=== PATIENT | female | born 1955 | race Caucasian/White ===

== ENCOUNTER 2018-02-11 13:31 | Emergency (ER) | END 2018-02-11 21:37 | disposition home or self-care (01) ==

== ENCOUNTER 2018-02-17 10:33 | Inpatient (IN) | payer OTHER ==
[2018-02-17] VITALS (41 sets, daily range): BP systolic 77–122; BP diastolic 46–84; PULSE 72–93; RESP 19–39; Ht 160 cm; Wt 81.0 kg
[~2018-02-17] VITALS: Ht 160 cm; Wt 81.0 kg
[~2018-02-17 10:33] MED LIST: ACET-141 PO; CEPH-443 PO; ETOMIDATE 20 MG INJ ONE; HYDR5TAB PO; NAPR-985 PO; SUCCINYLCHOLINE CHLORIDE 100 MG/5 ML SYG IV ONE; [UNRECOGNIZED DRUG - OTHER] PO
[2018-02-17] MEDS ORDERED: AZTREONAM 1 GM/NS (PMX) 50 ML IVPB STA (10:48)
[2018-02-17] MEDS ORDERED: SODIUM CHLORIDE 0.9% 1L BAG IV* STA (10:48)
[2018-02-17] MEDS ORDERED: VANCOMYCIN 1 GM (PMX) 250 ML IVPB ONE (11:00)
[2018-02-17] MEDS ORDERED: LEVALBUTEROL (NEB) 1.25 MG/0.5 ML AMP INH STA (11:22)
[2018-02-17] MEDS ORDERED: IPRATROPIUM (NEB) 0.5 MG/2.5 ML AMP INH STA (11:22)
[2018-02-17] MEDS ORDERED: LORAZEPAM 2 MG INJ IV ONE (12:30)
[2018-02-17] MEDS ORDERED: NORepinephrine 8MG/250 ML (PMX 250 ML IV STA (12:48)
[2018-02-17] MEDS ORDERED: MIDAZOLAM (DRIP) 50 mg/50 mL 50 ML IV STA (12:48)
[2018-02-17] MEDS ORDERED: SUCCINYLCHOLINE CHLORIDE 100 MG/5 ML SYG IV STA (12:48)
[2018-02-17] MEDS ORDERED: HYDROmorphONE 1 MG/ML SYG IV STA (12:48)
[2018-02-17] MEDS ORDERED: ETOMIDATE 20 MG INJ IV STA (12:48)
[2018-02-17] MEDS ORDERED: MIDAZOLAM 5 MG/ML 1 ML ONE (13:02)
--- NOTE | 2018-02-17 13:10 | HP ---
Date/Time of Note Date/Time of Note DATE: 02/17/18 TIME: 13:01 Assessment/Plan VTE Prophylaxis SCD applied (from Ns): Yes Pharmacological prophylaxis: NA/contraindicated Pharm contraindication: renal impairment Lines/Catheters IV [facility]from [facility] Saline Lock Assessment/Plan Hospital Course 1. Acute hypoxemic respiratory failure secondary to likely ARDS Etiology of ARDS may be secondary to underlying melanoma and/or immune modulating therapy and/or underlying infection Pulmonology consultation for vent management Broad-spectrum antibiotics Admit to ICU 2. Acute kidney injury secondary to sepsis and/or dehydration IV fluids 3. Normocytic anemia likely secondary to chronic disease from underlying malignancy Monitor 4. Stage IV melanoma Patient is on immune modulating therapy in [place] where she is from Prophylaxis: SCDs Result Diagram: 02/17/18 1108 02/17/18 1108 Results 24hrs Laboratory Tests Test 02/17/18 11:08 02/17/18 11:15 White Blood Count 8.6 # Red Blood Count 2.80 L Hemoglobin 9.0 L Hematocrit 27.8 L Mean Corpuscular Volume 99.3 Mean Corpuscular Hemoglobin 32.1 Mean Corpuscular Hemoglobin Concent 32.4 Red Cell Distribution Width 14.1 Platelet Count 125 #L Mean Platelet Volume 10.9 H Immature Granulocytes % 0.500 H Neutrophils % 60.7 Lymphocytes % 24.6 Monocytes % 11.8 H Eosinophils % 2.2 Basophils % 0.2 Nucleated Red Blood Cells % 0.2 H Immature Granulocytes # 0.040 H Neutrophils # 5.2 Lymphocytes # 2.1 Monocytes # 1.0 H Eosinophils # 0.2 Basophils # 0.0 Nucleated Red Blood Cells # 0.0 Prothrombin Time 14.0 Prothrombin Time Ratio 1.1 INR International Normalized Ratio 1.07 Activated Partial Thromboplast Time 37.4 H Sodium Level 137 Potassium Level 3.6 Chloride Level 101 Carbon Dioxide Level 24 Anion Gap 12 Blood Urea Nitrogen 20 Creatinine 1.02 H Est Glomerular Filtrat Rate mL/min 55 L Glucose Level 112 Calcium Level 7.7 L Total Bilirubin 0.2 Direct Bilirubin 0.00 Indirect Bilirubin 0.2 Aspartate Amino Transf (AST/SGOT) 33 Alanine Aminotransferase (ALT/SGPT) 19 Alkaline Phosphatase 209 H Troponin I < 0.012 Total Protein 5.7 L Albumin 3.0 L Globulin 2.70 Albumin/Globulin Ratio 1.11 POC Venous Lactate 4.1 *H HPI/ROS Admit Date/Time Admit Date/Time February 17, 2018 Hx of Present Illness Patient is a 62-year-old female with a history of stage IV melanoma currently on an experimental immune modulating chemotherapy. Patient lives in [place] and is visiting family. Patient was in the ER several days ago with fevers and low back pain and was diagnosed with a UTI and discharged with Keflex. Patient presents today with shortness of breath, chest x-ray showed bilateral opacities and patient was found to be hypoxic and tachypneic and was ultimately intubated in the ER. Patient is unable to provide any history at this time and history is obtained from prior documentation. ROS Subjective hx not possible: pt non-verbal PMH/Family/Social Past Medical History Stage IV melanoma currently on immune modulating therapy Medications Current Medications Midazolam HCl 50 ml @ 3 mls/hr ONCE STAT IV ; Start 02/17/18 at 12:48; Stop 02/18/18 at 05:27 Norepinephrine 250 ml @ 7.5 mls/hr ONCE STAT IV ; Start 02/17/18 at 12:48; Stop 02/18/18 at 22:07 Coded Allergies: Penicillins (Verified Allergy, Unknown, 02/17/18) Family History Significant Family History: no pertinent family hx Social History Smoking Status: Unknown if ever smoked Exam/Review of Systems Vital Signs Vitals Vital Signs Date Temp Pulse Resp B/P (MAP) Pulse Ox O2 O2 Flow FiO2 Time Delivery Rate 02/17/18 95 42 Simple 6.0 12:23 Mask 02/17/18 98 10:57 02/17/18 100 10:45 02/17/18 97.8 90/56 (67) 10:42 Exam Constitutional: non-verbal ENMT: intubated Respiratory: clear to auscultation Cardiovascular: regular rate and rhythm Gastrointestinal: soft; No distended Musculoskeletal: nl extremities to inspection JULY TRAMMELL Feb 17, 2018 13:10
[2018-02-17] MEDS ORDERED: ONDANSETRON 4 MG INJ IV PRN (13:30)
[2018-02-17] MEDS ORDERED: NACL 0.9% 3 ML SYG IV SCH (13:30)
[2018-02-17] MEDS ORDERED: MIDAZOLAM 1 MG/ML 5 ML INJ IV ONE (13:30)
[2018-02-17] MEDS ORDERED: METHYLPREDNISOLONE 125 MG INJ IV SCH (13:30)
[2018-02-17] MEDS ORDERED: VANCOMYCIN IV PER PHARMACY XX SCH (13:30)
--- NOTE | 2018-02-17 14:08 | ERD ---
ER Documentation Chief Complaint Chief Complaint sob staring today but has been flu like symptoms x 1 week HPI She is a 62-year-old female with melanoma who presents with shortness of breath. Please note the history and physical exam is limited secondary to the patient's mental status. The patient was brought in by ambulance. The patient had sudden onset of shortness of breath 3 days ago which has gotten worse. She had low bl ood pressure. She was given albuterol by paramedics. She was recently seen a few days ago and has been treated for UTI. She is currently on Keflex. She has fevers. She gets immunotherapy for her melanoma. Upon review of old medical records the patient had a previous visit on February 11. Her primary doctor is in [place] and she is visiting. ROS All systems reviewed and are negative except as per history of present illness. Medications Home Meds Active Scripts Cephalexin* (Keflex*) 500 Mg Capsule, 500 MG PO QID for 5 Days, CAP Prov:LUCIEN HORNER MD 02/11/18 Naproxen* (Naprosyn*) 500 Mg Tablet, 500 MG PO BID PRN for PAIN AND/OR INFLAMMATION, #30 TAB Prov:LUCIEN HORNER MD 02/11/18 Reported Medications [Cancer Meds] No Conflict Check, PO DAILY PATIENT TAKE MEDICATIONS FOR CANCER,BUT DON'T KNOW THE NAME AND DOSE. 02/11/18 Acetaminophen* (Acetaminophen*) 500 MG Extra Strength Tablet, 1000 MG PO NEEDED PRN for PAIN AND OR ELEVATED TEMP, TAB 02/11/18 Hydrocortisone* (Cortef*) 5 Mg Tab, 10 MG PO BID, #120 TAB 02/11/18 Allergies Allergies: Coded Allergies: Penicillins (Verified Allergy, Unknown, 02/17/18) PMhx/Soc History of Surgery: Yes (RT ARM SKINCANCER SX; RT AXILLARY LYMPH NODE REMOVAL, GALL BLADDER, THYROID) Anesthesia Reaction: No Hx Neurological Disorder: No Hx Respiratory Disorders: No Hx Cardiac Disorders: No Hx Psychiatric Problems: No Hx Miscellaneous Medical Probl: Yes (THYROID, SKIN CANCER) Hx Alcohol Use: No Hx Substance Use: No Hx Tobacco Use: No Smoking Status: Unknown if ever smoked FmHx Family History: No diabetes Physical Exam Vitals Vital Signs Date Temp Pulse Resp B/P (MAP) Pulse Ox O2 O2 Flow FiO2 Time Delivery Rate 02/17/18 97 35 87/53 (64) 95 Mask 6.0 12:30 02/17/18 95 42 Simple 6.0 12:23 Mask 02/17/18 91 29 91/72 (78) 90 Mask 8.0 12:00 02/17/18 108 41 97/81 (86) 80 Room Air 8.0 11:00 02/17/18 98 8.0 10:57 02/17/18 Nasal 2 10:54 Cannula 02/17/18 100 10:45 02/17/18 111 40 Simple 6.0 10:45 Mask 02/17/18 97.8 115 30 90/56 (67) 10:42 Physical Exam Const: Moderate distress Head: Atraumatic Eyes: Normal Conjunctiva ENT: Normal External Ears, Nose and Mouth. Neck: Full range of motion. No meningismus. Resp: Tachypnea and retractions with rhonchorous breath sounds Cardio: Tachycardic rate Abd: Soft, non tender, non distended. Normal bowel sounds Skin: No petechiae or rashes Back: No midline or flank tenderness Ext: No cyanosis, or edema Neur: Awake confused Result Diagram: 02/17/18 1108 02/17/18 1108 Results 24 hrs Laboratory Tests Test 02/17/18 11:05 02/17/18 11:08 02/17/18 11:15 02/17/18 13:24 Urine Color YELLOW Urine Clarity SLIGHTLY CLOUDY Urine pH 5.0 Urine Specific 1.027 [place] Urine Ketones NEGATIVE mg/dL Urine Nitrite NEGATIVE mg/dL Urine Bilirubin NEGATIVE mg/dL Urine Urobilinogen NEGATIVE mg/dL Urine Leukocyte NEGATIVE Jake/ul Esterase Urine Microscopic 5 /HPF RBC Urine Microscopic 1 /HPF WBC Urine Mucus FEW /HPF Urine Hemoglobin NEGATIVE mg/dL Urine Glucose NEGATIVE mg/dL Urine Total Protein 1+ mg/dl White Blood Count 8.6 10^3/ul Red Blood Count 2.80 10^6/ul Hemoglobin 9.0 g/dl Hematocrit 27.8 % Mean Corpuscular 99.3 fl Volume Mean Corpuscular 32.1 pg Hemoglobin Mean Corpuscular 32.4 g/dl Hemoglobin Concent Red Cell 14.1 % Distribution Width Platelet Count 125 10^3/UL Mean Platelet 10.9 fl Volume Immature 0.500 % Granulocytes % Neutrophils % 60.7 % Lymphocytes % 24.6 % Monocytes % 11.8 % Eosinophils % 2.2 % Basophils % 0.2 % Nucleated Red Blood 0.2 /100WBC Cells % Immature 0.040 10^3/ul Granulocytes # Neutrophils # 5.2 10^3/ul Lymphocytes # 2.1 10^3/ul Monocytes # 1.0 10^3/ul Eosinophils # 0.2 10^3/ul Basophils # 0.0 10^3/ul Nucleated Red Blood 0.0 10^3/ul Cells # Prothrombin Time 14.0 Sec Prothrombin Time 1.1 Ratio INR International 1.07 Normalized Ratio Activated 37.4 Sec Partial Thromboplas t Time Sodium Level 137 mmol/L Potassium Level 3.6 mmol/L Chloride Level 101 mmol/L Carbon Dioxide 24 mmol/L Level Anion Gap 12 Blood Urea Nitrogen 20 mg/dl Creatinine 1.02 mg/dl Est Glomerular 55 mL/min Filtrat Rate mL/min Glucose Level 112 mg/dl Calcium Level 7.7 mg/dl Total Bilirubin 0.2 mg/dl Direct Bilirubin 0.00 mg/dl Indirect Bilirubin 0.2 mg/dl Aspartate Amino 33 IU/L Transf (AST/SGOT) Alanine 19 IU/L Aminotransferase (A LT/SGPT) Alkaline 209 IU/L Phosphatase Troponin I < 0.012 ng/ml Total Protein 5.7 g/dl Albumin 3.0 g/dl Globulin 2.70 g/dl Albumin/Globulin 1.11 Ratio POC Venous Lactate 4.1 mmol/L Lactic Acid Level 4.2 mmol/L Test 02/17/18 13:27 POC Venous Lactate 3.5 mmol/L Current Medications Medications Dose Sig/Nayan Start Time Status Last (Trade) Ordered Route PRN Stop Time Admin Dose Reason Admin Sodium 2,180 ml BOLUS OVER 2 02/17/18 DC 02/17/18 Chloride HOURS STAT 10:48 02/17/18 11:21 (NS) IV* 10:50 Vancomycin 250 ml @ ONCE ONCE 02/17/18 DC 02/17/18 HCl 125 mls/hr IVPB 11:00 02/17/18 12:16 12:59 Aztreonam 50 ml @ ONCE STAT 02/17/18 DC 02/17/18 100 mls/hr IVPB 10:48 02/17/18 11:25 11:17 5 mg ONCE STAT 02/17/18 DC 02/17/18 Levalbuterol INH 11:22 02/17/18 12:16 (Xopenex 11:23 Neb) Ipratropium 1 mg ONCE STAT 02/17/18 DC 02/17/18 [place]ion INH 11:22 02/17/18 12:17 (Atrovent 11:23 0.02% (Neb)) Lorazepam 1 mg ONCE ONCE 02/17/18 DC 02/17/18 (Ativan) IV 12:30 02/17/18 12:15 12:31 150 mg ONCE STAT 02/17/18 DC 02/17/18 Succinylcholi IV 12:48 02/17/18 12:51 ne Chloride 12:49 (Anectine Syringe) Etomidate 20 mg ONCE STAT 02/17/18 DC 02/17/18 (Amidate) IV 12:48 02/17/18 12:51 12:49 1 mg ONCE STAT 02/17/18 DC 02/17/18 Hydromorphone IV 12:48 02/17/18 13:37 HCl 12:49 (Dilaudid) Midazolam 50 ml @ 3 ONCE STAT 02/17/18 02/17/18 HCl mls/hr IV 12:48 02/18/18 13:08 05:27 250 ml @ ONCE STAT 02/17/18 02/17/18 Norepinephrin 7.5 mls/hr IV 12:48 02/18/18 13:38 e 22:07 Midazolam 5 mg ONCE ONCE 02/17/18 DC 02/17/18 HCl IV 13:30 02/17/18 13:38 (Versed) 13:31 Midazolam 1 ml @ ud STK-MED 02/17/18 DC HCl ONCE .ROUTE 13:02 02/17/18 13:03 Sodium 1,000 ml @ Q20H IV 02/17/18 UNV Chloride 50 mls/hr 13:11 IV Flush 3 ml PER 02/17/18 UNV (NS 3 ml) PROTOCOL IV 13:30 Ondansetron 4 mg Q6H PRN 02/17/18 UNV HCl (Zofran IV NAUSEA 13:30 Inj) AND/OR VOMITING 650 mg Q6H PRN 02/17/18 UNV Acetaminophen PO PAIN 13:30 (Tylenol LEVEL 1-3 OR Tab) FEVER 1 tab Q6H PRN 02/17/18 UNV Acetaminophen PO MODERATE 13:30 / PAIN LEVEL Hydrocodone 4-6 Bitart ([place] (5/325)) Morphine 2 mg Q4H PRN 02/17/18 UNV Sulfate IV SEVERE 13:30 (morphine) PAIN LEVEL 7-10 Docusate 100 mg Q12H PRN 02/17/18 UNV Sodium PO 13:30 (Colace) CONSTIPATION 40 mg DAILY@06 02/18/18 UNV Pantoprazole IV 06:00 (Protonix Iv) Vancomycin VANCOMYCIN PER 02/17/18 UNV HCl (Vanco PER PHARMACY PROTOCOL XX 13:30 Iv Per Pharmacy) Aztreonam 50 ml @ Q12 IVPB 02/17/18 UNV 100 mls/hr 21:00 80 mg Q6 IV 02/17/18 UNV Methylprednis 13:30 olone Sodium Succinate (Solu-Medrol) Procedures/MDM EKG read by me: Rate/Rhythm: Sinus tachycardia Intervals: Normal Impression: Tachycardia without ischemia Chest x-ray shows bilateral infiltrates per radiology. Endotracheal Intubation by me: Pre assessment performed. Pre-oxygenation performed with 100% oxygen RSI: Performed w/o complication or hypoxic events. Medications as ordered. Blade: MAC 4 video laryngoscope ET Tube: 7.5 cm Depth: 23 cm at the lip Intubation confirmed by colorimetric CO2, equal breath sounds, quiet over the stomach. Chest X-ray 1V Interpreted by me: 1 cm above the esther ET tube. Normal soft tissue, No pneumothorax. Sepsis Documentation: Patient's infectious symptoms have not stabilized and the patient is at risk of rapid decompensation. The patient will be admitted for careful hydration, antibiotic therapy, and infectious source control. SEVERE SEPSIS CRITERIA: Infectious source: Pneumonia End organ damage indicated by: Lactate greater than 2 SEPSIS MANAGEMENT Time of recognition of sepsis: 11:15 AM. Time of recognition of severe sepsis: 11:15 AM. Time of recognition of septic shock: 11:15 AM. 3 HOUR BUNDLE Blood cultures x 2 before broad-spectrum antibiotics: Yes 30 ml/kg NS bolus completed Initial lactate 4.1 Repeat lactate 3.5 SEPTIC SHOCK ASSESSMENT: yes lactic acid > 4.0 Yes persistent hypotension (SBP < 90 or 40 mmHg drop, MAP < 65) despite 30 mL/kg IV fluid bolus VOLUME REASSESSMENT FOR SEPTIC SHOCK: Reevaluation Time: 1330 Temp 97.8, BP 96/58, HR 88, RR 24, Pox 81% Heart regular rate & rhythm Lungs no crackles Skin pale Cap Refill less than 2 seconds Peripheral pulses radially present PERSISTENT HYPOTENSION TREATMENT: Comfort care no Central line right femoral central line Vasopressor started norepinephrine I considered further perfusion assessment with CVP measurement, SCVO2, bedside ultrasound volume assessment, passive leg raise, trial of further fluid bolus. And proceeded with 30 ml/kg fluid bolus of NSS, broad spectrum antibiotics, and admission. The patient will be admitted to the intensive care unit under the care of Dr. Concepcion. Vecuronium was ordered for paralysis as the patient was fighting an oxygenation was difficult. CRITICAL CARE Critical care time 35 minutes Emergent fluid management while maintaining close respiratory support. Provision of immediate and broad-spectrum antibiotic therapy. Simultaneous assessment for possible sources in order to direct targeted therapy. Consideration for invasive and chemical support to prevent cardiopulmonary c ollapse. Critical care time is independent of procedures performed. Departure Diagnosis: Primary Impression: Septic shock Additional Impressions: Pneumonia Pneumonia type: due to unspecified organism Laterality: bilateral Lung location: unspecified part of lung Qualified Codes: J18.9 - Pneumonia, unspecified organism Acute respiratory distress syndrome Respiratory failure Chronicity: acute Respiratory failure complication: hypoxia Qualified Codes: J96.01 - Acute respiratory failure with hypoxia Condition: Critical MCKAY MICHEL MD Feb 17, 2018 14:08
[2018-02-17] MEDS ORDERED: AZTREONAM 1 GM/NS (PMX) 50 ML IVPB SCH (15:00)
[2018-02-17] MEDS: SOD CHLORIDE 0.9% 1,000 ML IV SCH (15:33)
--- NOTE | 2018-02-17 15:53 | RADRPT ---
Echocardiogram Report Patient Name: BRENNA MEMBRENO Gender: Female Date: 1955 Study Date: 17-Feb-2018 Flexographic Press Set Up Operator: Gaston Oneal RCDS Location: [address] [place] [address] Ref. Physician: JULY TRAMMELL Quality: Technically Difficult Study Procedures: Transthoracic echocardiogram with complete 2D, M-Mode, and doppler examination. Indications: Congestive Heart Failure. 2D/M Mode Doppler Measurement Value Normal Ranges Measurement Value Normal Ranges LVIDd 2D 3.7 3.5 - 5.6 cm AV Peak Kaleb 1.1 m/sec LVIDs 2D 2.5 2.1 - 4.1 cm AV Peak PG 5.0 mmHg FS 2D 33.7 % LVOT Peak Kaleb 0.6 m/sec LVPWd 2D 1.0 0.6 - 1.1 cm LVOT Peak PG 2.0 mmHg IVSd 2D 1.0 0.6 - 1.1 cm MV E Peak Kaleb 0.7 m/sec IVS/LVPW 2D 1.0 MV A Peak Kaleb 0.4 m/sec AoR Diam 2D 2.6 2.0 - 3.7 cm MV E/A 1.5 LA/Ao 2D 1 0 - 1 MV Decel Time 127 msec EDV 2D 51.1 cm3 MV E/A 1.5 ESV 2D 14.9 cm3 TR Peak Kaleb 2.6 m/sec LA Dimen 2D 3.1 2.3 - 4.0 cm TR Peak PG 27.0 mmHg Findings Left Ventricle: Normal left ventricular systolic function. Normal left ventricular cavity size. Normal left ventricular wall thickness. Ejection fraction is visually estimated at 65 %. Right Ventricle: Normal right ventricular size. Normal right ventricular systolic function. Left Atrium: The left atrium is normal in size. Right Atrium: The right atrium is normal in size. Mitral Valve: Normal appearance of the mitral valve. Trace mitral regurgitation. Aortic Valve: Normal trileaflet aortic valve structure. No aortic regurgitation. Tricuspid Valve: Normal appearance of the tricuspid valve. There is trace tricuspid regurgitation. Pericardium: Not well visualized. Aorta: Normal aortic root. IVC: The IVC is not well visualized. Conclusions Technically difficult study. Normal left ventricular systolic function. Trace mitral and tricuspid regurgitation. Electronically Signed By: Opal Julian 17-Feb-2018 15:52:53 -0800 Patient Name: BRENNA MEMBRENO Study Date: 17-Feb-[id number]
[2018-02-17] MEDS: MIDAZOLAM (DRIP) 50 mg/50 mL 50 ML IV SCH ×2 (18:45→23:57)
[2018-02-17] MEDS: VANCOMYCIN 750 MG (PMX) 250 ML IVPB SCH (19:56)
[2018-02-17] MEDS: METHYLPREDNISOLONE 125 MG INJ IV SCH (21:47)
[2018-02-17] MEDS: AZTREONAM 1 GM/NS (PMX) 50 ML IVPB SCH (21:47)
[2018-02-17] MEDS: morphine SULFATE/PF (2 MG/2 ML) SYG IV PRN (23:43)
[2018-02-18] VITALS (100 sets, daily range): BP systolic 62–170; BP diastolic 41–101; PULSE 64–78; RESP 20–49
[2018-02-18] MEDS: METHYLPREDNISOLONE 125 MG INJ IV SCH ×4 (04:33→22:03)
[2018-02-18] MEDS: morphine SULFATE/PF (2 MG/2 ML) SYG IV PRN (05:18)
[2018-02-18] MEDS: AZTREONAM 1 GM/NS (PMX) 50 ML IVPB SCH ×3 (05:23→22:03)
[2018-02-18] MEDS: PANTOPRAZOLE 40 MG INJ IV SCH (05:26)
[2018-02-18] MEDS: MIDAZOLAM (DRIP) 50 mg/50 mL 50 ML IV SCH (06:49)
[2018-02-18] MEDS: VANCOMYCIN 750 MG (PMX) 250 ML IVPB SCH (07:59)
[2018-02-18] MEDS: SOD CHLORIDE 0.9% 1,000 ML IV SCH (07:59)
[2018-02-18] MEDS ORDERED: LIDOCAINE 1% (MPF) 5 ML VIAL SC ONE (09:30)
[2018-02-18] MEDS: PROPOFOL 100 ML IV SCH ×2 (09:42→18:00)
[2018-02-18] MEDS ORDERED: DEXTROSE 50% 50 ML SYRINGE IV PRN ×2 (10:30)
[2018-02-18] MEDS: INSULIN HUMAN REGULAR 100 UNIT in SOD CHLORIDE 0.9% 99 ML IV SCH ×3 (11:00→12:03)
[2018-02-18] MEDS: ACCU-CHEK XX SCH ×13 (11:00→22:43)
[2018-02-18] MEDS: FENTAnyl (DRIP) 1000 mcg/100mL 100 ML IV SCH (11:58)
--- NOTE | 2018-02-18 12:35 | CONS ---
DATE OF ADMISSION: 02/17/2018 DATE OF CONSULTATION: TYPE OF CONSULTATION: Pulmonary. REASON FOR CONSULTATION: Respiratory failure. Thank you, Dr. Concepcion, for this consultation. HISTORY OF PRESENT ILLNESS: This is a 62-year-old lady with a history of metastatic melanoma, nancy burr receiving immunotherapy, visiting from [place], recent presentation to the emergency room several days ago for abdominal discomfort, found to have UTI, treated with Keflex. Yesterday, she represent ed with increasing shortness of breath, orthopnea, PND and was found to have extensive bilateral infi ltrates consistent with ARDS. She was emergently intubated, central line in place, transferred to in tensive care unit, where she continues vasopressor support, mechanical ventilation with 100% FiO2 and PEEP of 10. PAST MEDICAL HISTORY: Metastatic melanoma with multiple surgeries including lymph node removal in th e right lung, history of asthma. MEDICATIONS: Per chart. ALLERGIES: PENICILLIN. SOCIAL HISTORY: Nonsmoker, no alcohol, no history of drug use. FAMILY HISTORY: Noncontributory. REVIEW OF SYSTEMS: A 12-point review of systems was negative other than that mentioned above. PHYSICAL EXAMINATION: GENERAL: Well-nourished, well-developed lady with some spontaneous movement on low dose sedation. VITAL SIGNS: Currently afebrile, pulse is 70, blood pressure 111/60, O2 saturation 96%, FiO2 of 100% , PEEP of 10. NECK: Supple. No JVD or lymphadenopathy. CARDIAC: S1, S2. No added sounds or murmurs. CHEST: Diminished air entry bilaterally with rales. ABDOMEN: Soft, nontender. No guarding or rebound. EXTREMITIES: No cyanosis, clubbing or edema. NEUROLOGIC: Grossly intact. No focal deficits. DIAGNOSTIC STUDIES: Echocardiogram shows preserved ejection fraction, trace tricuspid regurgitation. LABORATORY DATA: White count 12.9, hemoglobin 8.9, platelets of 126. BUN 16, creatinine 0.76. Init ial lactic acid was 3.5, now 1.9. IMPRESSION AND PLAN: 1. Acute hypoxemic respiratory failure consistent with acute respiratory distress syndrome, unclear whether this is secondary to community-acquired infection versus underlying immunotherapy versus unde rlying malignant process. 2. History of metastatic melanoma. 3. Recent urinary tract infection per chart. PLAN: 1. Continue mechanical ventilation. She will require low tidal volume, high PEEP strategy if tolera belia. 2. Continue antibiotics with steroids. 3. IV insulin for progressive hyperglycemia. 4. Left upper extremity PICC line placement. Dictated By: ABBIE ARAUZ MD SV/GENOVEVA Conf#: [id number] DID#: [id number] CC: JULY CONCEPCION MD;*EndCC*
--- NOTE | 2018-02-18 13:44 | PN ---
Date/Time of Note Date/Time of Note DATE: 02/18/18 TIME: 13:38 Assessment/Plan VTE Prophylaxis Risk score (from [facility])>0 risk: 10 SCD applied (from [facility]): Yes Pharmacological prophylaxis: NA/contraindicated Pharm contraindication: renal impairment Assessment/Plan Hospital Course 1. Acute hypoxemic respiratory failure secondary to ARDS Etiology of ARDS may be secondary to underlying melanoma and/or immune modulating therapy and/or underlying infection Pulmonology consultation for vent management Continue IV steroids Broad-spectrum antibiotics 2. Acute kidney injury secondary to sepsis and/or dehydration-resolved IV fluids 3. Normocytic anemia likely secondary to chronic disease from underlying malignancy Monitor 4. Stage IV melanoma Patient is on immune modulating therapy in [place] where she is from Oncology consultation with obtained Prophylaxis: SCDs Result Diagram: 02/18/18 0425 02/18/18 0425 Results 24hrs Laboratory Tests Test 02/18/18 04:25 02/18/18 07:00 02/18/18 09:45 02/18/18 09:55 White Blood Count 12.9 #H Red Blood Count 2.78 L Hemoglobin 8.9 L Hematocrit 27.6 L Mean Corpuscular 99.3 Volume Mean Corpuscular 32.0 Hemoglobin Mean Corpuscular 32.2 Hemoglobin Concent Red Cell 14.2 Distribution Width Platelet Count 126 L Mean Platelet 10.1 Volume Immature 0.700 H Granulocytes % Neutrophils % 88.1 H Lymphocytes % 7.9 L Monocytes % 3.2 Eosinophils % 0.0 Basophils % 0.1 Nucleated Red 0.2 H Blood Cells % Immature 0.090 H Granulocytes # Neutrophils # 11.4 H Lymphocytes # 1.0 Monocytes # 0.4 Eosinophils # 0.0 Basophils # 0.0 Nucleated Red 0.0 Blood Cells # Sodium Level 143 Potassium Level 4.9 Chloride Level 110 Carbon Dioxide 21 Level Anion Gap 12 Blood Urea 16 Nitrogen Creatinine 0.76 Est Glomerular > 60 Filtrat Rate mL/min Glucose Level 234 #H Hemoglobin A1c 5.3 Calcium Level 7.4 L Phosphorus Level 2.9 Magnesium Level 2.8 H Blood Gas Specimen Blood arterial Source Arterial Blood 02/18/2018 7:19:40 Date Drawn AM Arterial Blood pH 7.363 (Temp corrected) Arterial Blood 36.2 pCO2 (Temp correct) Arterial Blood pO2 82.2 (Temp corrected) Arterial Blood 20.1 L HCO3 Arterial Blood -4.7 L Base Excess Arterial Blood 95.7 Oxygen Saturation Ruperto Test ACCEPTAB Arterial Blood Gas Left Radial Puncture Site Arterial 0.3 Blood Carboxyhemog lobin Arterial Blood 0.1 Methemoglobin Blood Gas A-a O2 594.6 H Differential Oxyhemoglobin 95.3 Percent Blood Gas 37.0 Temperature Blood Gas 24.0 Respiration Rate Blood Gas Actual 33 Respiration Rate Blood Gas Modality VENT - AC FiO2 100.0 Blood Gas Tidal 500.0 Volume Blood Gas Low PEEP 5.0 Setting Blood Gas Notified TM Whom Blood Gas Notified 02/18/2018 7:37:59 Time AM Bedside Glucose 186 Lactic Acid Level 1.9 Test 02/18/18 12:00 02/18/18 12:46 Bedside Glucose 166 190 Subjective 24 Hr Interval Summary Subjective hx not possible: pt non-verbal Exam/Review of Systems Vital Signs Vitals Vital Signs Date Temp Pulse Resp B/P (MAP) Pulse Ox O2 O2 Flow FiO2 Time Delivery Rate 02/18/18 70 12:00 02/18/18 100 12:00 02/18/18 26 116/71 96 Mechanical 11:00 (86) Ventilator 02/18/18 98.7 08:00 02/17/18 15.0 14:00 Intake and Output 02/17/18 02/17/18 02/18/18 1515:00 23:00 07:00 IntakeIntake Total 2560.5 ml 914.75 ml 720.78 ml OutputOutput Total 85 ml 860 ml 725 ml BalanceBalance 2475.5 ml 54.75 ml -4.22 ml Exam Constitutional: non-verbal ENMT: intubated Respiratory: clear to auscultation Cardiovascular: regular rate and rhythm Gastrointestinal: soft; No distended Musculoskeletal: nl extremities to inspection Medications Medications Current Medications IV Flush (NS 3 ml) 3 ml PER PROTOCOL IV ; Start 02/17/18 at 13:30 Ondansetron HCl (Zofran Inj) 4 mg Q6H PRN IV NAUSEA AND/OR VOMITING; Start 02/17/18 at 13:30 Acetaminophen (Tylenol Tab) 650 mg Q6H PRN PO PAIN LEVEL 1-3 OR FEVER; Start 02/17/18 at 13:30 Acetaminophen/ Hydrocodone Bitart ([place] (5/325)) 1 tab Q6H PRN PO MODERATE PAIN LEVEL 4-6; Start 02/17/18 at 13:30 Morphine Sulfate (morphine SULFATE (PF)) 2 mg Q4H PRN IV SEVERE PAIN LEVEL 7-10 Last administered on 02/18/18 05:18; Admin Dose 2 MG; Start 02/17/18 at 13:30 Docusate Sodium (Colace) 100 mg Q12H PRN PO CONSTIPATION; Start 02/17/18 at 13:30 Pantoprazole (Protonix Iv) 40 mg DAILY@06 IV Last administered on 02/18/18 05:26; Admin Dose 40 MG; Start 02/18/18 at 06:00 Vancomycin HCl (Vanco Iv Per Pharmacy) VANCOMYCIN PER PHARMACY PER PROTOCOL XX ; Start 02/17/18 at 13:30 Vancomycin/Sodium Chloride 250 ml @ 125 mls/hr Q12H IVPB Last administered on 02/18/18 07:59; Admin Dose 125 MLS/HR; Start 02/17/18 at 20:00 Aztreonam 50 ml @ 100 mls/hr Q8 IVPB Last administered on 02/18/18 05:23; Admin Dose 100 MLS/HR; Start 02/17/18 at 22:00 Methylprednisolone Sodium Succinate (Solu-Medrol) 80 mg Q6H IV Last administered on 02/18/18 09:42; Admin Dose 80 MG; Start 02/17/18 at 21:30 Norepinephrine 16 mg/Dextrose 500 ml @ 1.88 mls/hr TITRATE IV Last administered on 02/17/18 20:34; Admin Dose 26.25 MLS/HR; Start 02/17/18 at 18:30 Midazolam HCl 50 ml @ 1 mls/hr TITRATE IV Last administered on 02/18/18 06:49; Admin Dose 8 MLS/HR; Start 02/17/18 at 18:30 Propofol 100 ml @ 2.43 mls/hr Q12H IV Last administered on 02/18/18 09:42; Admin Dose 4.86 MLS/HR; Start 02/18/18 at 09:30 Fentanyl 100 ml @ 2.5 mls/hr TITRATE IV Last administered on 02/18/18 11:58; Admin Dose 2.5 MLS/HR; Start 02/18/18 at 09:30 Diagnostic Test (Pha) (Accu-Chek) 1 ea Q1H XX Last administered on 02/18/18at 13:15; Admin Dose 1 EA; Start 02/18/18 at 11:00 Insulin Human Regular 100 unit/ Sodium Chloride 100 ml @ 0 mls/hr PER PROTOCOL IV Last administered on 02/18/18at 12:00; Admin Dose 1.5 MLS/HR; Start 02/18/18 at 11:00 Miscellaneous Information (* Miscellaneous Pharmacy Order) Treatment of Hypoglycemia: 1.BG 51... Per protocol XX ; Start 02/18/18 at 10:30 Dextrose (D50w Syringe) 25 ml Q15M PRN IV DECREASED GLUCOSE; Start 02/18/18 at 10:30 Dextrose (D50w Syringe) 50 ml Q15M PRN IV DECREASED GLUCOSE; Start 02/18/18 at 10:30 Miscellaneous Information (*Rx Drug Level Order Reminder*) VANCOMYCIN TROUGH LEVEL ... ONCE ONCE XX ; Start 02/18/18 at 19:00; Stop 02/18/18 at 19:01 IV Flush (NS 10 ml) 10 ml PRN PRN IV IV PROTOCOL; Start 02/18/18 at 13:30 JULY TRAMMELL Feb 18, 2018 13:44
--- NOTE | 2018-02-18 14:45 | CONS ---
Date/Time of Note Date/Time of Note DATE: 02/18/18 TIME: 14:29 Assessment/Plan Assessment/Plan Hospital Course 62 yo female with #Metastatic Melanoma - last Nivolumab was 2 weeks ago #ARDS - likely 2/2 Nivolumab and questionable underlying pneumonia -agree with high dose steroids the patient is currently getting - solumedrol 80mg q 6 hours -continue IV antibiotics in case of any underlying infection contributing to ARDS -If patient is able to recover I would not recommend for her to continue Nivolumab given this grade 4 toxicity -continue critical care measure with vasopressor support and mechanical ventilation Approximately 50 min was spend in face to face time with patent's son at the bed side, and in coordination of her care. Result Diagram: 02/18/18 0425 02/18/18 0425 Results 24hrs Laboratory Tests Test 02/18/18 04:25 02/18/18 07:00 02/18/18 09:45 02/18/18 09:55 White Blood Count 12.9 #H Red Blood Count 2.78 L Hemoglobin 8.9 L Hematocrit 27.6 L Mean Corpuscular 99.3 Volume Mean Corpuscular 32.0 Hemoglobin Mean Corpuscular 32.2 Hemoglobin Concent Red Cell 14.2 Distribution Width Platelet Count 126 L Mean Platelet 10.1 Volume Immature 0.700 H Granulocytes % Neutrophils % 88.1 H Lymphocytes % 7.9 L Monocytes % 3.2 Eosinophils % 0.0 Basophils % 0.1 Nucleated Red 0.2 H Blood Cells % Immature 0.090 H Granulocytes # Neutrophils # 11.4 H Lymphocytes # 1.0 Monocytes # 0.4 Eosinophils # 0.0 Basophils # 0.0 Nucleated Red 0.0 Blood Cells # Sodium Level 143 Potassium Level 4.9 Chloride Level 110 Carbon Dioxide 21 Level Anion Gap 12 Blood Urea 16 Nitrogen Creatinine 0.76 Est Glomerular > 60 Filtrat Rate mL/min Glucose Level 234 #H Hemoglobin A1c 5.3 Calcium Level 7.4 L Phosphorus Level 2.9 Magnesium Level 2.8 H Blood Gas Specimen Blood arterial Source Arterial Blood 02/18/2018 7:19:40 Date Drawn AM Arterial Blood pH 7.363 (Temp corrected) Arterial Blood 36.2 pCO2 (Temp correct) Arterial Blood pO2 82.2 (Temp corrected) Arterial Blood 20.1 L HCO3 Arterial Blood -4.7 L Base Excess Arterial Blood 95.7 Oxygen Saturation Ruperto Test ACCEPTAB Arterial Blood Gas Left Radial Puncture Site Arterial 0.3 Blood Carboxyhemog lobin Arterial Blood 0.1 Methemoglobin Blood Gas A-a O2 594.6 H Differential Oxyhemoglobin 95.3 Percent Blood Gas 37.0 Temperature Blood Gas 24.0 Respiration Rate Blood Gas Actual 33 Respiration Rate Blood Gas Modality VENT - AC FiO2 100.0 Blood Gas Tidal 500.0 Volume Blood Gas Low PEEP 5.0 Setting Blood Gas Notified TM Whom Blood Gas Notified 02/18/2018 7:37:59 Time AM Bedside Glucose 186 Lactic Acid Level 1.9 Test 02/18/18 12:00 02/18/18 12:46 02/18/18 13:59 Bedside Glucose 166 190 163 Consultation Date/Type/Reason Admit Date/Time February 17, 2018 Date of Consultation: Feb 18, 2018 Type of Consult oncology Reason for Consultation metastatic melanoma Requesting Provider: JULY TRAMMELL Hx of Present Illness Ms Stanley is a pleasant 62 yo female who was initially diagnosed with metastatic melanoma 5 years ago. Pt was started on Nivolumab a couple of years ago but developed severe colitis. It was then discontinued. Then 2 months ago, the nivolumab q month was restarted. Pt came to visit son on 02/09/18 at which time she ad developed a mild cough and fevers. Pt was seen at an ER and was given keflex for a UTI. Unfortunately the cough became worse which led to patient's admission on an . A CXR was performed which revealed extensive bibasilar infiltrates. Pt was emergently intubated, and is in the ICU on vasopressor support and mechanical ventilation. She is currently on FiO2 of 90% and remains on antibiotics. Subjective hx not possible: pt non-verbal, pt critical status Past Medical History stage IV melanoma h/o colitis 2/2 nivolumab Medications Current Medications IV Flush (NS 3 ml) 3 ml PER PROTOCOL IV ; Start 02/17/18 at 13:30 Ondansetron HCl (Zofran Inj) 4 mg Q6H PRN IV NAUSEA AND/OR VOMITING; Start 02/17/18 at 13:30 Acetaminophen (Tylenol Tab) 650 mg Q6H PRN PO PAIN LEVEL 1-3 OR FEVER; Start 02/17/18 at 13:30 Acetaminophen/ Hydrocodone Bitart ([place] (5/325)) 1 tab Q6H PRN PO MODERATE PAIN LEVEL 4-6; Start 02/17/18 at 13:30 Morphine Sulfate (morphine SULFATE (PF)) 2 mg Q4H PRN IV SEVERE PAIN LEVEL 7-10 Last administered on 02/18/18 05:18; Admin Dose 2 MG; Start 02/17/18 at 13:30 Docusate Sodium (Colace) 100 mg Q12H PRN PO CONSTIPATION; Start 02/17/18 at 13:30 Pantoprazole (Protonix Iv) 40 mg DAILY@06 IV Last administered on 02/18/18 05:26; Admin Dose 40 MG; Start 02/18/18 at 06:00 Vancomycin HCl (Vanco Iv Per Pharmacy) VANCOMYCIN PER PHARMACY PER PROTOCOL XX ; Start 02/17/18 at 13:30 Vancomycin/Sodium Chloride 250 ml @ 125 mls/hr Q12H IVPB Last administered on 02/18/18 07:59; Admin Dose 125 MLS/HR; Start 02/17/18 at 20:00 Aztreonam 50 ml @ 100 mls/hr Q8 IVPB Last administered on 02/18/18 13:56; A dmin Dose 100 MLS/HR; Start 02/17/18 at 22:00 Methylprednisolone Sodium Succinate (Solu-Medrol) 80 mg Q6H IV Last administered on 02/18/18 09:42; Admin Dose 80 MG; Start 02/17/18 at 21:30 Norepinephrine 16 mg/Dextrose 500 ml @ 1.88 mls/hr TITRATE IV Last administered on 02/17/18 20:34; Admin Dose 26.25 MLS/HR; Start 02/17/18 at 18:30 Midazolam HCl 50 ml @ 1 mls/hr TITRATE IV Last administered on 02/18/18 06:49; Admin Dose 8 MLS/HR; Start 02/17/18 at 18:30 Propofol 100 ml @ 2.43 mls/hr Q12H IV Last administered on 02/18/18 09:42; Admin Dose 4.86 MLS/HR; Start 02/18/18 at 09:30 Fentanyl 100 ml @ 2.5 mls/hr TITRATE IV Last administered on 02/18/18 11:58; Admin Dose 2.5 MLS/HR; Start 02/18/18 at 09:30 Diagnostic Test (Pha) (Accu-Chek) 1 ea Q1H XX Last administered on 02/18/18at 13:56; Admin Dose 1 EA; Start 02/18/18 at 11:00 Insulin Human Regular 100 unit/ Sodium Chloride 100 ml @ 0 mls/hr PER PROTOCOL IV Last administered on 02/18/18at 12:00; Admin Dose 1.5 MLS/HR; Start 02/18/18 at 11:00 Miscellaneous Information (* Miscellaneous Pharmacy Order) Treatment of Hypoglycemia: 1.BG 51... Per protocol XX ; Start 02/18/18 at 10:30 Dextrose (D50w Syringe) 25 ml Q15M PRN IV DECREASED GLUCOSE; Start 02/18/18 at 10:30 Dextrose (D50w Syringe) 50 ml Q15M PRN IV DECREASED GLUCOSE; Start 02/18/18 at 10:30 Miscellaneous Information (*Rx Drug Level Order Reminder*) VANCOMYCIN TROUGH LEVEL ... ONCE ONCE XX ; Start 02/18/18 at 19:00; Stop 02/18/18 at 19:01 IV Flush (NS 10 ml) 10 ml PRN PRN IV IV PROTOCOL; Start 02/18/18 at 13:30 Allergies: Coded Allergies: Penicillins (Verified Allergy, Unknown, 02/17/18) Family History Significant Family History: no pertinent family hx Social History Alcohol Use: none Smoking Status: Former smoker Drug Use: none Exam/Review of Systems Vital Signs Vitals Vital Signs Date Temp Pulse Resp B/P (MAP) Pulse Ox O2 O2 Flow FiO2 Time Delivery Rate 02/18/18 70 12:00 02/18/18 100 12:00 02/18/18 26 116/71 96 Mechanical 11:00 (86) Ventilator 02/18/18 98.7 08:00 02/17/18 15.0 14:00 Intake and Output 02/17/18 02/17/18 02/18/18 1515:00 23:00 07:00 IntakeIntake Total 2560.5 ml 914.75 ml 720.78 ml OutputOutput Total 85 ml 860 ml 725 ml BalanceBalance 2475.5 ml 54.75 ml -4.22 ml Exam Head: normocephalic Eyes: nl conjunctiva ENMT: intubated Neck: supple, non-tender Respiratory: crackles/rales, diminished breath sounds, intercostal retraction, labored breathing Cardiovascular: regular rate and rhythm Gastrointestinal: soft Musculoskeletal: nl extremities to inspection Extremities: normal pulses Skin: nl turgor Medications Medications Current Medications IV Flush (NS 3 ml) 3 ml PER PROTOCOL IV ; Start 02/17/18 at 13:30 Ondansetron HCl (Zofran Inj) 4 mg Q6H PRN IV NAUSEA AND/OR VOMITING; Start 02/17/18 at 13:30 Acetaminophen (Tylenol Tab) 650 mg Q6H PRN PO PAIN LEVEL 1-3 OR FEVER; Start 02/17/18 at 13:30 Acetaminophen/ Hydrocodone Bitart ([place] (5/325)) 1 tab Q6H PRN PO MODERATE PAIN LEVEL 4-6; Start 02/17/18 at 13:30 Morphine Sulfate (morphine SULFATE (PF)) 2 mg Q4H PRN IV SEVERE PAIN LEVEL 7-10 Last administered on 02/18/18at 05:18; Admin Dose 2 MG; Start 02/17/18 at 13:30 Docusate Sodium (Colace) 100 mg Q12H PRN PO CONSTIPATION; Start 02/17/18 at 13:30 Pantoprazole (Protonix Iv) 40 mg DAILY@06 IV Last administered on 02/18/18at 05:26; Admin Dose 40 MG; Start 02/18/18 at 06:00 Vancomycin HCl (Vanco Iv Per Pharmacy) VANCOMYCIN PER PHARMACY PER PROTOCOL XX ; Start 02/17/18 at 13:30 Vancomycin/Sodium Chloride 250 ml @ 125 mls/hr Q12H IVPB Last administered on 02/18/18at 07:59; Admin Dose 125 MLS/HR; Start 02/17/18 at 20:00 Aztreonam 50 ml @ 100 mls/hr Q8 IVPB Last administered on 02/18/18at 13:56; Ad min Dose 100 MLS/HR; Start 02/17/18 at 22:00 Methylprednisolone Sodium Succinate (Solu-Medrol) 80 mg Q6H IV Last administered on 02/18/18at 09:42; Admin Dose 80 MG; Start 02/17/18 at 21:30 Norepinephrine 16 mg/Dextrose 500 ml @ 1.88 mls/hr TITRATE IV Last administered on 02/17/18at 20:34; Admin Dose 26.25 MLS/HR; Start 02/17/18 at 18:30 Midazolam HCl 50 ml @ 1 mls/hr TITRATE IV Last administered on 02/18/18 06:49; Admin Dose 8 MLS/HR; Start 02/17/18 at 18:30 Propofol 100 ml @ 2.43 mls/hr Q12H IV Last administered on 02/18/18 09:42; Admin Dose 4.86 MLS/HR; Start 02/18/18 at 09:30 Fentanyl 100 ml @ 2.5 mls/hr TITRATE IV Last administered on 02/18/18at 11:58; Admin Dose 2.5 MLS/HR; Start 02/18/18 at 09:30 Diagnostic Test (Pha) (Accu-Chek) 1 ea Q1H XX Last administered on 02/18/18at 13:56; Admin Dose 1 EA; Start 02/18/18 at 11:00 Insulin Human Regular 100 unit/ Sodium Chloride 100 ml @ 0 mls/hr PER PROTOCOL IV Last administered on 02/18/18 12:00; Admin Dose 1.5 MLS/HR; Start 02/18/18 at 11:00 Miscellaneous Information (* Miscellaneous Pharmacy Order) Treatment of Hypoglycemia: 1.BG 51... Per protocol XX ; Start 02/18/18 at 10:30 Dextrose (D50w Syringe) 25 ml Q15M PRN IV DECREASED GLUCOSE; Start 02/18/18 at 10:30 Dextrose (D50w Syringe) 50 ml Q15M PRN IV DECREASED GLUCOSE; Start 02/18/18 at 10:30 Miscellaneous Information (*Rx Drug Level Order Reminder*) VANCOMYCIN TROUGH LEVEL ... ONCE ONCE XX ; Start 02/18/18 at 19:00; Stop 02/18/18 at 19:01 IV Flush (NS 10 ml) 10 ml PRN PRN IV IV PROTOCOL; Start 02/18/18 at 13:30 LIA CASAREZ M.D. Feb 18, 2018 14:39
[2018-02-18] MEDS: VANCOMYCIN 1.25 GM in SOD CHLORIDE 0.9% 250 ML IVPB SCH (20:59)
[2018-02-19] VITALS (99 sets, daily range): BP systolic 61–130; BP diastolic 37–79; PULSE 56–89; RESP 21–31
[2018-02-19] MEDS: ACCU-CHEK XX SCH ×26 (00:25→23:20)
[2018-02-19] MEDS: PROPOFOL 100 ML IV SCH ×3 (02:19→21:49)
[2018-02-19] MEDS: METHYLPREDNISOLONE 125 MG INJ IV SCH ×4 (03:31→20:59)
[2018-02-19] MEDS: PANTOPRAZOLE 40 MG INJ IV SCH (05:46)
[2018-02-19] MEDS: AZTREONAM 1 GM/NS (PMX) 50 ML IVPB SCH ×3 (06:12→21:49)
--- NOTE | 2018-02-19 08:45 | CONS ---
Date/Time of Note Date/Time of Note DATE: 02/19/18 TIME: 08:42 Assessment/Plan Assessment/Plan Assessment/Plan Chest x-ray showing bilateral pneumonia much more pronounced in the right side. Patient is currently on propofol at 20 mics per kilogram per minute, Levophed 2 mics per minute, fentanyl 25 mics per hour. Assessment recommendations; 1. Patient admitted with severe hypoxemic respiratory failure due to possib ility of bilateral pneumonia versus immune reaction from immunotherapy patient with history of metastatic melanoma. 2. Anemia and severe thrombocytopenia. 3. Mild hypotension. Add Levaquin 750 mg IV daily. Wean off Levophed as tolerated. Obtain follow-up chest x-ray 24 hours. Continue current Solu-Medrol dosing. Prognosis guarded. 35 minutes of critical care time was spent evaluating the patient. Result Diagram: 02/19/18 0430 02/19/18 0430 Results 24hrs Laboratory Tests Test 02/18/18 09:45 02/18/18 09:55 02/18/18 12:00 02/18/18 12:46 Bedside Glucose 186 166 190 Lactic Acid Level 1.9 Test 02/18/18 13:59 02/18/18 15:04 02/18/18 15:59 02/18/18 17:53 Bedside Glucose 163 171 168 161 Test 02/18/18 19:15 02/18/18 20:14 02/18/18 21:03 02/18/18 22:35 Vancomycin Level 8.2 L Trough Bedside Glucose 154 141 149 Test 02/18/18 23:59 02/19/18 01:10 02/19/18 03:22 02/19/18 04:30 Bedside Glucose 144 152 138 White Blood Count 13.4 H Red Blood Count 2.53 L Hemoglobin 8.2 L Hematocrit 24.9 L Mean Corpuscular 98.4 Volume Mean Corpuscular 32.4 Hemoglobin Mean Corpuscular 32.9 Hemoglobin Concent Red Cell 14.6 H Distribution Width Platelet Count 98 #L Mean Platelet 10.5 H Volume Immature 1.000 H Granulocytes % Neutrophils % 88.8 H Lymphocytes % 6.7 L Monocytes % 3.4 Eosinophils % 0.0 Basophils % 0.1 Nucleated Red 0.6 H Blood Cells % Immature 0.140 H Granulocytes # Neutrophils # 11.9 H Lymphocytes # 0.9 Monocytes # 0.5 Eosinophils # 0.0 Basophils # 0.0 Nucleated Red 0.1 H Blood Cells # Sodium Level 141 Potassium Level 4.6 Chloride Level 113 H Carbon Dioxide 23 Level Anion Gap 5 Blood Urea 19 Nitrogen Creatinine 0.79 Est Glomerular > 60 Filtrat Rate mL/min Glucose Level 154 Calcium Level 7.8 L Test 02/19/18 04:58 02/19/18 07:00 02/19/18 07:05 Bedside Glucose 161 136 Blood Gas Specimen Blood arterial Source Arterial Blood 02/19/2018 7:05:32 Date Drawn AM Arterial Blood pH 7.399 (Temp corrected) Arterial Blood 37.3 pCO2 (Temp correct) Arterial Blood pO2 84.9 (Temp corrected) Arterial Blood 22.5 HCO3 Arterial Blood -2.0 Base Excess Arterial Blood 96.2 Oxygen Saturation Ruperto Test ACCEPTAB Arterial Blood Gas Left Radial Puncture Site Arterial 0.3 Blood Carboxyhemog lobin Arterial Blood 0.2 Methemoglobin Blood Gas A-a O2 446.3 H Differential Oxyhemoglobin 95.7 Percent Blood Gas 37.0 Temperature Blood Gas 24.0 Respiration Rate Blood Gas Actual 24 Respiration Rate Blood Gas Modality VENT - AC FiO2 80.0 Blood Gas Tidal 500.0 Volume Blood Gas Low PEEP 10.0 Setting Blood Gas Notified TM Whom Blood Gas Notified 02/19/2018 7:41:14 Time AM Consultation Date/Type/Reason Admit Date/Time Feb 17, 2018 at 12:57 Initial Consult Date 02/18/18 Type of Consult Pulmonary/critical care Reason for Consultation Patient's condition remains critical. Still requiring fairly high FiO2. Patient however has remained hemodynamically stable. General exam; elderly woman, orally intubated, sedated, currently in no distress. H EENT exam; supple neck, no JVD. No lymphadenopathy. Midline trachea. No thyromegaly. Orally intubated. Patient has fair dentition. Orogastric tube in place. No neck masses. Chest exam; diminished breath sounds bilaterally with scattered crackles. S1-S2 audible, no murmurs. Regular rhythm. Abdomen exam; soft, no organomegaly. Bowel sounds audible. Extremity exam; no edema. [employer] exam; patient is sedated. Requesting Provider: JULY TRAMMELL Exam/Review of Systems Vital Signs Vitals Vital Signs Date Temp Pulse Resp B/P (MAP) Pulse Ox O2 O2 Flow FiO2 Time Delivery Rate 02/19/18 97.5 56 29 101/60 95 Mechanical 08:00 (74) Ventilator 02/19/18 80 05:05 02/17/18 15.0 14:00 Intake and Output 02/18/18 02/18/18 02/19/18 1515:00 23:00 07:00 IntakeIntake Total 826.25 ml 693.796 ml 685.934 ml OutputOutput Total 460 ml 440 ml 235 ml BalanceBalance 366.25 ml 253.796 ml 450.934 ml Medications Medications Current Medications IV Flush (NS 3 ml) 3 ml PER PROTOCOL IV ; Start 02/17/18 at 13:30 Ondansetron HCl (Zofran Inj) 4 mg Q6H PRN IV NAUSEA AND/OR VOMITING; Start 02/17/18 at 13:30 Acetaminophen (Tylenol Tab) 650 mg Q6H PRN PO PAIN LEVEL 1-3 OR FEVER; Start 02/17/18 at 13:30 Acetaminophen/ Hydrocodone Bitart ([place] (5/325)) 1 tab Q6H PRN PO MODERATE PAIN LEVEL 4-6; Start 02/17/18 at 13:30 Morphine Sulfate (morphine SULFATE (PF)) 2 mg Q4H PRN IV SEVERE PAIN LEVEL 7-10 Last administered on 02/18/18at 05:18; Admin Dose 2 MG; Start 02/17/18 at 13:30 Docusate Sodium (Colace) 100 mg Q12H PRN PO CONSTIPATION; Start 02/17/18 at 13:30 Pantoprazole (Protonix Iv) 40 mg DAILY@06 IV Last administered on 02/19/18at 05:46; Admin Dose 40 MG; Start 02/18/18 at 06:00 Vancomycin HCl (Vanco Iv Per Pharmacy) VANCOMYCIN PER PHARMACY PER PROTOCOL XX ; Start 02/17/18 at 13:30 Aztreonam 50 ml @ 100 mls/hr Q8 IVPB Last administered on 02/19/18at 06:12; Admin Dose 100 MLS/HR; Start 02/17/18 at 22:00 Methylprednisolone Sodium Succinate (Solu-Medrol) 80 mg Q6H IV Last administered on 02/19/18at 03:31; Admin Dose 80 MG; Start 02/17/18 at 21:30 Norepinephrine 16 mg/Dextrose 500 ml @ 1.88 mls/hr TITRATE IV Last administered on 02/19/18at 01:13; Admin Dose 7.5 MLS/HR; Start 02/17/18 at 18:30 Midazolam HCl 50 ml @ 1 mls/hr TITRATE IV Last administered on 02/18/18at 06:49; Admin Dose 8 MLS/HR; Start 02/17/18 at 18:30 Propofol 100 ml @ 2.43 mls/hr Q12H IV Last administered on 02/19/18at 02:19; Admin Dose 9.72 MLS/HR; Start 02/18/18 at 09:30 Fentanyl 100 ml @ 2.5 mls/hr TITRATE IV Last administered on 02/18/18 11:58; Admin Dose 2.5 MLS/HR; Start 02/18/18 at 09:30 Diagnostic Test (Pha) (Accu-Chek) 1 ea Q1H XX Last administered on 02/19/18at 07:05; Admin Dose 1 EA; Start 02/18/18 at 11:00 Insulin Human Regular 100 unit/ Sodium Chloride 100 ml @ 0 mls/hr PER PROTOCOL IV Last administered on 02/18/18at 12:00; Admin Dose 1.5 MLS/HR; Start 02/18/18 at 11:00 Miscellaneous Information (* Miscellaneous Pharmacy Order) Treatment of Hypoglycemia: 1.BG 51... Per protocol XX ; Start 02/18/18 at 10:30 Dextrose (D50w Syringe) 25 ml Q15M PRN IV DECREASED GLUCOSE; Start 02/18/18 at 10:30 Dextrose (D50w Syringe) 50 ml Q15M PRN IV DECREASED GLUCOSE; Start 02/18/18 at 10:30 IV Flush (NS 10 ml) 10 ml PRN PRN IV IV PROTOCOL; Start 02/18/18 at 13:30 Vancomycin HCl 1.25 gm/Sodium Chloride 250 ml @ 83.333 mls/ hr Q12H IVPB Last administered on 02/18/18at 20:59; Admin Dose 83.333 MLS/HR; Start 02/18/18 at 21:00 JUDY LYON Feb 19, 2018 08:45
[2018-02-19] MEDS: VANCOMYCIN 1.25 GM in SOD CHLORIDE 0.9% 250 ML IVPB SCH ×2 (10:33→20:59)
--- NOTE | 2018-02-19 10:36 | CONS ---
Date/Time of Note Date/Time of Note DATE: 02/19/18 TIME: 10:29 Assessment/Plan Assessment/Plan Assessment/Plan 62 yo female with #Metastatic Melanoma - last Nivolumab was 2 weeks ago #ARDS - likely 2/2 Nivolumab and questionable underlying pneumonia -cont high dose steroids the patient is currently getting - solumedrol 80mg q 6 hours -continue low dose Levophed -continue IV antibiotics in case of any underlying infection contributing to ARDS -If patient is able to recover, oncology would not recommend for her to continue Nivolumab given this grade 4 toxicity -continue critical care measure with vasopressor support and mechanical ventilation Approximately 35 min critical care time spent in dw staff about plan of her care. Plan of care dw Dr Streeter Result Diagram: 02/19/18 0430 02/19/18 0430 Results 24hrs Laboratory Tests Test 02/18/18 12:00 02/18/18 12:46 02/18/18 13:59 02/18/18 15:04 Bedside Glucose 166 190 163 171 Test 02/18/18 15:59 02/18/18 17:53 02/18/18 19:15 02/18/18 20:14 Bedside Glucose 168 161 154 Vancomycin Level 8.2 L Trough Test 02/18/18 21:03 02/18/18 22:35 02/18/18 23:59 02/19/18 01:10 Bedside Glucose 141 149 144 152 Test 02/19/18 03:22 02/19/18 04:30 02/19/18 04:58 02/19/18 07:00 Bedside Glucose 138 161 White Blood Count 13.4 H Red Blood Count 2.53 L Hemoglobin 8.2 L Hematocrit 24.9 L Mean Corpuscular 98.4 Volume Mean Corpuscular 32.4 Hemoglobin Mean Corpuscular 32.9 Hemoglobin Concent Red Cell 14.6 H Distribution Width Platelet Count 98 #L Mean Platelet 10.5 H Volume Immature 1.000 H Granulocytes % Neutrophils % 88.8 H Lymphocytes % 6.7 L Monocytes % 3.4 Eosinophils % 0.0 Basophils % 0.1 Nucleated Red 0.6 H Blood Cells % Immature 0.140 H Granulocytes # Neutrophils # 11.9 H Lymphocytes # 0.9 Monocytes # 0.5 Eosinophils # 0.0 Basophils # 0.0 Nucleated Red 0.1 H Blood Cells # Sodium Level 141 Potassium Level 4.6 Chloride Level 113 H Carbon Dioxide 23 Level Anion Gap 5 Blood Urea 19 Nitrogen Creatinine 0.79 Est Glomerular > 60 Filtrat Rate mL/min Glucose Level 154 Calcium Level 7.8 L Blood Gas Specimen Blood arterial Source Arterial Blood 02/19/2018 7:05:32 Date Drawn AM Arterial Blood pH 7.399 (Temp corrected) Arterial Blood 37.3 pCO2 (Temp correct) Arterial Blood pO2 84.9 (Temp corrected) Arterial Blood 22.5 HCO3 Arterial Blood -2.0 Base Excess Arterial Blood 96.2 Oxygen Saturation Ruperto Test ACCEPTAB Arterial Blood Gas Left Radial Puncture Site Arterial 0.3 Blood Carboxyhemog lobin Arterial Blood 0.2 Methemoglobin Blood Gas A-a O2 446.3 H Differential Oxyhemoglobin 95.7 Percent Blood Gas 37.0 Temperature Blood Gas 24.0 Respiration Rate Blood Gas Actual 24 Respiration Rate Blood Gas Modality VENT - AC FiO2 80.0 Blood Gas Tidal 500.0 Volume Blood Gas Low PEEP 10.0 Setting Blood Gas Notified TM Whom Blood Gas Notified 02/19/2018 7:41:14 Time AM Test 02/19/18 07:05 02/19/18 09:09 Bedside Glucose 136 149 Consultation Date/Type/Reason Admit Date/Time Feb 17, 2018 at 12:57 Initial Consult Date 02/18/18 Type of Consult ONCOLOGY Reason for Consultation METASTATIC MELANOMA Requesting Provider: JULY TRAMMELL 24 HR Interval Summary Free Text/Dictation seems comfortable - on pressors - dw staff Subjective hx not possible: pt non-verbal, pt critical status Constitutional: requiring IVF, requiring O2 Exam/Review of Systems Vital Signs Vitals Vital Signs Date Temp Pulse Resp B/P (MAP) Pulse Ox O2 O2 Flow FiO2 Time Delivery Rate 02/19/18 97.5 56 29 101/60 95 Mechanical 08:00 (74) Ventilator 02/19/18 80 05:05 02/17/18 15.0 14:00 Intake and Output 02/18/18 02/18/18 02/19/18 1515:00 23:00 07:00 IntakeIntake Total 826.25 ml 693.796 ml 685.934 ml OutputOutput Total 460 ml 440 ml 235 ml BalanceBalance 366.25 ml 253.796 ml 450.934 ml Exam Constitutional: non-verbal Psych: nl mood/affect Eyes: nl lids ENMT: nl external ears & nose Neck: other (ET tube intact) Respiratory: diminished breath sounds Cardiovascular: nl pulses, other (s1s2) Gastrointestinal: soft Musculoskeletal: nl extremities to inspection Extremities: normal pulses Neurological: unresponsive Skin: nl turgor Medications Medications Current Medications IV Flush (NS 3 ml) 3 ml PER PROTOCOL IV ; Start 02/17/18 at 13:30 Ondansetron HCl (Zofran Inj) 4 mg Q6H PRN IV NAUSEA AND/OR VOMITING; Start 02/17/18 at 13:30 Acetaminophen (Tylenol Tab) 650 mg Q6H PRN PO PAIN LEVEL 1-3 OR FEVER; Start 02/17/18 at 13:30 Acetaminophen/ Hydrocodone Bitart ([place] (5/325)) 1 tab Q6H PRN PO MODERATE PAIN LEVEL 4-6; Start 02/17/18 at 13:30 Morphine Sulfate (morphine SULFATE (PF)) 2 mg Q4H PRN IV SEVERE PAIN LEVEL 7-10 Last administered on 02/18/18at 05:18; Admin Dose 2 MG; Start 02/17/18 at 13:30 Docusate Sodium (Colace) 100 mg Q12H PRN PO CONSTIPATION; Start 02/17/18 at 13:30 Pantoprazole (Protonix Iv) 40 mg DAILY@06 IV Last administered on 02/19/18at 05:46; Admin Dose 40 MG; Start 02/18/18 at 06:00 Vancomycin HCl (Vanco Iv Per Pharmacy) VANCOMYCIN PER PHARMACY PER PROTOCOL XX ; Start 02/17/18 at 13:30 Aztreonam 50 ml @ 100 mls/hr Q8 IVPB Last administered on 02/19/18at 06:12; Admin Dose 100 MLS/HR; Start 02/17/18 at 22:00 Methylprednisolone Sodium Succinate (Solu-Medrol) 80 mg Q6H IV Last administered on 02/19/18at 09:16; Admin Dose 80 MG; Start 02/17/18 at 21:30 Norepinephrine 16 mg/Dextrose 500 ml @ 1.88 mls/hr TITRATE IV Last administered on 02/19/18at 01:13; Admin Dose 7.5 MLS/HR; Start 02/17/18 at 18:30 Midazolam HCl 50 ml @ 1 mls/hr TITRATE IV Last administered on 02/18/18at 06:49; Admin Dose 8 MLS/HR; Start 02/17/18 at 18:30 Propofol 100 ml @ 2.43 mls/hr Q12H IV Last administered on 02/19/18at 02:19; Admin Dose 9.72 MLS/HR; Start 02/18/18 at 09:30 Fentanyl 100 ml @ 2.5 mls/hr TITRATE IV Last administered on 02/18/18at 11:58; Admin Dose 2.5 MLS/HR; Start 02/18/18 at 09:30 Diagnostic Test (Pha) (Accu-Chek) 1 ea Q1H XX Last administered on 02/19/18at 09:16; Admin Dose 1 EA; Start 02/18/18 at 11:00 Insulin Human Regular 100 unit/ Sodium Chloride 100 ml @ 0 mls/hr PER PROTOCOL IV Last administered on 02/18/18at 12:00; Admin Dose 1.5 MLS/HR; Start 02/18/18 at 11:00 Miscellaneous Information (* Miscellaneous Pharmacy Order) Treatment of Hypoglycemia: 1.BG 51... Per protocol XX ; Start 02/18/18 at 10:30 Dextrose (D50w Syringe) 25 ml Q15M PRN IV DECREASED GLUCOSE; Start 02/18/18 at 10:30 Dextrose (D50w Syringe) 50 ml Q15M PRN IV DECREASED GLUCOSE; Start 02/18/18 at 10:30 IV Flush (NS 10 ml) 10 ml PRN PRN IV IV PROTOCOL; Start 02/18/18 at 13:30 Vancomycin HCl 1.25 gm/Sodium Chloride 250 ml @ 83.333 mls/ hr Q12H IVPB Last administered on 02/18/18at 20:59; Admin Dose 83.333 MLS/HR; Start 02/18/18 at 21:00 Levofloxacin/ Dextrose 150 ml @ 100 mls/hr Q24H IVPB ; Start 02/19/18 at 10:30 Miscellaneous Information (*Rx Drug Level Order Reminder*) 1 ONCE ONCE XX ; Start 02/20/18 at 08:00; Stop 02/20/18 at 08:01 GEMA HEREDIA Feb 19, 2018 10:36 am
[2018-02-19] MEDS: LEVOFLOXACIN 750MG/D5W (PMX) 150 ML IVPB SCH (11:49)
[2018-02-19] MEDS: SOD CHLORIDE 0.9% 1,000 ML IV SCH (15:11)
[2018-02-19] MEDS: INSULIN HUMAN REGULAR 100 UNIT in SOD CHLORIDE 0.9% 99 ML IV SCH (17:05)
--- NOTE | 2018-02-19 17:12 | PN ---
Date/Time of Note Date/Time of Note DATE: 02/19/18 TIME: 17:02 Assessment/Plan VTE Prophylaxis Risk score (from [facility] [place]0 risk: 14 SCD applied (from [facility] [place]): Yes Pharmacological prophylaxis: NA/contraindicated Pharm contraindication: other Assessment/Plan Hospital Course 1. Acute hypoxemic respiratory failure secondary to ARDS Etiology of ARDS may be secondary to underlying melanoma and/or immune modulating therapy and/or underlying infection Pulmonology consultation for vent management Continue IV steroids Broad-spectrum antibiotics Cultures are currently negative 2. Acute kidney injury secondary to sepsis and/or dehydration-resolved IV fluids 3. Normocytic anemia likely secondary to chronic disease from underlying malignancy Monitor 4. Stage IV melanoma Patient is on immune modulating therapy in [place] where she is from Oncology consultation with appreciated Prophylaxis: SCDs Result Diagram: 02/19/18 0430 02/19/18 0430 Results 24hrs Laboratory Tests Test 02/18/18 17:53 02/18/18 19:15 02/18/18 20:14 02/18/18 21:03 Bedside Glucose 161 154 141 Vancomycin Level 8.2 L Trough Test 02/18/18 22:35 02/18/18 23:59 02/19/18 01:10 02/19/18 03:22 Bedside Glucose 149 144 152 138 Test 02/19/18 04:30 02/19/18 04:58 02/19/18 07:00 02/19/18 07:05 White Blood Count 13.4 H Red Blood Count 2.53 L Hemoglobin 8.2 L Hematocrit 24.9 L Mean Corpuscular 98.4 Volume Mean Corpuscular 32.4 Hemoglobin Mean Corpuscular 32.9 Hemoglobin Concent Red Cell 14.6 H Distribution Width Platelet Count 98 #L Mean Platelet 10.5 H Volume Immature 1.000 H Granulocytes % Neutrophils % 88.8 H Lymphocytes % 6.7 L Monocytes % 3.4 Eosinophils % 0.0 Basophils % 0.1 Nucleated Red 0.6 H Blood Cells % Immature 0.140 H Granulocytes # Neutrophils # 11.9 H Lymphocytes # 0.9 Monocytes # 0.5 Eosinophils # 0.0 Basophils # 0.0 Nucleated Red 0.1 H Blood Cells # Sodium Level 141 Potassium Level 4.6 Chloride Level 113 H Carbon Dioxide 23 Level Anion Gap 5 Blood Urea 19 Nitrogen Creatinine 0.79 Est Glomerular > 60 Filtrat Rate mL/min Glucose Level 154 Calcium Level 7.8 L Bedside Glucose 161 136 Blood Gas Specimen Blood arterial Source Arterial Blood 02/19/2018 7:05:32 Date Drawn AM Arterial Blood pH 7.399 (Temp corrected) Arterial Blood 37.3 pCO2 (Temp correct) Arterial Blood pO2 84.9 (Temp corrected) Arterial Blood 22.5 HCO3 Arterial Blood -2.0 Base Excess Arterial Blood 96.2 Oxygen Saturation Ruperto Test ACCEPTAB Arterial Blood Gas Left Radial Puncture Site Arterial 0.3 Blood Carboxyhemog lobin Arterial Blood 0.2 Methemoglobin Blood Gas A-a O2 446.3 H Differential Oxyhemoglobin 95.7 Percent Blood Gas 37.0 Temperature Blood Gas 24.0 Respiration Rate Blood Gas Actual 24 Respiration Rate Blood Gas Modality VENT - AC FiO2 80.0 Blood Gas Tidal 500.0 Volume Blood Gas Low PEEP 10.0 Setting Blood Gas Notified TM Whom Blood Gas Notified 02/19/2018 7:41:14 Time AM Test 02/19/18 09:09 02/19/18 11:04 02/19/18 13:05 02/19/18 15:09 Bedside Glucose 149 156 176 160 Subjective 24 Hr Interval Summary Subjective hx not possible: pt non-verbal Exam/Review of Systems Vital Signs Vitals Vital Signs Date Temp Pulse Resp B/P (MAP) Pulse Ox O2 O2 Flow FiO2 Time Delivery Rate 02/19/18 74 29 121/75 94 16:15 (90) 02/19/18 98.1 Mechanical 16:00 Ventilator 02/19/18 80 11:00 02/17/18 15.0 14:00 Intake and Output 02/18/18 02/18/18 02/19/18 1515:00 23:00 07:00 IntakeIntake Total 826.25 ml 693.796 ml 685.934 ml OutputOutput Total 460 ml 440 ml 235 ml BalanceBalance 366.25 ml 253.796 ml 450.934 ml Exam Constitutional: non-verbal Respiratory: clear to auscultation Cardiovascular: regular rate and rhythm Gastrointestinal: soft; No distended Musculoskeletal: nl extremities to inspection Medications Medications Current Medications IV Flush (NS 3 ml) 3 ml PER PROTOCOL IV ; Start 02/17/18 at 13:30 Ondansetron HCl (Zofran Inj) 4 mg Q6H PRN IV NAUSEA AND/OR VOMITING; Start 02/17/18 at 13:30 Acetaminophen (Tylenol Tab) 650 mg Q6H PRN PO PAIN LEVEL 1-3 OR FEVER; Start 02/17/18 at 13:30 Acetaminophen/ Hydrocodone Bitart ([place] (5/325)) 1 tab Q6H PRN PO MODERATE PAIN LEVEL 4-6; Start 02/17/18 at 13:30 Morphine Sulfate (morphine SULFATE (PF)) 2 mg Q4H PRN IV SEVERE PAIN LEVEL 7-10 Last administered on 02/18/18 05:18; Admin Dose 2 MG; Start 02/17/18 at 13:30 Docusate Sodium (Colace) 100 mg Q12H PRN PO CONSTIPATION; Start 02/17/18 at 13:30 Pantoprazole (Protonix Iv) 40 mg DAILY@06 IV Last administered on 02/19/18 05:46; Admin Dose 40 MG; Start 02/18/18 at 06:00 Vancomycin HCl (Vanco Iv Per Pharmacy) VANCOMYCIN PER PHARMACY PER PROTOCOL XX ; Start 02/17/18 at 13:30 Aztreonam 50 ml @ 100 mls/hr Q8 IVPB Last administered on 02/19/18 15:11; Admin Dose 100 MLS/HR; Start 02/17/18 at 22:00 Methylprednisolone Sodium Succinate (Solu-Medrol) 80 mg Q6H IV Last administered on 02/19/18 15:11; Admin Dose 80 MG; Start 02/17/18 at 21:30 Norepinephrine 16 mg/Dextrose 500 ml @ 1.88 mls/hr TITRATE IV Last administer ed on 02/19/18 01:13; Admin Dose 7.5 MLS/HR; Start 02/17/18 at 18:30 Midazolam HCl 50 ml @ 1 mls/hr TITRATE IV Last administered on 02/18/18 06:49; Admin Dose 8 MLS/HR; Start 02/17/18 at 18:30 Propofol 100 ml @ 2.43 mls/hr Q12H IV Last administered on 02/19/18 13:04; Admin Dose 9.72 MLS/HR; Start 02/18/18 at 09:30 Fentanyl 100 ml @ 2.5 mls/hr TITRATE IV Last administered on 02/18/18 11:58; Admin Dose 2.5 MLS/HR; Start 02/18/18 at 09:30 Diagnostic Test (Pha) (Accu-Chek) 1 ea Q1H XX Last administered on 02/19/18at 15:12; Admin Dose 1 EA; Start 02/18/18 at 11:00 Insulin Human Regular 100 unit/ Sodium Chloride 100 ml @ 0 mls/hr PER PROTOCOL IV Last administered on 02/18/18at 12:00; Admin Dose 1.5 MLS/HR; Start 02/18/18 at 11:00 Miscellaneous Information (* Miscellaneous Pharmacy Order) Treatment of Hypoglycemia: 1.BG 51... Per protocol XX ; Start 02/18/18 at 10:30 Dextrose (D50w Syringe) 25 ml Q15M PRN IV DECREASED GLUCOSE; Start 02/18/18 at 10:30 Dextrose (D50w Syringe) 50 ml Q15M PRN IV DECREASED GLUCOSE; Start 02/18/18 at 10:30 IV Flush (NS 10 ml) 10 ml PRN PRN IV IV PROTOCOL; Start 02/18/18 at 13:30 Vancomycin HCl 1.25 gm/Sodium Chloride 250 ml @ 83.333 mls/ hr Q12H IVPB Last administered on 02/19/18at 10:33; Admin Dose 83.333 MLS/HR; Start 02/18/18 at 21:00 Levofloxacin/ Dextrose 150 ml @ 100 mls/hr Q24H IVPB Last administered on 02/19/18at 11:49; Admin Dose 100 MLS/HR; Start 02/19/18 at 10:30 Miscellaneous Information (*Rx Drug Level Order Reminder*) 1 ONCE ONCE XX ; Start 02/20/18 at 08:00; Stop 02/20/18 at 08:01 Sodium Chloride 1,000 ml @ 40 mls/hr Q24H IV Last administered on 02/19/18at 15:11; Admin Dose 40 MLS/HR; Start 02/19/18 at 13:30; Stop 02/21/18 at 15:29 JULY TRAMMELL Feb 19, 2018 17:12
[2018-02-19] MEDS: FENTAnyl (DRIP) 1000 mcg/100mL 100 ML IV SCH (19:18)
--- NOTE | 2018-02-19 19:38 | RADRPT ---
Vent Rate: 76 bpm RR Interval: 0 msec ME Interval: 138 msec QRS Duration: 78 msec QT Interval: 456 msec QTC Interval: 513 msec P-R-T [place]: 69 - 32 - -4 degrees Undetermined rhythm Low voltage QRS T wave abnormality, consider anterior ischemia Prolonged QT Abnormal ECG Electronically Signed By: Saurabh Denney [id number]
[2018-02-20] VITALS (62 sets, daily range): BP systolic 88–121; BP diastolic 57–77; PULSE 53–91; RESP 17–31
[2018-02-20] MEDS: ACCU-CHEK XX SCH ×23 (01:05→23:42)
[2018-02-20] MEDS: METHYLPREDNISOLONE 125 MG INJ IV SCH ×4 (03:47→21:03)
[2018-02-20] MEDS: PROPOFOL 100 ML IV SCH ×4 (03:59→23:31)
[2018-02-20] MEDS: PANTOPRAZOLE 40 MG INJ IV SCH (05:43)
[2018-02-20] MEDS: AZTREONAM 1 GM/NS (PMX) 50 ML IVPB SCH ×3 (06:18→21:03)
--- NOTE | 2018-02-20 08:29 | CONS ---
Date/Time of Note Date/Time of Note DATE: 02/20/18 TIME: 08:27 Assessment/Plan Assessment/Plan Assessment/Plan Chest x-ray was reviewed from today which is showing improving bilateral pneumonia. Ventilator setting; AC of 24, tidal volume 500, PEEP of 10, 90% FiO2. Patient is currently on propofol 40 mics per kilogram per minute, fentanyl 50 mics per hour, insulin drip 1.5 units/h. Assessment and recommendations; 1. Patient with history of metastatic melanoma admitted with respiratory failure due to bilateral pneumonia versus immune reaction from immunotherapy. Radiologically improving although still requiring fairly high FiO2. 2. Anemia and severe thrombocytopenia. However no overt bleeding noted. 3. Improving shock. Patient off pressor support. 4. Patient currently unable to handle sedation vacation due to agitation. Continue current supportive care. Obtain follow-up chest x-ray 24 hours. 35 minutes of critical care time was spent evaluating the patient. Result Diagram: 02/20/18 0427 02/20/18 0427 Results 24hrs Laboratory Tests Test 02/19/18 09:09 02/19/18 11:04 02/19/18 13:05 02/19/18 15:09 Bedside Glucose 149 156 176 160 Test 02/19/18 17:01 02/19/18 19:03 02/19/18 20:57 02/19/18 23:17 Bedside Glucose 127 148 129 144 Test 02/20/18 01:03 02/20/18 03:09 02/20/18 04:27 02/20/18 05:42 Bedside Glucose 148 176 140 White Blood Count 10.4 # Red Blood Count 2.54 L Hemoglobin 8.1 L Hematocrit 26.1 L Mean Corpuscular Volume 102.8 H Mean Corpuscular 31.9 Hemoglobin Mean Corpuscular 31.0 L Hemoglobin Concent Red Cell Distribution 14.9 H Width Platelet Count 77 #L Mean Platelet Volume 10.5 H Immature Granulocytes % 1.500 H Neutrophils % 86.0 H Lymphocytes % 8.4 L Monocytes % 3.9 Eosinophils % 0.0 Basophils % 0.2 Nucleated Red Blood 1.4 H Cells % Immature Granulocytes # 0.160 H Neutrophils # 8.9 H Lymphocytes # 0.9 Monocytes # 0.4 Eosinophils # 0.0 Basophils # 0.0 Nucleated Red Blood 0.2 H Cells # Sodium Level 142 Potassium Level 5.1 Chloride Level 113 H Carbon Dioxide Level 24 Anion Gap 5 Blood Urea Nitrogen 32 #H Creatinine 0.87 Est Glomerular Filtrat > 60 Rate mL/min Glucose Level 165 Calcium Level 7.7 L Test 02/20/18 06:41 Bedside Glucose 139 Consultation Date/Type/Reason Admit Date/Time Feb 17, 2018 at 12:57 Initial Consult Date 02/18/18 Type of Consult Pulmonary/critical care Requesting Provider: JULY TRAMMELL 24 HR Interval Summary Free Text/Dictation Patient's condition is critical but stable. Patient has improved hemodynamically and is off Levophed. General exam; elderly female, orally intubated, sedated, currently in no distress. Exam/Review of Systems Vital Signs Vitals Vital Signs Date Temp Pulse Resp B/P (MAP) Pulse Ox O2 O2 Flow FiO2 Time Delivery Rate 02/20/18 56 25 95/63 (74) 92 Mechanical 07:00 Ventilator 02/20/18 90 04:45 02/20/18 98.5 04:00 02/17/18 15.0 14:00 Intake and Output 02/19/18 02/19/18 02/20/18 1515:00 23:00 07:00 IntakeIntake Total 984.469 ml 1178.245 ml 949.45 ml OutputOutput Total 200 ml 251 ml 330 ml BalanceBalance 784.469 ml 927.245 ml 619.45 ml Exam HEENT exam; supple neck, no JVD. No lymphadenopathy. Midline trachea. No thyromegaly. Orally intubated. No neck masses. Patient has fair dentition. Pupils are small bilaterally. Chest exam; diminished breath sounds bilateral. No added sounds. S1-S2 audible, no murmurs. Regular rhythm. Abdomen exam; soft, protuberant. No organomegaly. Bowel sounds audible. Extremity exam; no edema. Pulses 1+. [place] exam; patient is sedated. Medications Medications Current Medications IV Flush (NS 3 ml) 3 ml PER PROTOCOL IV ; Start 02/17/18 at 13:30 Ondansetron HCl (Zofran Inj) 4 mg Q6H PRN IV NAUSEA AND/OR VOMITING; Start 02/17/18 at 13:30 Acetaminophen (Tylenol Tab) 650 mg Q6H PRN PO PAIN LEVEL 1-3 OR FEVER; Start 02/17/18 at 13:30 Acetaminophen/ Hydrocodone Bitart ([place] (5/325)) 1 tab Q6H PRN PO MODERATE PAIN LEVEL 4-6; Start 02/17/18 at 13:30 Morphine Sulfate (morphine SULFATE (PF)) 2 mg Q4H PRN IV SEVERE PAIN LEVEL 7-10 Last administered on 02/18/18 05:18; Admin Dose 2 MG; Start 02/17/18 at 13:30 Docusate Sodium (Colace) 100 mg Q12H PRN PO CONSTIPATION; Start 02/17/18 at 13:30 Pantoprazole (Protonix Iv) 40 mg DAILY@06 IV Last administered on 02/20/18 05:43; Admin Dose 40 MG; Start 02/18/18 at 06:00 Vancomycin HCl (Vanco Iv Per Pharmacy) VANCOMYCIN PER PHARMACY PER PROTOCOL XX ; Start 02/17/18 at 13:30 Aztreonam 50 ml @ 100 mls/hr Q8 IVPB Last administered on 02/20/18 06:18; Admin Dose 100 MLS/HR; Start 02/17/18 at 22:00 Methylprednisolone Sodium Succinate (Solu-Medrol) 80 mg Q6H IV Last administered on 02/20/18 03:47; Admin Dose 80 MG; Start 02/17/18 at 21:30 Norepinephrine 16 mg/Dextrose 500 ml @ 1.88 mls/hr TITRATE IV Last administer ed on 02/19/18 01:13; Admin Dose 7.5 MLS/HR; Start 02/17/18 at 18:30 Midazolam HCl 50 ml @ 1 mls/hr TITRATE IV Last administered on 02/18/18 06:49; Admin Dose 8 MLS/HR; Start 02/17/18 at 18:30 Propofol 100 ml @ 2.43 mls/hr Q12H IV Last administered on 02/20/18 03:59; Admin Dose 14.58 MLS/HR; Start 02/18/18 at 09:30 Fentanyl 100 ml @ 2.5 mls/hr TITRATE IV Last administered on 02/19/18 19:18; Admin Dose 5 MLS/HR; Start 02/18/18 at 09:30 Diagnostic Test (Pha) (Accu-Chek) 1 ea Q1H XX Last administered on 02/20/18 07:01; Admin Dose 1 EA; Start 02/18/18 at 11:00 Insulin Human Regular 100 unit/ Sodium Chloride 100 ml @ 0 mls/hr PER PROTOCOL IV Last administered on 02/19/18at 17:05; Admin Dose 1.5 MLS/HR; Start 02/18/18 at 11:00 Miscellaneous Information (* Miscellaneous Pharmacy Order) Treatment of Hypoglycemia: 1.BG 51... Per protocol XX ; Start 02/18/18 at 10:30 Dextrose (D50w Syringe) 25 ml Q15M PRN IV DECREASED GLUCOSE; Start 02/18/18 at 10:30 Dextrose (D50w Syringe) 50 ml Q15M PRN IV DECREASED GLUCOSE; Start 02/18/18 at 10:30 IV Flush (NS 10 ml) 10 ml PRN PRN IV IV PROTOCOL; Start 02/18/18 at 13:30 Vancomycin HCl 1.25 gm/Sodium Chloride 250 ml @ 83.333 mls/ hr Q12H IVPB Last administered on 02/19/18at 20:59; Admin Dose 83.333 MLS/HR; Start 02/18/18 at 21:00 Levofloxacin/ Dextrose 150 ml @ 100 mls/hr Q24H IVPB Last administered on 02/19/18at 11:49; Admin Dose 100 MLS/HR; Start 02/19/18 at 10:30 Sodium Chloride 1,000 ml @ 40 mls/hr Q24H IV Last administered on 02/19/18at 15:11; Admin Dose 40 MLS/HR; Start 02/19/18 at 13:30; Stop 02/21/18 at 15:29 JUDY LYON Feb 20, 2018 08:29
--- NOTE | 2018-02-20 08:39 | CONS ---
Date/Time of Note Date/Time of Note DATE: 02/20/18 TIME: 08:37 Assessment/Plan Assessment/Plan Hospital Course 62 yo female with #Metastatic Melanoma - last Nivolumab was 2 weeks ago #ARDS - likely 2/2 Nivolumab and questionable underlying pneumonia -cont high dose steroids the patient is currently getting - solumedrol 80mg q 6 hours -continue low dose Levophed -continue IV antibiotics in case of any underlying infection contributing to ARDS -If patient is able to recover, oncology would not recommend for her to continue Nivolumab given this grade 4 toxicity -continue critical care measure with vasopressor support and mechanical ventilation Approximately 50 min was spend in face to face time with patent's son at the bed side, and in coordination of her care. Result Diagram: 02/20/18 0427 02/20/18 0427 Results 24hrs Laboratory Tests Test 02/19/18 09:09 02/19/18 11:04 02/19/18 13:05 02/19/18 15:09 Bedside Glucose 149 156 176 160 Test 02/19/18 17:01 02/19/18 19:03 02/19/18 20:57 02/19/18 23:17 Bedside Glucose 127 148 129 144 Test 02/20/18 01:03 02/20/18 03:09 02/20/18 04:27 02/20/18 05:42 Bedside Glucose 148 176 140 White Blood Count 10.4 # Red Blood Count 2.54 L Hemoglobin 8.1 L Hematocrit 26.1 L Mean Corpuscular Volume 102.8 H Mean Corpuscular 31.9 Hemoglobin Mean Corpuscular 31.0 L Hemoglobin Concent Red Cell Distribution 14.9 H Width Platelet Count 77 #L Mean Platelet Volume 10.5 H Immature Granulocytes % 1.500 H Neutrophils % 86.0 H Lymphocytes % 8.4 L Monocytes % 3.9 Eosinophils % 0.0 Basophils % 0.2 Nucleated Red Blood 1.4 H Cells % Immature Granulocytes # 0.160 H Neutrophils # 8.9 H Lymphocytes # 0.9 Monocytes # 0.4 Eosinophils # 0.0 Basophils # 0.0 Nucleated Red Blood 0.2 H Cells # Sodium Level 142 Potassium Level 5.1 Chloride Level 113 H Carbon Dioxide Level 24 Anion Gap 5 Blood Urea Nitrogen 32 #H Creatinine 0.87 Est Glomerular Filtrat > 60 Rate mL/min Glucose Level 165 Calcium Level 7.7 L Test 02/20/18 06:41 Bedside Glucose 139 Consultation Date/Type/Reason Admit Date/Time Feb 17, 2018 at 12:57 Initial Consult Date 02/18/18 Type of Consult oncology Reason for Consultation metastatic melanoma Requesting Provider: JULY TRAMMELL 24 HR Interval Summary Free Text/Dictation pt remains on high dose Fi02, 90% Exam/Review of Systems Vital Signs Vitals Vital Signs Date Temp Pulse Resp B/P (MAP) Pulse Ox O2 O2 Flow FiO2 Time Delivery Rate 02/20/18 56 25 95/63 (74) 92 Mechanical 07:00 Ventilator 02/20/18 90 04:45 02/20/18 98.5 04:00 02/17/18 15.0 14:00 Intake and Output 02/19/18 02/19/18 02/20/18 1515:00 23:00 07:00 IntakeIntake Total 984.469 ml 1178.245 ml 949.45 ml OutputOutput Total 200 ml 251 ml 330 ml BalanceBalance 784.469 ml 927.245 ml 619.45 ml Exam Constitutional: non-verbal, other (sedated) Head: normocephalic Eyes: nl conjunctiva ENMT: nl external ears & nose, intubated Respiratory: crackles/rales, diminished breath sounds, intercostal retraction Cardiovascular: regular rate and rhythm Gastrointestinal: soft Musculoskeletal: nl extremities to inspection Medications Medications Current Medications IV Flush (NS 3 ml) 3 ml PER PROTOCOL IV ; Start 02/17/18 at 13:30 Ondansetron HCl (Zofran Inj) 4 mg Q6H PRN IV NAUSEA AND/OR VOMITING; Start at 13:30 Acetaminophen (Tylenol Tab) 650 mg Q6H PRN PO PAIN LEVEL 1-3 OR FEVER; Start 02/17/18 at 13:30 Acetaminophen/ Hydrocodone Bitart ([place] (5/325)) 1 tab Q6H PRN PO MODERATE PAIN LEVEL 4-6; Start 02/17/18 at 13:30 Morphine Sulfate (morphine SULFATE (PF)) 2 mg Q4H PRN IV SEVERE PAIN LEVEL 7-10 Last administered on 02/18/18at 05:18; Admin Dose 2 MG; Start 02/17/18 at 13:30 Docusate Sodium (Colace) 100 mg Q12H PRN PO CONSTIPATION; Start 02/17/18 at 13:30 Pantoprazole (Protonix Iv) 40 mg DAILY@06 IV Last administered on 02/20/18 05:43; Admin Dose 40 MG; Start 02/18/18 at 06:00 Vancomycin HCl (Vanco Iv Per Pharmacy) VANCOMYCIN PER PHARMACY PER PROTOCOL XX ; Start 02/17/18 at 13:30 Aztreonam 50 ml @ 100 mls/hr Q8 IVPB Last administered on 02/20/18 06:18; Admin Dose 100 MLS/HR; Start 02/17/18 at 22:00 Methylprednisolone Sodium Succinate (Solu-Medrol) 80 mg Q6H IV Last administered on 02/20/18 03:47; Admin Dose 80 MG; Start 02/17/18 at 21:30 Norepinephrine 16 mg/Dextrose 500 ml @ 1.88 mls/hr TITRATE IV Last administered on 02/19/18 01:13; Admin Dose 7.5 MLS/HR; Start 02/17/18 at 18:30 Midazolam HCl 50 ml @ 1 mls/hr TITRATE IV Last administered on 02/18/18 06:49; Admin Dose 8 MLS/HR; Start 02/17/18 at 18:30 Propofol 100 ml @ 2.43 mls/hr Q12H IV Last administered on 02/20/18 03:59; Admin Dose 14.58 MLS/HR; Start 02/18/18 at 09:30 Fentanyl 100 ml @ 2.5 mls/hr TITRATE IV Last administered on 02/19/18 19:18; Admin Dose 5 MLS/HR; Start 02/18/18 at 09:30 Diagnostic Test (Pha) (Accu-Chek) 1 ea Q1H XX Last administered on 02/20/18 07:01; Admin Dose 1 EA; Start 02/18/18 at 11:00 Insulin Human Regular 100 unit/ Sodium Chloride 100 ml @ 0 mls/hr PER PROTOCOL IV Last administered on 02/19/18 17:05; Admin Dose 1.5 MLS/HR; Start 02/18/18 at 11:00 Miscellaneous Information (* Miscellaneous Pharmacy Order) Treatment of Hypoglycemia: 1.BG 51... Per protocol XX ; Start 02/18/18 at 10:30 Dextrose (D50w Syringe) 25 ml Q15M PRN IV DECREASED GLUCOSE; Start 02/18/18 at 10:30 Dextrose (D50w Syringe) 50 ml Q15M PRN IV DECREASED GLUCOSE; Start 02/18/18 at 10:30 IV Flush (NS 10 ml) 10 ml PRN PRN IV IV PROTOCOL; Start 02/18/18 at 13:30 Vancomycin HCl 1.25 gm/Sodium Chloride 250 ml @ 83.333 mls/ hr Q12H IVPB Last administered on 02/19/18at 20:59; Admin Dose 83.333 MLS/HR; Start 02/18/18 at 21:00 Levofloxacin/ Dextrose 150 ml @ 100 mls/hr Q24H IVPB Last administered on 02/19/18at 11:49; Admin Dose 100 MLS/HR; Start 02/19/18 at 10:30 Sodium Chloride 1,000 ml @ 40 mls/hr Q24H IV Last administered on 02/19/18at 15:11; Admin Dose 40 MLS/HR; Start 02/19/18 at 13:30; Stop 02/21/18 at 15:29 LIA CASAREZ M.D. Feb 20, 2018 08:39
[2018-02-20] MEDS: VANCOMYCIN 1.25 GM in SOD CHLORIDE 0.9% 250 ML IVPB SCH (10:57)
[2018-02-20] MEDS: LEVOFLOXACIN 750MG/D5W (PMX) 150 ML IVPB SCH (12:02)
[2018-02-20] MEDS: OCULAR LUBRICANT 3.5 GM OPH OINT BOTH EYES SCH ×2 (13:07→21:03)
[2018-02-20] MEDS: ARTIFICIAL TEARS 15 ML OPH BOTH EYES SCH ×3 (13:07→21:04)
[2018-02-20] MEDS: SOD CHLORIDE 0.9% 1,000 ML IV SCH (13:07)
--- NOTE | 2018-02-20 15:08 | PN ---
Date/Time of Note Date/Time of Note DATE: 02/20/18 TIME: 14:48 Assessment/Plan VTE Prophylaxis Risk score (from [facility] [place])>0 risk: 9 SCD applied (from [facility] [place]): Yes Pharmacological prophylaxis: NA/contraindicated Pharm contraindication: other Assessment/Plan Hospital Course 1. Acute hypoxemic respiratory failure secondary to ARDS Etiology of ARDS may be secondary to underlying melanoma and/or immune modulating therapy and/or underlying infection Pulmonology consultation for vent management Continue IV steroids Patient has been started on Remicade 5mg/kg by oncology, Dr. Streeter has spoken to patient's primary oncologist in [place] Broad-spectrum antibiotics Cultures are currently negative 2. Acute kidney injury secondary to sepsis and/or dehydration-resolved IV fluids 3. Normocytic anemia likely secondary to chronic disease from underlying malignancy Monitor 4. Stage IV melanoma Patient is on immune modulating therapy in [place] where she is from Oncology consultation with appreciated Prophylaxis: SCDs Result Diagram: 02/20/18 0427 02/20/18 0427 Results 24hrs Laboratory Tests Test 02/19/18 15:09 02/19/18 17:01 02/19/18 19:03 02/19/18 20:57 Bedside Glucose 160 127 148 129 Test 02/19/18 23:17 02/20/18 01:03 02/20/18 03:09 02/20/18 04:27 Bedside Glucose 144 148 176 White Blood Count 10.4 # Red Blood Count 2.54 L Hemoglobin 8.1 L Hematocrit 26.1 L Mean Corpuscular Volume 102.8 H Mean Corpuscular 31.9 Hemoglobin Mean Corpuscular 31.0 L Hemoglobin Concent Red Cell Distribution 14.9 H Width Platelet Count 77 #L Mean Platelet Volume 10.5 H Immature Granulocytes % 1.500 H Neutrophils % 86.0 H Lymphocytes % 8.4 L Monocytes % 3.9 Eosinophils % 0.0 Basophils % 0.2 Nucleated Red Blood 1.4 H Cells % Immature Granulocytes # 0.160 H Neutrophils # 8.9 H Lymphocytes # 0.9 Monocytes # 0.4 Eosinophils # 0.0 Basophils # 0.0 Nucleated Red Blood 0.2 H Cells # Sodium Level 142 Potassium Level 5.1 Chloride Level 113 H Carbon Dioxide Level 24 Anion Gap 5 Blood Urea Nitrogen 32 #H Creatinine 0.87 Est Glomerular Filtrat > 60 Rate mL/min Glucose Level 165 Calcium Level 7.7 L Test 02/20/18 05:42 02/20/18 06:41 02/20/18 08:24 02/20/18 09:14 Bedside Glucose 140 139 130 Vancomycin Level Trough 17.1 Test 02/20/18 11:01 02/20/18 13:12 Bedside Glucose 149 185 Subjective 24 Hr Interval Summary Subjective hx not possible: pt non-verbal Exam/Review of Systems Vital Signs Vitals Vital Signs Date Temp Pulse Resp B/P (MAP) Pulse Ox O2 O2 Flow FiO2 Time Delivery Rate 02/20/18 60 28 92/60 (71) 93 Mechanical 12:30 Ventilator 02/20/18 97.4 12:00 02/20/18 90 11:00 02/17/18 15.0 14:00 Intake and Output 02/19/18 02/19/18 02/20/18 1515:00 23:00 07:00 IntakeIntake Total 984.469 ml 1178.245 ml 989.45 ml OutputOutput Total 200 ml 251 ml 360 ml BalanceBalance 784.469 ml 927.245 ml 629.45 ml Exam Constitutional: non-verbal Respiratory: clear to auscultation Cardiovascular: regular rate and rhythm Gastrointestinal: soft; No distended Musculoskeletal: nl extremities to inspection Medications Medications Current Medications IV Flush (NS 3 ml) 3 ml PER PROTOCOL IV ; Start 02/17/18 at 13:30 Ondansetron HCl (Zofran Inj) 4 mg Q6H PRN IV NAUSEA AND/OR VOMITING; Start 02/17/18 at 13:30 Acetaminophen (Tylenol Tab) 650 mg Q6H PRN PO PAIN LEVEL 1-3 OR FEVER; Start 02/17/18 at 13:30 Acetaminophen/ Hydrocodone Bitart ([place] (5/325)) 1 tab Q6H PRN PO MODERATE PAIN LEVEL 4-6; Start 02/17/18 at 13:30 Morphine Sulfate (morphine SULFATE (PF)) 2 mg Q4H PRN IV SEVERE PAIN LEVEL 7-10 Last administered on 02/18/18at 05:18; Admin Dose 2 MG; Start 02/17/18 at 13:30 Docusate Sodium (Colace) 100 mg Q12H PRN PO CONSTIPATION; Start 02/17/18 at 13:30 Pantoprazole (Protonix Iv) 40 mg DAILY@06 IV Last administered on 02/20/18 05:43; Admin Dose 40 MG; Start 02/18/18 at 06:00 Vancomycin HCl (Vanco Iv Per Pharmacy) VANCOMYCIN PER PHARMACY PER PROTOCOL XX ; Start 02/17/18 at 13:30 Aztreonam 50 ml @ 100 mls/hr Q8 IVPB Last administered on 02/20/18 13:07; Admin Dose 100 MLS/HR; Start 02/17/18 at 22:00 Methylprednisolone Sodium Succinate (Solu-Medrol) 80 mg Q6H IV Last administered on 02/20/18 10:28; Admin Dose 80 MG; Start 02/17/18 at 21:30 Norepinephrine 16 mg/Dextrose 500 ml @ 1.88 mls/hr TITRATE IV Last administered on 02/19/18 01:13; Admin Dose 7.5 MLS/HR; Start 02/17/18 at 18:30 Midazolam HCl 50 ml @ 1 mls/hr TITRATE IV Last administered on 02/18/18 06:49; Admin Dose 8 MLS/HR; Start 02/17/18 at 18:30 Propofol 100 ml @ 2.43 mls/hr Q12H IV Last administered on 02/20/18 10:28; Admin Dose 14.58 MLS/HR; Start 02/18/18 at 09:30 Fentanyl 100 ml @ 2.5 mls/hr TITRATE IV Last administered on 02/19/18 19:18; Admin Dose 5 MLS/HR; Start 02/18/18 at 09:30 Diagnostic Test (Pha) (Accu-Chek) 1 ea Q1H XX Last administered on 02/20/18 13:12; Admin Dose 1 EA; Start 02/18/18 at 11:00 Insulin Human Regular 100 unit/ Sodium Chloride 100 ml @ 0 mls/hr PER PROTOCOL IV Last administered on 02/19/18 17:05; Admin Dose 1.5 MLS/HR; Start 02/18/18 at 11:00 Miscellaneous Information (* Miscellaneous Pharmacy Order) Treatment of Hypoglycemia: 1.BG 51... Per protocol XX ; Start 02/18/18 at 10:30 Dextrose (D50w Syringe) 25 ml Q15M PRN IV DECREASED GLUCOSE; Start 02/18/18 at 10:30 Dextrose (D50w Syringe) 50 ml Q15M PRN IV DECREASED GLUCOSE; Start 02/18/18 at 10:30 IV Flush (NS 10 ml) 10 ml PRN PRN IV IV PROTOCOL; Start 02/18/18 at 13:30 Levofloxacin/ Dextrose 150 ml @ 100 mls/hr Q24H IVPB Last administered on 02/20/18at 12:02; Admin Dose 100 MLS/HR; Start 02/19/18 at 10:30 Sodium Chloride 1,000 ml @ 40 mls/hr Q24H IV Last administered on 02/20/18at 13:07; Admin Dose 40 MLS/HR; Start 02/19/18 at 13:30; Stop 02/21/18 at 15:29 Eye Lubricant (Artificial Tears Oph) 2 drop QID BOTH EYES Last administered on 02/20/18at 13:07; Admin Dose 2 DROP; Start 02/20/18 at 13:00 Eye Lubricant ([place] Oint) 1 applic TID BOTH EYES Last administered on 02/20/18at 13:07; Admin Dose 1 APPLIC; Start 02/20/18 at 13:00 Vancomycin HCl 250 ml @ 125 mls/hr Q12H IVPB ; Start 02/21/18 at 00:00 JULY TRAMMELL Feb 20, 2018 15:08
[2018-02-20] MEDS: FENTAnyl (DRIP) 1000 mcg/100mL 100 ML IV SCH (15:10)
[2018-02-20] MEDS: VANCOMYCIN 1 GM 250 ML IVPB SCH (23:33)
[2018-02-20] MEDS ORDERED: NORepinephrine 8MG/250 ML (PMX 250 ML IV SCH (23:45)
[2018-02-21] VITALS (63 sets, daily range): BP systolic 86–148; BP diastolic 61–100; PULSE 46–114; RESP 15–33
[2018-02-21] MEDS: ACCU-CHEK XX SCH ×24 (01:06→23:57)
[2018-02-21] MEDS: FENTAnyl (DRIP) 1000 mcg/100mL 100 ML IV SCH ×3 (01:11→20:15)
[2018-02-21] MEDS: PROPOFOL 100 ML IV SCH ×5 (02:58→21:49)
[2018-02-21] MEDS: METHYLPREDNISOLONE 125 MG INJ IV SCH ×4 (02:58→21:28)
[2018-02-21] MEDS: PANTOPRAZOLE 40 MG INJ IV SCH (05:54)
[2018-02-21] MEDS: AZTREONAM 1 GM/NS (PMX) 50 ML IVPB SCH ×3 (05:54→22:22)
[2018-02-21] MEDS: OCULAR LUBRICANT 3.5 GM OPH OINT BOTH EYES SCH ×4 (09:00→21:29)
[2018-02-21] MEDS: ARTIFICIAL TEARS 15 ML OPH BOTH EYES SCH ×4 (09:14→21:28)
[2018-02-21] MEDS: LEVOFLOXACIN 750MG/D5W (PMX) 150 ML IVPB SCH (10:20)
--- NOTE | 2018-02-21 11:15 | PN ---
Date/Time of Note Date/Time of Note DATE: 02/21/18 TIME: 11:13 Assessment/Plan VTE Prophylaxis Risk score (from [facility] [place])>0 risk: 12 SCD applied (from [facility] [place]): Yes Pharmacological prophylaxis: NA/contraindicated Pharm contraindication: other Assessment/Plan Hospital Course 1. Acute hypoxemic respiratory failure secondary to ARDS Etiology of ARDS likely secondary to underlying melanoma and/or immune modulating therapy Pulmonology consultation for vent management Continue IV steroids Patient has been started on Remicade 5mg/kg by oncology, Dr. Streeter has spoken to patient's primary oncologist in [place] Continue broad-spectrum antibiotics but consider de-escalation in the coming days as cultures are negative 2. Acute kidney injury secondary to sepsis and/or dehydration-resolved IV fluids 3. Normocytic anemia likely secondary to chronic disease from underlying malignancy Monitor 4. Stage IV melanoma Patient is on immune modulating therapy in [place] where she is from Oncology consultation with appreciated Prophylaxis: SCDs Result Diagram: 02/21/18 0449 02/21/18 0448 Results 24hrs Laboratory Tests Test 02/20/18 13:12 02/20/18 15:02 02/20/18 16:09 02/20/18 17:56 Bedside Glucose 185 130 120 117 Test 02/20/18 19:01 02/20/18 21:02 02/20/18 22:58 02/21/18 01:05 Bedside Glucose 120 136 158 158 Test 02/21/18 02:57 02/21/18 04:48 02/21/18 04:49 02/21/18 04:54 Bedside Glucose 161 143 Sodium Level 143 Potassium Level 4.7 Chloride Level 111 H Carbon Dioxide Level 25 Anion Gap 7 Blood Urea Nitrogen 34 H Creatinine 0.79 Est Glomerular Filtrat > 60 Rate mL/min Glucose Level 144 Calcium Level 7.9 L White Blood Count 6.1 # Red Blood Count 2.50 L Hemoglobin 8.1 L Hematocrit 25.3 L Mean Corpuscular Volume 101.2 H Mean Corpuscular 32.4 Hemoglobin Mean Corpuscular 32.0 Hemoglobin Concent Red Cell Distribution 14.6 H Width Platelet Count 62 L Mean Platelet Volume 11.7 H Immature Granulocytes % 3.300 H Neutrophils % 79.1 H Lymphocytes % 12.5 L Monocytes % 4.9 Eosinophils % 0.0 Basophils % 0.2 Nucleated Red Blood 3.6 H Cells % Immature Granulocytes # 0.200 H Neutrophils # 4.8 Lymphocytes # 0.8 Monocytes # 0.3 Eosinophils # 0.0 Basophils # 0.0 Nucleated Red Blood 0.2 H Cells # Test 02/21/18 07:15 02/21/18 08:13 02/21/18 09:06 02/21/18 10:18 Bedside Glucose 142 144 148 142 Test 02/21/18 10:48 Bedside Glucose 133 Subjective 24 Hr Interval Summary Subjective hx not possible: pt non-verbal Exam/Review of Systems Vital Signs Vitals Vital Signs Date Temp Pulse Resp B/P (MAP) Pulse Ox O2 O2 Flow FiO2 Time Delivery Rate 02/21/18 60 08:00 02/21/18 80 08:00 02/21/18 24 100/63 99 Mechanical 06:00 (75) Ventilator 02/21/18 98.0 04:00 02/17/18 15.0 14:00 Intake and Output 02/20/18 02/20/18 02/21/18 1515:00 23:00 07:00 IntakeIntake Total 955.56 ml 1037.07 ml 1478.53 ml OutputOutput Total 255 ml 420 ml 350 ml BalanceBalance 700.56 ml 617.07 ml 1128.53 ml Exam Constitutional: non-verbal ENMT: intubated Respiratory: clear to auscultation Cardiovascular: regular rate and rhythm Gastrointestinal: soft; No distended Musculoskeletal: nl extremities to inspection Medications Medications Current Medications IV Flush (NS 3 ml) 3 ml PER PROTOCOL IV ; Start 02/17/18 at 13:30 Ondansetron HCl (Zofran Inj) 4 mg Q6H PRN IV NAUSEA AND/OR VOMITING; Start 02/17/18 at 13:30 Acetaminophen (Tylenol Tab) 650 mg Q6H PRN PO PAIN LEVEL 1-3 OR FEVER; Start 02/17/18 at 13:30 Acetaminophen/ Hydrocodone Bitart ([place] (5/325)) 1 tab Q6H PRN PO MODERATE PAIN LEVEL 4-6; Start 02/17/18 at 13:30 Morphine Sulfate (morphine SULFATE (PF)) 2 mg Q4H PRN IV SEVERE PAIN LEVEL 7-10 Last administered on 02/18/18at 05:18; Admin Dose 2 MG; Start 02/17/18 at 13:30 Docusate Sodium (Colace) 100 mg Q12H PRN PO CONSTIPATION; Start 02/17/18 at 13:30 Pantoprazole (Protonix Iv) 40 mg DAILY@06 IV Last administered on 02/21/18 05:54; Admin Dose 40 MG; Start 02/18/18 at 06:00 Vancomycin HCl (Vanco Iv Per Pharmacy) VANCOMYCIN PER PHARMACY PER PROTOCOL XX ; Start 02/17/18 at 13:30 Aztreonam 50 ml @ 100 mls/hr Q8 IVPB Last administered on 02/21/18 05:54; Admin Dose 100 MLS/HR; Start 02/17/18 at 22:00 Methylprednisolone Sodium Succinate (Solu-Medrol) 80 mg Q6H IV Last administered on 02/21/18 09:16; Admin Dose 80 MG; Start 02/17/18 at 21:30 Midazolam HCl 50 ml @ 1 mls/hr TITRATE IV Last administered on 02/18/18 06:49; Admin Dose 8 MLS/HR; Start 02/17/18 at 18:30 Propofol 100 ml @ 2.43 mls/hr Q12H IV Last administered on 02/21/18 08:22; Admin Dose 24.3 MLS/HR; Start 02/18/18 at 09:30 Fentanyl 100 ml @ 2.5 mls/hr TITRATE IV Last administered on 02/21/18 01:11; Admin Dose 10 MLS/HR; Start 02/18/18 at 09:30 Diagnostic Test (Pha) (Accu-Chek) 1 ea Q1H XX Last administered on 02/21/18 07:15; Admin Dose 1 EA; Start 02/18/18 at 11:00 Insulin Human Regular 100 unit/ Sodium Chloride 100 ml @ 0 mls/hr PER PROTOCOL IV Last administered on 02/19/18 17:05; Admin Dose 1.5 MLS/HR; Start 02/18/18 at 11:00 Miscellaneous Information (* Miscellaneous Pharmacy Order) Treatment of Hypoglycemia: 1.BG 51... Per protocol XX ; Start 02/18/18 at 10:30 Dextrose (D50w Syringe) 25 ml Q15M PRN IV DECREASED GLUCOSE; Start 02/18/18 at 10:30 Dextrose (D50w Syringe) 50 ml Q15M PRN IV DECREASED GLUCOSE; Start 02/18/18 at 10:30 IV Flush (NS 10 ml) 10 ml PRN PRN IV IV PROTOCOL; Start 02/18/18 at 13:30 Levofloxacin/ Dextrose 150 ml @ 100 mls/hr Q24H IVPB Last administered on at 10:20; Admin Dose 100 MLS/HR; Start 02/19/18 at 10:30 Sodium Chloride 1,000 ml @ 40 mls/hr Q24H IV Last administered on 02/20/18at 13:07; Admin Dose 40 MLS/HR; Start 02/19/18 at 13:30; Stop 02/21/18 at 15:29 Eye Lubricant (Artificial Tears Oph) 2 drop QID BOTH EYES Last administered on 02/21/18at 09:14; Admin Dose 2 DROP; Start 02/20/18 at 13:00 Eye Lubricant ([place] Oint) 1 applic TID BOTH EYES Last administered on 02/21/18at 09:15; Admin Dose 1 APPLIC; Start 02/20/18 at 13:00 Vancomycin HCl 250 ml @ 125 mls/hr Q12H IVPB Last administered on 02/20/18at 23:33; Admin Dose 125 MLS/HR; Start 02/21/18 at 00:00 Norepinephrine 250 ml @ 1.875 mls/ hr TITRATE IV ; Start 02/20/18 at 23:45 Infliximab 300 mg/ Sodium Chloride 300 ml @ 125 mls/hr ONCE IV ; Start 02/21/18 at 12:00; Stop 02/21/18 at 14:23 JULY TRAMMELL Feb 21, 2018 11:15
--- NOTE | 2018-02-21 11:44 | CONS ---
Date/Time of Note Date/Time of Note DATE: 02/21/18 TIME: 11:38 Consult Date/Type/Reason Admit Date/Time Feb 17, 2018 at 12:57 Initial Consult Date 02/18/18 Requesting Provider: JULY TRAMMELL Subjective Sedated on the vent. Objective Vital Signs Date Temp Pulse Resp B/P (MAP) Pulse Ox O2 O2 Flow FiO2 Time Delivery Rate 02/21/18 52 24 109/76 96 Mechanical 11:15 (87) Ventilator 02/21/18 97.4 08:00 02/21/18 80 08:00 02/17/18 15.0 14:00 Intake and Output 02/20/18 02/20/18 02/21/18 1515:00 23:00 07:00 IntakeIntake Total 955.56 ml 1037.07 ml 1478.53 ml OutputOutput Total 255 ml 420 ml 350 ml BalanceBalance 700.56 ml 617.07 ml 1128.53 ml Exam HEENT: Neck supple; no JVD; no LAD: + ET tube CVS: RRR, S1 and S2 CHEST: Subtle basilar rales ABD: Soft, NT, + BS EXT: No c/c; + edema NEURO: Sedated on the vent; moves all 4 ext Results/Medications Result Diagram: 02/21/18 0449 02/21/188 Results 24 hrs Laboratory Tests Test 02/20/18 13:12 02/20/18 15:02 02/20/18 16:09 02/20/18 17:56 Bedside Glucose 185 130 120 117 Test 02/20/18 19:01 02/20/18 21:02 02/20/18 22:58 02/21/18 01:05 Bedside Glucose 120 136 158 158 Test 02/21/18 02:57 02/21/18 04:48 02/21/18 04:49 02/21/18 04:54 Bedside Glucose 161 143 Sodium Level 143 Potassium Level 4.7 Chloride Level 111 H Carbon Dioxide Level 25 Anion Gap 7 Blood Urea Nitrogen 34 H Creatinine 0.79 Est Glomerular Filtrat > 60 Rate mL/min Glucose Level 144 Calcium Level 7.9 L White Blood Count 6.1 # Red Blood Count 2.50 L Hemoglobin 8.1 L Hematocrit 25.3 L Mean Corpuscular Volume 101.2 H Mean Corpuscular 32.4 Hemoglobin Mean Corpuscular 32.0 Hemoglobin Concent Red Cell Distribution 14.6 H Width Platelet Count 62 L Mean Platelet Volume 11.7 H Immature Granulocytes % 3.300 H Neutrophils % 79.1 H Lymphocytes % 12.5 L Monocytes % 4.9 Eosinophils % 0.0 Basophils % 0.2 Nucleated Red Blood 3.6 H Cells % Immature Granulocytes # 0.200 H Neutrophils # 4.8 Lymphocytes # 0.8 Monocytes # 0.3 Eosinophils # 0.0 Basophils # 0.0 Nucleated Red Blood 0.2 H Cells # Test 02/21/18 07:15 02/21/18 08:13 02/21/18 09:06 02/21/18 10:18 Bedside Glucose 142 144 148 142 Test 02/21/18 10:48 Bedside Glucose 133 Medications Current Medications IV Flush (NS 3 ml) 3 ml PER PROTOCOL IV ; Start 02/17/18 at 13:30 Ondansetron HCl (Zofran Inj) 4 mg Q6H PRN IV NAUSEA AND/OR VOMITING; Start 02/17/18 at 13:30 Acetaminophen (Tylenol Tab) 650 mg Q6H PRN PO PAIN LEVEL 1-3 OR FEVER; Start 02/17/18 at 13:30 Acetaminophen/ Hydrocodone Bitart ([place] (5/325)) 1 tab Q6H PRN PO MODERATE PAIN LEVEL 4-6; Start 02/17/18 at 13:30 Morphine Sulfate (morphine SULFATE (PF)) 2 mg Q4H PRN IV SEVERE PAIN LEVEL 7-10 Last administered on 02/18/18at 05:18; Admin Dose 2 MG; Start 02/17/18 at 13:30 Docusate Sodium (Colace) 100 mg Q12H PRN PO CONSTIPATION; Start 02/17/18 at 13:30 Pantoprazole (Protonix Iv) 40 mg DAILY@06 IV Last administered on 02/21/18at 05:54; Admin Dose 40 MG; Start 02/18/18 at 06:00 Vancomycin HCl (Vanco Iv Per Pharmacy) VANCOMYCIN PER PHARMACY PER PROTOCOL XX ; Start 02/17/18 at 13:30 Aztreonam 50 ml @ 100 mls/hr Q8 IVPB Last administered on 02/21/18at 05:54; Admin Dose 100 MLS/HR; Start 02/17/18 at 22:00 Methylprednisolone Sodium Succinate (Solu-Medrol) 80 mg Q6H IV Last ad ministered on 02/21/18 09:16; Admin Dose 80 MG; Start 02/17/18 at 21:30 Midazolam HCl 50 ml @ 1 mls/hr TITRATE IV Last administered on 02/18/18at 06:49; Admin Dose 8 MLS/HR; Start 02/17/18 at 18:30 Propofol 100 ml @ 2.43 mls/hr Q12H IV Last administered on 02/21/18 08:22; Admin Dose 24.3 MLS/HR; Start 02/18/18 at 09:30 Fentanyl 100 ml @ 2.5 mls/hr TITRATE IV Last administered on 02/21/18 01:11; Admin Dose 10 MLS/HR; Start 02/18/18 at 09:30 Diagnostic Test (Pha) (Accu-Chek) 1 ea Q1H XX Last administered on 02/21/18 07:15; Admin Dose 1 EA; Start 02/18/18 at 11:00 Insulin Human Regular 100 unit/ Sodium Chloride 100 ml @ 0 mls/hr PER PROTOCOL IV Last administered on 02/19/18 17:05; Admin Dose 1.5 MLS/HR; Start 02/18/18 at 11:00 Miscellaneous Information (* Miscellaneous Pharmacy Order) Treatment of Hypoglycemia: 1.BG 51... Per protocol XX ; Start 02/18/18 at 10:30 Dextrose (D50w Syringe) 25 ml Q15M PRN IV DECREASED GLUCOSE; Start 02/18/18 at 10:30 Dextrose (D50w Syringe) 50 ml Q15M PRN IV DECREASED GLUCOSE; Start 02/18/18 at 10:30 IV Flush (NS 10 ml) 10 ml PRN PRN IV IV PROTOCOL; Start 02/18/18 at 13:30 Levofloxacin/ Dextrose 150 ml @ 100 mls/hr Q24H IVPB Last administered on 02/21/18at 10:20; Admin Dose 100 MLS/HR; Start 02/19/18 at 10:30 Sodium Chloride 1,000 ml @ 40 mls/hr Q24H IV Last administered on 02/20/18 13:07; Admin Dose 40 MLS/HR; Start 02/19/18 at 13:30; Stop 02/21/18 at 15:29 Eye Lubricant (Artificial Tears Oph) 2 drop QID BOTH EYES Last administered on 02/21/18at 09:14; Admin Dose 2 DROP; Start 02/20/18 at 13:00 Eye Lubricant (Akwa Oint) 1 applic TID BOTH EYES Last administered on 02/21/18at 09:15; Admin Dose 1 APPLIC; Start 02/20/18 at 13:00 Vancomycin HCl 250 ml @ 125 mls/hr Q12H IVPB Last administered on 02/20/18at 23:33; Admin Dose 125 MLS/HR; Start 02/21/18 at 00:00 Norepinephrine 250 ml @ 1.875 mls/ hr TITRATE IV ; Start 02/20/18 at 23:45 Infliximab 300 mg/ Sodium Chloride 300 ml @ 125 mls/hr ONCE IV ; Start 02/21/18 at 12:00; Stop 02/21/18 at 14:23 Assessment/Plan Additional Assessment/Plan IMP: 1. Severe Hypoxemic Hypoxemic Resp Failure/ARDS--2/2 to PDL-1 (nivolumab) induced pneumonitis. 2. Acute kidney injury--resolved 3. Normocytic anemia 4. Stage IV melanoma RECS: 1. Vent change based on ARDS-NET guidelines--> lower Vt 450; increase PEEP 12; decrease FiO2 70% 2. Continue solumedrol 80 mg IV Q 6 3. D/C IVF's 4. Would keep I<O's 5. Increase fentanyl and reduce propofol gtt case d/w with son at length case d/w RN 40 min cc time JEFF ORTIZ MD Feb 21, 2018 11:44
[2018-02-21] MEDS ORDERED: INFLIXIMAB 300 MG in SOD CHLORIDE 0.9% 300 ML IV SCH (12:00)
[2018-02-21] MEDS: ACETAMINOPHEN 325 MG TAB PO PRN ×2 (12:50→14:42)
[2018-02-21] MEDS: VANCOMYCIN 1 GM 250 ML IVPB SCH (13:01)
[2018-02-21] MEDS: SOD CHLORIDE 0.9% 1,000 ML IV SCH (13:19)
--- NOTE | 2018-02-21 13:24 | CONS ---
Date/Time of Note Date/Time of Note DATE: 02/21/18 TIME: 13:14 Assessment/Plan Assessment/Plan Assessment/Plan #Metastatic Melanoma - last Nivolumab was 2 weeks ago - started on Remicade 300 mg now; on FIO2 70%; cont to monitor in ICU #ARDS - likely 2/2 Nivolumab and questionable underlying pneumonia -cont high dose steroids the patient is currently getting - solumedrol 80mg q 6 hours - Levophed never started on her -continue IV antibiotics in case of any underlying infection contributing to ARDS -If patient is able to recover, oncology would not recommend for her to continue Nivolumab given this grade 4 toxicity -continue critical care measure with vasopressor support and mechanical ventilation Approximately 50 min was spend in face to face time with patent's son at the bed side, and in coordination of her care. Patient seen in collaboration with Dr Streeter Result Diagram: 02/21/18 0449 02/21/18 0448 Results 24hrs Laboratory Tests Test 02/20/18 15:02 02/20/18 16:09 02/20/18 17:56 02/20/18 19:01 Bedside Glucose 130 120 117 120 Test 02/20/18 21:02 02/20/18 22:58 02/21/18 01:05 02/21/18 02:57 Bedside Glucose 136 158 158 161 Test 02/21/18 04:48 02/21/18 04:49 02/21/18 04:54 02/21/18 07:15 Sodium Level 143 Potassium Level 4.7 Chloride Level 111 H Carbon Dioxide Level 25 Anion Gap 7 Blood Urea Nitrogen 34 H Creatinine 0.79 Est Glomerular Filtrat > 60 Rate mL/min Glucose Level 144 Calcium Level 7.9 L White Blood Count 6.1 # Red Blood Count 2.50 L Hemoglobin 8.1 L Hematocrit 25.3 L Mean Corpuscular Volume 101.2 H Mean Corpuscular 32.4 Hemoglobin Mean Corpuscular 32.0 Hemoglobin Concent Red Cell Distribution 14.6 H Width Platelet Count 62 L Mean Platelet Volume 11.7 H Immature Granulocytes % 3.300 H Neutrophils % 79.1 H Lymphocytes % 12.5 L Monocytes % 4.9 Eosinophils % 0.0 Basophils % 0.2 Nucleated Red Blood 3.6 H Cells % Immature Granulocytes # 0.200 H Neutrophils # 4.8 Lymphocytes # 0.8 Monocytes # 0.3 Eosinophils # 0.0 Basophils # 0.0 Nucleated Red Blood 0.2 H Cells # Bedside Glucose 143 142 Test 02/21/18 08:13 02/21/18 09:06 02/21/18 10:18 02/21/18 10:48 Bedside Glucose 144 148 142 133 Test 02/21/18 12:01 Bedside Glucose 150 Consultation Date/Type/Reason Admit Date/Time Feb 17, 2018 at 12:57 Initial Consult Date 02/18/18 Type of Consult ONCOLOGY Reason for Consultation Metastatic Melanoma Requesting Provider: JULY TRAMMELL 24 HR Interval Summary Free Text/Dictation - Started on Remicade today; Fio2 70%; cont to monitor in ICU - seems comfortable while intubate - on Fentanyl; Propofol - was agitated- calm now Subjective hx not possible: pt non-verbal, pt critical status Constitutional: requiring IVF, requiring O2 Exam/Review of Systems Vital Signs Vitals Vital Signs Date Temp Pulse Resp B/P (MAP) Pulse Ox O2 O2 Flow FiO2 Time Delivery Rate 02/21/18 50 24 98 70 11:25 02/21/18 109/76 Mechanical 11:15 (87) Ventilator 02/21/18 97.4 08:00 02/17/18 15.0 14:00 Intake and Output 02/20/18 02/20/18 02/21/18 1515:00 23:00 07:00 IntakeIntake Total 955.56 ml 1037.07 ml 1478.53 ml OutputOutput Total 255 ml 420 ml 350 ml BalanceBalance 700.56 ml 617.07 ml 1128.53 ml Exam Constitutional: well developed, non-verbal, obese Psych: nl mood/affect Eyes: nl lids, nl sclera ENMT: nl external ears & nose Neck: other (ET tub eintact) Respiratory: diminished breath sounds (bilaterally) Cardiovascular: nl pulses, other (s1s2) Gastrointestinal: soft Musculoskeletal: nl extremities to inspection Extremities: normal pulses Neurological: unresponsive Skin: nl turgor Medications Medications Current Medications IV Flush (NS 3 ml) 3 ml PER PROTOCOL IV ; Start 02/17/18 at 13:30 Ondansetron HCl (Zofran Inj) 4 mg Q6H PRN IV NAUSEA AND/OR VOMITING; Start 02/17/18 at 13:30 Acetaminophen (Tylenol Tab) 650 mg Q6H PRN PO PAIN LEVEL 1-3 OR FEVER Last administered on 02/21/18 12:50; Admin Dose 650 MG; Start 02/17/18 at 13:30 Acetaminophen/ Hydrocodone Bitart ([place] (5/325)) 1 tab Q6H PRN PO MODERATE PAIN LEVEL 4-6; Start 02/17/18 at 13:30 Morphine Sulfate (morphine SULFATE (PF)) 2 mg Q4H PRN IV SEVERE PAIN LEVEL 7-10 Last administered on 02/18/18 05:18; Admin Dose 2 MG; Start 02/17/18 at 13:30 Docusate Sodium (Colace) 100 mg Q12H PRN PO CONSTIPATION; Start 02/17/18 at 13:30 Pantoprazole (Protonix Iv) 40 mg DAILY@06 IV Last administered on 02/21/18 05:54; Admin Dose 40 MG; Start 02/18/18 at 06:00 Vancomycin HCl (Vanco Iv Per Pharmacy) VANCOMYCIN PER PHARMACY PER PROTOCOL XX ; Start 02/17/18 at 13:30 Aztreonam 50 ml @ 100 mls/hr Q8 IVPB Last administered on 02/21/18 05:54; Admin Dose 100 MLS/HR; Start 02/17/18 at 22:00 Methylprednisolone Sodium Succinate (Solu-Medrol) 80 mg Q6H IV Last administered on 02/21/18 09:16; Admin Dose 80 MG; Start 02/17/18 at 21:30 Midazolam HCl 50 ml @ 1 mls/hr TITRATE IV Last administered on 02/18/18 06:49; Admin Dose 8 MLS/HR; Start 02/17/18 at 18:30 Propofol 100 ml @ 2.43 mls/hr Q12H IV Last administered on 02/21/18 08:22; Admin Dose 24.3 MLS/HR; Start 02/18/18 at 09:30 Fentanyl 100 ml @ 2.5 mls/hr TITRATE IV Last administered on 02/21/18 12:06; Admin Dose 15 MLS/HR; Start 02/18/18 at 09:30 Diagnostic Test (Pha) (Accu-Chek) 1 ea Q1H XX Last administered on 02/21/18 07:15; Admin Dose 1 EA; Start 02/18/18 at 11:00 Insulin Human Regular 100 unit/ Sodium Chloride 100 ml @ 0 mls/hr PER PROTOCOL IV Last administered on 02/19/18at 17:05; Admin Dose 1.5 MLS/HR; Start 02/18/18 at 11:00 Miscellaneous Information (* Miscellaneous Pharmacy Order) Treatment of Hypoglycemia: 1.BG 51... Per protocol XX ; Start 02/18/18 at 10:30 Dextrose (D50w Syringe) 25 ml Q15M PRN IV DECREASED GLUCOSE; Start 02/18/18 at 10:30 Dextrose (D50w Syringe) 50 ml Q15M PRN IV DECREASED GLUCOSE; Start 02/18/18 at 10:30 IV Flush (NS 10 ml) 10 ml PRN PRN IV IV PROTOCOL; Start 02/18/18 at 13:30 Levofloxacin/ Dextrose 150 ml @ 100 mls/hr Q24H IVPB Last administered on 02/21/18at 10:20; Admin Dose 100 MLS/HR; Start 02/19/18 at 10:30 Sodium Chloride 1,000 ml @ 40 mls/hr Q24H IV Last administered on 02/20/18at 13:07; Admin Dose 40 MLS/HR; Start 02/19/18 at 13:30; Stop 02/21/18 at 15:29 Eye Lubricant (Artificial Tears Oph) 2 drop QID BOTH EYES Last administered on 02/21/18at 13:04; Admin Dose 2 DROP; Start 02/20/18 at 13:00 Eye Lubricant (Akwa Oint) 1 applic TID BOTH EYES Last administered on 02/21/18 13:04; Admin Dose 1 APPLIC; Start 02/20/18 at 13:00 Vancomycin HCl 250 ml @ 125 mls/hr Q12H IVPB Last administered on 02/21/18 13:01; Admin Dose 125 MLS/HR; Start 02/21/18 at 00:00 Norepinephrine 250 ml @ 1.875 mls/ hr TITRATE IV ; Start 02/20/18 at 23:45 Infliximab 300 mg/ Sodium Chloride 300 ml @ 125 mls/hr ONCE IV Last administered on 02/21/18at 12:40; Admin Dose 125 MLS/HR; Start 02/21/18 at 12:00; Stop 02/21/18 at 14:23 GEMA HEREDIA Feb 21, 2018 1:24 pm
[2018-02-22] VITALS (42 sets, daily range): BP systolic 81–136; BP diastolic 50–93; PULSE 52–108; RESP 14–33
[2018-02-22] MEDS: ACCU-CHEK XX SCH ×23 (01:00→23:30)
[2018-02-22] MEDS: VANCOMYCIN 1 GM 250 ML IVPB SCH (01:18)
[2018-02-22] MEDS: PROPOFOL 100 ML IV SCH ×4 (02:50→20:15)
[2018-02-22] MEDS: METHYLPREDNISOLONE 125 MG INJ IV SCH ×3 (03:33→20:16)
[2018-02-22] MEDS: FENTAnyl (DRIP) 1000 mcg/100mL 100 ML IV SCH ×3 (04:08→20:54)
[2018-02-22] MEDS: PANTOPRAZOLE 40 MG INJ IV SCH (05:30)
[2018-02-22] MEDS: AZTREONAM 1 GM/NS (PMX) 50 ML IVPB SCH ×3 (05:30→21:57)
[2018-02-22] MEDS: ARTIFICIAL TEARS 15 ML OPH BOTH EYES SCH ×4 (08:09→20:50)
[2018-02-22] MEDS: OCULAR LUBRICANT 3.5 GM OPH OINT BOTH EYES SCH ×3 (08:09→20:51)
--- NOTE | 2018-02-22 10:34 | CONS ---
Date/Time of Note Date/Time of Note DATE: 02/22/18 TIME: 10:31 Consult Date/Type/Reason Admit Date/Time Feb 17, 2018 at 12:57 Initial Consult Date 02/18/18 Type of Consultation: Pulm/CCM Requesting Provider: JULY TRAMMELL Subjective Sedated on mechanical ventilation. Objective Vital Signs Date Temp Pulse Resp B/P (MAP) Pulse Ox O2 O2 Flow FiO2 Time Delivery Rate 02/22/18 73 14 131/80 94 Mechanical 09:00 (97) Ventilator 02/22/18 99.2 08:00 02/22/18 80 05:18 Intake and Output 02/21/18 02/21/18 02/22/18 1414:59 22:59 06:59 IntakeIntake Total 1306.22 ml 1270.64 ml 1032.16 ml OutputOutput Total 385 ml 385 ml 403 ml BalanceBalance 921.22 ml 885.64 ml 629.16 ml Exam HEENT: Neck supple; no JVD; no LAD: + ET tube CVS: RRR, S1 and S2 CHEST: Subtle basilar rales ABD: Soft, NT, + BS EXT: No c/c; + edema NEURO: Sedated on the vent; moves all 4 ext Results/Medications Result Diagram: 02/22/18 0430 02/22/18 0430 Results 24 hrs Laboratory Tests Test 02/21/18 10:48 02/21/18 12:01 02/21/18 12:54 02/21/18 14:10 Bedside Glucose 133 150 122 141 Test 02/21/18 15:16 02/21/18 15:52 02/21/18 17:18 02/21/18 18:07 Bedside Glucose 122 132 110 138 Test 02/21/18 19:03 02/21/18 20:02 02/21/18 22:06 02/21/18 23:56 Bedside Glucose 133 126 127 117 Test 02/22/18 02:21 02/22/18 04:03 02/22/18 04:30 02/22/18 05:00 Bedside Glucose 156 157 White Blood Count 9.8 # Red Blood Count 2.82 L Hemoglobin 9.1 L Hematocrit 28.0 L Mean Corpuscular 99.3 Volume Mean Corpuscular 32.3 Hemoglobin Mean Corpuscular 32.5 Hemoglobin Concent Red Cell 14.6 H Distribution Width Platelet Count 76 #L Mean Platelet 11.5 H Volume Immature 5.600 H Granulocytes % Neutrophils % 77.5 H Lymphocytes % 12.0 L Monocytes % 4.8 Eosinophils % 0.0 Basophils % 0.1 Nucleated Red 2.9 H Blood Cells % Immature 0.550 H Granulocytes # Neutrophils # 7.6 H Lymphocytes # 1.2 Monocytes # 0.5 Eosinophils # 0.0 Basophils # 0.0 Nucleated Red 0.3 H Blood Cells # Sodium Level 143 Potassium Level 4.6 Chloride Level 110 Carbon Dioxide 25 Level Anion Gap 8 Blood Urea 34 H Nitrogen Creatinine 0.78 Est Glomerular > 60 Filtrat Rate mL/min Glucose Level 147 Lactic Acid Level 2.6 *H Calcium Level 8.1 L Blood Gas Specimen Blood arterial Source Arterial Blood 02/22/2018 4:25:14 Date Drawn AM Arterial Blood pH 7.409 (Temp corrected) Arterial Blood 37.6 pCO2 (Temp correct) Arterial Blood pO2 83.1 (Temp corrected) Arterial Blood 23.2 HCO3 Arterial Blood -1.1 Base Excess Arterial Blood 95.7 Oxygen Saturation Ruperto Test ACCEPTAB Arterial Blood Gas Right Radial Puncture Site Arterial 0 Blood Carboxyhemog lobin Arterial Blood 0.3 Methemoglobin Blood Gas A-a O2 447.8 H Differential Oxyhemoglobin 95.4 Percent Blood Gas 37.0 Temperature Blood Gas 24.0 Respiration Rate Blood Gas Actual 28 Respiration Rate Blood Gas Modality VENT - AC FiO2 80.0 Blood Gas Tidal 450.0 Volume Blood Gas Low PEEP 14.0 Setting Blood Gas 22.0 Inspiratory Pressure Blood Gas Notified KM Whom Blood Gas Notified 02/22/2018 4:43:33 Time AM Test 02/22/18 05:58 02/22/18 08:17 02/22/18 10:19 Bedside Glucose 151 138 129 Medications Current Medications IV Flush (NS 3 ml) 3 ml PER PROTOCOL IV ; Start 02/17/18 at 13:30 Ondansetron HCl (Zofran Inj) 4 mg Q6H PRN IV NAUSEA AND/OR VOMITING; Start 02/17/18 at 13:30 Acetaminophen (Tylenol Tab) 650 mg Q6H PRN PO PAIN LEVEL 1-3 OR FEVER Last administered on 02/21/18at 12:50; Admin Dose 650 MG; Start 02/17/18 at 13:30 Acetaminophen/ Hydrocodone Bitart ([place] (5/325)) 1 tab Q6H PRN PO MODERATE PAIN LEVEL 4-6; Start 02/17/18 at 13:30 Morphine Sulfate (morphine SULFATE (PF)) 2 mg Q4H PRN IV SEVERE PAIN LEVEL 7-10 Last administered on 02/18/18 05:18; Admin Dose 2 MG; Start 02/17/18 at 13:30 Docusate Sodium (Colace) 100 mg Q12H PRN PO CONSTIPATION; Start 02/17/18 at 13:30 Pantoprazole (Protonix Iv) 40 mg DAILY@06 IV Last administered on 02/22/18 05:30; Admin Dose 40 MG; Start 02/18/18 at 06:00 Vancomycin HCl (Vanco Iv Per Pharmacy) VANCOMYCIN PER PHARMACY PER PROTOCOL XX ; Start 02/17/18 at 13:30 Aztreonam 50 ml @ 100 mls/hr Q8 IVPB Last administered on 02/22/18 05:30; Admin Dose 100 MLS/HR; Start 02/17/18 at 22:00 Methylprednisolone Sodium Succinate (Solu-Medrol) 80 mg Q6H IV Last administered on 02/22/18 03:33; Admin Dose 80 MG; Start 02/17/18 at 21:30 Midazolam HCl 50 ml @ 1 mls/hr TITRATE IV Last administered on 02/18/18 06:49; Admin Dose 8 MLS/HR; Start 02/17/18 at 18:30 Propofol 100 ml @ 2.43 mls/hr Q12H IV Last administered on 02/22/18 06:38; Admin Dose 19.44 MLS/HR; Start 02/18/18 at 09:30 Fentanyl 100 ml @ 2.5 mls/hr TITRATE IV Last administered on 02/22/18 04:08; Admin Dose 11 MLS/HR; Start 02/18/18 at 09:30 Diagnostic Test (Pha) (Accu-Chek) 1 ea Q1H XX Last administered on 02/22/18 08:17; Admin Dose 1 EA; Start 02/18/18 at 11:00 Insulin Human Regular 100 unit/ Sodium Chloride 100 ml @ 0 mls/hr PER PROTOCOL IV Last administered on 02/19/18 17:05; Admin Dose 1.5 MLS/HR; Start 02/18/18 at 11:00 Miscellaneous Information (* Miscellaneous Pharmacy Order) Treatment of Hypoglycemia: 1.BG 51... Per protocol XX ; Start 02/18/18 at 10:30 Dextrose (D50w Syringe) 25 ml Q15M PRN IV DECREASED GLUCOSE; Start 02/18/18 at 10:30 Dextrose (D50w Syringe) 50 ml Q15M PRN IV DECREASED GLUCOSE; Start 02/18/18 at 10:30 IV Flush (NS 10 ml) 10 ml PRN PRN IV IV PROTOCOL; Start 02/18/18 at 13:30 Levofloxacin/ Dextrose 150 ml @ 100 mls/hr Q24H IVPB Last administered on 02/21/18at 10:20; Admin Dose 100 MLS/HR; Start 02/19/18 at 10:30 Eye Lubricant (Artificial Tears Oph) 2 drop QID BOTH EYES Last administered on 02/22/18at 08:09; Admin Dose 2 DROP; Start 02/20/18 at 13:00 Eye Lubricant (Akwa Oint) 1 applic TID BOTH EYES Last administered on 02/22/18at 08:09; Admin Dose 1 APPLIC; Start 02/20/18 at 13:00 Vancomycin HCl 250 ml @ 125 mls/hr Q12H IVPB Last administered on 02/22/18at 01:18; Admin Dose 125 MLS/HR; Start 02/21/18 at 00:00 Norepinephrine 250 ml @ 1.875 mls/ hr TITRATE IV ; Start 02/20/18 at 23:45 Miscellaneous Information (*Rx Drug Level Order Reminder*) VANCO TR LEVEL PRIOR... ONCE ONCE XX ; Start 02/22/18 at 11:00; Stop 02/22/18 at 11:01 Assessment/Plan Additional Assessment/Plan IMP: 1. Severe Hypoxemic Hypoxemic Resp Failure/ARDS--2/2 to PDL-1 (nivolumab) induced pneumonitis. 2. Acute kidney injury--resolved 3. Normocytic anemia 4. Stage IV melanoma 5. Thrombocytopenia RECS: 1. Vent change based on ARDS-NET guidelines--> PEEP 14; decrease FiO2 60%. Next will lower PEEP to 12 cm H20 2. Reduce solumedrol 60 mg IV Q 6 3. Lasix 20 mg IV daily 4. Would keep I<O's 5. Continue fentanyl and reduce propofol gtt; daily sedation vacation 6. D/C vancomycin case d/w with son at length case d/w RN 40 min cc time JEFF ORTIZ MD Feb 22, 2018 10:34
[2018-02-22] MEDS: FUROSEMIDE 20 MG INJ IV SCH (11:08)
[2018-02-22] MEDS: LEVOFLOXACIN 750MG/D5W (PMX) 150 ML IVPB SCH (11:08)
--- NOTE | 2018-02-22 14:18 | CONS ---
Date/Time of Note Date/Time of Note DATE: 02/22/18 TIME: 14:12 Assessment/Plan Assessment/Plan Assessment/Plan #Metastatic Melanoma - last Nivolumab was 2 weeks ago - 02/21/2018-sp Remicade 300 mg -on FIO2 70 %, PEEP 14 ; plan to adjust PEEP to 12 if patient tolerates; cont to monitor in ICU #ARDS - likely 2/2 Nivolumab and questionable underlying pneumonia -cont high dose steroids the patient is currently getting - solumedrol 80mg q 6 hours - Levophed never started on her -continue IV antibiotics in case of any underlying infection contributing to ARDS -If patient is able to recover, oncology would not recommend for her to continue Nivolumab given this grade 4 toxicity -continue critical care measure with vasopressor support and mechanical ventilation Approximately 35 min was spend in coordination of her care; staff. Patient seen in collaboration with Dr Streeter Result Diagram: 02/22/18 0430 02/22/18 0430 Results 24hrs Laboratory Tests Test 02/21/18 15:16 02/21/18 15:52 02/21/18 17:18 02/21/18 18:07 Bedside Glucose 122 132 110 138 Test 02/21/18 19:03 02/21/18 20:02 02/21/18 22:06 02/21/18 23:56 Bedside Glucose 133 126 127 117 Test 02/22/18 02:21 02/22/18 04:03 02/22/18 04:30 02/22/18 05:00 Bedside Glucose 156 157 White Blood Count 9.8 # Red Blood Count 2.82 L Hemoglobin 9.1 L Hematocrit 28.0 L Mean Corpuscular 99.3 Volume Mean Corpuscular 32.3 Hemoglobin Mean Corpuscular 32.5 Hemoglobin Concent Red Cell 14.6 H Distribution Width Platelet Count 76 #L Mean Platelet 11.5 H Volume Immature 5.600 H Granulocytes % Neutrophils % 77.5 H Lymphocytes % 12.0 L Monocytes % 4.8 Eosinophils % 0.0 Basophils % 0.1 Nucleated Red 2.9 H Blood Cells % Immature 0.550 H Granulocytes # Neutrophils # 7.6 H Lymphocytes # 1.2 Monocytes # 0.5 Eosinophils # 0.0 Basophils # 0.0 Nucleated Red 0.3 H Blood Cells # Sodium Level 143 Potassium Level 4.6 Chloride Level 110 Carbon Dioxide 25 Level Anion Gap 8 Blood Urea 34 H Nitrogen Creatinine 0.78 Est Glomerular > 60 Filtrat Rate mL/min Glucose Level 147 Lactic Acid Level 2.6 *H Calcium Level 8.1 L Blood Gas Specimen Blood arterial Source Arterial Blood 02/22/2018 4:25:14 Date Drawn AM Arterial Blood pH 7.409 (Temp corrected) Arterial Blood 37.6 pCO2 (Temp correct) Arterial Blood pO2 83.1 (Temp corrected) Arterial Blood 23.2 HCO3 Arterial Blood -1.1 Base Excess Arterial Blood 95.7 Oxygen Saturation Ruperto Test ACCEPTAB Arterial Blood Gas Right Radial Puncture Site Arterial 0 Blood Carboxyhemog lobin Arterial Blood 0.3 Methemoglobin Blood Gas A-a O2 447.8 H Differential Oxyhemoglobin 95.4 Percent Blood Gas 37.0 Temperature Blood Gas 24.0 Respiration Rate Blood Gas Actual 28 Respiration Rate Blood Gas Modality VENT - AC FiO2 80.0 Blood Gas Tidal 450.0 Volume Blood Gas Low PEEP 14.0 Setting Blood Gas 22.0 Inspiratory Pressure Blood Gas Notified KM Whom Blood Gas Notified 02/22/2018 4:43:33 Time AM Test 02/22/18 05:58 02/22/18 08:17 02/22/18 10:19 02/22/18 12:30 Bedside Glucose 151 138 129 140 Consultation Date/Type/Reason Admit Date/Time Feb 17, 2018 at 12:57 Initial Consult Date 02/18/18 Type of Consult ONCOLOGY Reason for Consultation Metastatic Melanoma Requesting Provider: JULY TRAMMELL 24 HR Interval Summary Free Text/Dictation - 02/21/2018-sp Remicade 300 mg IV once -on FIO2 70 %, PEEP 14 ; plan to adjust PEEP to 12 if patient tolerates - cont to monitor in ICU Subjective hx not possible: pt non-verbal Constitutional: requiring IVF, requiring O2 Exam/Review of Systems Vital Signs Vitals Vital Signs Date Temp Pulse Resp B/P (MAP) Pulse Ox O2 O2 Flow FiO2 Time Delivery Rate 02/22/18 100 24 97 70 13:40 02/22/18 95/58 (70) Mechanical 13:00 Ventilator 02/22/18 99.0 12:00 Intake and Output 02/21/18 02/21/18 02/22/18 1414:59 22:59 06:59 IntakeIntake Total 1306.22 ml 1270.64 ml 1032.16 ml OutputOutput Total 385 ml 385 ml 403 ml BalanceBalance 921.22 ml 885.64 ml 629.16 ml Exam Constitutional: well developed Psych: nl mood/affect Eyes: EOMI, nl sclera ENMT: nl external ears & nose Neck: non-tender, other (ET tube intact) Respiratory: diminished breath sounds Cardiovascular: nl pulses, other (s1s2) Gastrointestinal: soft Musculoskeletal: muscle weakness Extremities: normal pulses Neurological: DTR's symmetric, lethargic Skin: nl turgor Medications Medications Current Medications IV Flush (NS 3 ml) 3 ml PER PROTOCOL IV ; Start 02/17/18 at 13:30 Ondansetron HCl (Zofran Inj) 4 mg Q6H PRN IV NAUSEA AND/OR VOMITING; Start 02/17/18 at 13:30 Acetaminophen (Tylenol Tab) 650 mg Q6H PRN PO PAIN LEVEL 1-3 OR FEVER Last administered on 02/21/18at 12:50; Admin Dose 650 MG; Start 02/17/18 at 13:30 Acetaminophen/ Hydrocodone Bitart ([place] (5/325)) 1 tab Q6H PRN PO MODERATE PAIN LEVEL 4-6; Start 02/17/18 at 13:30 Morphine Sulfate (morphine SULFATE (PF)) 2 mg Q4H PRN IV SEVERE PAIN LEVEL 7-10 Last administered on 02/18/18at 05:18; Admin Dose 2 MG; Start 02/17/18 at 13:30 Docusate Sodium (Colace) 100 mg Q12H PRN PO CONSTIPATION; Start 02/17/18 at 13:30 Pantoprazole (Protonix Iv) 40 mg DAILY@06 IV Last administered on 02/22/18at 05:30; Admin Dose 40 MG; Start 02/18/18 at 06:00 Aztreonam 50 ml @ 100 mls/hr Q8 IVPB Last administered on 02/22/18at 14:11; Admin Dose 100 MLS/HR; Start 02/17/18 at 22:00 Midazolam HCl 50 ml @ 1 mls/hr TITRATE IV Last administered on 02/18/18at 06:49; Admin Dose 8 MLS/HR; Start 02/17/18 at 18:30 Propofol 100 ml @ 2.43 mls/hr Q12H IV Last administered on 02/22/18at 11:21; Admin Dose 19.44 MLS/HR; Start 02/18/18 at 09:30 Fentanyl 100 ml @ 2.5 mls/hr TITRATE IV Last administered on 02/22/18 12:26; Admin Dose 15 MLS/HR; Start 02/18/18 at 09:30 Diagnostic Test (Pha) (Accu-Chek) 1 ea Q1H XX Last administered on 02/22/18 12:30; Admin Dose 1 EA; Start 02/18/18 at 11:00 Insulin Human Regular 100 unit/ Sodium Chloride 100 ml @ 0 mls/hr PER PROTOCOL IV Last administered on 02/19/18 17:05; Admin Dose 1.5 MLS/HR; Start 02/18/18 at 11:00 Miscellaneous Information (* Miscellaneous Pharmacy Order) Treatment of Hypoglycemia: 1.BG 51... Per protocol XX ; Start 02/18/18 at 10:30 Dextrose (D50w Syringe) 25 ml Q15M PRN IV DECREASED GLUCOSE; Start 02/18/18 at 10:30 Dextrose (D50w Syringe) 50 ml Q15M PRN IV DECREASED GLUCOSE; Start 02/18/18 at 10:30 IV Flush (NS 10 ml) 10 ml PRN PRN IV IV PROTOCOL; Start 02/18/18 at 13:30 Levofloxacin/ Dextrose 150 ml @ 100 mls/hr Q24H IVPB Last administered on 02/22/18at 11:08; Admin Dose 100 MLS/HR; Start 02/19/18 at 10:30 Eye Lubricant (Artificial Tears Oph) 2 drop QID BOTH EYES Last administered on 02/22/18 12:26; Admin Dose 2 DROP; Start 02/20/18 at 13:00 Eye Lubricant (Akwa Oint) 1 applic TID BOTH EYES Last administered on 02/22/18 12:26; Admin Dose 1 APPLIC; Start 02/20/18 at 13:00 Norepinephrine 250 ml @ 1.875 mls/ hr TITRATE IV ; Start 02/20/18 at 23:45 Furosemide (Lasix) 20 mg DAILY IV Last administered on 02/22/18 11:08; Admin Dose 20 MG; Start 02/22/18 at 10:30 Methylprednisolone Sodium Succinate (Solu-Medrol) 60 mg Q6H IV ; Start 02/22/18 at 15:30 GEMA HEREDIA Feb 22, 2018 2:18 pm
--- NOTE | 2018-02-22 16:07 | PN ---
Date/Time of Note Date/Time of Note DATE: 02/22/18 TIME: 16:02 Assessment/Plan VTE [place]axis [place] [facility] [place]: 13 [place] [facility] [place] Yes Pharmacological prophylaxis: LMWH Assessment/Plan Hospital Course 1. Acute hypoxemic respiratory failure secondary to ARDS Etiology of ARDS likely secondary to underlying melanoma and/or immune modulating therapy Pulmonology consultation for vent management Continue IV steroids Patient has been started on Remicade 5mg/kg by oncology, Dr. Streeter has spoken to patient's primary oncologist in [place] Continue Levaquin and aztreonam for now Cultures are negative 2. Acute kidney injury secondary to sepsis and/or dehydration-resolved IV fluids 3. Normocytic anemia likely secondary to chronic disease from underlying malignancy Monitor 4. Stage IV melanoma Patient is on immune modulating therapy in [place] where she is from Oncology consultation with appreciated Prophylaxis: Lovenox DC planning: Continue vent support and current management Result Diagram: 02/22/18 0430 02/22/18 0430 Results 24hrs Laboratory Tests Test 02/21/18 17:18 02/21/18 18:07 02/21/18 19:03 02/21/18 20:02 Bedside Glucose 110 138 133 126 Test 02/21/18 22:06 02/21/18 23:56 02/22/18 02:21 02/22/18 04:03 Bedside Glucose 127 117 156 157 Test 02/22/18 04:30 02/22/18 05:00 02/22/18 05:58 02/22/18 08:17 White Blood Count 9.8 # Red Blood Count 2.82 L Hemoglobin 9.1 L Hematocrit 28.0 L Mean Corpuscular 99.3 Volume Mean Corpuscular 32.3 Hemoglobin Mean Corpuscular 32.5 Hemoglobin Concent Red Cell 14.6 H Distribution Width Platelet Count 76 #L Mean Platelet 11.5 H Volume Immature 5.600 H Granulocytes % Neutrophils % 77.5 H Lymphocytes % 12.0 L Monocytes % 4.8 Eosinophils % 0.0 Basophils % 0.1 Nucleated Red 2.9 H Blood Cells % Immature 0.550 H Granulocytes # Neutrophils # 7.6 H Lymphocytes # 1.2 Monocytes # 0.5 Eosinophils # 0.0 Basophils # 0.0 Nucleated Red 0.3 H Blood Cells # Sodium Level 143 Potassium Level 4.6 Chloride Level 110 Carbon Dioxide 25 Level Anion Gap 8 Blood Urea 34 H Nitrogen Creatinine 0.78 Est Glomerular > 60 Filtrat Rate mL/min Glucose Level 147 Lactic Acid Level 2.6 *H Calcium Level 8.1 L Blood Gas Specimen Blood arterial Source Arterial Blood 02/22/2018 4:25:14 Date Drawn AM Arterial Blood pH 7.409 (Temp corrected) Arterial Blood 37.6 pCO2 (Temp correct) Arterial Blood pO2 83.1 (Temp corrected) Arterial Blood 23.2 HCO3 Arterial Blood -1.1 Base Excess Arterial Blood 95.7 Oxygen Saturation Ruperto Test ACCEPTAB Arterial Blood Gas Right Radial Puncture Site Arterial 0 Blood Carboxyhemog lobin Arterial Blood 0.3 Methemoglobin Blood Gas A-a O2 447.8 H Differential Oxyhemoglobin 95.4 Percent Blood Gas 37.0 Temperature Blood Gas 24.0 Respiration Rate Blood Gas Actual 28 Respiration Rate Blood Gas Modality VENT - AC FiO2 80.0 Blood Gas Tidal 450.0 Volume Blood Gas Low PEEP 14.0 Setting Blood Gas 22.0 Inspiratory Pressure Blood Gas Notified KM Whom Blood Gas Notified 02/22/2018 4:43:33 Time AM Bedside Glucose 151 138 Test 02/22/18 10:19 02/22/18 12:30 02/22/18 14:17 Bedside Glucose 129 140 114 Subjective 24 Hr Interval Summary Subjective hx not possible: pt non-verbal Exam/Review of Systems Vital Signs Vitals Vital Signs Date Temp Pulse Resp B/P (MAP) Pulse Ox O2 O2 Flow FiO2 Time Delivery Rate 02/22/18 98.1 108 19 118/81 97 Mechanical 15:00 (93) Ventilator 02/22/18 70 13:40 Intake and Output 02/21/18 02/21/18 02/22/18 1515:00 23:00 07:00 IntakeIntake Total 1434.78 ml 1161.94 ml 974.80 ml OutputOutput Total 375 ml 380 ml 418 ml BalanceBalance 1059.78 ml 781.94 ml 556.80 ml Exam Constitutional: non-verbal Respiratory: clear to auscultation Cardiovascular: regular rate and rhythm Gastrointestinal: soft; No distended Musculoskeletal: nl extremities to inspection Medications Medications Current Medications IV Flush (NS 3 ml) 3 ml PER PROTOCOL IV ; Start 02/17/18 at 13:30 Ondansetron HCl (Zofran Inj) 4 mg Q6H PRN IV NAUSEA AND/OR VOMITING; Start 02/17/18 at 13:30 Acetaminophen (Tylenol Tab) 650 mg Q6H PRN PO PAIN LEVEL 1-3 OR FEVER Last administered on 02/21/18 12:50; Admin Dose 650 MG; Start 02/17/18 at 13:30 Acetaminophen/ Hydrocodone Bitart ([place] (5/325)) 1 tab Q6H PRN PO MODERATE PAIN LEVEL 4-6; Start 02/17/18 at 13:30 Morphine Sulfate (morphine SULFATE (PF)) 2 mg Q4H PRN IV SEVERE PAIN LEVEL 7-10 Last administered on 02/18/18 05:18; Admin Dose 2 MG; Start 02/17/18 at 13:30 Docusate Sodium (Colace) 100 mg Q12H PRN PO CONSTIPATION; Start 02/17/18 at 13:30 Pantoprazole (Protonix Iv) 40 mg DAILY@06 IV Last administered on 02/22/18 05:30; Admin Dose 40 MG; Start 02/18/18 at 06:00 Aztreonam 50 ml @ 100 mls/hr Q8 IVPB Last administered on 02/22/18 14:11; Admin Dose 100 MLS/HR; Start 02/17/18 at 22:00 Midazolam HCl 50 ml @ 1 mls/hr TITRATE IV Last administered on 02/18/18 06:49; Admin Dose 8 MLS/HR; Start 02/17/18 at 18:30 Propofol 100 ml @ 2.43 mls/hr Q12H IV Last administered on 02/22/18 11:21; Ad min Dose 19.44 MLS/HR; Start 02/18/18 at 09:30 Fentanyl 100 ml @ 2.5 mls/hr TITRATE IV Last administered on 02/22/18 12:26; Admin Dose 15 MLS/HR; Start 02/18/18 at 09:30 Diagnostic Test (Pha) (Accu-Chek) 1 ea Q1H XX Last administered on 02/22/18 14:17; Admin Dose 1 EA; Start 02/18/18 at 11:00 Insulin Human Regular 100 unit/ Sodium Chloride 100 ml @ 0 mls/hr PER PROTOCOL IV Last administered on 02/19/18 17:05; Admin Dose 1.5 MLS/HR; Start 02/18/18 at 11:00 Miscellaneous Information (* Miscellaneous Pharmacy Order) Treatment of Hypoglycemia: 1.BG 51... Per protocol XX ; Start 02/18/18 at 10:30 Dextrose (D50w Syringe) 25 ml Q15M PRN IV DECREASED GLUCOSE; Start 02/18/18 at 10:30 Dextrose (D50w Syringe) 50 ml Q15M PRN IV DECREASED GLUCOSE; Start 02/18/18 at 10:30 IV Flush (NS 10 ml) 10 ml PRN PRN IV IV PROTOCOL; Start 02/18/18 at 13:30 Levofloxacin/ Dextrose 150 ml @ 100 mls/hr Q24H IVPB Last administered on 02/22/18at 11:08; Admin Dose 100 MLS/HR; Start 02/19/18 at 10:30 Eye Lubricant (Artificial Tears Oph) 2 drop QID BOTH EYES Last administered on 02/22/18at 12:26; Admin Dose 2 DROP; Start 02/20/18 at 13:00 Eye Lubricant (Akwa Oint) 1 applic TID BOTH EYES Last administered on 02/22/18at 12:26; Admin Dose 1 APPLIC; Start 02/20/18 at 13:00 Norepinephrine 250 ml @ 1.875 mls/ hr TITRATE IV ; Start 02/20/18 at 23:45 Furosemide (Lasix) 20 mg DAILY IV Last administered on 02/22/18at 11:08; Admin Dose 20 MG; Start 02/22/18 at 10:30 Methylprednisolone Sodium Succinate (Solu-Medrol) 60 mg Q6H IV Last administered on 02/22/18at 15:44; Admin Dose 60 MG; Start 02/22/18 at 15:30 JULY TRAMMELL Feb 22, 2018 16:07
[2018-02-23] VITALS (37 sets, daily range): BP systolic 91–138; BP diastolic 53–104; PULSE 53–114; RESP 18–26
[2018-02-23] MEDS: MIDAZOLAM (DRIP) 50 mg/50 mL 50 ML IV SCH ×3 (00:14→20:36)
[2018-02-23] MEDS: ACCU-CHEK XX SCH ×22 (01:20→23:57)
[2018-02-23] MEDS: FENTAnyl (DRIP) 1000 mcg/100mL 100 ML IV SCH ×3 (01:47→23:45)
[2018-02-23] MEDS: METHYLPREDNISOLONE 125 MG INJ IV SCH ×4 (03:36→20:36)
[2018-02-23] MEDS: PANTOPRAZOLE 40 MG INJ IV SCH (05:59)
[2018-02-23] MEDS: AZTREONAM 1 GM/NS (PMX) 50 ML IVPB SCH ×3 (05:59→21:40)
[2018-02-23] MEDS: ARTIFICIAL TEARS 15 ML OPH BOTH EYES SCH ×4 (09:13→20:36)
[2018-02-23] MEDS: OCULAR LUBRICANT 3.5 GM OPH OINT BOTH EYES SCH ×3 (09:13→20:36)
[2018-02-23] MEDS: FUROSEMIDE 20 MG INJ IV SCH (09:13)
[2018-02-23] MEDS: ENOXAPARIN 40 MG/0.4 ML SYG SC SCH (09:20)
--- NOTE | 2018-02-23 09:34 | CONS ---
Date/Time of Note Date/Time of Note DATE: 02/23/18 TIME: 09:31 Assessment/Plan Assessment/Plan Assessment/Plan Chest x-ray was reviewed from today which is showing continued improvement in extensive bilateral pneumonia. Ventilator setting; AC of 24, tidal volume 450, PEEP of 14, 50% FiO2. The patient is currently on Versed 4 mg/h, insulin 1.5 units/h, fentanyl 100 mics per hour. Assessment and recommendations; 1. Patient with history of stage IV melanoma admitted for respiratory failure due to pneumonia likely immunotherapy induced. Difficult to rule out superimposed bacterial pneumonia. Patient currently on appropriate antimicrobial regimen. There has been significant improvement in gas exchange as well as chest x-ray. 2. Thrombocytopenia. 3. Hyperglycemia, likely steroid-induced. Decrease PEEP of 12. To be decreased further down to 10 as tolerated. Continue current antibiotics as well as Solu-Medrol dosing. Obtain follow-up chest x-ray 24 hours. If there is continued improvement in oxygenation, patient will be given a sedation vacation in 24 hours. I did have a detailed discussion with the patient's son at bedside and answered all his questions. 35 minutes of critical care time was spent evaluating the patient. Result Diagram: 02/23/18 0325 02/23/18 0325 Results 24hrs Laboratory Tests Test 02/22/18 10:19 02/22/18 12:30 02/22/18 14:17 02/22/18 17:48 Bedside Glucose 129 140 114 118 Test 02/22/18 19:50 02/22/18 22:14 02/22/18 23:18 02/23/18 02:37 Bedside Glucose 117 133 138 157 Test 02/23/18 03:24 02/23/18 03:25 02/23/18 05:00 02/23/18 05:45 Bedside Glucose 159 120 White Blood Count 6.9 # Red Blood Count 2.47 L Hemoglobin 7.8 L Hematocrit 24.6 L Mean Corpuscular 99.6 Volume Mean Corpuscular 31.6 Hemoglobin Mean Corpuscular 31.7 L Hemoglobin Concent Red Cell 14.9 H Distribution Width Platelet Count 57 #L Mean Platelet 11.1 H Volume Immature 3.900 H Granulocytes % Neutrophils % 83.9 H Lymphocytes % 9.6 L Monocytes % 2.5 Eosinophils % 0.0 Basophils % 0.1 Nucleated Red 1.7 H Blood Cells % Immature 0.270 H Granulocytes # Neutrophils # 5.8 Lymphocytes # 0.7 L Monocytes # 0.2 L Eosinophils # 0.0 Basophils # 0.0 Nucleated Red 0.1 H Blood Cells # Sodium Level 138 Potassium Level 4.7 Chloride Level 106 Carbon Dioxide 28 Level Anion Gap 4 L Blood Urea 34 H Nitrogen Creatinine 0.72 Est Glomerular > 60 Filtrat Rate mL/min Glucose Level 138 Lactic Acid Level 1.7 Calcium Level 7.6 L Blood Gas Specimen Blood arterial Source Arterial Blood 02/23/2018 4:55:38 Date Drawn AM Arterial Blood pH 7.421 (Temp corrected) Arterial Blood 43.1 pCO2 (Temp correct) Arterial Blood pO2 133.1 H (Temp corrected) Arterial Blood 27.4 H HCO3 Arterial Blood 2.6 Base Excess Arterial Blood 98.2 H Oxygen Saturation Ruperto Test ACCEPTAB Arterial Blood Gas Right Radial Puncture Site Arterial 0.3 Blood Carboxyhemog lobin Arterial Blood 0.3 Methemoglobin Blood Gas A-a O2 392.1 H Differential Oxyhemoglobin 97.6 Percent Blood Gas 37.0 Temperature Blood Gas 24.0 Respiration Rate Blood Gas Actual 24 Respiration Rate Blood Gas Modality VENT - AC FiO2 80.0 Blood Gas Tidal 450.0 Volume Blood Gas Low PEEP 14.0 Setting Blood Gas 31.0 Inspiratory Pressure Blood Gas Notified [facility].H. Whom Blood Gas Notified 02/23/2018 5:15:19 Time AM Test 02/23/18 08:22 02/23/18 09:28 Bedside Glucose 145 147 Consultation Date/Type/Reason Admit Date/Time Feb 17, 2018 at 12:57 Initial Consult Date 02/18/18 Type of Consult Pulmonary/critical care Requesting Provider: JULY TRAMMELL 24 HR Interval Summary Free Text/Dictation Patient's condition remains critical. Still requiring fairly high FiO2. General exam; elderly female, orally intubated, sedated, currently in no distress. Exam/Review of Systems Vital Signs Vitals Vital Signs Date Temp Pulse Resp B/P (MAP) Pulse Ox O2 O2 Flow FiO2 Time Delivery Rate 02/23/18 55 08:00 02/23/18 24 137/87 97 Mechanical 06:00 (104) Ventilator 02/23/18 60 06:00 02/23/18 98.4 04:00 Intake and Output 02/22/18 02/22/18 02/23/18 1414:59 22:59 06:59 IntakeIntake Total 747.50 ml 600.10 ml 606.24 ml OutputOutput Total 700 ml 1035 ml 485 ml BalanceBalance 47.50 ml -434.90 ml 121.24 ml Exam HEENT exam; supple neck, no JVD. No lymphadenopathy. Midline trachea. No thyromegaly. Orally intubated. Patient has fair dentition. No neck masses. Pupils are small bilaterally. Orogastric tube in place. Chest exam; diminished but clear breath sounds. S1-S2 audible, no murmurs. Regular rhythm. Abdomen exam; soft, no organomegaly. Bowel sounds audible. Extremity exam; trace edema. Pulses 1+. [employer] exam; patient is sedated. Medications Medications Current Medications IV Flush (NS 3 ml) 3 ml PER PROTOCOL IV ; Start 02/17/18 at 13:30 Ondansetron HCl (Zofran Inj) 4 mg Q6H PRN IV NAUSEA AND/OR VOMITING; Start 02/17/18 at 13:30 Acetaminophen (Tylenol Tab) 650 mg Q6H PRN PO PAIN LEVEL 1-3 OR FEVER Last administered on 02/21/18at 12:50; Admin Dose 650 MG; Start 02/17/18 at 13:30 Acetaminophen/ Hydrocodone Bitart ([place] (5/325)) 1 tab Q6H PRN PO MODERATE PAIN LEVEL 4-6; Start 02/17/18 at 13:30 Morphine Sulfate (morphine SULFATE (PF)) 2 mg Q4H PRN IV SEVERE PAIN LEVEL 7-10 Last administered on 02/18/18at 05:18; Admin Dose 2 MG; Start 02/17/18 at 13:30 Docusate Sodium (Colace) 100 mg Q12H PRN PO CONSTIPATION; Start 02/17/18 at 13:30 Pantoprazole (Protonix Iv) 40 mg DAILY@06 IV Last administered on 02/23/18at 05:59; Admin Dose 40 MG; Start 02/18/18 at 06:00 Aztreonam 50 ml @ 100 mls/hr Q8 IVPB Last administered on 02/23/18at 05:59; Admin Dose 100 MLS/HR; Start 02/17/18 at 22:00 Midazolam HCl 50 ml @ 1 mls/hr TITRATE IV Last administered on 02/23/18 08:25; Admin Dose 4 MLS/HR; Start 02/17/18 at 18:30 Propofol 100 ml @ 2.43 mls/hr Q12H IV Last administered on 02/22/18 20:15; Admin Dose 19.44 MLS/HR; Start 02/18/18 at 09:30 Fentanyl 100 ml @ 2.5 mls/hr TITRATE IV Last administered on 02/23/18 01:47; Admin Dose 15 MLS/HR; Start 02/18/18 at 09:30 Diagnostic Test (Pha) (Accu-Chek) 1 ea Q1H XX Last administered on 02/23/18 07:06; Admin Dose 1 EA; Start 02/18/18 at 11:00 Insulin Human Regular 100 unit/ Sodium Chloride 100 ml @ 0 mls/hr PER PROTOCOL IV Last administered on 02/19/18 17:05; Admin Dose 1.5 MLS/HR; Start 02/18/18 at 11:00 Miscellaneous Information (* Miscellaneous Pharmacy Order) Treatment of Hypoglycemia: 1.BG 51... Per protocol XX ; Start 02/18/18 at 10:30 Dextrose (D50w Syringe) 25 ml Q15M PRN IV DECREASED GLUCOSE; Start 02/18/18 at 10:30 Dextrose (D50w Syringe) 50 ml Q15M PRN IV DECREASED GLUCOSE; Start 02/18/18 at 10:30 IV Flush (NS 10 ml) 10 ml PRN PRN IV IV PROTOCOL; Start 02/18/18 at 13:30 Levofloxacin/ Dextrose 150 ml @ 100 mls/hr Q24H IVPB Last administered on 02/22/18 11:08; Admin Dose 100 MLS/HR; Start 02/19/18 at 10:30 Eye Lubricant (Artificial Tears Oph) 2 drop QID BOTH EYES Last administered on 02/23/18 09:13; Admin Dose 2 DROP; Start 02/20/18 at 13:00 Eye Lubricant (Akwa Oint) 1 applic TID BOTH EYES Last administered on 02/23/18 09:13; Admin Dose 1 APPLIC; Start 02/20/18 at 13:00 Norepinephrine 250 ml @ 1.875 mls/ hr TITRATE IV ; Start 02/20/18 at 23:45 Furosemide (Lasix) 20 mg DAILY IV Last administered on 02/23/18at 09:13; Admin Dose 20 MG; Start 02/22/18 at 10:30 Methylprednisolone Sodium Succinate (Solu-Medrol) 60 mg Q6H IV Last administered on 02/23/18 09:12; Admin Dose 60 MG; Start 02/22/18 at 15:30 Enoxaparin Sodium (Lovenox) 40 mg DAILY SC Last administered on 02/23/18at 09:20; Admin Dose 40 MG; Start 02/23/18 at 09:00 JUDY LYON Feb 23, 2018 09:34
--- NOTE | 2018-02-23 10:44 | CONS ---
Date/Time of Note Date/Time of Note DATE: 02/23/18 TIME: 10:41 Assessment/Plan Assessment/Plan Hospital Course 62 yo female with #Metastatic Melanoma - last Nivolumab was 2 weeks ago - 02/21/2018-sp Remicade 300 mg #ARDS - likely 2/2 Nivolumab and questionable underlying pneumonia -on FIO2 70 %, PEEP 12; -cont high dose steroids the patient is currently getting - solumedrol 80mg q 6 hours -continue IV antibiotics in case of any underlying infection contributing to AR DS -If patient is able to recover, oncology would not recommend for her to continue Nivolumab given this grade 4 toxicity -continue critical care measure with vasopressor support and mechanical venti lation Approximately 50 min was spend in face to face time with patent's son at the bed side, and in coordination of her care. Result Diagram: 02/23/18 0325 02/23/18 0325 Results 24hrs Laboratory Tests Test 02/22/18 12:30 02/22/18 14:17 02/22/18 17:48 02/22/18 19:50 Bedside Glucose 140 114 118 117 Test 02/22/18 22:14 02/22/18 23:18 02/23/18 02:37 02/23/18 03:24 Bedside Glucose 133 138 157 159 Test 02/23/18 03:25 02/23/18 05:00 02/23/18 05:45 02/23/18 08:22 White Blood Count 6.9 # Red Blood Count 2.47 L Hemoglobin 7.8 L Hematocrit 24.6 L Mean Corpuscular 99.6 Volume Mean Corpuscular 31.6 Hemoglobin Mean Corpuscular 31.7 L Hemoglobin Concent Red Cell 14.9 H Distribution Width Platelet Count 57 #L Mean Platelet 11.1 H Volume Immature 3.900 H Granulocytes % Neutrophils % 83.9 H Lymphocytes % 9.6 L Monocytes % 2.5 Eosinophils % 0.0 Basophils % 0.1 Nucleated Red 1.7 H Blood Cells % Immature 0.270 H Granulocytes # Neutrophils # 5.8 Lymphocytes # 0.7 L Monocytes # 0.2 L Eosinophils # 0.0 Basophils # 0.0 Nucleated Red 0.1 H Blood Cells # Sodium Level 138 Potassium Level 4.7 Chloride Level 106 Carbon Dioxide 28 Level Anion Gap 4 L Blood Urea 34 H Nitrogen Creatinine 0.72 Est Glomerular > 60 Filtrat Rate mL/min Glucose Level 138 Lactic Acid Level 1.7 Calcium Level 7.6 L Blood Gas Specimen Blood arterial Source Arterial Blood 02/23/2018 4:55:38 Date Drawn AM Arterial Blood pH 7.421 (Temp corrected) Arterial Blood 43.1 pCO2 (Temp correct) Arterial Blood pO2 133.1 H (Temp corrected) Arterial Blood 27.4 H HCO3 Arterial Blood 2.6 Base Excess Arterial Blood 98.2 H Oxygen Saturation Ruperto Test ACCEPTAB Arterial Blood Gas Right Radial Puncture Site Arterial 0.3 Blood Carboxyhemog lobin Arterial Blood 0.3 Methemoglobin Blood Gas A-a O2 392.1 H Differential Oxyhemoglobin 97.6 Percent Blood Gas 37.0 Temperature Blood Gas 24.0 Respiration Rate Blood Gas Actual 24 Respiration Rate Blood Gas Modality VENT - AC FiO2 80.0 Blood Gas Tidal 450.0 Volume Blood Gas Low PEEP 14.0 Setting Blood Gas 31.0 Inspiratory Pressure Blood Gas Notified [facility] Blood Gas Notified 02/23/2018 5:15:19 Time AM Bedside Glucose 120 145 Test 02/23/18 09:28 Bedside Glucose 147 Consultation Date/Type/Reason Admit Date/Time Feb 17, 2018 at 12:57 Initial Consult Date 02/18/18 Type of Consult oncology Reason for Consultation metastatic melanoma, nivolumab toxicity Requesting Provider: JULY TRAMMELL 24 HR Interval Summary Free Text/Dictation pt received her remicade on Friday. now on 70% FiO2 and remains on sedation Exam/Review of Systems Vital Signs Vitals Vital Signs Date Temp Pulse Resp B/P (MAP) Pulse Ox O2 O2 Flow FiO2 Time Delivery Rate 02/23/18 55 08:00 02/23/18 24 137/87 97 Mechanical 06:00 (104) Ventilator 02/23/18 60 06:00 02/23/18 98.4 04:00 Intake and Output 02/22/18 02/22/18 02/23/18 1515:00 23:00 07:00 IntakeIntake Total 714.06 ml 638.54 ml 527.8 ml OutputOutput Total 800 ml 960 ml 410 ml BalanceBalance -85.94 ml -321.46 ml 117.8 ml Exam Constitutional: other (sedated) ENMT: intubated Respiratory: crackles/rales, diminished breath sounds, labored breathing Cardiovascular: regular rate and rhythm Gastrointestinal: soft Musculoskeletal: nl extremities to inspection Extremities: normal pulses Medications Medications Current Medications IV Flush (NS 3 ml) 3 ml PER PROTOCOL IV ; Start 02/17/18 at 13:30 Ondansetron HCl (Zofran Inj) 4 mg Q6H PRN IV NAUSEA AND/OR VOMITING; Start 02/17/18 at 13:30 Acetaminophen (Tylenol Tab) 650 mg Q6H PRN PO PAIN LEVEL 1-3 OR FEVER Last administered on 02/21/18 12:50; Admin Dose 650 MG; Start 02/17/18 at 13:30 Acetaminophen/ Hydrocodone Bitart ([place] (5/325)) 1 tab Q6H PRN PO MODERATE PAIN LEVEL 4-6; Start 02/17/18 at 13:30 Morphine Sulfate (morphine SULFATE (PF)) 2 mg Q4H PRN IV SEVERE PAIN LEVEL 7-10 Last administered on 02/18/18 05:18; Admin Dose 2 MG; Start 02/17/18 at 13:30 Docusate Sodium (Colace) 100 mg Q12H PRN PO CONSTIPATION; Start 02/17/18 at 13:30 Pantoprazole (Protonix Iv) 40 mg DAILY@06 IV Last administered on 02/23/18 05:59; Admin Dose 40 MG; Start 02/18/18 at 06:00 Aztreonam 50 ml @ 100 mls/hr Q8 IVPB Last administered on 02/23/18 05:59; Admin Dose 100 MLS/HR; Start 02/17/18 at 22:00 Midazolam HCl 50 ml @ 1 mls/hr TITRATE IV Last administered on 02/23/18 08:25; Admin Dose 4 MLS/HR; Start 02/17/18 at 18:30 Propofol 100 ml @ 2.43 mls/hr Q12H IV Last administered on 02/22/18 20:15; Admin Dose 19.44 MLS/HR; Start 02/18/18 at 09:30 Fentanyl 100 ml @ 2.5 mls/hr TITRATE IV Last administered on 02/23/18 01:47; Admin Dose 15 MLS/HR; Start 02/18/18 at 09:30 Diagnostic Test (Pha) (Accu-Chek) 1 ea Q1H XX Last administered on 02/23/18 07:06; Admin Dose 1 EA; Start 02/18/18 at 11:00 Insulin Human Regular 100 unit/ Sodium Chloride 100 ml @ 0 mls/hr PER PROTOCOL IV Last administered on 02/19/18 17:05; Admin Dose 1.5 MLS/HR; Start 02/18/18 at 11:00 Miscellaneous Information (* Miscellaneous Pharmacy Order) Treatment of Hypoglycemia: 1.BG 51... Per protocol XX ; Start 02/18/18 at 10:30 Dextrose (D50w Syringe) 25 ml Q15M PRN IV DECREASED GLUCOSE; Start 02/18/18 at 10:30 Dextrose (D50w Syringe) 50 ml Q15M PRN IV DECREASED GLUCOSE; Start 02/18/18 at 10:30 IV Flush (NS 10 ml) 10 ml PRN PRN IV IV PROTOCOL; Start 02/18/18 at 13:30 Levofloxacin/ Dextrose 150 ml @ 100 mls/hr Q24H IVPB Last administered on 02/22/18 11:08; Admin Dose 100 MLS/HR; Start 02/19/18 at 10:30 Eye Lubricant (Artificial Tears Oph) 2 drop QID BOTH EYES Last administered on 02/23/18 09:13; Admin Dose 2 DROP; Start 02/20/18 at 13:00 Eye Lubricant (Akwa Oint) 1 applic TID BOTH EYES Last administered on 02/23/18 09:13; Admin Dose 1 APPLIC; Start 02/20/18 at 13:00 Norepinephrine 250 ml @ 1.875 mls/ hr TITRATE IV ; Start 02/20/18 at 23:45 Furosemide (Lasix) 20 mg DAILY IV Last administered on 02/23/18 09:13; Admin Dose 20 MG; Start 02/22/18 at 10:30 Methylprednisolone Sodium Succinate (Solu-Medrol) 60 mg Q6H IV Last administered on 02/23/18 09:12; Admin Dose 60 MG; Start 02/22/18 at 15:30 Enoxaparin Sodium (Lovenox) 40 mg DAILY SC Last administered on 02/23/18 09:20; Admin Dose 40 MG; Start 02/23/18 at 09:00 LIA CASAREZ M.D. Feb 23, 2018 10:44
[2018-02-23] MEDS: LEVOFLOXACIN 750MG/D5W (PMX) 150 ML IVPB SCH (10:45)
--- NOTE | 2018-02-23 13:41 | PN ---
Date/Time of Note Date/Time of Note DATE: 02/23/18 TIME: 13:38 Assessment/Plan VTE [place] [facility] [place] risk: 13 [place]CD applied [place] [facility] [place] Yes Pharmacological prophylaxis: heparin Lines/Catheters [facility] Type ([facility] PICC Line Central line still needed: Yes Urinary Cath still in place: Yes Reason Cath still needed: urinary retention Assessment/Plan Hospital Course 62 yo female with stage IV melanoma with ARDS leading to acute respiratory failure Acute respiratory failure/ARDS: - MV per pulmonary - Steroids per pulmonary Metastatic melanoma - Further care if able to be extubated Anemia Thrombocytopenia Poor progonsis Result Diagram: 02/23/18 0325 02/23/18 0325 Results 24hrs Laboratory Tests Test 02/22/18 14:17 02/22/18 17:48 02/22/18 19:50 02/22/18 22:14 Bedside Glucose 114 118 117 133 Test 02/22/18 23:18 02/23/18 02:37 02/23/18 03:24 02/23/18 03:25 Bedside Glucose 138 157 159 White Blood Count 6.9 # Red Blood Count 2.47 L Hemoglobin 7.8 L Hematocrit 24.6 L Mean Corpuscular 99.6 Volume Mean Corpuscular 31.6 Hemoglobin Mean Corpuscular 31.7 L Hemoglobin Concent Red Cell 14.9 H Distribution Width Platelet Count 57 #L Mean Platelet 11.1 H Volume Immature 3.900 H Granulocytes % Neutrophils % 83.9 H Lymphocytes % 9.6 L Monocytes % 2.5 Eosinophils % 0.0 Basophils % 0.1 Nucleated Red 1.7 H Blood Cells % Immature 0.270 H Granulocytes # Neutrophils # 5.8 Lymphocytes # 0.7 L Monocytes # 0.2 L Eosinophils # 0.0 Basophils # 0.0 Nucleated Red 0.1 H Blood Cells # Sodium Level 138 Potassium Level 4.7 Chloride Level 106 Carbon Dioxide 28 Level Anion Gap 4 L Blood Urea 34 H Nitrogen Creatinine 0.72 Est Glomerular > 60 Filtrat Rate mL/min Glucose Level 138 Lactic Acid Level 1.7 Calcium Level 7.6 L Test 02/23/18 05:00 02/23/18 05:45 02/23/18 08:22 02/23/18 09:28 Blood Gas Specimen Blood arterial Source Arterial Blood 02/23/2018 4:55:38 Date Drawn AM Arterial Blood pH 7.421 (Temp corrected) Arterial Blood 43.1 pCO2 (Temp correct) Arterial Blood pO2 133.1 H (Temp corrected) Arterial Blood 27.4 H HCO3 Arterial Blood 2.6 Base Excess Arterial Blood 98.2 H Oxygen Saturation Ruperto Test ACCEPTAB Arterial Blood Gas Right Radial Puncture Site Arterial 0.3 Blood Carboxyhemog lobin Arterial Blood 0.3 Methemoglobin Blood Gas A-a O2 392.1 H Differential Oxyhemoglobin 97.6 Percent Blood Gas 37.0 Temperature Blood Gas 24.0 Respiration Rate Blood Gas Actual 24 Respiration Rate Blood Gas Modality VENT - AC FiO2 80.0 Blood Gas Tidal 450.0 Volume Blood Gas Low PEEP 14.0 Setting Blood Gas 31.0 Inspiratory Pressure Blood Gas Notified [facility] Blood Gas Notified 02/23/2018 5:15:19 Time AM Bedside Glucose 120 145 147 Test 02/23/18 12:04 Bedside Glucose 156 Subjective 24 Hr Interval Summary Free Text/Dictation Remains intubated Exam/Review of Systems Vital Signs Vitals Vital Signs Date Temp Pulse Resp B/P (MAP) Pulse Ox O2 O2 Flow FiO2 Time Delivery Rate 02/23/18 100 12:00 02/23/18 24 91 50 10:56 02/23/18 137/87 Mechanical 06:00 (104) Ventilator 02/23/18 98.4 04:00 Intake and Output 02/22/18 02/22/18 02/23/18 1515:00 23:00 07:00 IntakeIntake Total 714.06 ml 638.54 ml 527.8 ml OutputOutput Total 800 ml 960 ml 410 ml BalanceBalance -85.94 ml -321.46 ml 117.8 ml Exam Intubated, sedated Able to open eyes and track ETT on MV Clear anteiorly RRR No edema Medications Medications Current Medications IV Flush (NS 3 ml) 3 ml PER PROTOCOL IV ; Start 02/17/18 at 13:30 Ondansetron HCl (Zofran Inj) 4 mg Q6H PRN IV NAUSEA AND/OR VOMITING; Start 02/17/18 at 13:30 Acetaminophen (Tylenol Tab) 650 mg Q6H PRN PO PAIN LEVEL 1-3 OR FEVER Last administered on 02/21/18at 12:50; Admin Dose 650 MG; Start 02/17/18 at 13:30 Acetaminophen/ Hydrocodone Bitart ([place] (5/325)) 1 tab Q6H PRN PO MODERATE PAIN LEVEL 4-6; Start 02/17/18 at 13:30 Docusate Sodium (Colace) 100 mg Q12H PRN PO CONSTIPATION; Start 02/17/18 at 13:30 Pantoprazole (Protonix Iv) 40 mg DAILY@06 IV Last administered on 02/23/18at 05:59; Admin Dose 40 MG; Start 02/18/18 at 06:00 Aztreonam 50 ml @ 100 mls/hr Q8 IVPB Last administered on 02/23/18at 13:27; Admin Dose 100 MLS/HR; Start 02/17/18 at 22:00 Midazolam HCl 50 ml @ 1 mls/hr TITRATE IV Last administered on 02/23/18at 08:25; Admin Dose 4 MLS/HR; Start 02/17/18 at 18:30 Propofol 100 ml @ 2.43 mls/hr Q12H IV Last administered on 02/22/18at 20:15; Admin Dose 19.44 MLS/HR; Start 02/18/18 at 09:30 Fentanyl 100 ml @ 2.5 mls/hr TITRATE IV Last administered on 02/23/18at 12:01; Admin Dose 10 MLS/HR; Start 02/18/18 at 09:30 Diagnostic Test (Pha) (Accu-Chek) 1 ea Q1H XX Last administered on 02/23/18at 07:06; Admin Dose 1 EA; Start 02/18/18 at 11:00 Insulin Human Regular 100 unit/ Sodium Chloride 100 ml @ 0 mls/hr PER PROTOCOL IV Last administered on 02/19/18at 17:05; Admin Dose 1.5 MLS/HR; Start 02/18/18 at 11:00 Miscellaneous Information (* Miscellaneous Pharmacy Order) Treatment of Hypoglycemia: 1.BG 51... Per protocol XX ; Start 02/18/18 at 10:30 Dextrose (D50w Syringe) 25 ml Q15M PRN IV DECREASED GLUCOSE; Start 02/18/18 at 10:30 Dextrose (D50w Syringe) 50 ml Q15M PRN IV DECREASED GLUCOSE; Start 02/18/18 at 10:30 IV Flush (NS 10 ml) 10 ml PRN PRN IV IV PROTOCOL; Start 02/18/18 at 13:30 Levofloxacin/ Dextrose 150 ml @ 100 mls/hr Q24H IVPB Last administered on 02/23/18 10:45; Admin Dose 100 MLS/HR; Start 02/19/18 at 10:30 Eye Lubricant (Artificial Tears Oph) 2 drop QID BOTH EYES Last administered on 02/23/18 13:25; Admin Dose 2 DROP; Start 02/20/18 at 13:00 Eye Lubricant (Akwa Oint) 1 applic TID BOTH EYES Last administered on 02/23/18 13:25; Admin Dose 1 APPLIC; Start 02/20/18 at 13:00 Norepinephrine 250 ml @ 1.875 mls/ hr TITRATE IV ; Start 02/20/18 at 23:45 Furosemide (Lasix) 20 mg DAILY IV Last administered on 02/23/18 09:13; Admin Dose 20 MG; Start 02/22/18 at 10:30 Methylprednisolone Sodium Succinate (Solu-Medrol) 60 mg Q6H IV Last adminis tered on 02/23/18 09:12; Admin Dose 60 MG; Start 02/22/18 at 15:30 Enoxaparin Sodium (Lovenox) 40 mg DAILY SC Last administered on 02/23/18 09:20; Admin Dose 40 MG; Start 02/23/18 at 09:00 Morphine Sulfate (morphine) 6 mg Q4H PRN GTB SEVERE PAIN LEVEL 7-10; Start 02/23/18 at 12:00 SJ BOWMAN MD Feb 23, 2018 13:41
[2018-02-23] MEDS: PROPOFOL 100 ML IV SCH (20:09)
[2018-02-24] VITALS (48 sets, daily range): BP systolic 86–140; BP diastolic 57–92; PULSE 45–95; RESP 15–26
[2018-02-24] MEDS: ACCU-CHEK XX SCH ×12 (02:15→14:54)
[2018-02-24] MEDS: MIDAZOLAM (DRIP) 50 mg/50 mL 50 ML IV SCH ×3 (03:13→19:27)
[2018-02-24] MEDS: METHYLPREDNISOLONE 125 MG INJ IV SCH ×4 (03:13→21:33)
[2018-02-24] MEDS: AZTREONAM 1 GM/NS (PMX) 50 ML IVPB SCH ×3 (05:34→21:33)
[2018-02-24] MEDS: PANTOPRAZOLE 40 MG INJ IV SCH (05:34)
--- NOTE | 2018-02-24 09:24 | CONS ---
Date/Time of Note Date/Time of Note DATE: 02/24/18 TIME: 09:21 Assessment/Plan Assessment/Plan Assessment/Plan Chest x-ray was reviewed from today which is showing very minimal basilar infiltrates. Ventilator setting; AC of 24, tidal volume 450, PEEP of 5, 80% FiO2. Patient is currently on Versed 6 mg/h, fentanyl 75 mics per hour, insulin drip 1.5 units/h. Assessment and recommendations; 1. 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 Difficult to rule out superimposed pneumonia. However there has been significant radiological improvement. 2. Increasing hypoxemia likely from decreasing PEEP. 3. Chronic thrombocytopenia. 4. Anemia. Continue current supportive care. Increase PEEP to 10. Wean down FiO2 to keep O2 saturation around 94%. 5. Hyperglycemia, steroid-induced. Continue current antibiotics as well as Solu-Medrol at current dosing. I did have a detailed discussion with the patient's son at bedside and answered all his questions. 35 minutes of critical care time was spent evaluating the patient. Result Diagram: 02/23/18 0325 02/23/18 0325 Results 24hrs Laboratory Tests Test 02/23/18 09:28 02/23/18 12:04 02/23/18 14:01 02/23/18 16:29 Bedside Glucose 147 156 138 135 Test 02/23/18 18:22 02/23/18 20:41 02/23/18 21:39 02/23/18 23:57 Bedside Glucose 126 150 131 148 Test 02/24/18 01:55 02/24/18 04:33 02/24/18 05:34 02/24/18 08:30 Bedside Glucose 142 128 139 134 Test 02/24/18 08:46 Blood Gas Specimen Blood arterial Source Arterial Blood 02/24/2018 8:55:16 Date Drawn AM Arterial Blood pH 7.522 H (Temp corrected) Arterial Blood 37.5 pCO2 (Temp correct) Arterial Blood pO2 64.9 L (Temp corrected) Arterial Blood 30.1 H HCO3 Arterial Blood 6.8 H Base Excess Arterial Blood 92.4 L Oxygen Saturation Ruperto Test ACCEPTAB Arterial Blood Gas Left Radial Puncture Site Arterial 0.3 Blood Carboxyhemog lobin Arterial Blood 0.3 Methemoglobin Blood Gas A-a O2 610.6 H Differential Oxyhemoglobin 91.8 L Percent Blood Gas 37.0 Temperature Blood Gas 24.0 Respiration Rate Blood Gas Actual 24 Respiration Rate Blood Gas Modality VENT - AC FiO2 100.0 Blood Gas Tidal 450.0 Volume Blood Gas Low PEEP 10.0 Setting Blood Gas Notified TM Whom Blood Gas Notified 02/24/2018 9:11:11 Time AM Consultation Date/Type/Reason Admit Date/Time Feb 17, 2018 at 12:57 Initial Consult Date 02/18/18 Type of Consult Pulmonary/critical care Requesting Provider: JULY TRAMMELL 24 HR Interval Summary Free Text/Dictation Patient's condition remains critical. Requiring fairly high FiO2 again. Patient however has remained hemodynamically stable. General exam; elderly female, orally intubated, sedated, currently in no distress. Exam/Review of Systems Vital Signs Vitals Vital Signs Date Temp Pulse Resp B/P (MAP) Pulse Ox O2 O2 Flow FiO2 Time Delivery Rate 02/24/18 50 08:00 02/24/18 24 121/65 93 Mechanical 06:00 (83) Ventilator 02/24/18 60 06:00 02/24/18 98.2 04:00 Intake and Output 02/23/18 02/23/18 02/24/18 1515:00 23:00 07:00 IntakeIntake Total 694.5 ml 552.0 ml 555.5 ml OutputOutput Total 1135 ml 535 ml 550 ml BalanceBalance -440.5 ml 17.0 ml 5.5 ml Exam HEENT exam; supple neck, no JVD. No lymphadenopathy. Midline trachea. No thyromegaly. Patient has fair dentition. Orally intubated. No neck masses. Chest exam; diminished but clear breath sounds. S1-S2 audible, no murmurs. Regular rhythm. Abdomen exam; soft, no organomegaly. Bowel sounds audible. Extremity exam; no peripheral edema or clubbing. Pulses 1+. COOK CHILI exam; patient is sedated. Medications Medications Current Medications IV Flush (NS 3 ml) 3 ml PER PROTOCOL IV ; Start 02/17/18 at 13:30 Ondansetron HCl (Zofran Inj) 4 mg Q6H PRN IV NAUSEA AND/OR VOMITING; Start 02/17/18 at 13:30 Acetaminophen (Tylenol Tab) 650 mg Q6H PRN PO PAIN LEVEL 1-3 OR FEVER Last administered on 02/21/18at 12:50; Admin Dose 650 MG; Start 02/17/18 at 13:30 Acetaminophen/ Hydrocodone Bitart ([place] (5/325)) 1 tab Q6H PRN PO MODERATE PAIN LEVEL 4-6; Start 02/17/18 at 13:30 Docusate Sodium (Colace) 100 mg Q12H PRN PO CONSTIPATION; Start 02/17/18 at 13:30 Pantoprazole (Protonix Iv) 40 mg DAILY@06 IV Last administered on 02/24/18 05:34; Admin Dose 40 MG; Start 02/18/18 at 06:00 Aztreonam 50 ml @ 100 mls/hr Q8 IVPB Last administered on 02/24/18 05:34; Admin Dose 100 MLS/HR; Start 02/17/18 at 22:00 Midazolam HCl 50 ml @ 1 mls/hr TITRATE IV Last administered on 02/24/18 03:13; Admin Dose 7 MLS/HR; Start 02/17/18 at 18:30 Propofol 100 ml @ 2.43 mls/hr Q12H IV Last administered on 02/22/18at 20:15; Admin Dose 19.44 MLS/HR; Start 02/18/18 at 09:30 Fentanyl 100 ml @ 2.5 mls/hr TITRATE IV Last administered on 02/23/18 23:45; Admin Dose 10 MLS/HR; Start 02/18/18 at 09:30 Diagnostic Test (Pha) (Accu-Chek) 1 ea Q1H XX Last administered on 02/24/18 05:34; Admin Dose 1 EA; Start 02/18/18 at 11:00 Insulin Human Regular 100 unit/ Sodium Chloride 100 ml @ 0 mls/hr PER PROTOCOL IV Last administered on 02/19/18 17:05; Admin Dose 1.5 MLS/HR; Start 02/18/18 at 11:00 Miscellaneous Information (* Miscellaneous Pharmacy Order) Treatment of Hypoglycemia: 1.BG 51... Per protocol XX ; Start 02/18/18 at 10:30 Dextrose (D50w Syringe) 25 ml Q15M PRN IV DECREASED GLUCOSE; Start 02/18/18 at 10:30 Dextrose (D50w Syringe) 50 ml Q15M PRN IV DECREASED GLUCOSE; Start 02/18/18 at 10:30 IV Flush (NS 10 ml) 10 ml PRN PRN IV IV PROTOCOL; Start 02/18/18 at 13:30 Levofloxacin/ Dextrose 150 ml @ 100 mls/hr Q24H IVPB Last administered on 02/23/18 10:45; Admin Dose 100 MLS/HR; Start 02/19/18 at 10:30 Eye Lubricant (Artificial Tears Oph) 2 drop QID BOTH EYES Last administered on 02/23/18 20:36; Admin Dose 2 DROP; Start 02/20/18 at 13:00 Eye Lubricant (Akwa Oint) 1 applic TID BOTH EYES Last administered on 02/23/18 20:36; Admin Dose 1 APPLIC; Start 02/20/18 at 13:00 Norepinephrine 250 ml @ 1.875 mls/ hr TITRATE IV ; Start 02/20/18 at 23:45 Furosemide (Lasix) 20 mg DAILY IV Last administered on 02/23/18 09:13; Admin Dose 20 MG; Start 02/22/18 at 10:30 Methylprednisolone Sodium Succinate (Solu-Medrol) 60 mg Q6H IV Last admi nistered on 02/24/18 03:13; Admin Dose 60 MG; Start 02/22/18 at 15:30 Enoxaparin Sodium (Lovenox) 40 mg DAILY SC Last administered on 02/23/18 09:20; Admin Dose 40 MG; Start 02/23/18 at 09:00 Morphine Sulfate (morphine) 6 mg Q4H PRN GTB SEVERE PAIN LEVEL 7-10; Start 02/23/18 at 12:00 JUDY LYON Feb 24, 2018 09:24
[2018-02-24] MEDS: LEVOFLOXACIN 750MG/D5W (PMX) 150 ML IVPB SCH (09:26)
[2018-02-24] MEDS: OCULAR LUBRICANT 3.5 GM OPH OINT BOTH EYES SCH ×3 (09:30→21:32)
[2018-02-24] MEDS: ARTIFICIAL TEARS 15 ML OPH BOTH EYES SCH ×4 (09:30→21:32)
[2018-02-24] MEDS: PROPOFOL 100 ML IV SCH ×2 (09:30→20:42)
[2018-02-24] MEDS: FUROSEMIDE 20 MG INJ IV SCH (09:40)
[2018-02-24] MEDS: ENOXAPARIN 40 MG/0.4 ML SYG SC SCH (09:45)
[2018-02-24] MEDS ORDERED: DEXTROSE 50% 50 ML SYRINGE IV PRN ×2 (11:30)
[2018-02-24] MEDS ORDERED: GLUCAGON 1 MG INJ IM PRN (11:30)
[2018-02-24] MEDS ORDERED: GLUCOSE GEL 15 GRAM TUBE PO PRN ×2 (11:30)
[2018-02-24] MEDS ORDERED: GLUCOSE GEL 15 GRAM TUBE BUCCAL PRN (11:30)
[2018-02-24] MEDS ORDERED: [UNRECOGNIZED DRUG - REMARK] XX SCH (11:30)
[2018-02-24] MEDS: FENTAnyl (DRIP) 1000 mcg/100mL 100 ML IV SCH ×2 (11:38→23:04)
[2018-02-24] MEDS: INSULIN GLARGINE [LANTus] (100 UNITS/ML) SYG SC SCH (11:50)
--- NOTE | 2018-02-24 13:25 | CONS ---
Date/Time of Note Date/Time of Note DATE: 02/24/18 TIME: 13:24 Assessment/Plan Assessment/Plan Hospital Course 62 yo female with #Metastatic Melanoma - last Nivolumab was 2 weeks ago - 02/21/2018-sp Remicade 300 mg #ARDS - likely 2/2 Nivolumab and questionable underlying pneumonia -on FIO2 70 %, PEEP 12; -cont high dose steroids the patient is currently getting - solumedrol 80mg q 6 hours -continue IV antibiotics in case of any underlying infection contributing to AR DS -If patient is able to recover, oncology would not recommend for her to continue Nivolumab given this grade 4 toxicity -continue critical care measure with vasopressor support and mechanical venti lation Approximately 50 min was spend in face to face time with patent's son at the bed side, and in coordination of her care. Result Diagram: 02/24/18 1027 02/24/18 1027 Results 24hrs Laboratory Tests Test 02/23/18 14:01 02/23/18 16:29 02/23/18 18:22 02/23/18 20:41 Bedside Glucose 138 135 126 150 Test 02/23/18 21:39 02/23/18 23:57 02/24/18 01:55 02/24/18 04:33 Bedside Glucose 131 148 142 128 Test 02/24/18 05:34 02/24/18 08:30 02/24/18 08:46 02/24/18 10:27 Bedside Glucose 139 134 137 Blood Gas Specimen Blood arterial Source Arterial Blood 02/24/2018 8:55:00 Date Drawn AM Arterial Blood pH 7.522 H (Temp corrected) Arterial Blood 37.5 pCO2 (Temp correct) Arterial Blood pO2 64.9 L (Temp corrected) Arterial Blood 30.1 H HCO3 Arterial Blood 6.8 H Base Excess Arterial Blood 92.4 L Oxygen Saturation Ruperto Test ACCEPTAB Arterial Blood Gas Left Radial Puncture Site Arterial 0.3 Blood Carboxyhemog lobin Arterial Blood 0.3 Methemoglobin Blood Gas A-a O2 610.6 H Differential Oxyhemoglobin 91.8 L Percent Blood Gas 37.0 Temperature Blood Gas 24.0 Respiration Rate Blood Gas Actual 24 Respiration Rate Blood Gas Modality VENT - AC FiO2 100.0 Blood Gas Tidal 450.0 Volume Blood Gas Low PEEP 10.0 Setting Blood Gas Notified TM Whom Blood Gas Notified 02/24/2018 9:11:00 Time AM White Blood Count 8.0 Red Blood Count 3.00 #L Hemoglobin 9.6 #L Hematocrit 29.0 L Mean Corpuscular 96.7 Volume Mean Corpuscular 32.0 Hemoglobin Mean Corpuscular 33.1 Hemoglobin Concent Red Cell 15.1 H Distribution Width Platelet Count 80 #L Mean Platelet 12.0 H Volume Immature 2.900 H Granulocytes % Neutrophils % 70.9 Lymphocytes % 20.4 Monocytes % 5.8 Eosinophils % 0.0 Basophils % 0.0 Nucleated Red 1.9 H Blood Cells % Immature 0.230 H Granulocytes # Neutrophils # 5.7 Lymphocytes # 1.6 Monocytes # 0.5 Eosinophils # 0.0 Basophils # 0.0 Nucleated Red 0.2 H Blood Cells # Sodium Level 141 Potassium Level 4.3 Chloride Level 101 Carbon Dioxide 32 H Level Anion Gap 8 Blood Urea 37 H Nitrogen Creatinine 0.73 Est Glomerular > 60 Filtrat Rate mL/min Glucose Level 134 Calcium Level 8.0 L Phosphorus Level 5.1 H Magnesium Level 2.4 Consultation Date/Type/Reason Admit Date/Time Feb 17, 2018 at 12:57 Initial Consult Date 02/18/18 Type of Consult oncology Reason for Consultation metastatic melanoma Requesting Provider: JULY TRAMMELL Exam/Review of Systems Vital Signs Vitals Vital Signs Date Temp Pulse Resp B/P (MAP) Pulse Ox O2 O2 Flow FiO2 Time Delivery Rate 02/24/18 94 12:00 02/24/18 18 107/73 99 11:00 (84) 02/24/18 100 10:00 02/24/18 Nasal 10:00 Cannula 02/24/18 98.5 08:00 Intake and Output 02/23/18 02/23/18 02/24/18 1515:00 23:00 07:00 IntakeIntake Total 694.5 ml 552.0 ml 613.5 ml OutputOutput Total 1135 ml 535 ml 625 ml BalanceBalance -440.5 ml 17.0 ml -11.5 ml Medications Medications Current Medications IV Flush (NS 3 ml) 3 ml PER PROTOCOL IV ; Start 02/17/18 at 13:30 Ondansetron HCl (Zofran Inj) 4 mg Q6H PRN IV NAUSEA AND/OR VOMITING; Start 02/17/18 at 13:30 Acetaminophen (Tylenol Tab) 650 mg Q6H PRN PO PAIN LEVEL 1-3 OR FEVER Last administered on 02/21/18 12:50; Admin Dose 650 MG; Start 02/17/18 at 13:30 Acetaminophen/ Hydrocodone Bitart ([place] (5/325)) 1 tab Q6H PRN PO MODERATE PAIN LEVEL 4-6; Start 02/17/18 at 13:30 Docusate Sodium (Colace) 100 mg Q12H PRN PO CONSTIPATION; Start 02/17/18 at 13:30 Pantoprazole (Protonix Iv) 40 mg DAILY@06 IV Last administered on 02/24/18 05:34; Admin Dose 40 MG; Start 02/18/18 at 06:00 Aztreonam 50 ml @ 100 mls/hr Q8 IVPB Last administered on 02/24/18 05:34; Admin Dose 100 MLS/HR; Start 02/17/18 at 22:00 Midazolam HCl 50 ml @ 1 mls/hr TITRATE IV Last administered on 02/24/18 11:39; Admin Dose 6 MLS/HR; Start 02/17/18 at 18:30 Propofol 100 ml @ 2.43 mls/hr Q12H IV Last administered on 02/22/18 20:15; Admin Dose 19.44 MLS/HR; Start 02/18/18 at 09:30 Fentanyl 100 ml @ 2.5 mls/hr TITRATE IV Last administered on 02/24/18 11:38; Admin Dose 10 MLS/HR; Start 02/18/18 at 09:30 Diagnostic Test (Pha) (Accu-Chek) 1 ea Q1H XX Last administered on 02/24/18 11:43; Admin Dose 1 EA; Start 02/18/18 at 11:00 Insulin Human Regular 100 unit/ Sodium Chloride 100 ml @ 0 mls/hr PER PROTOCOL IV Last administered on 02/19/18 17:05; Admin Dose 1.5 MLS/HR; Start 02/18/18 at 11:00; Stop 02/24/18 at 15:00 Miscellaneous Information (* Miscellaneous Pharmacy Order) Treatment of Hypog lycemia: 1.BG 51... Per protocol XX ; Start 02/18/18 at 10:30 Dextrose (D50w Syringe) 25 ml Q15M PRN IV DECREASED GLUCOSE; Start 02/18/18 at 10:30 Dextrose (D50w Syringe) 50 ml Q15M PRN IV DECREASED GLUCOSE; Start 02/18/18 at 10:30 IV Flush (NS 10 ml) 10 ml PRN PRN IV IV PROTOCOL; Start 02/18/18 at 13:30 Levofloxacin/ Dextrose 150 ml @ 100 mls/hr Q24H IVPB Last administered on 02/24/18 09:26; Admin Dose 100 MLS/HR; Start 02/19/18 at 10:30 Eye Lubricant (Artificial Tears Oph) 2 drop QID BOTH EYES Last administered on 02/24/18 09:30; Admin Dose 2 DROP; Start 02/20/18 at 13:00 Eye Lubricant (Akwa Oint) 1 applic TID BOTH EYES Last administered on 02/24/18 09:30; Admin Dose 1 APPLIC; Start 02/20/18 at 13:00 Norepinephrine 250 ml @ 1.875 mls/ hr TITRATE IV ; Start 02/20/18 at 23:45 Furosemide (Lasix) 20 mg DAILY IV Last administered on 02/24/18 09:40; Admin Dose 20 MG; Start 02/22/18 at 10:30 Methylprednisolone Sodium Succinate (Solu-Medrol) 60 mg Q6H IV Last administered on 02/24/18 09:39; Admin Dose 60 MG; Start 02/22/18 at 15:30 Enoxaparin Sodium (Lovenox) 40 mg DAILY SC Last administered on 02/24/18 09:45; Admin Dose 40 MG; Start 02/23/18 at 09:00 Morphine Sulfate (morphine) 6 mg Q4H PRN GTB SEVERE PAIN LEVEL 7-10; Start 02/23/18 at 12:00 Insulin Glargine (Lantus) 22 units DAILY@0800 SC Last administered on 02/24/18at 11:50; Admin Dose 22 UNITS; Start 02/24/18 at 12:00 Diagnostic Test (Pha) (Accu-Chek) 1 ea 02 XX ; Start 02/25/18 at 02:00 Insulin Aspart (Novolog Insulin Pen) NOVOLOG *MODERATE* ALGORI... Q4 SC ; Start 02/24/18 at 17:00 Miscellaneous Information 1 ea NOTE XX ; Start 02/24/18 at 11:30 Glucose (Glutose) 15 gm Q15M PRN PO DECREASED GLUCOSE; Start 02/24/18 at 11:30 Glucose (Glutose) 22.5 gm Q15M PRN PO DECREASED GLUCOSE; Start 02/24/18 at 11:30 Dextrose (D50w Syringe) 25 ml Q15M PRN IV DECREASED GLUCOSE; Start 02/24/18 at 11:30 Dextrose (D50w Syringe) 50 ml Q15M PRN IV DECREASED GLUCOSE; Start 02/24/18 at 11:30 Glucagon (Glucagen) 1 mg Q15M PRN IM DECREASED GLUCOSE; Start 02/24/18 at 11:30 Glucose (Glutose) 15 gm Q15M PRN BUCCAL DECREASED GLUCOSE; Start 02/24/18 at 11:30 Miscellaneous Information (*Order Clarification Bulletin) MEDICATION REQUIRES CLARIFICATI... Q8H XX ; Start 02/24/18 at 11:30; Stop 02/24/18 at 23:59 LIA CASAREZ M.D. Feb 24, 2018 13:25
--- NOTE | 2018-02-24 13:31 | PN ---
Date/Time of Note Date/Time of Note DATE: 02/24/18 TIME: 13:31 Assessment/Plan VTE Prophylaxis Risk score (from [facility])>0 risk: 13 SCD applied (from [facility]): Yes Pharmacological prophylaxis: heparin Lines/Catheters IV Catheter Type (from [facility], [place]): PICC Line Central line still needed: Yes Urinary Cath still in place: Yes Reason Cath still needed: urinary retention Assessment/Plan Hospital Course 62 yo female with stage IV melanoma with ARDS leading to acute respiratory failure Acute respiratory failure/ARDS: - MV per pulmonary - Steroids per pulmonary Metastatic melanoma - Further care if able to be extubated Anemia Thrombocytopenia Poor progonsis Result Diagram: 02/24/18 1027 02/24/18 1027 Results 24hrs Laboratory Tests Test 02/23/18 14:01 02/23/18 16:29 02/23/18 18:22 02/23/18 20:41 Bedside Glucose 138 135 126 150 Test 02/23/18 21:39 02/23/18 23:57 02/24/18 01:55 02/24/18 04:33 Bedside Glucose 131 148 142 128 Test 02/24/18 05:34 02/24/18 08:30 02/24/18 08:46 02/24/18 10:27 Bedside Glucose 139 134 137 Blood Gas Specimen Blood arterial Source Arterial Blood 02/24/2018 8:55:00 Date Drawn AM Arterial Blood pH 7.522 H (Temp corrected) Arterial Blood 37.5 pCO2 (Temp correct) Arterial Blood pO2 64.9 L (Temp corrected) Arterial Blood 30.1 H HCO3 Arterial Blood 6.8 H Base Excess Arterial Blood 92.4 L Oxygen Saturation Ruperto Test ACCEPTAB Arterial Blood Gas Left Radial Puncture Site Arterial 0.3 Blood Carboxyhemog lobin Arterial Blood 0.3 Methemoglobin Blood Gas A-a O2 610.6 H Differential Oxyhemoglobin 91.8 L Percent Blood Gas 37.0 Temperature Blood Gas 24.0 Respiration Rate Blood Gas Actual 24 Respiration Rate Blood Gas Modality VENT - AC FiO2 100.0 Blood Gas Tidal 450.0 Volume Blood Gas Low PEEP 10.0 Setting Blood Gas Notified TM Whom Blood Gas Notified 02/24/2018 9:11:00 Time AM White Blood Count 8.0 Red Blood Count 3.00 #L Hemoglobin 9.6 #L Hematocrit 29.0 L Mean Corpuscular 96.7 Volume Mean Corpuscular 32.0 Hemoglobin Mean Corpuscular 33.1 Hemoglobin Concent Red Cell 15.1 H Distribution Width Platelet Count 80 #L Mean Platelet 12.0 H Volume Immature 2.900 H Granulocytes % Neutrophils % 70.9 Lymphocytes % 20.4 Monocytes % 5.8 Eosinophils % 0.0 Basophils % 0.0 Nucleated Red 1.9 H Blood Cells % Immature 0.230 H Granulocytes # Neutrophils # 5.7 Lymphocytes # 1.6 Monocytes # 0.5 Eosinophils # 0.0 Basophils # 0.0 Nucleated Red 0.2 H Blood Cells # Sodium Level 141 Potassium Level 4.3 Chloride Level 101 Carbon Dioxide 32 H Level Anion Gap 8 Blood Urea 37 H Nitrogen Creatinine 0.73 Est Glomerular > 60 Filtrat Rate mL/min Glucose Level 134 Calcium Level 8.0 L Phosphorus Level 5.1 H Magnesium Level 2.4 Subjective 24 Hr Interval Summary Free Text/Dictation Continues on high PEEP and 100% FiO2 Minimal change to clinical status Exam/Review of Systems Vital Signs Vitals Vital Signs Date Temp Pulse Resp B/P (MAP) Pulse Ox O2 O2 Flow FiO2 Time Delivery Rate 02/24/18 94 12:00 02/24/18 18 107/73 99 11:00 (84) 02/24/18 100 10:00 02/24/18 Nasal 10:00 Cannula 02/24/18 98.5 08:00 Intake and Output 02/23/18 02/23/18 02/24/18 1515:00 23:00 07:00 IntakeIntake Total 694.5 ml 552.0 ml 613.5 ml OutputOutput Total 1135 ml 535 ml 625 ml BalanceBalance -440.5 ml 17.0 ml -11.5 ml Medications Medications Current Medications IV Flush (NS 3 ml) 3 ml PER PROTOCOL IV ; Start 02/17/18 at 13:30 Ondansetron HCl (Zofran Inj) 4 mg Q6H PRN IV NAUSEA AND/OR VOMITING; Start 02/17/18 at 13:30 Acetaminophen (Tylenol Tab) 650 mg Q6H PRN PO PAIN LEVEL 1-3 OR FEVER Last administered on 02/21/18at 12:50; Admin Dose 650 MG; Start 02/17/18 at 13:30 Acetaminophen/ Hydrocodone Bitart ([place] (5/325)) 1 tab Q6H PRN PO MODERATE PAIN LEVEL 4-6; Start 02/17/18 at 13:30 Docusate Sodium (Colace) 100 mg Q12H PRN PO CONSTIPATION; Start 02/17/18 at 13:30 Pantoprazole (Protonix Iv) 40 mg DAILY@06 IV Last administered on 02/24/18 05: 34; Admin Dose 40 MG; Start 02/18/18 at 06:00 Aztreonam 50 ml @ 100 mls/hr Q8 IVPB Last administered on 02/24/18 05:34; Admin Dose 100 MLS/HR; Start 02/17/18 at 22:00 Midazolam HCl 50 ml @ 1 mls/hr TITRATE IV Last administered on 02/24/18 11:39; Admin Dose 6 MLS/HR; Start 02/17/18 at 18:30 Propofol 100 ml @ 2.43 mls/hr Q12H IV Last administered on 02/22/18 20:15; Admin Dose 19.44 MLS/HR; Start 02/18/18 at 09:30 Fentanyl 100 ml @ 2.5 mls/hr TITRATE IV Last administered on 02/24/18 11:38; Admin Dose 10 MLS/HR; Start 02/18/18 at 09:30 Diagnostic Test (Pha) (Accu-Chek) 1 ea Q1H XX Last administered on 02/24/18 11:43; Admin Dose 1 EA; Start 02/18/18 at 11:00 Insulin Human Regular 100 unit/ Sodium Chloride 100 ml @ 0 mls/hr PER PROTOCOL IV Last administered on 02/19/18 17:05; Admin Dose 1.5 MLS/HR; Start 02/18/18 at 11:00; Stop 02/24/18 at 15:00 Miscellaneous Information (* Miscellaneous Pharmacy Order) Treatment of Hypoglycemia: 1.BG 51... Per protocol XX ; Start 02/18/18 at 10:30 Dextrose (D50w Syringe) 25 ml Q15M PRN IV DECREASED GLUCOSE; Start 02/18/18 at 10:30 Dextrose (D50w Syringe) 50 ml Q15M PRN IV DECREASED GLUCOSE; Start 02/18/18 at 10:30 IV Flush (NS 10 ml) 10 ml PRN PRN IV IV PROTOCOL; Start 02/18/18 at 13:30 Levofloxacin/ Dextrose 150 ml @ 100 mls/hr Q24H IVPB Last administered on 02/24/18 09:26; Admin Dose 100 MLS/HR; Start 02/19/18 at 10:30 Eye Lubricant (Artificial Tears Oph) 2 drop QID BOTH EYES Last administered on 02/24/18 09:30; Admin Dose 2 DROP; Start 02/20/18 at 13:00 Eye Lubricant (Akwa Oint) 1 applic TID BOTH EYES Last administered on 02/24/18 09:30; Admin Dose 1 APPLIC; Start 02/20/18 at 13:00 Norepinephrine 250 ml @ 1.875 mls/ hr TITRATE IV ; Start 02/20/18 at 23:45 Furosemide (Lasix) 20 mg DAILY IV Last administered on 02/24/18 09:40; Admin Dose 20 MG; Start 02/22/18 at 10:30 Methylprednisolone Sodium Succinate (Solu-Medrol) 60 mg Q6H IV Last a dministered on 02/24/18 09:39; Admin Dose 60 MG; Start 02/22/18 at 15:30 Enoxaparin Sodium (Lovenox) 40 mg DAILY SC Last administered on 02/24/18 09:45; Admin Dose 40 MG; Start 02/23/18 at 09:00 Morphine Sulfate (morphine) 6 mg Q4H PRN GTB SEVERE PAIN LEVEL 7-10; Start 02/23/18 at 12:00 Insulin Glargine (Lantus) 22 units DAILY@0800 SC Last administered on 02/24/18at 11:50; Admin Dose 22 UNITS; Start 02/24/18 at 12:00 Diagnostic Test (Pha) (Accu-Chek) 1 ea 02 XX ; Start 02/25/18 at 02:00 Insulin Aspart (Novolog Insulin Pen) NOVOLOG *MODERATE* ALGORI... Q4 SC ; Start 02/24/18 at 17:00 Miscellaneous Information 1 ea NOTE XX ; Start 02/24/18 at 11:30 Glucose (Glutose) 15 gm Q15M PRN PO DECREASED GLUCOSE; Start 02/24/18 at 11:30 Glucose (Glutose) 22.5 gm Q15M PRN PO DECREASED GLUCOSE; Start 02/24/18 at 11:30 Dextrose (D50w Syringe) 25 ml Q15M PRN IV DECREASED GLUCOSE; Start 02/24/18 at 11:30 Dextrose (D50w Syringe) 50 ml Q15M PRN IV DECREASED GLUCOSE; Start 02/24/18 at 11:30 Glucagon (Glucagen) 1 mg Q15M PRN IM DECREASED GLUCOSE; Start 02/24/18 at 11:30 Glucose (Glutose) 15 gm Q15M PRN BUCCAL DECREASED GLUCOSE; Start 02/24/18 at 11:30 Miscellaneous Information (*Order Clarification Bulletin) MEDICATION REQUIRES CLARIFICATI... Q8H XX ; Start 02/24/18 at 11:30; Stop 02/24/18 at 23:59 SJ BOWMAN MD Feb 24, 2018 13:31
--- NOTE | 2018-02-24 13:54 | CONS ---
Date/Time of Note Date/Time of Note DATE: 02/24/18 TIME: 13:48 Assessment/Plan Assessment/Plan Hospital Course 62 yo female with #Metastatic Melanoma - last Nivolumab was 2 weeks ago - 02/21/2018-sp Remicade 300 mg #ARDS - likely 2/2 Nivolumab and questionable underlying pneumonia -on FIO2 100 %, PEEP 10; -cont high dose steroids the patient is currently getting - solumedrol 80mg q 6 hours -continue IV antibiotics in case of any underlying infection contributing to A RDS -If patient is able to recover, oncology would not recommend for her to continue Nivolumab given this grade 4 toxicity -continue critical care to manage vasopressor support and mechanical ventila tion. They believe bronch is not indicated. -CT Chest ordered. will follow up Approximately 50 min was spend in face to face time with maximus's son at the bed side, and in coordination of her care. Result Diagram: 02/24/18 1027 02/24/18 1027 Results 24hrs Laboratory Tests Test 02/23/18 14:01 02/23/18 16:29 02/23/18 18:22 02/23/18 20:41 Bedside Glucose 138 135 126 150 Test 02/23/18 21:39 02/23/18 23:57 02/24/18 01:55 02/24/18 04:33 Bedside Glucose 131 148 142 128 Test 02/24/18 05:34 02/24/18 08:30 02/24/18 08:46 02/24/18 10:27 Bedside Glucose 139 134 137 Blood Gas Specimen Blood arterial Source Arterial Blood 02/24/2018 8:55:00 Date Drawn AM Arterial Blood pH 7.522 H (Temp corrected) Arterial Blood 37.5 pCO2 (Temp correct) Arterial Blood pO2 64.9 L (Temp corrected) Arterial Blood 30.1 H HCO3 Arterial Blood 6.8 H Base Excess Arterial Blood 92.4 L Oxygen Saturation Ruperto Test ACCEPTAB Arterial Blood Gas Left Radial Puncture Site Arterial 0.3 Blood Carboxyhemog lobin Arterial Blood 0.3 Methemoglobin Blood Gas A-a O2 610.6 H Differential Oxyhemoglobin 91.8 L Percent Blood Gas 37.0 Temperature Blood Gas 24.0 Respiration Rate Blood Gas Actual 24 Respiration Rate Blood Gas Modality VENT - AC FiO2 100.0 Blood Gas Tidal 450.0 Volume Blood Gas Low PEEP 10.0 Setting Blood Gas Notified TM Whom Blood Gas Notified 02/24/2018 9:11:00 Time AM White Blood Count 8.0 Red Blood Count 3.00 #L Hemoglobin 9.6 #L Hematocrit 29.0 L Mean Corpuscular 96.7 Volume Mean Corpuscular 32.0 Hemoglobin Mean Corpuscular 33.1 Hemoglobin Concent Red Cell 15.1 H Distribution Width Platelet Count 80 #L Mean Platelet 12.0 H Volume Immature 2.900 H Granulocytes % Neutrophils % 70.9 Lymphocytes % 20.4 Monocytes % 5.8 Eosinophils % 0.0 Basophils % 0.0 Nucleated Red 1.9 H Blood Cells % Immature 0.230 H Granulocytes # Neutrophils # 5.7 Lymphocytes # 1.6 Monocytes # 0.5 Eosinophils # 0.0 Basophils # 0.0 Nucleated Red 0.2 H Blood Cells # Sodium Level 141 Potassium Level 4.3 Chloride Level 101 Carbon Dioxide 32 H Level Anion Gap 8 Blood Urea 37 H Nitrogen Creatinine 0.73 Est Glomerular > 60 Filtrat Rate mL/min Glucose Level 134 Calcium Level 8.0 L Phosphorus Level 5.1 H Magnesium Level 2.4 Consultation Date/Type/Reason Admit Date/Time Feb 17, 2018 at 12:57 Initial Consult Date 02/18/18 Type of Consult oncology Reason for Consultation metastatic melanoma Requesting Provider: JULY TRAMMELL 24 HR Interval Summary Free Text/Dictation pt's FI 02 requirement increased to 100% and PEEP now at 10. PT was at 30% but is now requiring more Subjective hx not possible: pt non-verbal, pt critical status Exam/Review of Systems Vital Signs Vitals Vital Signs Date Temp Pulse Resp B/P (MAP) Pulse Ox O2 O2 Flow FiO2 Time Delivery Rate 02/24/18 94 12:00 02/24/18 18 107/73 99 11:00 (84) 02/24/18 100 10:00 02/24/18 Nasal 10:00 Cannula 02/24/18 98.5 08:00 Intake and Output 02/23/18 02/23/18 02/24/18 1515:00 23:00 07:00 IntakeIntake Total 694.5 ml 552.0 ml 613.5 ml OutputOutput Total 1135 ml 535 ml 625 ml BalanceBalance -440.5 ml 17.0 ml -11.5 ml Exam Constitutional: non-verbal Head: normocephalic Eyes: nl conjunctiva ENMT: nl external ears & nose Neck: supple Respiratory: crackles/rales, diminished breath sounds, intercostal retraction, labored breathing Cardiovascular: regular rate and rhythm Gastrointestinal: soft Musculoskeletal: nl extremities to inspection Extremities: normal pulses Neurological: [employer] II-XII intact Medications Medications Current Medications IV Flush (NS 3 ml) 3 ml PER PROTOCOL IV ; Start 02/17/18 at 13:30 Ondansetron HCl (Zofran Inj) 4 mg Q6H PRN IV NAUSEA AND/OR VOMITING; Start 02/17/18 at 13:30 Acetaminophen (Tylenol Tab) 650 mg Q6H PRN PO PAIN LEVEL 1-3 OR FEVER Last administered on 02/21/18 12:50; Admin Dose 650 MG; Start 02/17/18 at 13:30 Acetaminophen/ Hydrocodone Bitart ([place] (5/325)) 1 tab Q6H PRN PO MODERATE PAIN LEVEL 4-6; Start 02/17/18 at 13:30 Docusate Sodium (Colace) 100 mg Q12H PRN PO CONSTIPATION; Start 02/17/18 at 13:30 Pantoprazole (Protonix Iv) 40 mg DAILY@06 IV Last administered on 02/24/18 05:34; Admin Dose 40 MG; Start 02/18/18 at 06:00 Aztreonam 50 ml @ 100 mls/hr Q8 IVPB Last administered on 02/24/18 05:34; Admin Dose 100 MLS/HR; Start 02/17/18 at 22:00 Midazolam HCl 50 ml @ 1 mls/hr TITRATE IV Last administered on 02/24/18 11:39; Admin Dose 6 MLS/HR; Start 02/17/18 at 18:30 Propofol 100 ml @ 2.43 mls/hr Q12H IV Last administered on 02/22/18 20:15; Admin Dose 19.44 MLS/HR; Start 02/18/18 at 09:30 Fentanyl 100 ml @ 2.5 mls/hr TITRATE IV Last administered on 02/24/18 11:38; Admin Dose 10 MLS/HR; Start 02/18/18 at 09:30 Diagnostic Test (Pha) (Accu-Chek) 1 ea Q1H XX Last administered on 1/8/19at 12:00; Admin Dose 1 EA; Start 02/18/18 at 11:00 Insulin Human Regular 100 unit/ Sodium Chloride 100 ml @ 0 mls/hr PER PROTOCOL IV Last administered on 02/19/18at 17:05; Admin Dose 1.5 MLS/HR; Start 02/18/18 at 11:00; Stop 02/24/18 at 15:00 Miscellaneous Information (* Miscellaneous Pharmacy Order) Treatment of Hypoglycemia: 1.BG 51... Per protocol XX ; Start 02/18/18 at 10:30 Dextrose (D50w Syringe) 25 ml Q15M PRN IV DECREASED GLUCOSE; Start 02/18/18 at 10:30 Dextrose (D50w Syringe) 50 ml Q15M PRN IV DECREASED GLUCOSE; Start 02/18/18 at 10:30 IV Flush (NS 10 ml) 10 ml PRN PRN IV IV PROTOCOL; Start 02/18/18 at 13:30 Levofloxacin/ Dextrose 150 ml @ 100 mls/hr Q24H IVPB Last administered on 02/24/18 09:26; Admin Dose 100 MLS/HR; Start 02/19/18 at 10:30 Eye Lubricant (Artificial Tears Oph) 2 drop QID BOTH EYES Last administered on 02/24/18 09:30; Admin Dose 2 DROP; Start 02/20/18 at 13:00 Eye Lubricant (Akwa Oint) 1 applic TID BOTH EYES Last administered on 02/24/18 09:30; Admin Dose 1 APPLIC; Start 02/20/18 at 13:00 Norepinephrine 250 ml @ 1.875 mls/ hr TITRATE IV ; Start 02/20/18 at 23:45 Furosemide (Lasix) 20 mg DAILY IV Last administered on 02/24/18at 09:40; Admin Dose 20 MG; Start 02/22/18 at 10:30 Methylprednisolone Sodium Succinate (Solu-Medrol) 60 mg Q6H IV Last administered on 02/24/18 09:39; Admin Dose 60 MG; Start 02/22/18 at 15:30 Enoxaparin Sodium (Lovenox) 40 mg DAILY SC Last administered on 02/24/18 09:45; Admin Dose 40 MG; Start 02/23/18 at 09:00 Morphine Sulfate (morphine) 6 mg Q4H PRN GTB SEVERE PAIN LEVEL 7-10; Start 02/23/18 at 12:00 Insulin Glargine (Lantus) 22 units DAILY@0800 SC Last administered on 02/24/18at 11:50; Admin Dose 22 UNITS; Start 02/24/18 at 12:00 Diagnostic Test (Pha) (Accu-Chek) 1 ea 02 XX ; Start 02/25/18 at 02:00 Insulin Aspart (Novolog Insulin Pen) NOVOLOG *MODERATE* ALGORI... Q4 SC ; Start 02/24/18 at 17:00 Miscellaneous Information 1 ea NOTE XX ; Start 02/24/18 at 11:30 Glucose (Glutose) 15 gm Q15M PRN PO DECREASED GLUCOSE; Start 02/24/18 at 11:30 Glucose (Glutose) 22.5 gm Q15M PRN PO DECREASED GLUCOSE; Start 02/24/18 at 11:30 Dextrose (D50w Syringe) 25 ml Q15M PRN IV DECREASED GLUCOSE; Start 02/24/18 at 11:30 Dextrose (D50w Syringe) 50 ml Q15M PRN IV DECREASED GLUCOSE; Start 02/24/18 at 11:30 Glucagon (Glucagen) 1 mg Q15M PRN IM DECREASED GLUCOSE; Start 02/24/18 at 11:30 Glucose (Glutose) 15 gm Q15M PRN BUCCAL DECREASED GLUCOSE; Start 02/24/18 at 11:30 Miscellaneous Information (*Order Clarification Bulletin) MEDICATION REQUIRES CLARIFICATI... Q8H XX ; Start 02/24/18 at 11:30; Stop 02/24/18 at 23:59 LIA CASRAEZ M.D. Feb 24, 2018 13:54
[2018-02-24] MEDS ORDERED: IOHEXOL 300MG/ML 150 ML BTL ONE (14:06)
[2018-02-24] MEDS ORDERED: SOD CHLORIDE 0.9% 100 ML ONE (14:06)
[2018-02-24] MEDS: INSULIN ASPART [NOVOLOG] 3 ML PEN SC SCH ×2 (17:00→21:00)
[2018-02-24] MEDS: morphine LIQ (10 MG/5 ML) CUP GTB PRN (21:33)
[2018-02-25] VITALS (36 sets, daily range): BP systolic 93–143; BP diastolic 45–101; PULSE 37–91; RESP 21–24
[2018-02-25] MEDS: INSULIN ASPART [NOVOLOG] 3 ML PEN SC SCH ×6 (01:06→22:08)
[2018-02-25] MEDS: ACCU-CHEK XX SCH (01:48)
[2018-02-25] MEDS: DOCUSATE SODIUM 100 MG CAP PO PRN (03:57)
[2018-02-25] MEDS: POLYETHYLENE GLYCOL 17 GM PACKET NGT SCH (03:57)
[2018-02-25] MEDS: METHYLPREDNISOLONE 125 MG INJ IV SCH ×4 (03:57→22:09)
[2018-02-25] MEDS: MIDAZOLAM (DRIP) 50 mg/50 mL 50 ML IV SCH (03:58)
[2018-02-25] MEDS: DOCUSATE SODIUM 10 MG/ML (10ML CUP) GTB SCH ×3 (04:06→21:00)
[2018-02-25] MEDS: AZTREONAM 1 GM/NS (PMX) 50 ML IVPB SCH ×2 (05:26→14:36)
[2018-02-25] MEDS: PANTOPRAZOLE 40 MG INJ IV SCH (05:26)
--- NOTE | 2018-02-25 08:30 | CONS ---
Date/Time of Note Date/Time of Note DATE: 02/25/18 TIME: 08:28 Assessment/Plan Assessment/Plan Hospital Course 62 yo female with #Metastatic Melanoma - last Nivolumab was 2 weeks ago - 02/21/2018-sp Remicade 300 mg #ARDS - likely 2/2 Nivolumab and questionable underlying pneumonia -on FIO2 100 %, PEEP 10; -given that patient does not seem to be recovering with dose of Remicade give. will consider repeating the dose this friday -cont high dose steroids the patient is currently getting - solumedrol 60mg q 6 hours -continue IV antibiotics in case of any underlying infection contributing to ARDS -per pulmonary, pt is too unstable for bronchoscopy -If patient is able to recover, oncology would not recommend for her to continue Nivolumab given this grade 4 toxicity -continue critical care to manage vasopressor support and mechanical ventilation. -CT Chest reveals evidence of bibasilar infiltrates but no evidence of PE Approximately 50 min was spend in face to face time with patent's son at the bed side, and in coordination of her care. Result Diagram: 02/24/18 1027 02/24/18 1027 Results 24hrs Laboratory Tests Test 02/24/18 08:30 02/24/18 08:46 02/24/18 10:27 02/24/18 14:45 Bedside Glucose 134 137 115 Blood Gas Specimen Blood arterial Source Arterial Blood 02/24/2018 8:55:00 Date Drawn AM Arterial Blood pH 7.522 H (Temp corrected) Arterial Blood 37.5 pCO2 (Temp correct) Arterial Blood pO2 64.9 L (Temp corrected) Arterial Blood 30.1 H HCO3 Arterial Blood 6.8 H Base Excess Arterial Blood 92.4 L Oxygen Saturation Ruperto Test ACCEPTAB Arterial Blood Gas Left Radial Puncture Site Arterial 0.3 Blood Carboxyhemog lobin Arterial Blood 0.3 Methemoglobin Blood Gas A-a O2 610.6 H Differential Oxyhemoglobin 91.8 L Percent Blood Gas 37.0 Temperature Blood Gas 24.0 Respiration Rate Blood Gas Actual 24 Respiration Rate Blood Gas Modality VENT - AC FiO2 100.0 Blood Gas Tidal 450.0 Volume Blood Gas Low PEEP 10.0 Setting Blood Gas Notified TM Whom Blood Gas Notified 02/24/2018 9:11:00 Time AM White Blood Count 8.0 Red Blood Count 3.00 #L Hemoglobin 9.6 #L Hematocrit 29.0 L Mean Corpuscular 96.7 Volume Mean Corpuscular 32.0 Hemoglobin Mean Corpuscular 33.1 Hemoglobin Concent Red Cell 15.1 H Distribution Width Platelet Count 80 #L Mean Platelet 12.0 H Volume Immature 2.900 H Granulocytes % Neutrophils % 70.9 Lymphocytes % 20.4 Monocytes % 5.8 Eosinophils % 0.0 Basophils % 0.0 Nucleated Red 1.9 H Blood Cells % Immature 0.230 H Granulocytes # Neutrophils # 5.7 Lymphocytes # 1.6 Monocytes # 0.5 Eosinophils # 0.0 Basophils # 0.0 Nucleated Red 0.2 H Blood Cells # Sodium Level 141 Potassium Level 4.3 Chloride Level 101 Carbon Dioxide 32 H Level Anion Gap 8 Blood Urea 37 H Nitrogen Creatinine 0.73 Est Glomerular > 60 Filtrat Rate mL/min Glucose Level 134 Calcium Level 8.0 L Phosphorus Level 5.1 H Magnesium Level 2.4 Test 02/24/18 17:32 02/24/18 21:28 02/25/18 01:04 02/25/18 05:25 Bedside Glucose 132 129 143 148 Consultation Date/Type/Reason Admit Date/Time Feb 17, 2018 at 12:57 Initial Consult Date 02/18/18 Type of Consult oncology Reason for Consultation metastatic melanoma Requesting Provider: JULY TRAMMELL 24 HR Interval Summary Free Text/Dictation pt did desat last night while on fio2 of 85%. now back up to [id number]% and PEEP 10. not on steroids Exam/Review of Systems Vital Signs Vitals Vital Signs Date Temp Pulse Resp B/P (MAP) Pulse Ox O2 O2 Flow FiO2 Time Delivery Rate 02/25/18 100 06:50 02/25/18 54 24 109/73 94 Mechanical 06:00 (85) Ventilator 02/25/18 98.8 04:05 Intake and Output 02/24/18 02/24/18 02/25/18 1515:00 23:00 07:00 IntakeIntake Total 757.0 ml 597 ml 487.5 ml OutputOutput Total 1525 ml 545 ml 525 ml BalanceBalance -768.0 ml 52 ml -37.5 ml Exam Constitutional: non-verbal ENMT: intubated Neck: supple, non-tender Respiratory: congested cough, crackles/rales, diminished breath sounds Cardiovascular: regular rate and rhythm Gastrointestinal: soft Musculoskeletal: nl extremities to inspection Medications Medications Current Medications IV Flush (NS 3 ml) 3 ml PER PROTOCOL IV ; Start 02/17/18 at 13:30 Ondansetron HCl (Zofran Inj) 4 mg Q6H PRN IV NAUSEA AND/OR VOMITING; Start 02/17/18 at 13:30 Acetaminophen (Tylenol Tab) 650 mg Q6H PRN PO PAIN LEVEL 1-3 OR FEVER Last administered on 02/21/18 12:50; Admin Dose 650 MG; Start 02/17/18 at 13:30 Acetaminophen/ Hydrocodone Bitart ([place] (5/325)) 1 tab Q6H PRN PO MODERATE PAIN LEVEL 4-6; Start 02/17/18 at 13:30 Docusate Sodium (Colace) 100 mg Q12H PRN PO CONSTIPATION Last administered on 02/25/18 03:57; Admin Dose 100 MG; Start 02/17/18 at 13:30 Pantoprazole (Protonix Iv) 40 mg DAILY@06 IV Last administered on 02/25/18 05:26; Admin Dose 40 MG; Start 02/18/18 at 06:00 Aztreonam 50 ml @ 100 mls/hr Q8 IVPB Last administered on 02/25/18 05:26; Admin Dose 100 MLS/HR; Start 02/17/18 at 22:00 Midazolam HCl 50 ml @ 1 mls/hr TITRATE IV Last administered on 02/25/18 03:58; Admin Dose 5.5 MLS/HR; Start 02/17/18 at 18:30 Propofol 100 ml @ 2.43 mls/hr Q12H IV Last administered on 02/22/18 20:15; Adm in Dose 19.44 MLS/HR; Start 02/18/18 at 09:30 Fentanyl 100 ml @ 2.5 mls/hr TITRATE IV Last administered on 02/24/18 23:04; Admin Dose 10 MLS/HR; Start 02/18/18 at 09:30 IV Flush (NS 10 ml) 10 ml PRN PRN IV IV PROTOCOL; Start 02/18/18 at 13:30 Levofloxacin/ Dextrose 150 ml @ 100 mls/hr Q24H IVPB Last administered on 02/24/18 09:26; Admin Dose 100 MLS/HR; Start 02/19/18 at 10:30 Eye Lubricant (Artificial Tears Oph) 2 drop QID BOTH EYES Last administered on 02/24/18 21:32; Admin Dose 2 DROP; Start 02/20/18 at 13:00 Eye Lubricant (Akwa Oint) 1 applic TID BOTH EYES Last administered on 02/24/18 21:32; Admin Dose 1 APPLIC; Start 02/20/18 at 13:00 Norepinephrine 250 ml @ 1.875 mls/ hr TITRATE IV ; Start 02/20/18 at 23:45 Furosemide (Lasix) 20 mg DAILY IV Last administered on 02/24/18 09:40; Admin Dose 20 MG; Start 02/22/18 at 10:30 Methylprednisolone Sodium Succinate (Solu-Medrol) 60 mg Q6H IV Last administered on 02/25/18 03:57; Admin Dose 60 MG; Start 02/22/18 at 15:30 Enoxaparin Sodium (Lovenox) 40 mg DAILY SC Last administered on 02/24/18 09:45; Admin Dose 40 MG; Start 02/23/18 at 09:00 Morphine Sulfate (morphine) 6 mg Q4H PRN GTB SEVERE PAIN LEVEL 7-10 Last administered on 02/24/18 21:33; Admin Dose 6 MG; Start 02/23/18 at 12:00 Insulin Glargine (Lantus) 22 units DAILY@0800 SC Last administered on 02/24/18 11:50; Admin Dose 22 UNITS; Start 02/24/18 at 12:00 Diagnostic Test (Pha) (Accu-Chek) 1 ea 02 XX Last administered on 02/25/18at 01:48; Admin Dose 1 EA; Start 02/25/18 at 02:00 Insulin Aspart (Novolog Insulin Pen) NOVOLOG *MODERATE* ALGORI... Q4 SC Last administered on 02/25/18 05:33; Admin Dose 2 UNIT; Start 02/24/18 at 17:00 Miscellaneous Information 1 ea NOTE XX ; Start 02/24/18 at 11:30 Glucose (Glutose) 15 gm Q15M PRN PO DECREASED GLUCOSE; Start 02/24/18 at 11:30 Glucose (Glutose) 22.5 gm Q15M PRN PO DECREASED GLUCOSE; Start 02/24/18 at 11:30 Dextrose (D50w Syringe) 25 ml Q15M PRN IV DECREASED GLUCOSE; Start 02/24/18 at 11:30 Dextrose (D50w Syringe) 50 ml Q15M PRN IV DECREASED GLUCOSE; Start 02/24/18 at 11:30 Glucagon (Glucagen) 1 mg Q15M PRN IM DECREASED GLUCOSE; Start 02/24/18 at 11:30 Glucose (Glutose) 15 gm Q15M PRN BUCCAL DECREASED GLUCOSE; Start 02/24/18 at 11:30 Docusate Sodium (Colace Liquid Cup) 100 mg BID GTB Last administered on 02/25/18at 04:06; Admin Dose 100 MG; Start 02/25/18 at 03:50 Polyethylene Glycol (Miralax) 17 gm DAILY NGT Last administered on 02/25/18at 03:57; Admin Dose 17 GM; Start 02/25/18 at 03:52 LIA CASAREZ M.D. Feb 25, 2018 08:30
[2018-02-25] MEDS: FUROSEMIDE 20 MG INJ IV SCH (09:11)
[2018-02-25] MEDS: OCULAR LUBRICANT 3.5 GM OPH OINT BOTH EYES SCH ×3 (09:11→21:00)
[2018-02-25] MEDS: ARTIFICIAL TEARS 15 ML OPH BOTH EYES SCH ×4 (09:11→21:00)
--- NOTE | 2018-02-25 09:27 | CONS ---
Date/Time of Note Date/Time of Note DATE: 02/25/18 TIME: 09:23 Assessment/Plan Assessment/Plan Assessment/Plan Ventilator setting; AC of 24, tidal volume 450, PEEP of 12, 100% FiO2. Chest x-ray showing basilar infiltrates. Upper lobes are fairly clear. CT of the chest was reviewed from yesterday which is showing bibasilar consolidation without any pulmonary embolism. Patient is currently on Versed 1 mg/h. Fentanyl is on hold. Assessment and recommendations; 1. Patient with history of stage IV melanoma admitted with respiratory failure due to pneumonia possibly bacterial in etiology with possibility of superimposed immune reaction from immunotherapy. 2. Persistent hypoxemia. Possibly from bronchospasm versus VQ mismatch. 3. Anemia and thrombocytopenia. 4. Sinus bradycardia. Continue current supportive care. Obtain ABG. Further recommendations once ABG is performed. Resume fentanyl. I did have a detailed discussion with the patient's son at bedside and answered all his questions. 35 minutes of critical care time was spent evaluating the patient. Result Diagram: 02/24/18 1027 02/24/18 1027 Results 24hrs Laboratory Tests Test 02/24/18 10:27 02/24/18 14:45 02/24/18 17:32 02/24/18 21:28 White Blood Count 8.0 Red Blood Count 3.00 #L Hemoglobin 9.6 #L Hematocrit 29.0 L Mean Corpuscular Volume 96.7 Mean Corpuscular 32.0 Hemoglobin Mean Corpuscular 33.1 Hemoglobin Concent Red Cell Distribution 15.1 H Width Platelet Count 80 #L Mean Platelet Volume 12.0 H Immature Granulocytes % 2.900 H Neutrophils % 70.9 Lymphocytes % 20.4 Monocytes % 5.8 Eosinophils % 0.0 Basophils % 0.0 Nucleated Red Blood 1.9 H Cells % Immature Granulocytes # 0.230 H Neutrophils # 5.7 Lymphocytes # 1.6 Monocytes # 0.5 Eosinophils # 0.0 Basophils # 0.0 Nucleated Red Blood 0.2 H Cells # Sodium Level 141 Potassium Level 4.3 Chloride Level 101 Carbon Dioxide Level 32 H Anion Gap 8 Blood Urea Nitrogen 37 H Creatinine 0.73 Est Glomerular Filtrat > 60 Rate mL/min Glucose Level 134 Bedside Glucose 137 115 132 129 Calcium Level 8.0 L Phosphorus Level 5.1 H Magnesium Level 2.4 Test 02/25/18 01:04 02/25/18 05:25 02/25/18 09:17 Bedside Glucose 143 148 133 Consultation Date/Type/Reason Admit Date/Time Feb 17, 2018 at 12:57 Initial Consult Date 02/18/18 Type of Consult Pulmonary/critical care Requesting Provider: JULY TRAMMELL 24 HR Interval Summary Free Text/Dictation Patient's condition remains critical. Despite on low-dose Versed, patient is completely awake and alert. Has remained hemodynamically stable. General exam; elderly female, orally intubated, awake and responsive. Currently in no distress. Exam/Review of Systems Vital Signs Vitals Vital Signs Date Temp Pulse Resp B/P (MAP) Pulse Ox O2 O2 Flow FiO2 Time Delivery Rate 02/25/18 100 06:50 02/25/18 54 24 109/73 94 Mechanical 06:00 (85) Ventilator 02/25/18 98.8 04:05 Intake and Output 02/24/18 02/24/18 02/25/18 1515:00 23:00 07:00 IntakeIntake Total 757.0 ml 597 ml 487.5 ml OutputOutput Total 1525 ml 545 ml 525 ml BalanceBalance -768.0 ml 52 ml -37.5 ml Exam H EENT exam; supple neck, no JVD. No lymphadenopathy. Midline trachea. No thyromegaly. Orally intubated. No neck masses. Patient has fair dentition. Pupils are mid size. Chest exam; diminished breath sounds lung bases. Upper lobes are clear. S1-S2 audible, no murmurs. Regular rhythm. Abdomen exam; soft, nontender. No organomegaly. Bowel sounds audible. Extremity exam; trace edema ROAD MENDER exam; is awake and responsive and moves all 4 extremities.. Medications Medications Current Medications IV Flush (NS 3 ml) 3 ml PER PROTOCOL IV ; Start 02/17/18 at 13:30 Ondansetron HCl (Zofran Inj) 4 mg Q6H PRN IV NAUSEA AND/OR VOMITING; Start 02/17/18 at 13:30 Acetaminophen (Tylenol Tab) 650 mg Q6H PRN PO PAIN LEVEL 1-3 OR FEVER Last administered on 02/21/18at 12:50; Admin Dose 650 MG; Start 02/17/18 at 13:30 Acetaminophen/ Hydrocodone Bitart ([place] (5/325)) 1 tab Q6H PRN PO MODERATE PAIN LEVEL 4-6; Start 02/17/18 at 13:30 Docusate Sodium (Colace) 100 mg Q12H PRN PO CONSTIPATION Last administered on 02/25/18 03:57; Admin Dose 100 MG; Start 02/17/18 at 13:30 Pantoprazole (Protonix Iv) 40 mg DAILY@06 IV Last administered on 02/25/18 05:26; Admin Dose 40 MG; Start 02/18/18 at 06:00 Aztreonam 50 ml @ 100 mls/hr Q8 IVPB Last administered on 02/25/18 05:26; Admin Dose 100 MLS/HR; Start 02/17/18 at 22:00 Midazolam HCl 50 ml @ 1 mls/hr TITRATE IV Last administered on 02/25/18 03:58; Admin Dose 5.5 MLS/HR; Start 02/17/18 at 18:30 Propofol 100 ml @ 2.43 mls/hr Q12H IV Last administered on 02/22/18 20:15; Admin Dose 19.44 MLS/HR; Start 02/18/18 at 09:30 Fentanyl 100 ml @ 2.5 mls/hr TITRATE IV Last administered on 02/24/18 23:04; Admin Dose 10 MLS/HR; Start 02/18/18 at 09:30 IV Flush (NS 10 ml) 10 ml PRN PRN IV IV PROTOCOL; Start 02/18/18 at 13:30 Levofloxacin/ Dextrose 150 ml @ 100 mls/hr Q24H IVPB Last administered on 02/24/18 09:26; Admin Dose 100 MLS/HR; Start 02/19/18 at 10:30 Eye Lubricant (Artificial Tears Oph) 2 drop QID BOTH EYES Last administered on 02/24/18 21:32; Admin Dose 2 DROP; Start 02/20/18 at 13:00 Eye Lubricant (Akwa Oint) 1 applic TID BOTH EYES Last administered on 02/24/18 21:32; Admin Dose 1 APPLIC; Start 02/20/18 at 13:00 Norepinephrine 250 ml @ 1.875 mls/ hr TITRATE IV ; Start 02/20/18 at 23:45 Furosemide (Lasix) 20 mg DAILY IV Last administered on 1/8/19at 09:40; Admin Dose 20 MG; Start 02/22/18 at 10:30 Methylprednisolone Sodium Succinate (Solu-Medrol) 60 mg Q6H IV Last administered on 02/25/18at 03:57; Admin Dose 60 MG; Start 02/22/18 at 15:30 Enoxaparin Sodium (Lovenox) 40 mg DAILY SC Last administered on 02/24/18at 09:45; Admin Dose 40 MG; Start 02/23/18 at 09:00 Morphine Sulfate (morphine) 6 mg Q4H PRN GTB SEVERE PAIN LEVEL 7-10 Last administered on 02/24/18at 21:33; Admin Dose 6 MG; Start 02/23/18 at 12:00 Insulin Glargine (Lantus) 22 units DAILY@0800 SC Last administered on 02/24/18at 11:50; Admin Dose 22 UNITS; Start 02/24/18 at 12:00 Diagnostic Test (Pha) (Accu-Chek) 1 ea 02 XX Last administered on 02/25/18at 01:48; Admin Dose 1 EA; Start 02/25/18 at 02:00 Insulin Aspart (Novolog Insulin Pen) NOVOLOG *MODERATE* ALGORI... Q4 SC Last administered on 02/25/18at 05:33; Admin Dose 2 UNIT; Start 02/24/18 at 17:00 Miscellaneous Information 1 ea NOTE XX ; Start 02/24/18 at 11:30 Glucose (Glutose) 15 gm Q15M PRN PO DECREASED GLUCOSE; Start 02/24/18 at 11:30 Glucose (Glutose) 22.5 gm Q15M PRN PO DECREASED GLUCOSE; Start 02/24/18 at 11:30 Dextrose (D50w Syringe) 25 ml Q15M PRN IV DECREASED GLUCOSE; Start 02/24/18 at 11:30 Dextrose (D50w Syringe) 50 ml Q15M PRN IV DECREASED GLUCOSE; Start 02/24/18 at 11:30 Glucagon (Glucagen) 1 mg Q15M PRN IM DECREASED GLUCOSE; Start 02/24/18 at 11:30 Glucose (Glutose) 15 gm Q15M PRN BUCCAL DECREASED GLUCOSE; Start 02/24/18 at 11:30 Docusate Sodium (Colace Liquid Cup) 100 mg BID GTB Last administered on 02/25/18at 04:06; Admin Dose 100 MG; Start 02/25/18 at 03:50 Polyethylene Glycol (Miralax) 17 gm DAILY NGT Last administered on 02/25/18at 03:57; Admin Dose 17 GM; Start 02/25/18 at 03:52 Dexmedetomidine HCl 200 mcg/ Sodium Chloride 50 ml @ 4.05 mls/hr TITRATE IV ; Start 02/25/18 at 09:00 JUDY LYON Feb 25, 2018 09:27
[2018-02-25] MEDS: PROPOFOL 100 ML IV SCH ×2 (09:30→21:30)
[2018-02-25] MEDS: ENOXAPARIN 40 MG/0.4 ML SYG SC SCH (09:34)
[2018-02-25] MEDS: FENTAnyl (DRIP) 1000 mcg/100mL 100 ML IV SCH ×2 (09:34→18:31)
[2018-02-25] MEDS: INSULIN GLARGINE [LANTus] (100 UNITS/ML) SYG SC SCH (09:34)
[2018-02-25] MEDS ORDERED: CASPOFUNGIN 50 MG in SOD CHLORIDE 0.9% 250 ML IVPB SCH (10:00)
[2018-02-25] MEDS: LEVOFLOXACIN 750MG/D5W (PMX) 150 ML IVPB SCH (11:03)
[2018-02-25] MEDS: DEXMEDETOMIDINE HCL 200 MCG in SOD CHLORIDE 0.9% 48 ML IV SCH ×2 (11:12→18:39)
--- NOTE | 2018-02-25 15:16 | PN ---
Date/Time of Note Date/Time of Note DATE: 02/25/18 TIME: 15:15 Assessment/Plan VTE [place] [facility] [place]: 15 [place]CD applied [place] [facility] [place] Yes Pharmacological prophylaxis: NA/contraindicated, heparin Pharm contraindication: bleeding Lines/Catheters IV Catheter Type (from [facility]): PICC Line Central line still needed: Yes Urinary Cath still in place: Yes Reason Cath still needed: urinary retention Assessment/Plan Hospital Course 62 yo female with stage IV melanoma with ARDS leading to acute respiratory fail ure Acute respiratory failure/ARDS: - MV per pulmonary - Steroids per pulmonary Metastatic melanoma - Further care if able to be extubated Anemia Thrombocytopenia Poor progonsis Result Diagram: 02/25/1893202/25/18932 Results 24hrs Laboratory Tests Test 02/24/18 17:32 02/24/18 21:28 02/25/18 01:04 02/25/18 05:25 Bedside Glucose 132 129 143 148 Test 02/25/18 09:00 02/25/18 09:17 02/25/18 09:33 02/25/18 13:56 Blood Gas Specimen Blood arterial Source Arterial Blood 02/25/2018 9:20:07 Date Drawn AM Arterial Blood pH 7.482 H (Temp corrected) Arterial Blood 35.4 pCO2 (Temp correct) Arterial Blood pO2 102.9 H (Temp corrected) Arterial Blood 25.9 HCO3 Arterial Blood 2.6 Base Excess Arterial Blood 97.3 Oxygen Saturation Ruperto Test ACCEPTAB Arterial Blood Gas Left Radial Puncture Site Arterial 0.3 Blood Carboxyhemog lobin Arterial Blood 0.3 Methemoglobin Blood Gas A-a O2 574.7 H Differential Oxyhemoglobin 96.7 Percent Blood Gas 37.0 Temperature Blood Gas 24.0 Respiration Rate Blood Gas Actual 24 Respiration Rate Blood Gas Modality VENT - AC FiO2 100.0 Blood Gas Tidal 450.0 Volume Blood Gas Low PEEP 12.0 Setting Blood Gas Critical VANGIE CN Value Read Back Blood Gas Notified RDIX Whom Blood Gas Notified 02/25/2018 9:38:30 Time AM Bedside Glucose 133 142 White Blood Count 7.9 Red Blood Count 2.95 L Hemoglobin 9.5 L Hematocrit 28.6 L Mean Corpuscular 96.9 Volume Mean Corpuscular 32.2 Hemoglobin Mean Corpuscular 33.2 Hemoglobin Concent Red Cell 14.7 H Distribution Width Platelet Count 81 L Mean Platelet 12.3 H Volume Immature 4.400 H Granulocytes % Neutrophils % 76.0 Lymphocytes % 12.9 L Monocytes % 6.6 Eosinophils % 0.0 Basophils % 0.1 Nucleated Red 0.6 H Blood Cells % Immature 0.350 H Granulocytes # Neutrophils # 6.0 Lymphocytes # 1.0 Monocytes # 0.5 Eosinophils # 0.0 Basophils # 0.0 Nucleated Red 0.1 H Blood Cells # Sodium Level 139 Potassium Level 3.9 Chloride Level 102 Carbon Dioxide 29 Level Anion Gap 8 Blood Urea 38 H Nitrogen Creatinine 0.67 Est Glomerular > 60 Filtrat Rate mL/min Glucose Level 133 Calcium Level 7.6 L Subjective 24 Hr Interval Summary Free Text/Dictation Still requiring very high PEEP and FiO2 Exam/Review of Systems Vital Signs Vitals Vital Signs Date Temp Pulse Resp B/P (MAP) Pulse Ox O2 O2 Flow FiO2 Time Delivery Rate 02/25/18 98.5 74 24 116/76 98 Mechanical 12:00 (89) Ventilator 02/25/18 100 06:50 Intake and Output 02/24/18 02/24/18 02/25/18 1515:00 23:00 07:00 IntakeIntake Total 757.0 ml 597 ml 577.5 ml OutputOutput Total 1525 ml 545 ml 590 ml BalanceBalance -768.0 ml 52 ml -12.5 ml Medications Medications Current Medications IV Flush (NS 3 ml) 3 ml PER PROTOCOL IV ; Start 02/17/18 at 13:30 Ondansetron HCl (Zofran Inj) 4 mg Q6H PRN IV NAUSEA AND/OR VOMITING; Start 02/17/18 at 13:30 Acetaminophen (Tylenol Tab) 650 mg Q6H PRN PO PAIN LEVEL 1-3 OR FEVER Last administered on 02/21/18at 12:50; Admin Dose 650 MG; Start 02/17/18 at 13:30 Acetaminophen/ Hydrocodone Bitart ([place] (5/325)) 1 tab Q6H PRN PO MODERATE PAIN LEVEL 4-6; Start 02/17/18 at 13:30 Docusate Sodium (Colace) 100 mg Q12H PRN PO CONSTIPATION Last administered on 02/25/18at 03:57; Admin Dose 100 MG; Start 02/17/18 at 13:30 Pantoprazole (Protonix Iv) 40 mg DAILY@06 IV Last administered on 02/25/18 05:26; Admin Dose 40 MG; Start 02/18/18 at 06:00 Aztreonam 50 ml @ 100 mls/hr Q8 IVPB Last administered on 02/25/18 14:36; Admin Dose 100 MLS/HR; Start 02/17/18 at 22:00 Midazolam HCl 50 ml @ 1 mls/hr TITRATE IV Last administered on 02/25/18 03:58; Admin Dose 5.5 MLS/HR; Start 02/17/18 at 18:30 Propofol 100 ml @ 2.43 mls/hr Q12H IV Last administered on 02/22/18 20:15; Admin Dose 19.44 MLS/HR; Start 02/18/18 at 09:30 Fentanyl 100 ml @ 2.5 mls/hr TITRATE IV Last administered on 02/25/18 09:34; Admin Dose 12.5 MLS/HR; Start 02/18/18 at 09:30 IV Flush (NS 10 ml) 10 ml PRN PRN IV IV PROTOCOL; Start 02/18/18 at 13:30 Levofloxacin/ Dextrose 150 ml @ 100 mls/hr Q24H IVPB Last administered on 02/25/18 11:03; Admin Dose 100 MLS/HR; Start 02/19/18 at 10:30 Eye Lubricant (Artificial Tears Oph) 2 drop QID BOTH EYES Last administered on 02/25/18 13:56; Admin Dose 2 DROP; Start 02/20/18 at 13:00 Eye Lubricant (Akwa Oint) 1 applic TID BOTH EYES Last administered on 02/25/18 13:57; Admin Dose 1 APPLIC; Start 02/20/18 at 13:00 Norepinephrine 250 ml @ 1.875 mls/ hr TITRATE IV ; Start 02/20/18 at 23:45 Furosemide (Lasix) 20 mg DAILY IV Last administered on 02/25/18 09:11; Admin Dose 20 MG; Start 02/22/18 at 10:30 Methylprednisolone Sodium Succinate (Solu-Medrol) 60 mg Q6H IV Last administered on 02/25/18 09:11; Admin Dose 60 MG; Start 02/22/18 at 15:30 Enoxaparin Sodium (Lovenox) 40 mg DAILY SC Last administered on 02/25/18at 09:34; Admin Dose 40 MG; Start 02/23/18 at 09:00 Morphine Sulfate (morphine) 6 mg Q4H PRN GTB SEVERE PAIN LEVEL 7-10 Last administered on 02/24/18at 21:33; Admin Dose 6 MG; Start 02/23/18 at 12:00 Insulin Glargine (Lantus) 22 units DAILY@0800 SC Last administered on 02/25/18at 09:34; Admin Dose 22 UNITS; Start 02/24/18 at 12:00 Diagnostic Test (Pha) (Accu-Chek) 1 ea 02 XX Last administered on 02/25/18at 01:48; Admin Dose 1 EA; Start 02/25/18 at 02:00 Insulin Aspart (Novolog Insulin Pen) NOVOLOG *MODERATE* ALGORI... Q4 SC Last administered on 02/25/18at 14:00; Admin Dose 2 UNIT; Start 02/24/18 at 17:00 Miscellaneous Information 1 ea NOTE XX ; Start 02/24/18 at 11:30 Glucose (Glutose) 15 gm Q15M PRN PO DECREASED GLUCOSE; Start 02/24/18 at 11:30 Glucose (Glutose) 22.5 gm Q15M PRN PO DECREASED GLUCOSE; Start 02/24/18 at 11:30 Dextrose (D50w Syringe) 25 ml Q15M PRN IV DECREASED GLUCOSE; Start 02/24/18 at 11:30 Dextrose (D50w Syringe) 50 ml Q15M PRN IV DECREASED GLUCOSE; Start 02/24/18 at 11:30 Glucagon (Glucagen) 1 mg Q15M PRN IM DECREASED GLUCOSE; Start 02/24/18 at 11:30 Glucose (Glutose) 15 gm Q15M PRN BUCCAL DECREASED GLUCOSE; Start 02/24/18 at 11:30 Docusate Sodium (Colace Liquid Cup) 100 mg BID GTB Last administered on 02/25/18at 13:56; Admin Dose 100 MG; Start 02/25/18 at 03:50 Polyethylene Glycol (Miralax) 17 gm DAILY NGT Last administered on 02/25/18at 03:57; Admin Dose 17 GM; Start 02/25/18 at 03:52 Dexmedetomidine HCl 200 mcg/ Sodium Chloride 50 ml @ 4.05 mls/hr TITRATE IV Last administered on 02/25/18at 11:12; Admin Dose 4.05 MLS/HR; Start 02/25/18 at 09:00 Caspofungin 50 mg/ Sodium Chloride 250 ml @ 250 mls/hr Q24H IVPB Last administered on 02/25/18at 11:23; Admin Dose 250 MLS/HR; Start 02/25/18 at 10:00 SJ BOWMAN MD Feb 25, 2018 15:16
[2018-02-25] MEDS ORDERED: VANCOMYCIN IV PER PHARMACY XX SCH (17:30)
--- NOTE | 2018-02-25 17:51 | CONS ---
Date/Time of Note Date/Time of Note DATE: 02/25/18 TIME: 17:10 Assessment/Plan Assessment/Plan Hospital Course - pneumonia, either infectious etiology vs. nivolumab pneumonitis. It can be a combination of two - ARDS - acute hypoxic resp failure, intubated 02/17/2018 - immunocompromised state: metastatic melanoma, receipt of nivolumab, infliximab and tapering methylprednisolone - metastatic melanoma, on nivolumab until recently - anemia and thrombocytopenia Assessment/Plan - I recommend and ordered the followings: repeat blood cultures, lactic acid, procalcitonin, 1,8-wwnd-N-glucan, nasopharyngeal swab for respiratory viruses (custom panel plus influenza by RT-PCR), bacterial (tracheal aspirate for culture, legionella antigen), fungal (pneumocystis jiroveci antigen DFA, coccidioides, cryptococci, aspergillus galactomannan and antigen, histoplasma antigen) - I discussed with Dr. Gandara and Dr. Streeter: I recommend diagnostic bronch, if not, mini bronch for BAL to identify an infectious etiology. If bronch identifies an infection, I will discuss with Dr. Streeter re. infliximab. I ordered tests to be done on BAL on [facility] when bronch is performed - I recommend modifying the antibiotics: IV vancomycin, meropenem, voriconazole (02/25/2018-). The initial dose of meropenem is given as follows: 5mL testing dose, 30 min of holding, after that if Pt shows no immediate adverse reaction, OK to give the remaining dose - I also recommend prophylaxis for pneumocystis jiroveci while Pt's on methylpr ednisolone taper (02/17/2018-): pNGT Bactrim DS 1 tab three times a week - management d/w Pt's RN Rowena, Dr. Gandara, Dr. Streeter, PharmD Raul, RT Bucky the critical care time I took to care for this Pt today was from 1610 to 1740 Result Diagram: 02/25/1893202/25/18 0933 Results 24hrs Laboratory Tests Test 02/24/18 17:32 02/24/18 21:28 02/25/18 01:04 02/25/18 05:25 Bedside Glucose 132 129 143 148 Test 02/25/18 09:00 02/25/18 09:17 02/25/18 09:33 02/25/18 13:56 Blood Gas Specimen Blood arterial Source Arterial Blood 02/25/2018 9:20:07 Date Drawn AM Arterial Blood pH 7.482 H (Temp corrected) Arterial Blood 35.4 pCO2 (Temp correct) Arterial Blood pO2 102.9 H (Temp corrected) Arterial Blood 25.9 HCO3 Arterial Blood 2.6 Base Excess Arterial Blood 97.3 Oxygen Saturation Ruperto Test ACCEPTAB Arterial Blood Gas Left Radial Puncture Site Arterial 0.3 Blood Carboxyhemog lobin Arterial Blood 0.3 Methemoglobin Blood Gas A-a O2 574.7 H Differential Oxyhemoglobin 96.7 Percent Blood Gas 37.0 Temperature Blood Gas 24.0 Respiration Rate Blood Gas Actual 24 Respiration Rate Blood Gas Modality VENT - AC FiO2 100.0 Blood Gas Tidal 450.0 Volume Blood Gas Low PEEP 12.0 Setting Blood Gas Critical VANGIE CN Value Read Back Blood Gas Notified RDIX Whom Blood Gas Notified 02/25/2018 9:38:30 Time AM Bedside Glucose 133 142 White Blood Count 7.9 Red Blood Count 2.95 L Hemoglobin 9.5 L Hematocrit 28.6 L Mean Corpuscular 96.9 Volume Mean Corpuscular 32.2 Hemoglobin Mean Corpuscular 33.2 Hemoglobin Concent Red Cell 14.7 H Distribution Width Platelet Count 81 L Mean Platelet 12.3 H Volume Immature 4.400 H Granulocytes % Neutrophils % 76.0 Lymphocytes % 12.9 L Monocytes % 6.6 Eosinophils % 0.0 Basophils % 0.1 Nucleated Red 0.6 H Blood Cells % Immature 0.350 H Granulocytes # Neutrophils # 6.0 Lymphocytes # 1.0 Monocytes # 0.5 Eosinophils # 0.0 Basophils # 0.0 Nucleated Red 0.1 H Blood Cells # Sodium Level 139 Potassium Level 3.9 Chloride Level 102 Carbon Dioxide 29 Level Anion Gap 8 Blood Urea 38 H Nitrogen Creatinine 0.67 Est Glomerular > 60 Filtrat Rate mL/min Glucose Level 133 Calcium Level 7.6 L Consultation Date/Type/Reason Admit Date/Time Feb 17, 2018 at 12:57 Date of Consultation: Feb 25, 2018 Type of Consult ID Reason for Consultation severe pneumonia, either infectious etiology vs. nivolumab pneumonitis Requesting Provider: SJ OLMEDO MD Hx of Present Illness This is a 62 yo female with metastatic melanoma who has been receiving nivolumab in her hometown of [place]. He visited ER on 02/11/2019 c/o flank pain. CT abd/pel caught the part of her lung showing nodular density at LLL. She was sent home with PO cephalexin with a diagnosis of UTI. Urine culture ultimately grew mixed bacteria. On 02/17/2018 Pt presented at ER c/o cough and dyspnea. CXR showed extensive infiltrate. Pt developed acute hypoxic resp failure and was intubated. Cultures of urine and blood, influenza screen were negative. Pt has been on the tapering dose of methylprednisolone since 02/17/2018. On 02/21/2018, Pt received infliximab to counteract the immune mediated nivolumab pneumonitis. Pt is currently scheduled to get the second dose of infliximab on 02/28/2018. Pt has been receiving IV vancomycin, aztreonam and levofloxacin so far. Caspofungin was added today. She has been afebrile during this admission. Pt is not currently on a vasopressor. Pt's FiO2 has been variable with high PEEP. Pt denies dyspnea or pain. Dr. Olmedo requested ID consultation on this Pt. Subjective hx not possible: pt non-verbal, pt critical, pt critical status Past Medical History Medical History: urinary tract infection, other (pneumonia, metastaitc melanoma) Medications Current Medications IV Flush (NS 3 ml) 3 ml PER PROTOCOL IV ; Start 02/17/18 at 13:30 Ondansetron HCl (Zofran Inj) 4 mg Q6H PRN IV NAUSEA AND/OR VOMITING; Start 02/17/18 at 13:30 Acetaminophen (Tylenol Tab) 650 mg Q6H PRN PO PAIN LEVEL 1-3 OR FEVER Last administered on 02/21/18at 12:50; Admin Dose 650 MG; Start 02/17/18 at 13:30 Acetaminophen/ Hydrocodone Bitart ([place] (5/325)) 1 tab Q6H PRN PO MODERATE P AIN LEVEL 4-6; Start 02/17/18 at 13:30 Docusate Sodium (Colace) 100 mg Q12H PRN PO CONSTIPATION Last administered on 02/25/18at 03:57; Admin Dose 100 MG; Start 02/17/18 at 13:30 Pantoprazole (Protonix Iv) 40 mg DAILY@06 IV Last administered on 02/25/18at 05:26; Admin Dose 40 MG; Start 02/18/18 at 06:00 Aztreonam 50 ml @ 100 mls/hr Q8 IVPB Last administered on 02/25/18 14:36; Admin Dose 100 MLS/HR; Start 02/17/18 at 22:00 Midazolam HCl 50 ml @ 1 mls/hr TITRATE IV Last administered on 02/25/18 03:58; Admin Dose 5.5 MLS/HR; Start 02/17/18 at 18:30 Propofol 100 ml @ 2.43 mls/hr Q12H IV Last administered on 02/22/18 20:15; Admin Dose 19.44 MLS/HR; Start 02/18/18 at 09:30 Fentanyl 100 ml @ 2.5 mls/hr TITRATE IV Last administered on 02/25/18 09:34; Admin Dose 12.5 MLS/HR; Start 02/18/18 at 09:30 IV Flush (NS 10 ml) 10 ml PRN PRN IV IV PROTOCOL; Start 02/18/18 at 13:30 Levofloxacin/ Dextrose 150 ml @ 100 mls/hr Q24H IVPB Last administered on 02/25/18 11:03; Admin Dose 100 MLS/HR; Start 02/19/18 at 10:30 Eye Lubricant (Artificial Tears Oph) 2 drop QID BOTH EYES Last administered on 02/25/18 13:56; Admin Dose 2 DROP; Start 02/20/18 at 13:00 Eye Lubricant (Akwa Oint) 1 applic TID BOTH EYES Last administered on 02/25/18 13:57; Admin Dose 1 APPLIC; Start 02/20/18 at 13:00 Norepinephrine 250 ml @ 1.875 mls/ hr TITRATE IV ; Start 02/20/18 at 23:45 Furosemide (Lasix) 20 mg DAILY IV Last administered on 02/25/18 09:11; Admin Dose 20 MG; Start 02/22/18 at 10:30 Methylprednisolone Sodium Succinate (Solu-Medrol) 60 mg Q6H IV Last administered on 02/25/18 15:17; Admin Dose 60 MG; Start 02/22/18 at 15:30 Enoxaparin Sodium (Lovenox) 40 mg DAILY SC Last administered on 02/25/18 09:34; Admin Dose 40 MG; Start 02/23/18 at 09:00 Morphine Sulfate (morphine) 6 mg Q4H PRN GTB SEVERE PAIN LEVEL 7-10 Last administered on 02/24/18at 21:33; Admin Dose 6 MG; Start 02/23/18 at 12:00 Insulin Glargine (Lantus) 22 units DAILY@0800 SC Last administered on 02/25/18at 09:34; Admin Dose 22 UNITS; Start 02/24/18 at 12:00 Diagnostic Test (Pha) (Accu-Chek) 1 ea 02 XX Last administered on 02/25/18at 01:48; Admin Dose 1 EA; Start 02/25/18 at 02:00 Insulin Aspart (Novolog Insulin Pen) NOVOLOG *MODERATE* ALGORI... Q4 SC Last administered on 02/25/18at 14:00; Admin Dose 2 UNIT; Start 02/24/18 at 17:00 Miscellaneous Information 1 ea NOTE XX ; Start 02/24/18 at 11:30 Glucose (Glutose) 15 gm Q15M PRN PO DECREASED GLUCOSE; Start 02/24/18 at 11:30 Glucose (Glutose) 22.5 gm Q15M PRN PO DECREASED GLUCOSE; Start 02/24/18 at 11:30 Dextrose (D50w Syringe) 25 ml Q15M PRN IV DECREASED GLUCOSE; Start 02/24/18 at 11:30 Dextrose (D50w Syringe) 50 ml Q15M PRN IV DECREASED GLUCOSE; Start 02/24/18 at 11:30 Glucagon (Glucagen) 1 mg Q15M PRN IM DECREASED GLUCOSE; Start 02/24/18 at 11:30 Glucose (Glutose) 15 gm Q15M PRN BUCCAL DECREASED GLUCOSE; Start 02/24/18 at 11:30 Docusate Sodium (Colace Liquid Cup) 100 mg BID GTB Last administered on 02/25/18at 13:56; Admin Dose 100 MG; Start 02/25/18 at 03:50 Polyethylene Glycol (Miralax) 17 gm DAILY NGT Last administered on 02/25/18at 03:57; Admin Dose 17 GM; Start 02/25/18 at 03:52 Dexmedetomidine HCl 200 mcg/ Sodium Chloride 50 ml @ 4.05 mls/hr TITRATE IV Last administered on 02/25/18at 11:12; Admin Dose 4.05 MLS/HR; Start 02/25/18 at 09:00 Caspofungin 50 mg/ Sodium Chloride 250 ml @ 250 mls/hr Q24H IVPB Last administered on 02/25/18at 11:23; Admin Dose 250 MLS/HR; Start 02/25/18 at 10:00 Allergies: Coded Allergies: Penicillins (Verified Allergy, Unknown, 02/17/18) Social History Alcohol Use: none Smoking Status: Former smoker Drug Use: none Exam/Review of Systems Vital Signs Vitals Vital Signs Date Temp Pulse Resp B/P (MAP) Pulse Ox O2 O2 Flow FiO2 Time Delivery Rate 02/25/18 98.9 53 24 102/60 95 Mechanical 16:00 (74) Ventilator 02/25/18 80 15:20 Intake and Output 02/24/18 02/24/18 02/25/18 1515:00 23:00 07:00 IntakeIntake Total 757.0 ml 597 ml 577.5 ml OutputOutput Total 1525 ml 545 ml 590 ml BalanceBalance -768.0 ml 52 ml -12.5 ml Exam Constitutional: other (awake although drowsy, intubated) Head: normocephalic, atraumatic Eyes: nl conjunctiva, nl lids ENMT: nl external ears & nose, nl nasal mucosa & septum, intubated, other (+NGT) Neck: other (not swollen) Respiratory: crackles/rales Cardiovascular: regular rate and rhythm, nl pulses Gastrointestinal: soft, non-tender ( ) Genitourinary - Female: other (FC) Extremities: No edema Neurological: lethargic Skin: ecchymosis Medications Medications Current Medications IV Flush (NS 3 ml) 3 ml PER PROTOCOL IV ; Start 02/17/18 at 13:30 Ondansetron HCl (Zofran Inj) 4 mg Q6H PRN IV NAUSEA AND/OR VOMITING; Start 02/17/18 at 13:30 Acetaminophen (Tylenol Tab) 650 mg Q6H PRN PO PAIN LEVEL 1-3 OR FEVER Last administered on 02/21/18at 12:50; Admin Dose 650 MG; Start 02/17/18 at 13:30 Acetaminophen/ Hydrocodone Bitart ([place] (5/325)) 1 tab Q6H PRN PO MODERATE PAIN LEVEL 4-6; Start 02/17/18 at 13:30 Docusate Sodium (Colace) 100 mg Q12H PRN PO CONSTIPATION Last administered on 03:57; Admin Dose 100 MG; Start 02/17/18 at 13:30 Pantoprazole (Protonix Iv) 40 mg DAILY@06 IV Last administered on 02/25/18 05:26; Admin Dose 40 MG; Start 02/18/18 at 06:00 Aztreonam 50 ml @ 100 mls/hr Q8 IVPB Last administered on 02/25/18 14:36; Admin Dose 100 MLS/HR; Start 02/17/18 at 22:00 Midazolam HCl 50 ml @ 1 mls/hr TITRATE IV Last administered on 02/25/18 03:58; Admin Dose 5.5 MLS/HR; Start 02/17/18 at 18:30 Propofol 100 ml @ 2.43 mls/hr Q12H IV Last administered on 02/22/18 20:15; Admin Dose 19.44 MLS/HR; Start 02/18/18 at 09:30 Fentanyl 100 ml @ 2.5 mls/hr TITRATE IV Last administered on 02/25/18 09:34; Admin Dose 12.5 MLS/HR; Start 02/18/18 at 09:30 IV Flush (NS 10 ml) 10 ml PRN PRN IV IV PROTOCOL; Start 02/18/18 at 13:30 Levofloxacin/ Dextrose 150 ml @ 100 mls/hr Q24H IVPB Last administered on 02/25/18 11:03; Admin Dose 100 MLS/HR; Start 02/19/18 at 10:30 Eye Lubricant (Artificial Tears Oph) 2 drop QID BOTH EYES Last administered on 02/25/18 13:56; Admin Dose 2 DROP; Start 02/20/18 at 13:00 Eye Lubricant (Akwa Oint) 1 applic TID BOTH EYES Last administered on 02/25/18 13:57; Admin Dose 1 APPLIC; Start 02/20/18 at 13:00 Norepinephrine 250 ml @ 1.875 mls/ hr TITRATE IV ; Start 02/20/18 at 23:45 Furosemide (Lasix) 20 mg DAILY IV Last administered on 02/25/18 09:11; Admin Dose 20 MG; Start 02/22/18 at 10:30 Methylprednisolone Sodium Succinate (Solu-Medrol) 60 mg Q6H IV Last administered on 02/25/18at 15:17; Admin Dose 60 MG; Start 02/22/18 at 15:30 Enoxaparin Sodium (Lovenox) 40 mg DAILY SC Last administered on 02/25/18 09:34; Admin Dose 40 MG; Start 02/23/18 at 09:00 Morphine Sulfate (morphine) 6 mg Q4H PRN GTB SEVERE PAIN LEVEL 7-10 Last administered on 02/24/18at 21:33; Admin Dose 6 MG; Start 02/23/18 at 12:00 Insulin Glargine (Lantus) 22 units DAILY@0800 SC Last administered on 02/25/18 09:34; Admin Dose 22 UNITS; Start 02/24/18 at 12:00 Diagnostic Test (Pha) (Accu-Chek) 1 ea 02 XX Last administered on 02/25/18at 01:48; Admin Dose 1 EA; Start 02/25/18 at 02:00 Insulin Aspart (Novolog Insulin Pen) NOVOLOG *MODERATE* ALGORI... Q4 SC Last administered on 02/25/18at 14:00; Admin Dose 2 UNIT; Start 02/24/18 at 17:00 Miscellaneous Information 1 ea NOTE XX ; Start 02/24/18 at 11:30 Glucose (Glutose) 15 gm Q15M PRN PO DECREASED GLUCOSE; Start 02/24/18 at 11:30 Glucose (Glutose) 22.5 gm Q15M PRN PO DECREASED GLUCOSE; Start 02/24/18 at 11:30 Dextrose (D50w Syringe) 25 ml Q15M PRN IV DECREASED GLUCOSE; Start 02/24/18 at 11:30 Dextrose (D50w Syringe) 50 ml Q15M PRN IV DECREASED GLUCOSE; Start 02/24/18 at 11:30 Glucagon (Glucagen) 1 mg Q15M PRN IM DECREASED GLUCOSE; Start 02/24/18 at 11:30 Glucose (Glutose) 15 gm Q15M PRN BUCCAL DECREASED GLUCOSE; Start 02/24/18 at 11:30 Docusate Sodium (Colace Liquid Cup) 100 mg BID GTB Last administered on 9at 13:56; Admin Dose 100 MG; Start 02/25/18 at 03:50 Polyethylene Glycol (Miralax) 17 gm DAILY NGT Last administered on 02/25/18at 03:57; Admin Dose 17 GM; Start 02/25/18 at 03:52 Dexmedetomidine HCl 200 mcg/ Sodium Chloride 50 ml @ 4.05 mls/hr TITRATE IV Last administered on 02/25/18at 11:12; Admin Dose 4.05 MLS/HR; Start 02/25/18 at 09:00 Caspofungin 50 mg/ Sodium Chloride 250 ml @ 250 mls/hr Q24H IVPB Last administered on 02/25/18at 11:23; Admin Dose 250 MLS/HR; Start 02/25/18 at 10:00 VANESSA GILLIS M.D. Feb 25, 2018 17:22
[2018-02-25] MEDS: MEROPENEM 1 GM/50ML(PMX) 50 ML IVPB SCH ×2 (18:10→22:09)
[2018-02-25] MEDS ORDERED: VANCOMYCIN 1.5 GM in SOD CHLORIDE 0.9% 250 ML IVPB ONE (20:00)
[2018-02-25] MEDS: VORICONAZOLE 200 MG/100 ML 100 ML IVPB SCH (22:03)
[2018-02-25] MEDS: TRIMETHOPRIM/SULFAMETHOX (DS) TAB NGT SCH (23:41)
[2018-02-26] VITALS (40 sets, daily range): BP systolic 77–161; BP diastolic 43–106; PULSE 39–96; RESP 21–24
[2018-02-26] MEDS: INSULIN ASPART [NOVOLOG] 3 ML PEN SC SCH ×6 (01:00→21:00)
[2018-02-26] MEDS: ACCU-CHEK XX SCH (01:22)
[2018-02-26] MEDS: METHYLPREDNISOLONE 125 MG INJ IV SCH ×4 (03:17→21:32)
[2018-02-26] MEDS: DEXMEDETOMIDINE HCL 200 MCG in SOD CHLORIDE 0.9% 48 ML IV SCH (04:17)
[2018-02-26] MEDS: FENTAnyl (DRIP) 1000 mcg/100mL 100 ML IV SCH ×2 (04:24→16:29)
[2018-02-26] MEDS: PANTOPRAZOLE 40 MG INJ IV SCH (05:13)
[2018-02-26] MEDS: MEROPENEM 1 GM/50ML(PMX) 50 ML IVPB SCH ×3 (05:13→21:32)
[2018-02-26] MEDS: FUROSEMIDE 20 MG INJ IV SCH (08:33)
[2018-02-26] MEDS: VANCOMYCIN 1.25 GM in SOD CHLORIDE 0.9% 250 ML IVPB SCH ×2 (08:33→20:00)
[2018-02-26] MEDS: DOCUSATE SODIUM 10 MG/ML (10ML CUP) GTB SCH ×2 (08:33→21:36)
[2018-02-26] MEDS: POLYETHYLENE GLYCOL 17 GM PACKET NGT SCH (08:33)
--- NOTE | 2018-02-26 08:33 | CONS ---
Date/Time of Note Date/Time of Note DATE: 02/26/18 TIME: 08:23 Assessment/Plan Assessment/Plan Hospital Course assessment/impression - pneumonia, either infectious etiology vs. nivolumab pneumonitis. It can be a combination of two - ARDS - acute hypoxic resp failure, intubated 02/17/2018 - immunocompromised state: metastatic melanoma, receipt of nivolumab, infliximab and tapering methylprednisolone - metastatic melanoma, on nivolumab until recently - anemia and thrombocytopenia assessment/Plan - pending results: repeat blood cultures, procalcitonin, 1,9-vhlr-V-glucan, nasopharyngeal swab for respiratory viruses (custom panel plus influenza by RT- PCR), bacterial (tracheal aspirate for culture, legionella antigen), fungal (pneumocystis jiroveci antigen DFA, coccidioides, cryptococci, aspergillus galactomannan and antigen, histoplasma antigen) - I discussed with Dr. Gandara and Dr. Streeter: I recommend diagnostic bronch, if not, mini bronch for BAL to identify an infectious etiology. If bronch identifies an infection, I will discuss with Dr. Streeter re. infliximab. I ordered tests to be done on BAL on [facility] if bronch is performed and endorsed Pt's FARRUKH Joseph - continue IV vancomycin, meropenem, voriconazole (02/25/2018-) - continue prophylaxis for pneumocystis jiroveci while Pt's on methy lprednisolone taper (02/17/2018-): pNGT Bactrim DS 1 tab three times a week (02/25/2018-) - management d/w Pt's FARRUKH Joseph, RT, Dr. Streeter. d/w Dr. Gadnara yesterday the critical care time I took to care for this Pt today was from 0745 to 0815 Result Diagram: 02/25/1893202/25/18932 Results 24hrs Laboratory Tests Test 02/25/18 09:00 02/25/18 09:17 02/25/18 09:33 02/25/18 13:56 Blood Gas Blood arterial Specimen Source Arterial Blood 02/25/2018 9:20:07 Date Drawn AM Arterial Blood pH 7.482 H (Temp corrected) Arterial Blood 35.4 pCO2 (Temp correct) Arterial Blood 102.9 H pO2 (Temp corrected) Arterial Blood 25.9 HCO3 Arterial Blood 2.6 Base Excess Arterial Blood 97.3 Oxygen Saturation Ruperto Test ACCEPTAB Arterial Blood Left Radial Gas Puncture Site Arterial 0.3 Blood Carboxyhemo globin Arterial Blood 0.3 Methemoglobin Blood Gas A-a O2 574.7 H Differential Oxyhemoglobin 96.7 Percent Blood Gas 37.0 Temperature Blood Gas 24.0 Respiration Rate Blood Gas Actual 24 Respiration Rate Blood Gas VENT - AC Modality FiO2 100.0 Blood Gas Tidal 450.0 Volume Blood Gas Low 12.0 PEEP Setting Blood Gas T.DICKENC CN Critical Value Read Back Blood Gas RDIX Notified Whom Blood Gas 02/25/2018 9:38:30 Notified Time AM Bedside Glucose 133 142 White Blood Count 7.9 Red Blood Count 2.95 L Hemoglobin 9.5 L Hematocrit 28.6 L Mean Corpuscular 96.9 Volume Mean Corpuscular 32.2 Hemoglobin Mean Corpuscular 33.2 Hemoglobin Concen t Red Cell 14.7 H Distribution Width Platelet Count 81 L Mean Platelet 12.3 H Volume Immature 4.400 H Granulocytes % Neutrophils % 76.0 Lymphocytes % 12.9 L Monocytes % 6.6 Eosinophils % 0.0 Basophils % 0.1 Nucleated Red 0.6 H Blood Cells % Immature 0.350 H Granulocytes # Neutrophils # 6.0 Lymphocytes # 1.0 Monocytes # 0.5 Eosinophils # 0.0 Basophils # 0.0 Nucleated Red 0.1 H Blood Cells # Sodium Level 139 Potassium Level 3.9 Chloride Level 102 Carbon Dioxide 29 Level Anion Gap 8 Blood Urea 38 H Nitrogen Creatinine 0.67 Est Glomerular > 60 Filtrat Rate mL/min Glucose Level 133 Calcium Level 7.6 L Test 02/25/18 17:07 02/25/18 18:13 02/25/18 22:06 02/26/18 00:39 Lactic Acid Level 2.6 *H 1.7 Bedside Glucose 125 145 Test 02/26/18 01:22 02/26/18 04:23 02/26/18 05:12 Bedside Glucose 127 127 Lactic Acid Level 1.7 Consultation Date/Type/Reason Admit Date/Time Feb 17, 2018 at 12:57 Initial Consult Date 02/25/18 Type of Consult ID Requesting Provider: SJ BOWMAN MD 24 HR Interval Summary Subjective hx not possible: pt non-verbal, pt critical, pt critical status Exam/Review of Systems Vital Signs Vitals Vital Signs Date Temp Pulse Resp B/P (MAP) Pulse Ox O2 O2 Flow FiO2 Time Delivery Rate 02/26/18 54 24 142/82 97 Mechanical 06:00 (102) Ventilator 02/26/18 45 04:45 02/26/18 99.0 04:00 Intake and Output 02/25/18 02/25/18 02/26/18 1515:00 23:00 07:00 IntakeIntake Total 912.29 ml 732.18 ml 354 ml OutputOutput Total 1010 ml 375 ml 265 ml BalanceBalance -97.71 ml 357.18 ml 89 ml Exam Constitutional: non-verbal, frail, other (awake but not following all commands) Psych: other (cannot assess (intubated)) Head: normocephalic, atraumatic Eyes: nl conjunctiva, nl lids, nl sclera; No icteric ENMT: nl external ears & nose, intubated, other (dried blood on the nares) Neck: supple Respiratory: clear to auscultation, normal air movement Cardiovascular: regular rate and rhythm, nl pulses Gastrointestinal: soft; No non-tender Musculoskeletal: No swelling Extremities: normal pulses, edema (non-pitting edema of b/l UEs) Neurological: lethargic (but awake) Skin: nl turgor Medications Medications Current Medications IV Flush (NS 3 ml) 3 ml PER PROTOCOL IV ; Start 02/17/18 at 13:30 Ondansetron HCl (Zofran Inj) 4 mg Q6H PRN IV NAUSEA AND/OR VOMITING; Start 02/17/18 at 13:30 Acetaminophen (Tylenol Tab) 650 mg Q6H PRN PO PAIN LEVEL 1-3 OR FEVER Last administered on 02/21/18at 12:50; Admin Dose 650 MG; Start 02/17/18 at 13:30 Acetaminophen/ Hydrocodone Bitart ([place] (5/325)) 1 tab Q6H PRN PO MODERATE PAIN LEVEL 4-6; Start 02/17/18 at 13:30 Docusate Sodium (Colace) 100 mg Q12H PRN PO CONSTIPATION Last administered on 02/25/18at 03:57; Admin Dose 100 MG; Start 02/17/18 at 13:30 Pantoprazole (Protonix Iv) 40 mg DAILY@06 IV Last administered on 02/26/18at 05:13; Admin Dose 40 MG; Start 02/18/18 at 06:00 Midazolam HCl 50 ml @ 1 mls/hr TITRATE IV Last administered on 02/25/18 03:58; Admin Dose 5.5 MLS/HR; Start 02/17/18 at 18:30 Propofol 100 ml @ 2.43 mls/hr Q12H IV Last administered on 02/22/18 20:15; Admin Dose 19.44 MLS/HR; Start 02/18/18 at 09:30 Fentanyl 100 ml @ 2.5 mls/hr TITRATE IV Last administered on 02/26/18 04:24; Admin Dose 10 MLS/HR; Start 02/18/18 at 09:30 IV Flush (NS 10 ml) 10 ml PRN PRN IV IV PROTOCOL; Start 02/18/18 at 13:30 Eye Lubricant (Artificial Tears Oph) 2 drop QID BOTH EYES Last administered on 02/25/18 21:00; Admin Dose 2 DROP; Start 02/20/18 at 13:00 Eye Lubricant (Akwa Oint) 1 applic TID BOTH EYES Last administered on 02/25/18 21:00; Admin Dose 1 APPLIC; Start 02/20/18 at 13:00 Norepinephrine 250 ml @ 1.875 mls/ hr TITRATE IV ; Start 02/20/18 at 23:45 Furosemide (Lasix) 20 mg DAILY IV Last administered on 02/25/18 09:11; Admin Dose 20 MG; Start 02/22/18 at 10:30 Methylprednisolone Sodium Succinate (Solu-Medrol) 60 mg Q6H IV Last administered on 02/26/18 03:17; Admin Dose 60 MG; Start 02/22/18 at 15:30 Enoxaparin Sodium (Lovenox) 40 mg DAILY SC Last administered on 02/25/18 09:34; Admin Dose 40 MG; Start 02/23/18 at 09:00 Morphine Sulfate (morphine) 6 mg Q4H PRN GTB SEVERE PAIN LEVEL 7-10 Last administered on 02/24/18 21:33; Admin Dose 6 MG; Start 02/23/18 at 12:00 Insulin Glargine (Lantus) 22 units DAILY@0800 SC Last administered on 02/25/18 09:34; Admin Dose 22 UNITS; Start 02/24/18 at 12:00 Diagnostic Test (Pha) (Accu-Chek) 1 ea 02 XX Last administered on 02/26/18at 01:22; Admin Dose 1 EA; Start 02/25/18 at 02:00 Insulin Aspart (Novolog Insulin Pen) NOVOLOG *MODERATE* ALGORI... Q4 SC Last administered on 02/25/18at 22:08; Admin Dose 2 UNIT; Start 02/24/18 at 17:00 Miscellaneous Information 1 ea NOTE XX ; Start 02/24/18 at 11:30 Glucose (Glutose) 15 gm Q15M PRN PO DECREASED GLUCOSE; Start 02/24/18 at 11:30 Glucose (Glutose) 22.5 gm Q15M PRN PO DECREASED GLUCOSE; Start 02/24/18 at 11:30 Dextrose (D50w Syringe) 25 ml Q15M PRN IV DECREASED GLUCOSE; Start 02/24/18 at 11:30 Dextrose (D50w Syringe) 50 ml Q15M PRN IV DECREASED GLUCOSE; Start 02/24/18 at 11:30 Glucagon (Glucagen) 1 mg Q15M PRN IM DECREASED GLUCOSE; Start 02/24/18 at 11:30 Glucose (Glutose) 15 gm Q15M PRN BUCCAL DECREASED GLUCOSE; Start 02/24/18 at 11:30 Docusate Sodium (Colace Liquid Cup) 100 mg BID GTB Last administered on 02/25/18at 21:00; Admin Dose 100 MG; Start 02/25/18 at 03:50 Polyethylene Glycol (Miralax) 17 gm DAILY NGT Last administered on 02/25/18at 03:57; Admin Dose 17 GM; Start 02/25/18 at 03:52 Dexmedetomidine HCl 200 mcg/ Sodium Chloride 50 ml @ 4.05 mls/hr TITRATE IV Last administered on 02/26/18at 04:17; Admin Dose 4.05 MLS/HR; Start 02/25/18 at 09:00 Meropenem/Sodium Chloride 50 ml @ 100 mls/hr Q8 IVPB Last administered on 02/26/18at 05:13; Admin Dose 100 MLS/HR; Start 02/25/18 at 17:00 Voriconazole 100 ml @ 50 mls/hr Q12 IVPB Last administered on 02/25/18at 22:03; Admin Dose 50 MLS/HR; Start 02/25/18 at 21:00 Trimethoprim/ Sulfamethoxazole (Bactrim (Ds)) 1 tab MoWeFr NGT Last administered on 02/25/18at 23:41; Admin Dose 1 TAB; Start 02/25/18 at 17:00 Vancomycin HCl (Vanco Iv Per Pharmacy) VANCOMYCIN PER PHARMACY PER PROTOCOL XX ; Start 02/25/18 at 17:30 Vancomycin HCl 1.25 gm/Sodium Chloride 250 ml @ 83.333 mls/ hr Q12H IVPB ; Start 02/26/18 at 08:00 VANESSA GILLIS M.D. Feb 26, 2018 08:33
[2018-02-26] MEDS: ENOXAPARIN 40 MG/0.4 ML SYG SC SCH (08:38)
[2018-02-26] MEDS: ARTIFICIAL TEARS 15 ML OPH BOTH EYES SCH ×4 (08:45→21:33)
[2018-02-26] MEDS: OCULAR LUBRICANT 3.5 GM OPH OINT BOTH EYES SCH ×3 (08:45→16:30)
[2018-02-26] MEDS: PROPOFOL 100 ML IV SCH ×2 (08:46→21:30)
--- NOTE | 2018-02-26 09:27 | CONS ---
Date/Time of Note Date/Time of Note DATE: 02/26/18 TIME: 09:23 Assessment/Plan Assessment/Plan Hospital Course 62 yo female with #Metastatic Melanoma - last Nivolumab was 2 weeks ago - 02/21/2018-sp Remicade 300 mg #ARDS - likely 2/2 Nivolumab and questionable underlying pneumonia -on FIO2 45 %, PEEP 10; -patient appears to be slowly recovering -CT Chest reveals evidence of bibasilar infiltrates but no evidence of PE -if her condition does not improve significantly by friday, will plan to given another dose of remicade. this has already been ordered with the pharmacy -cont high dose steroids the patient is currently getting - solumedrol 60mg q 6 hours -continue IV antibiotics in case of any underlying infection contributing to ARDS -BAL scheduled for today. -appreciate ID recs and workup for underlying opportunistic infection -If patient is able to recover, oncology would not recommend for her to continue Nivolumab given this grade 4 toxicity Approximately 50 min was spend in face to face time with patent's son at the bed side, and in coordination of her care. Result Diagram: 02/25/18 0933 02/25/18 0933 Results 24hrs Laboratory Tests Test 02/25/18 09:33 02/25/18 13:56 02/25/18 17:07 02/25/18 18:13 White Blood Count 7.9 Red Blood Count 2.95 L Hemoglobin 9.5 L Hematocrit 28.6 L Mean Corpuscular 96.9 Volume Mean Corpuscular 32.2 Hemoglobin Mean Corpuscular 33.2 Hemoglobin Concent Red Cell 14.7 H Distribution Width Platelet Count 81 L Mean Platelet Volume 12.3 H Immature 4.400 H Granulocytes % Neutrophils % 76.0 Lymphocytes % 12.9 L Monocytes % 6.6 Eosinophils % 0.0 Basophils % 0.1 Nucleated Red Blood 0.6 H Cells % Immature 0.350 H Granulocytes # Neutrophils # 6.0 Lymphocytes # 1.0 Monocytes # 0.5 Eosinophils # 0.0 Basophils # 0.0 Nucleated Red Blood 0.1 H Cells # Sodium Level 139 Potassium Level 3.9 Chloride Level 102 Carbon Dioxide Level 29 Anion Gap 8 Blood Urea Nitrogen 38 H Creatinine 0.67 Est Glomerular > 60 Filtrat Rate mL/min Glucose Level 133 Calcium Level 7.6 L Bedside Glucose 142 125 Lactic Acid Level 2.6 *H Test 02/25/18 22:06 02/26/18 00:39 02/26/18 01:22 02/26/18 04:23 Bedside Glucose 145 127 Lactic Acid Level 1.7 1.7 Test 02/26/18 05:12 02/26/18 08:41 Bedside Glucose 127 147 Consultation Date/Type/Reason Admit Date/Time Feb 17, 2018 at 12:57 Initial Consult Date 02/18/18 Type of Consult oncology Reason for Consultation nivolumab toxicity/ metastatic melanoma Requesting Provider: SJ BOWMAN MD 24 HR Interval Summary Free Text/Dictation pt is awake this morning. FIo2 down to 45% and PEEP 10. currently not on pressors Exam/Review of Systems Vital Signs Vitals Vital Signs Date Temp Pulse Resp B/P (MAP) Pulse Ox O2 O2 Flow FiO2 Time Delivery Rate 02/26/18 54 24 142/82 97 Mechanical 06:00 (102) Ventilator 02/26/18 45 04:45 02/26/18 99.0 04:00 Intake and Output 02/25/18 02/25/18 02/26/18 1515:00 23:00 07:00 IntakeIntake Total 912.29 ml 732.18 ml 354 ml OutputOutput Total 1010 ml 375 ml 265 ml BalanceBalance -97.71 ml 357.18 ml 89 ml Exam Constitutional: alert, other (awake) ENMT: intubated Neck: supple, non-tender Respiratory: clear to auscultation, crackles/rales Cardiovascular: regular rate and rhythm Gastrointestinal: soft Musculoskeletal: nl extremities to inspection Medications Medications Current Medications IV Flush (NS 3 ml) 3 ml PER PROTOCOL IV ; Start 02/17/18 at 13:30 Ondansetron HCl (Zofran Inj) 4 mg Q6H PRN IV NAUSEA AND/OR VOMITING; Start 02/17/18 at 13:30 Acetaminophen (Tylenol Tab) 650 mg Q6H PRN PO PAIN LEVEL 1-3 OR FEVER Last administered on 02/21/18at 12:50; Admin Dose 650 MG; Start 02/17/18 at 13:30 Acetaminophen/ Hydrocodone Bitart ([place] (5/325)) 1 tab Q6H PRN PO MODERATE PAIN LEVEL 4-6; Start 02/17/18 at 13:30 Docusate Sodium (Colace) 100 mg Q12H PRN PO CONSTIPATION Last administered on 02/25/18 03:57; Admin Dose 100 MG; Start 02/17/18 at 13:30 Pantoprazole (Protonix Iv) 40 mg DAILY@06 IV Last administered on 02/26/18 05:13; Admin Dose 40 MG; Start 02/18/18 at 06:00 Midazolam HCl 50 ml @ 1 mls/hr TITRATE IV Last administered on 02/25/18 03:58; Admin Dose 5.5 MLS/HR; Start 02/17/18 at 18:30 Propofol 100 ml @ 2.43 mls/hr Q12H IV Last administered on 02/22/18 20:15; Admin Dose 19.44 MLS/HR; Start 02/18/18 at 09:30 Fentanyl 100 ml @ 2.5 mls/hr TITRATE IV Last administered on 02/26/18 04:24; Admin Dose 10 MLS/HR; Start 02/18/18 at 09:30 IV Flush (NS 10 ml) 10 ml PRN PRN IV IV PROTOCOL; Start 02/18/18 at 13:30 Eye Lubricant (Artificial Tears Oph) 2 drop QID BOTH EYES Last administered on 02/26/18 08:45; Admin Dose 2 DROP; Start 02/20/18 at 13:00 Eye Lubricant (Akwa Oint) 1 applic TID BOTH EYES Last administered on 02/26/18 08:45; Admin Dose 1 APPLIC; Start 02/20/18 at 13:00 Norepinephrine 250 ml @ 1.875 mls/ hr TITRATE IV ; Start 02/20/18 at 23:45 Furosemide (Lasix) 20 mg DAILY IV Last administered on 02/26/18 08:33; Admin Dose 20 MG; Start 02/22/18 at 10:30 Methylprednisolone Sodium Succinate (Solu-Medrol) 60 mg Q6H IV Last administered on 02/26/18 03:17; Admin Dose 60 MG; Start 02/22/18 at 15:30 Enoxaparin Sodium (Lovenox) 40 mg DAILY SC Last administered on 02/26/18 08:38; Admin Dose 40 MG; Start 02/23/18 at 09:00 Morphine Sulfate (morphine) 6 mg Q4H PRN GTB SEVERE PAIN LEVEL 7-10 Last administered on 1/8/19at 21:33; Admin Dose 6 MG; Start 02/23/18 at 12:00 Insulin Glargine (Lantus) 22 units DAILY@0800 SC Last administered on 02/25/18at 09:34; Admin Dose 22 UNITS; Start 02/24/18 at 12:00 Diagnostic Test (Pha) (Accu-Chek) 1 ea 02 XX Last administered on 02/26/18at 01:22; Admin Dose 1 EA; Start 02/25/18 at 02:00 Insulin Aspart (Novolog Insulin Pen) NOVOLOG *MODERATE* ALGORI... Q4 SC Last administered on 02/26/18at 08:45; Admin Dose 2 UNIT; Start 02/24/18 at 17:00 Miscellaneous Information 1 ea NOTE XX ; Start 02/24/18 at 11:30 Glucose (Glutose) 15 gm Q15M PRN PO DECREASED GLUCOSE; Start 02/24/18 at 11:30 Glucose (Glutose) 22.5 gm Q15M PRN PO DECREASED GLUCOSE; Start 02/24/18 at 11:30 Dextrose (D50w Syringe) 25 ml Q15M PRN IV DECREASED GLUCOSE; Start 02/24/18 at 11:30 Dextrose (D50w Syringe) 50 ml Q15M PRN IV DECREASED GLUCOSE; Start 02/24/18 at 11:30 Glucagon (Glucagen) 1 mg Q15M PRN IM DECREASED GLUCOSE; Start 02/24/18 at 11:30 Glucose (Glutose) 15 gm Q15M PRN BUCCAL DECREASED GLUCOSE; Start 02/24/18 at 11:30 Docusate Sodium (Colace Liquid Cup) 100 mg BID GTB Last administered on 02/26/18at 08:33; Admin Dose 100 MG; Start 02/25/18 at 03:50 Polyethylene Glycol (Miralax) 17 gm DAILY NGT Last administered on 02/26/18 08:33; Admin Dose 17 GM; Start 02/25/18 at 03:52 Dexmedetomidine HCl 200 mcg/ Sodium Chloride 50 ml @ 4.05 mls/hr TITRATE IV Last administered on 02/26/18 04:17; Admin Dose 4.05 MLS/HR; Start 02/25/18 at 09:00 Meropenem/Sodium Chloride 50 ml @ 100 mls/hr Q8 IVPB Last administered on 02/26/18at 05:13; Admin Dose 100 MLS/HR; Start 02/25/18 at 17:00 Voriconazole 100 ml @ 50 mls/hr Q12 IVPB Last administered on 02/25/18at 22:03; Admin Dose 50 MLS/HR; Start 02/25/18 at 21:00 Trimethoprim/ Sulfamethoxazole (Bactrim (Ds)) 1 tab MoWeFr NGT Last administered on 02/25/18at 23:41; Admin Dose 1 TAB; Start 02/25/18 at 17:00 Vancomycin HCl (Vanco Iv Per Pharmacy) VANCOMYCIN PER PHARMACY PER PROTOCOL XX ; Start 02/25/18 at 17:30 Vancomycin HCl 1.25 gm/Sodium Chloride 250 ml @ 83.333 mls/ hr Q12H IVPB Last administered on 02/26/18at 08:33; Admin Dose 83.333 MLS/HR; Start 02/26/18 at 08:00 LIA CASAREZ M.D. Feb 26, 2018 09:27
--- NOTE | 2018-02-26 09:30 | CONS ---
Date/Time of Note Date/Time of Note DATE: 02/26/18 TIME: 09:28 Assessment/Plan Assessment/Plan Assessment/Plan Ventilator setting; AC of 24, tidal volume 450, PEEP of 12, 45% FiO2. Patient is currently on Precedex 0.2 mics per kilogram per hour. Fentanyl 100 mics per hour. Assessment recommendations; 1. Patient with history of metastatic stage IV melanoma admitted for respiratory failure due to bilateral pneumonia with possibly acute lung injury from immunotherapy. 2. Interval improvement in sinus bradycardia. Continue current supportive care. Obtain ABG. Patient possibly could benefit from either a tracheal aspirate versus bronchoscopy. I did have a detailed discussion with the patient's son at bedside answered all his questions. We will obtain follow-up chest x-ray 24 hours. Result Diagram: 02/25/1893202/25/18932 Results 24hrs Laboratory Tests Test 02/25/18 09:33 02/25/18 13:56 02/25/18 17:07 02/25/18 18:13 White Blood Count 7.9 Red Blood Count 2.95 L Hemoglobin 9.5 L Hematocrit 28.6 L Mean Corpuscular 96.9 Volume Mean Corpuscular 32.2 Hemoglobin Mean Corpuscular 33.2 Hemoglobin Concent Red Cell 14.7 H Distribution Width Platelet Count 81 L Mean Platelet Volume 12.3 H Immature 4.400 H Granulocytes % Neutrophils % 76.0 Lymphocytes % 12.9 L Monocytes % 6.6 Eosinophils % 0.0 Basophils % 0.1 Nucleated Red Blood 0.6 H Cells % Immature 0.350 H Granulocytes # Neutrophils # 6.0 Lymphocytes # 1.0 Monocytes # 0.5 Eosinophils # 0.0 Basophils # 0.0 Nucleated Red Blood 0.1 H Cells # Sodium Level 139 Potassium Level 3.9 Chloride Level 102 Carbon Dioxide Level 29 Anion Gap 8 Blood Urea Nitrogen 38 H Creatinine 0.67 Est Glomerular > 60 Filtrat Rate mL/min Glucose Level 133 Calcium Level 7.6 L Bedside Glucose 142 125 Lactic Acid Level 2.6 *H Test 02/25/18 22:06 02/26/18 00:39 02/26/18 01:22 02/26/18 04:23 Bedside Glucose 145 127 Lactic Acid Level 1.7 1.7 Test 02/26/18 05:12 02/26/18 08:41 Bedside Glucose 127 147 Consultation Date/Type/Reason Admit Date/Time Feb 17, 2018 at 12:57 Initial Consult Date 02/18/18 Type of Consult Pulmonary/critical care Requesting Provider: SJ BOWMAN MD 24 HR Interval Summary Free Text/Dictation Patient's condition is critical but stable. Patient has remained hemodynamically stable. Despite being on sedation she is completely awake and alert. General exam; elderly woman, orally intubated, awake, currently in no distress. Exam/Review of Systems Vital Signs Vitals Vital Signs Date Temp Pulse Resp B/P (MAP) Pulse Ox O2 O2 Flow FiO2 Time Delivery Rate 02/26/18 54 24 142/82 97 Mechanical 06:00 (102) Ventilator 02/26/18 45 04:45 02/26/18 99.0 04:00 Intake and Output 02/25/18 02/25/18 02/26/18 1515:00 23:00 07:00 IntakeIntake Total 912.29 ml 732.18 ml 354 ml OutputOutput Total 1010 ml 375 ml 265 ml BalanceBalance -97.71 ml 357.18 ml 89 ml Exam H EENT exam; supple neck, no JVD. No lymphadenopathy. Midline trachea. No thyromegaly. Orally intubated. Patient has fair dentition. Chest exam; diminished but clear breath sounds. S1-S2 audible, no murmurs. Reg ular rhythm. Abdomen exam; soft, nontender. No organomegaly. Bowel sounds audible. Extremity exam; trace edema. COAL UNLOADER exam; no focal deficit. Medications Medications Current Medications IV Flush (NS 3 ml) 3 ml PER PROTOCOL IV ; Start 02/17/18 at 13:30 Ondansetron HCl (Zofran Inj) 4 mg Q6H PRN IV NAUSEA AND/OR VOMITING; Start 02/17/18 at 13:30 Acetaminophen (Tylenol Tab) 650 mg Q6H PRN PO PAIN LEVEL 1-3 OR FEVER Last administered on 02/21/18at 12:50; Admin Dose 650 MG; Start 02/17/18 at 13:30 Acetaminophen/ Hydrocodone Bitart ([place] (5/325)) 1 tab Q6H PRN PO MODERATE PAIN LEVEL 4-6; Start 02/17/18 at 13:30 Docusate Sodium (Colace) 100 mg Q12H PRN PO CONSTIPATION Last administered on 1/9/19at 03:57; Admin Dose 100 MG; Start 02/17/18 at 13:30 Pantoprazole (Protonix Iv) 40 mg DAILY@06 IV Last administered on 02/26/18 05:13; Admin Dose 40 MG; Start 02/18/18 at 06:00 Midazolam HCl 50 ml @ 1 mls/hr TITRATE IV Last administered on 02/25/18 03:58; Admin Dose 5.5 MLS/HR; Start 02/17/18 at 18:30 Propofol 100 ml @ 2.43 mls/hr Q12H IV Last administered on 02/22/18 20:15; Admin Dose 19.44 MLS/HR; Start 02/18/18 at 09:30 Fentanyl 100 ml @ 2.5 mls/hr TITRATE IV Last administered on 02/26/18 04:24; Admin Dose 10 MLS/HR; Start 02/18/18 at 09:30 IV Flush (NS 10 ml) 10 ml PRN PRN IV IV PROTOCOL; Start 02/18/18 at 13:30 Eye Lubricant (Artificial Tears Oph) 2 drop QID BOTH EYES Last administered on 02/26/18 08:45; Admin Dose 2 DROP; Start 02/20/18 at 13:00 Eye Lubricant (Akwa Oint) 1 applic TID BOTH EYES Last administered on 02/26/18 08:45; Admin Dose 1 APPLIC; Start 02/20/18 at 13:00 Norepinephrine 250 ml @ 1.875 mls/ hr TITRATE IV ; Start 02/20/18 at 23:45 Furosemide (Lasix) 20 mg DAILY IV Last administered on 02/26/18 08:33; Admin Dose 20 MG; Start 02/22/18 at 10:30 Methylprednisolone Sodium Succinate (Solu-Medrol) 60 mg Q6H IV Last administered on 02/26/18 03:17; Admin Dose 60 MG; Start 02/22/18 at 15:30 Enoxaparin Sodium (Lovenox) 40 mg DAILY SC Last administered on 02/26/18 08:38; Admin Dose 40 MG; Start 02/23/18 at 09:00 Morphine Sulfate (morphine) 6 mg Q4H PRN GTB SEVERE PAIN LEVEL 7-10 Last administered on 02/24/18 21:33; Admin Dose 6 MG; Start 02/23/18 at 12:00 Insulin Glargine (Lantus) 22 units DAILY@0800 SC Last administered on 02/25/18at 09:34; Admin Dose 22 UNITS; Start 02/24/18 at 12:00 Diagnostic Test (Pha) (Accu-Chek) 1 ea 02 XX Last administered on 02/26/18at 01:22; Admin Dose 1 EA; Start 02/25/18 at 02:00 Insulin Aspart (Novolog Insulin Pen) NOVOLOG *MODERATE* ALGORI... Q4 SC Last administered on 02/26/18at 08:45; Admin Dose 2 UNIT; Start 02/24/18 at 17:00 Miscellaneous Information 1 ea NOTE XX ; Start 02/24/18 at 11:30 Glucose (Glutose) 15 gm Q15M PRN PO DECREASED GLUCOSE; Start 02/24/18 at 11:30 Glucose (Glutose) 22.5 gm Q15M PRN PO DECREASED GLUCOSE; Start 02/24/18 at 11:30 Dextrose (D50w Syringe) 25 ml Q15M PRN IV DECREASED GLUCOSE; Start 02/24/18 at 11:30 Dextrose (D50w Syringe) 50 ml Q15M PRN IV DECREASED GLUCOSE; Start 02/24/18 at 11:30 Glucagon (Glucagen) 1 mg Q15M PRN IM DECREASED GLUCOSE; Start 02/24/18 at 11:30 Glucose (Glutose) 15 gm Q15M PRN BUCCAL DECREASED GLUCOSE; Start 02/24/18 at 11:30 Docusate Sodium (Colace Liquid Cup) 100 mg BID GTB Last administered on 02/26/18at 08:33; Admin Dose 100 MG; Start 02/25/18 at 03:50 Polyethylene Glycol (Miralax) 17 gm DAILY NGT Last administered on 02/26/18at 08:33; Admin Dose 17 GM; Start 02/25/18 at 03:52 Dexmedetomidine HCl 200 mcg/ Sodium Chloride 50 ml @ 4.05 mls/hr TITRATE IV Last administered on 02/26/18at 04:17; Admin Dose 4.05 MLS/HR; Start 02/25/18 at 09:00 Meropenem/Sodium Chloride 50 ml @ 100 mls/hr Q8 IVPB Last administered on 02/26/18at 05:13; Admin Dose 100 MLS/HR; Start 02/25/18 at 17:00 Voriconazole 100 ml @ 50 mls/hr Q12 IVPB Last administered on 02/25/18at 22:03; Admin Dose 50 MLS/HR; Start 02/25/18 at 21:00 Trimethoprim/ Sulfamethoxazole (Bactrim (Ds)) 1 tab MoWeFr NGT Last administered on 02/25/18at 23:41; Admin Dose 1 TAB; Start 02/25/18 at 17:00 Vancomycin HCl (Vanco Iv Per Pharmacy) VANCOMYCIN PER PHARMACY PER PROTOCOL XX ; Start 02/25/18 at 17:30 Vancomycin HCl 1.25 gm/Sodium Chloride 250 ml @ 83.333 mls/ hr Q12H IVPB Last administered on 02/26/18at 08:33; Admin Dose 83.333 MLS/HR; Start 02/26/18 at 08:00 JUDY LYON Feb 26, 2018 09:30
[2018-02-26] MEDS: INSULIN GLARGINE [LANTus] (100 UNITS/ML) SYG SC SCH (09:47)
[2018-02-26] MEDS: VORICONAZOLE 200 MG/100 ML 100 ML IVPB SCH ×2 (14:16→21:32)
--- NOTE | 2018-02-26 15:35 | PN ---
Date/Time of Note Date/Time of Note DATE: 02/26/18 TIME: 15:33 Assessment/Plan VTE Prophylaxis Risk score (from Ns)>0 risk: 11 SCD applied (from Ns): Yes Pharmacological prophylaxis: heparin Lines/Catheters IV Catheter Type (from Nrs): PICC Line Central line still needed: Yes Urinary Cath still in place: Yes Reason Cath still needed: urinary retention Assessment/Plan Hospital Course 62 yo female with stage IV melanoma with ARDS leading to acute respiratory failure Acute respiratory failure/ARDS: - MV per pulmonary - Steroids per pulmonary Abx per ID for pneumonia Metastatic melanoma - Further care if able to be extubated Anemia Thrombocytopenia Poor progonsis Result Diagram: 02/25/18 0933 02/25/18 0933 Results 24hrs Laboratory Tests Test 02/25/18 17:07 02/25/18 18:13 02/25/18 22:06 02/26/18 00:39 Lactic Acid Level 2.6 *H 1.7 Bedside Glucose 125 145 Test 02/26/18 01:22 02/26/18 04:23 02/26/18 05:12 02/26/18 08:41 Bedside Glucose 127 127 147 Lactic Acid Level 1.7 Test 02/26/18 10:00 02/26/18 13:03 Blood Gas Blood arterial Specimen Source Arterial Blood 02/26/2018 10:06: Date Drawn 34 AM Arterial Blood pH 7.532 H (Temp corrected) Arterial Blood 26.1 L pCO2 (Temp correct) Arterial Blood 71.5 L pO2 (Temp corrected) Arterial Blood 21.4 L HCO3 Arterial Blood -0.2 Base Excess Arterial Blood 93.8 L Oxygen Saturation Ruperto Test ACCEPTAB Arterial Blood Left Radial Gas Puncture Site Arterial 0.3 Blood Carboxyhemo globin Arterial Blood 0.2 Methemoglobin Blood Gas A-a O2 219.7 H Differential Oxyhemoglobin 93.3 Percent Blood Gas 37.0 Temperature Blood Gas 24.0 Respiration Rate Blood Gas Actual 24 Respiration Rate Blood Gas VENT - AC Modality FiO2 45.0 Blood Gas Tidal 450.0 Volume Blood Gas Low 12.0 PEEP Setting Blood Gas TM Notified Whom Blood Gas 02/26/2018 10:14: Notified Time 12 AM Bedside Glucose 107 Subjective 24 Hr Interval Summary Free Text/Dictation Alert despite 100 mcg fentanyl FiO2 down to 45% this AM Exam/Review of Systems Vital Signs Vitals Vital Signs Date Temp Pulse Resp B/P (MAP) Pulse Ox O2 O2 Flow FiO2 Time Delivery Rate 02/26/18 46 24 81/49 (60) 92 Mechanical 15:00 Ventilator 02/26/18 97.5 14:00 02/26/18 45 13:50 Intake and Output 02/25/18 02/25/18 02/26/18 1515:00 23:00 07:00 IntakeIntake Total 912.29 ml 732.18 ml 394 ml OutputOutput Total 1010 ml 375 ml 315 ml BalanceBalance -97.71 ml 357.18 ml 79 ml Medications Medications Current Medications IV Flush (NS 3 ml) 3 ml PER PROTOCOL IV ; Start 02/17/18 at 13:30 Ondansetron HCl (Zofran Inj) 4 mg Q6H PRN IV NAUSEA AND/OR VOMITING; Start 02/17/18 at 13:30 Acetaminophen (Tylenol Tab) 650 mg Q6H PRN PO PAIN LEVEL 1-3 OR FEVER Last administered on 02/21/18at 12:50; Admin Dose 650 MG; Start 02/17/18 at 13:30 Acetaminophen/ Hydrocodone Bitart ([place] (5/325)) 1 tab Q6H PRN PO MODERATE PAIN LEVEL 4-6; Start 02/17/18 at 13:30 Docusate Sodium (Colace) 100 mg Q12H PRN PO CONSTIPATION Last administered on 02/25/18at 03:57; Admin Dose 100 MG; Start 02/17/18 at 13:30 Pantoprazole (Protonix Iv) 40 mg DAILY@06 IV Last administered on 02/26/18at 05:13; Admin Dose 40 MG; Start 02/18/18 at 06:00 Midazolam HCl 50 ml @ 1 mls/hr TITRATE IV Last administered on 02/25/18at 03:58; Admin Dose 5.5 MLS/HR; Start 02/17/18 at 18:30 Propofol 100 ml @ 2.43 mls/hr Q12H IV Last administered on 02/22/18at 20:15; Admin Dose 19.44 MLS/HR; Start 02/18/18 at 09:30 Fentanyl 100 ml @ 2.5 mls/hr TITRATE IV Last administered on 02/26/18at 04:24; Admin Dose 10 MLS/HR; Start 02/18/18 at 09:30 IV Flush (NS 10 ml) 10 ml PRN PRN IV IV PROTOCOL; Start 02/18/18 at 13:30 Eye Lubricant (Artificial Tears Oph) 2 drop QID BOTH EYES Last administered on 02/26/18 13:04; Admin Dose 2 DROP; Start 02/20/18 at 13:00 Eye Lubricant (Akwa Oint) 1 applic TID BOTH EYES Last administered on 02/26/18 13:04; Admin Dose 1 APPLIC; Start 02/20/18 at 13:00 Norepinephrine 250 ml @ 1.875 mls/ hr TITRATE IV ; Start 02/20/18 at 23:45 Furosemide (Lasix) 20 mg DAILY IV Last administered on 02/26/18 08:33; Admin Dose 20 MG; Start 02/22/18 at 10:30 Methylprednisolone Sodium Succinate (Solu-Medrol) 60 mg Q6H IV Last administered on 02/26/18 14:17; Admin Dose 60 MG; Start 02/22/18 at 15:30 Enoxaparin Sodium (Lovenox) 40 mg DAILY SC Last administered on 02/26/18 08:38; Admin Dose 40 MG; Start 02/23/18 at 09:00 Morphine Sulfate (morphine) 6 mg Q4H PRN GTB SEVERE PAIN LEVEL 7-10 Last administered on 02/24/18 21:33; Admin Dose 6 MG; Start 02/23/18 at 12:00 Insulin Glargine (Lantus) 22 units DAILY@0800 SC Last administered on 02/26/18 09:47; Admin Dose 22 UNITS; Start 02/24/18 at 12:00 Diagnostic Test (Pha) (Accu-Chek) 1 ea 02 XX Last administered on 02/26/18 01:22; Admin Dose 1 EA; Start 02/25/18 at 02:00 Insulin Aspart (Novolog Insulin Pen) NOVOLOG *MODERATE* ALGORI... Q4 SC Last administered on 02/26/18 08:45; Admin Dose 2 UNIT; Start 02/24/18 at 17:00 Miscellaneous Information 1 ea NOTE XX ; Start 02/24/18 at 11:30 Glucose (Glutose) 15 gm Q15M PRN PO DECREASED GLUCOSE; Start 02/24/18 at 11:30 Glucose (Glutose) 22.5 gm Q15M PRN PO DECREASED GLUCOSE; Start 02/24/18 at 11:30 Dextrose (D50w Syringe) 25 ml Q15M PRN IV DECREASED GLUCOSE; Start 02/24/18 at 11:30 Dextrose (D50w Syringe) 50 ml Q15M PRN IV DECREASED GLUCOSE; Start 02/24/18 at 11:30 Glucagon (Glucagen) 1 mg Q15M PRN IM DECREASED GLUCOSE; Start 02/24/18 at 11:30 Glucose (Glutose) 15 gm Q15M PRN BUCCAL DECREASED GLUCOSE; Start 02/24/18 at 11:30 Docusate Sodium (Colace Liquid Cup) 100 mg BID GTB Last administered on 02/26/18at 08:33; Admin Dose 100 MG; Start 02/25/18 at 03:50 Polyethylene Glycol (Miralax) 17 gm DAILY NGT Last administered on 02/26/18at 08:33; Admin Dose 17 GM; Start 02/25/18 at 03:52 Dexmedetomidine HCl 200 mcg/ Sodium Chloride 50 ml @ 4.05 mls/hr TITRATE IV Last administered on 02/26/18at 04:17; Admin Dose 4.05 MLS/HR; Start 02/25/18 at 09:00 Meropenem/Sodium Chloride 50 ml @ 100 mls/hr Q8 IVPB Last administered on 02/26/18at 05:13; Admin Dose 100 MLS/HR; Start 02/25/18 at 17:00 Voriconazole 100 ml @ 50 mls/hr Q12 IVPB Last administered on 02/26/18at 14:16; Admin Dose 50 MLS/HR; Start 02/25/18 at 21:00 Trimethoprim/ Sulfamethoxazole (Bactrim (Ds)) 1 tab MoWeFr NGT Last administered on 02/25/18at 23:41; Admin Dose 1 TAB; Start 02/25/18 at 17:00 Vancomycin HCl (Vanco Iv Per Pharmacy) VANCOMYCIN PER PHARMACY PER PROTOCOL XX ; Start 02/25/18 at 17:30 Vancomycin HCl 1.25 gm/Sodium Chloride 250 ml @ 83.333 mls/ hr Q12H IVPB Last administered on 02/26/18at 08:33; Admin Dose 83.333 MLS/HR; Start 02/26/18 at 08:00 Miscellaneous Information (*Rx Drug Level Order Reminder*) VANCO TROUGH @ 0,700 ONCE ONCE XX ; Start 02/27/18 at 07:00; Stop 02/27/18 at 07:01 SJ BOWMAN MD Feb 26, 2018 15:35
[2018-02-26] MEDS: DOCUSATE SODIUM 100 MG CAP PO PRN (21:33)
[2018-02-27] VITALS (41 sets, daily range): BP systolic 112–148; BP diastolic 49–90; PULSE 39–106; RESP 13–27
[2018-02-27] MEDS: INSULIN ASPART [NOVOLOG] 3 ML PEN SC SCH ×6 (01:00→20:32)
[2018-02-27] MEDS: ACCU-CHEK XX SCH (01:45)
[2018-02-27] MEDS: METHYLPREDNISOLONE 125 MG INJ IV SCH ×4 (04:49→20:33)
[2018-02-27] MEDS: PANTOPRAZOLE 40 MG INJ IV SCH (05:29)
[2018-02-27] MEDS: MEROPENEM 1 GM/50ML(PMX) 50 ML IVPB SCH ×3 (05:29→22:19)
[2018-02-27] MEDS: DEXMEDETOMIDINE HCL 200 MCG in SOD CHLORIDE 0.9% 48 ML IV SCH (07:30)
[2018-02-27] MEDS: VANCOMYCIN 1.25 GM in SOD CHLORIDE 0.9% 250 ML IVPB SCH (07:55)
[2018-02-27] MEDS: INSULIN GLARGINE [LANTus] (100 UNITS/ML) SYG SC SCH (08:00)
--- NOTE | 2018-02-27 08:19 | CONS ---
Date/Time of Note Date/Time of Note DATE: 02/27/18 TIME: 08:18 Assessment/Plan Assessment/Plan Hospital Course 62 yo female with #Metastatic Melanoma - last Nivolumab was 2 weeks ago - 02/21/2018-sp Remicade 300 mg #ARDS - likely 2/2 Nivolumab and questionable underlying pneumonia -on FIO2 40 %, PEEP 12; -patient appears to be slowly recovering -CT Chest reveals evidence of bibasilar infiltrates but no evidence of PE -if her condition does not improve significantly by Friday, will plan to given another dose of remicade. this has already been ordered with the pharmacy -cont high dose steroids the patient is currently getting - solumedrol 60mg q 6 hours -continue IV antibiotics in case of any underlying infection contributing to ARDS -BAL hopefully scheduled for today. -appreciate ID recs and workup for underlying opportunistic infection -If patient is able to recover, oncology would not recommend for her to continue Nivolumab given this grade 4 toxicity Approximately 50 min was spend in face to face time with patent's son at the bed side, and in coordination of her care. Result Diagram: 02/27/18 0721 02/27/18 0721 Results 24hrs Laboratory Tests Test 02/26/18 08:41 02/26/18 10:00 02/26/18 13:03 02/26/18 16:33 Bedside Glucose 147 107 110 Blood Gas Blood arterial Specimen Source Arterial Blood 02/26/2018 10:06: Date Drawn 34 AM Arterial Blood pH 7.532 H (Temp corrected) Arterial Blood 26.1 L pCO2 (Temp correct) Arterial Blood 71.5 L pO2 (Temp corrected) Arterial Blood 21.4 L HCO3 Arterial Blood -0.2 Base Excess Arterial Blood 93.8 L Oxygen Saturation Ruperto Test ACCEPTAB Arterial Blood Left Radial Gas Puncture Site Arterial 0.3 Blood Carboxyhemo globin Arterial Blood 0.2 Methemoglobin Blood Gas A-a O2 219.7 H Differential Oxyhemoglobin 93.3 Percent Blood Gas 37.0 Temperature Blood Gas 24.0 Respiration Rate Blood Gas Actual 24 Respiration Rate Blood Gas VENT - AC Modality FiO2 45.0 Blood Gas Tidal 450.0 Volume Blood Gas Low 12.0 PEEP Setting Blood Gas TM Notified Whom Blood Gas 02/26/2018 10:14: Notified Time 12 AM Test 02/26/18 19:43 02/27/18 01:43 02/27/18 04:48 02/27/18 07:21 Bedside Glucose 106 100 99 White Blood Count 7.7 Red Blood Count 2.89 L Hemoglobin 9.1 L Hematocrit 28.0 L Mean Corpuscular 96.9 Volume Mean Corpuscular 31.5 Hemoglobin Mean Corpuscular 32.5 Hemoglobin Concen t Red Cell 15.1 H Distribution Width Platelet Count 88 L Mean Platelet 12.7 H Volume Immature 1.000 H Granulocytes % Neutrophils % 84.4 H Lymphocytes % 8.1 L Monocytes % 6.5 Eosinophils % 0.0 Basophils % 0.0 Nucleated Red 0.3 H Blood Cells % Immature 0.080 H Granulocytes # Neutrophils # 6.5 Lymphocytes # 0.6 L Monocytes # 0.5 Eosinophils # 0.0 Basophils # 0.0 Nucleated Red 0.0 Blood Cells # Sodium Level 137 Potassium Level 4.2 Chloride Level 104 Carbon Dioxide 28 Level Anion Gap 5 Blood Urea 44 H Nitrogen Creatinine 0.71 Est Glomerular > 60 Filtrat Rate mL/min Glucose Level 98 Calcium Level 7.8 L Consultation Date/Type/Reason Admit Date/Time Feb 17, 2018 at 12:57 Initial Consult Date 02/18/18 Type of Consult oncology Reason for Consultation metastatic melanoma Requesting Provider: SJ BOWMAN MD 24 HR Interval Summary Free Text/Dictation pt now down to Fio2 of 40% but PEEP up at 12 due to poor blood gas. dry secretions per pulmonary Exam/Review of Systems Vital Signs Vitals Vital Signs Date Temp Pulse Resp B/P (MAP) Pulse Ox O2 O2 Flow FiO2 Time Delivery Rate 02/27/18 40 08:00 02/27/18 42 24 138/60 97 Mechanical 07:30 (86) Ventilator 02/27/18 98.1 07:00 Intake and Output 02/26/18 02/26/18 02/27/18 1414:59 22:59 06:59 IntakeIntake Total 1271.6 ml 1094.50 ml 529.88 ml OutputOutput Total 1075 ml 410 ml 270 ml BalanceBalance 196.6 ml 684.50 ml 259.88 ml Exam Constitutional: alert, oriented Psych: anxiety Head: normocephalic Eyes: nl conjunctiva ENMT: nl external ears & nose, intubated Respiratory: congested cough, crackles/rales, diminished breath sounds Cardiovascular: regular rate and rhythm Gastrointestinal: soft Musculoskeletal: nl extremities to inspection Extremities: normal pulses Neurological: [employer] A[employer]LETE II-XII intact Medications Medications Current Medications IV Flush (NS 3 ml) 3 ml PER PROTOCOL IV ; Start 02/17/18 at 13:30 Ondansetron HCl (Zofran Inj) 4 mg Q6H PRN IV NAUSEA AND/OR VOMITING; Start 02/17/18 at 13:30 Acetaminophen (Tylenol Tab) 650 mg Q6H PRN PO PAIN LEVEL 1-3 OR FEVER Last administered on 02/21/18 12:50; Admin Dose 650 MG; Start 02/17/18 at 13:30 Acetaminophen/ Hydrocodone Bitart ([place] (5/325)) 1 tab Q6H PRN PO MODERATE PAIN LEVEL 4-6; Start 02/17/18 at 13:30 Docusate Sodium (Colace) 100 mg Q12H PRN PO CONSTIPATION Last administered on 02/26/18 21:33; Admin Dose 100 MG; Start 02/17/18 at 13:30 Pantoprazole (Protonix Iv) 40 mg DAILY@06 IV Last administered on 02/27/18 05:29; Admin Dose 40 MG; Start 02/18/18 at 06:00 Midazolam HCl 50 ml @ 1 mls/hr TITRATE IV Last administered on 02/25/18 03:58; Admin Dose 5.5 MLS/HR; Start 02/17/18 at 18:30 Propofol 100 ml @ 2.43 mls/hr Q12H IV Last administered on 02/22/18 20:15; Admin Dose 19.44 MLS/HR; Start 02/18/18 at 09:30 Fentanyl 100 ml @ 2.5 mls/hr TITRATE IV Last administered on 02/26/18 16:29; Admin Dose 2.5 MLS/HR; Start 02/18/18 at 09:30 IV Flush (NS 10 ml) 10 ml PRN PRN IV IV PROTOCOL; Start 02/18/18 at 13:30 Eye Lubricant (Artificial Tears Oph) 2 drop QID BOTH EYES Last administered on 02/26/18 21:33; Admin Dose 2 DROP; Start 02/20/18 at 13:00 Eye Lubricant (Akwa Oint) 1 applic TID BOTH EYES Last administered on 02/26/18 16:30; Admin Dose 1 APPLIC; Start 02/20/18 at 13:00 Norepinephrine 250 ml @ 1.875 mls/ hr TITRATE IV ; Start 02/20/18 at 23:45 Furosemide (Lasix) 20 mg DAILY IV Last administered on 02/26/18at 08:33; Admin Dose 20 MG; Start 02/22/18 at 10:30 Methylprednisolone Sodium Succinate (Solu-Medrol) 60 mg Q6H IV Last administered on 02/27/18at 04:49; Admin Dose 60 MG; Start 02/22/18 at 15:30 Enoxaparin Sodium (Lovenox) 40 mg DAILY SC Last administered on 02/26/18at 08:38; Admin Dose 40 MG; Start 02/23/18 at 09:00 Morphine Sulfate (morphine) 6 mg Q4H PRN GTB SEVERE PAIN LEVEL 7-10 Last administered on 02/24/18at 21:33; Admin Dose 6 MG; Start 02/23/18 at 12:00 Insulin Glargine (Lantus) 22 units DAILY@0800 SC Last administered on 02/26/18at 09:47; Admin Dose 22 UNITS; Start 02/24/18 at 12:00 Diagnostic Test (Pha) (Accu-Chek) 1 ea 02 XX Last administered on 02/27/18at 01:45; Admin Dose 1 EA; Start 02/25/18 at 02:00 Insulin Aspart (Novolog Insulin Pen) NOVOLOG *MODERATE* ALGORI... Q4 SC Last administered on 02/26/18at 08:45; Admin Dose 2 UNIT; Start 02/24/18 at 17:00 Miscellaneous Information 1 ea NOTE XX ; Start 02/24/18 at 11:30 Glucose (Glutose) 15 gm Q15M PRN PO DECREASED GLUCOSE; Start 02/24/18 at 11:30 Glucose (Glutose) 22.5 gm Q15M PRN PO DECREASED GLUCOSE; Start 02/24/18 at 11:30 Dextrose (D50w Syringe) 25 ml Q15M PRN IV DECREASED GLUCOSE; Start 02/24/18 at 11:30 Dextrose (D50w Syringe) 50 ml Q15M PRN IV DECREASED GLUCOSE; Start 02/24/18 at 11:30 Glucagon (Glucagen) 1 mg Q15M PRN IM DECREASED GLUCOSE; Start 02/24/18 at 11:30 Glucose (Glutose) 15 gm Q15M PRN BUCCAL DECREASED GLUCOSE; Start 02/24/18 at 11:30 Docusate Sodium (Colace Liquid Cup) 100 mg BID GTB Last administered on 02/26/18at 21:36; Admin Dose 100 MG; Start 02/25/18 at 03:50 Polyethylene Glycol (Miralax) 17 gm DAILY NGT Last administered on 02/26/18 08:33; Admin Dose 17 GM; Start 02/25/18 at 03:52 Dexmedetomidine HCl 200 mcg/ Sodium Chloride 50 ml @ 4.05 mls/hr TITRATE IV Last administered on 02/27/18 07:30; Admin Dose 4.05 MLS/HR; Start 02/25/18 at 09:00 Meropenem/Sodium Chloride 50 ml @ 100 mls/hr Q8 IVPB Last administered on 02/27/18 05:29; Admin Dose 100 MLS/HR; Start 02/25/18 at 17:00 Voriconazole 100 ml @ 50 mls/hr Q12 IVPB Last administered on 02/26/18at 21:32; Admin Dose 50 MLS/HR; Start 02/25/18 at 21:00 Trimethoprim/ Sulfamethoxazole (Bactrim (Ds)) 1 tab MoWeFr NGT Last administered on 02/25/18at 23:41; Admin Dose 1 TAB; Start 02/25/18 at 17:00 Vancomycin HCl (Vanco Iv Per Pharmacy) VANCOMYCIN PER PHARMACY PER PROTOCOL XX ; Start 02/25/18 at 17:30 Vancomycin HCl 1.25 gm/Sodium Chloride 250 ml @ 83.333 mls/ hr Q12H IVPB Last administered on 02/27/18at 07:55; Admin Dose 83.333 MLS/HR; Start 02/26/18 at 08:00 LIA CASAREZ M.D. Feb 27, 2018 08:19
--- NOTE | 2018-02-27 08:50 | CONS ---
Date/Time of Note Date/Time of Note DATE: 02/27/18 TIME: 08:47 Assessment/Plan Assessment/Plan Assessment/Plan Ventilator setting; AC of 16, tidal volume 450, PEEP of 8, 40% FiO2. Patient is currently on Precedex 0.1 omer per kilogram per hour. Assessment and recommendations; 1. Patient with history of stage IV metastatic melanoma admitted for respiratory failure due to severe bilateral pneumonia possibly acute lung injury from immunotherapy versus bacterial pneumonia as a findings are consistent with that with most of the consolidation is confined to basilar regions. 2. Improving thrombocytopenia. 3. Mild anemia. 4. Mild hyperglycemia likely steroid-induced. Switch the patient to CPAP mode will obtain ABG in 40 minutes. If the patient meets weaning criteria he will be extubated. Meanwhile continue current supportive care. Continue current antimicrobial regimen as well. Obtain follow-up chest x-ray 24 hours. 35 minutes of critical care time was spent evaluating the patient. Result Diagram: 02/27/18 0721 02/27/18 0721 Results 24hrs Laboratory Tests Test 02/26/18 10:00 02/26/18 13:03 02/26/18 16:33 02/26/18 19:43 Blood Gas Blood arterial Specimen Source Arterial Blood 02/26/2018 10:06: Date Drawn 34 AM Arterial Blood pH 7.532 H (Temp corrected) Arterial Blood 26.1 L pCO2 (Temp correct) Arterial Blood 71.5 L pO2 (Temp corrected) Arterial Blood 21.4 L HCO3 Arterial Blood -0.2 Base Excess Arterial Blood 93.8 L Oxygen Saturation Ruperto Test ACCEPTAB Arterial Blood Left Radial Gas Puncture Site Arterial 0.3 Blood Carboxyhemo globin Arterial Blood 0.2 Methemoglobin Blood Gas A-a O2 219.7 H Differential Oxyhemoglobin 93.3 Percent Blood Gas 37.0 Temperature Blood Gas 24.0 Respiration Rate Blood Gas Actual 24 Respiration Rate Blood Gas VENT - AC Modality FiO2 45.0 Blood Gas Tidal 450.0 Volume Blood Gas Low 12.0 PEEP Setting Blood Gas TM Notified Whom Blood Gas 02/26/2018 10:14: Notified Time 12 AM Bedside Glucose 107 110 106 Test 02/27/18 01:43 02/27/18 04:48 02/27/18 07:21 02/27/18 07:28 Bedside Glucose 100 99 White Blood Count 7.7 Red Blood Count 2.89 L Hemoglobin 9.1 L Hematocrit 28.0 L Mean Corpuscular 96.9 Volume Mean Corpuscular 31.5 Hemoglobin Mean Corpuscular 32.5 Hemoglobin Concen t Red Cell 15.1 H Distribution Width Platelet Count 88 L Mean Platelet 12.7 H Volume Immature 1.000 H Granulocytes % Neutrophils % 84.4 H Lymphocytes % 8.1 L Monocytes % 6.5 Eosinophils % 0.0 Basophils % 0.0 Nucleated Red 0.3 H Blood Cells % Immature 0.080 H Granulocytes # Neutrophils # 6.5 Lymphocytes # 0.6 L Monocytes # 0.5 Eosinophils # 0.0 Basophils # 0.0 Nucleated Red 0.0 Blood Cells # Sodium Level 137 Potassium Level 4.2 Chloride Level 104 Carbon Dioxide 28 Level Anion Gap 5 Blood Urea 44 H Nitrogen Creatinine 0.71 Est Glomerular > 60 Filtrat Rate mL/min Glucose Level 98 Calcium Level 7.8 L Vancomycin Level 16.8 Trough Consultation Date/Type/Reason Admit Date/Time Feb 17, 2018 at 12:57 Initial Consult Date 02/18/18 Type of Consult Pulmonary/critical care Requesting Provider: SJ BOWMAN MD 24 HR Interval Summary Free Text/Dictation Patient's condition remains critical but stable. Patient has shown significant improvement in oxygenation. Has remained hemodynamically stable. General exam; elderly female, orally intubated, awake and alert. Currently in no distress. Exam/Review of Systems Vital Signs Vitals Vital Signs Date Temp Pulse Resp B/P (MAP) Pulse Ox O2 O2 Flow FiO2 Time Delivery Rate 02/27/18 40 08:00 02/27/18 42 24 138/60 97 Mechanical 07:30 (86) Ventilator 02/27/18 98.1 07:00 Intake and Output 02/26/18 02/26/18 02/27/18 1414:59 22:59 06:59 IntakeIntake Total 1271.6 ml 1094.50 ml 529.88 ml OutputOutput Total 1075 ml 410 ml 270 ml BalanceBalance 196.6 ml 684.50 ml 259.88 ml Exam H EENT exam; supple neck, no JVD. No lymphadenopathy. Midline trachea. No thyromegaly. Patient is orally intubated. Has fair dentition. No neck masses. Pupils are midsize. Chest exam; clear to auscultation. S1-S2 audible, no murmurs. Regular rhythm. Abdomen exam; soft, nontender. No organomegaly. Bowel sounds audible. Extremity exam; trace edema. Pulses 1+. PERSONNEL CLERK exam; no focal deficit. Medications Medications Current Medications IV Flush (NS 3 ml) 3 ml PER PROTOCOL IV ; Start 02/17/18 at 13:30 Ondansetron HCl (Zofran Inj) 4 mg Q6H PRN IV NAUSEA AND/OR VOMITING; Start 02/17/18 at 13:30 Acetaminophen (Tylenol Tab) 650 mg Q6H PRN PO PAIN LEVEL 1-3 OR FEVER Last administered on 02/21/18 12:50; Admin Dose 650 MG; Start 02/17/18 at 13:30 Acetaminophen/ Hydrocodone Bitart ([place] (5/325)) 1 tab Q6H PRN PO MODERATE PAIN LEVEL 4-6; Start 02/17/18 at 13:30 Docusate Sodium (Colace) 100 mg Q12H PRN PO CONSTIPATION Last administered on 02/26/18 21:33; Admin Dose 100 MG; Start 02/17/18 at 13:30 Pantoprazole (Protonix Iv) 40 mg DAILY@06 IV Last administered on 02/27/18 05:29; Admin Dose 40 MG; Start 02/18/18 at 06:00 Midazolam HCl 50 ml @ 1 mls/hr TITRATE IV Last administered on 02/25/18 03:58; Admin Dose 5.5 MLS/HR; Start 02/17/18 at 18:30 Propofol 100 ml @ 2.43 mls/hr Q12H IV Last administered on 02/22/18 20:15; Admin Dose 19.44 MLS/HR; Start 02/18/18 at 09:30 Fentanyl 100 ml @ 2.5 mls/hr TITRATE IV Last administered on 02/26/18 16:29; Admin Dose 2.5 MLS/HR; Start 02/18/18 at 09:30 IV Flush (NS 10 ml) 10 ml PRN PRN IV IV PROTOCOL; Start 02/18/18 at 13:30 Eye Lubricant (Artificial Tears Oph) 2 drop QID BOTH EYES Last administered on 02/26/18 21:33; Admin Dose 2 DROP; Start 02/20/18 at 13:00 Eye Lubricant (Akwa Oint) 1 applic TID BOTH EYES Last administered on 02/26/18 16:30; Admin Dose 1 APPLIC; Start 02/20/18 at 13:00 Norepinephrine 250 ml @ 1.875 mls/ hr TITRATE IV ; Start 02/20/18 at 23:45 Furosemide (Lasix) 20 mg DAILY IV Last administered on 02/26/18 08:33; Admin Dose 20 MG; Start 02/22/18 at 10:30 Methylprednisolone Sodium Succinate (Solu-Medrol) 60 mg Q6H IV Last administered on 02/27/18at 04:49; Admin Dose 60 MG; Start 02/22/18 at 15:30 Enoxaparin Sodium (Lovenox) 40 mg DAILY SC Last administered on 02/26/18 08: 38; Admin Dose 40 MG; Start 02/23/18 at 09:00 Morphine Sulfate (morphine) 6 mg Q4H PRN GTB SEVERE PAIN LEVEL 7-10 Last administered on 02/24/18 21:33; Admin Dose 6 MG; Start 02/23/18 at 12:00 Insulin Glargine (Lantus) 22 units DAILY@0800 SC Last administered on 02/26/18 09:47; Admin Dose 22 UNITS; Start 02/24/18 at 12:00 Diagnostic Test (Pha) (Accu-Chek) 1 ea 02 XX Last administered on 02/27/18at 01:45; Admin Dose 1 EA; Start 02/25/18 at 02:00 Insulin Aspart (Novolog Insulin Pen) NOVOLOG *MODERATE* ALGORI... Q4 SC Last administered on 02/26/18 08:45; Admin Dose 2 UNIT; Start 02/24/18 at 17:00 Miscellaneous Information 1 ea NOTE XX ; Start 02/24/18 at 11:30 Glucose (Glutose) 15 gm Q15M PRN PO DECREASED GLUCOSE; Start 02/24/18 at 11:30 Glucose (Glutose) 22.5 gm Q15M PRN PO DECREASED GLUCOSE; Start 02/24/18 at 11:30 Dextrose (D50w Syringe) 25 ml Q15M PRN IV DECREASED GLUCOSE; Start 02/24/18 at 11:30 Dextrose (D50w Syringe) 50 ml Q15M PRN IV DECREASED GLUCOSE; Start 02/24/18 at 11:30 Glucagon (Glucagen) 1 mg Q15M PRN IM DECREASED GLUCOSE; Start 02/24/18 at 11:30 Glucose (Glutose) 15 gm Q15M PRN BUCCAL DECREASED GLUCOSE; Start 02/24/18 at 11:30 Docusate Sodium (Colace Liquid Cup) 100 mg BID GTB Last administered on 02/26/18 21:36; Admin Dose 100 MG; Start 02/25/18 at 03:50 Polyethylene Glycol (Miralax) 17 gm DAILY NGT Last administered on 02/26/18 08:33; Admin Dose 17 GM; Start 02/25/18 at 03:52 Dexmedetomidine HCl 200 mcg/ Sodium Chloride 50 ml @ 4.05 mls/hr TITRATE IV Last administered on 02/27/18 07:30; Admin Dose 4.05 MLS/HR; Start 02/25/18 at 09:00 Meropenem/Sodium Chloride 50 ml @ 100 mls/hr Q8 IVPB Last administered on 02/27/18 05:29; Admin Dose 100 MLS/HR; Start 02/25/18 at 17:00 Voriconazole 100 ml @ 50 mls/hr Q12 IVPB Last administered on 02/26/18 21:32; Admin Dose 50 MLS/HR; Start 02/25/18 at 21:00 Trimethoprim/ Sulfamethoxazole (Bactrim (Ds)) 1 tab MoWeFr NGT Last administered on 02/25/18at 23:41; Admin Dose 1 TAB; Start 02/25/18 at 17:00 Vancomycin HCl (Vanco Iv Per Pharmacy) VANCOMYCIN PER PHARMACY PER PROTOCOL XX ; Start 02/25/18 at 17:30 Vancomycin HCl 1.25 gm/Sodium Chloride 250 ml @ 83.333 mls/ hr Q12H IVPB Last administered on 02/27/18 07:55; Admin Dose 83.333 MLS/HR; Start 02/26/18 at 08:00 JUDY LYON Feb 27, 2018 08:50
[2018-02-27] MEDS: FUROSEMIDE 20 MG INJ IV SCH (09:27)
[2018-02-27] MEDS: DOCUSATE SODIUM 10 MG/ML (10ML CUP) GTB SCH ×2 (09:27→20:32)
[2018-02-27] MEDS: POLYETHYLENE GLYCOL 17 GM PACKET NGT SCH (09:27)
[2018-02-27] MEDS: ARTIFICIAL TEARS 15 ML OPH BOTH EYES SCH ×4 (09:28→20:32)
[2018-02-27] MEDS: OCULAR LUBRICANT 3.5 GM OPH OINT BOTH EYES SCH ×3 (09:28→20:32)
[2018-02-27] MEDS: PROPOFOL 100 ML IV SCH ×2 (09:30→20:10)
[2018-02-27] MEDS: ENOXAPARIN 40 MG/0.4 ML SYG SC SCH (10:19)
--- NOTE | 2018-02-27 11:14 | CONS ---
[facility] HCIS Consult Follow-up Patient Name: Sujatha Almonte Unit Number: [id number] Date of : 1955 Patient Status: Admitted Inpatient Attending Doctor: Kodak Olmedo MD Edit: VANESSA MEDINA M.D. on 02/28/18 @ 23:12 Carol attestation: I discussed the management with DISHTANK OPERATOR See and agree with above Date/Time of Note Date/Time of Note DATE: 02/27/18 TIME: 10:51 Assessment/Plan Assessment/Plan Hospital Course Assessment/Impression - pneumonia, either infectious etiology vs. nivolumab pneumonitis. It can be a combination of two - ARDS - acute hypoxic resp failure, intubated 02/17/2018 - extubated 02/27/18 - immunocompromised state: metastatic melanoma, receipt of nivolumab, infliximab and tapering methylprednisolone - metastatic melanoma, on nivolumab until recently - anemia and thrombocytopenia Assessment/Plan -Pending results: repeat blood cultures 02/25/18 (NGTD), procalcitonin, 1,2-yuvw-S-glucan, nasopharyngeal swab for respiratory viruses (custom panel plus influenza by RT-PCR), bacterial (tracheal aspirate for culture, legionella antigen), fungal (pneumocystis jiroveci antigen DFA, coccidioides, cryptococci, aspergillus galactomannan and antigen, histoplasma antigen) - Asked nsg to f/u on respiratory culture which was not sent yet. - Dr. Medina d/w Dr. Gandara and Dr. Streeter: recommend diagnostic bronch, if not, mini bronch for BAL to identify an infectious etiology. If bronch identifies an infection, will d/w Dr. Streeter re. infliximab. Dr. Medina ordered [facility] bronch is performed. Patient being extubated today. - Continue IV vancomycin, meropenem, voriconazole (02/25/2018-) - Continue prophylaxis for pneumocystis jiroveci while Pt's on methylprednisolone taper (02/17/2018-): pNGT Bactrim DS 1 tab three times a week (02/25/2018-) - Management d/w Pt's FARRUKH Joseph, WADE Ford, and with Dr. Medina. Thank you. Total critical care time spent: 45 minutes. Result Diagram: 02/27/18 0721 02/27/18 0721 Results 24hrs Laboratory Tests Test 02/26/18 13:03 02/26/18 16:33 02/26/18 19:43 02/27/18 01:43 Bedside Glucose 107 110 106 100 Test 02/27/18 04:48 02/27/18 07:21 02/27/18 07:28 02/27/18 09:45 Bedside Glucose 99 White Blood Count 7.7 Red Blood Count 2.89 L Hemoglobin 9.1 L Hematocrit 28.0 L Mean Corpuscular 96.9 Volume Mean Corpuscular 31.5 Hemoglobin Mean Corpuscular 32.5 Hemoglobin Concen t Red Cell 15.1 H Distribution Width Platelet Count 88 L Mean Platelet 12.7 H Volume Immature 1.000 H Granulocytes % Neutrophils % 84.4 H Lymphocytes % 8.1 L Monocytes % 6.5 Eosinophils % 0.0 Basophils % 0.0 Nucleated Red 0.3 H Blood Cells % Immature 0.080 H Granulocytes # Neutrophils # 6.5 Lymphocytes # 0.6 L Monocytes # 0.5 Eosinophils # 0.0 Basophils # 0.0 Nucleated Red 0.0 Blood Cells # Sodium Level 137 Potassium Level 4.2 Chloride Level 104 Carbon Dioxide 28 Level Anion Gap 5 Blood Urea 44 H Nitrogen Creatinine 0.71 Est Glomerular > 60 Filtrat Rate mL/min Glucose Level 98 Calcium Level 7.8 L Vancomycin Level 16.8 Trough Blood Gas Blood arterial Specimen Source Arterial Blood 02/27/2018 10:14: Date Drawn 58 AM Arterial Blood pH 7.522 H (Temp corrected) Arterial Blood 34.5 L pCO2 (Temp correct) Arterial Blood 73.6 L pO2 (Temp corrected) Arterial Blood 27.7 H HCO3 Arterial Blood 4.9 H Base Excess Arterial Blood 93.9 L Oxygen Saturation Ruperto Test ACCEPTAB Arterial Blood Left Radial Gas Puncture Site Arterial 0 Blood Carboxyhemo globin Arterial Blood 0.1 Methemoglobin Blood Gas A-a O2 171.9 H Differential Oxyhemoglobin 93.8 Percent Blood Gas 37.0 Temperature Blood Gas Actual 13 Respiration Rate Blood Gas VENT - CPAP Modality FiO2 40.0 Blood Gas Low 8.0 PEEP Setting Blood Gas 10 Pressure Support Blood Gas TM Notified Whom Blood Gas 02/27/2018 10:23: Notified Time 43 AM Test 02/27/18 09:46 Bedside Glucose 90 Consultation Date/Type/Reason Admit Date/Time Feb 17, 2018 at 12:57 Initial Consult Date 02/25/18 Type of Consult ID Requesting Provider: KODAK OLMEDO MD 24 HR Interval Summary Free Text/Dictation Patient was extubated now, tolerating O2 via nc 4L. She has remained afebrile, WBC 7.7 Patient c/o wanting to use bathroom for bowel movement and c/o "dolor para quiero el claudia". RN Opal aware. Pt denies other ROS. Constitutional: improved Exam/Review of Systems Vital Signs Vitals Vital Signs Date Temp Pulse Resp B/P (MAP) Pulse Ox O2 O2 Flow FiO2 Time Delivery Rate 02/27/18 51 14 123/62 95 Mechanical 10:00 (82) Ventilator 02/27/18 40 08:00 02/27/18 98.1 07:00 Intake and Output 02/26/18 02/26/18 02/27/18 1515:00 23:00 07:00 IntakeIntake Total 1271.6 ml 1100.85 ml 437.36 ml OutputOutput Total 1100 ml 365 ml 270 ml BalanceBalance 171.6 ml 735.85 ml 167.36 ml Exam Constitutional: alert, well developed, frail, other (has just been extubated - awake, following commands, able to answer questions appropriately ) Psych: nl mood/affect Head: normocephalic, atraumatic Eyes: nl conjunctiva, nl lids, nl sclera ENMT: nl external ears & nose, nl nasal mucosa & septum, mucosa pink and moist Neck: supple Respiratory: clear to auscultation, normal air movement, diminished breath sounds (bibasilarlly, no wheezing , anteriorly ), other (On O2 via nc 4L ) Cardiovascular: regular rate and rhythm, nl pulses Gastrointestinal: soft, non-tender, bowel sounds (normoactive ) Genitourinary - Female: other (f/c draining clear yellow urine noted ) Musculoskeletal: nl extremities to inspection Extremities: normal pulses, edema (nonpitting; BUE ) Neurological: nl mental status, nl speech (Tai[place]ese speaking) Skin: nl turgor Medications Medications Current Medications IV Flush (NS 3 ml) 3 ml PER PROTOCOL IV ; Start 02/17/18 at 13:30 Ondansetron HCl (Zofran Inj) 4 mg Q6H PRN IV NAUSEA AND/OR VOMITING; Start 02/17/18 at 13:30 Acetaminophen (Tylenol Tab) 650 mg Q6H PRN PO PAIN LEVEL 1-3 OR FEVER Last administered on 02/21/18 12:50; Admin Dose 650 MG; Start 02/17/18 at 13:30 Acetaminophen/ Hydrocodone Bitart ([employer] (5/325)) 1 tab Q6H PRN PO MODERATE PAIN LEVEL 4-6; Start 02/17/18 at 13:30 Docusate Sodium (Colace) 100 mg Q12H PRN PO CONSTIPATION Last administered on 02/26/18 21:33; Admin Dose 100 MG; Start 02/17/18 at 13:30 Pantoprazole (Protonix Iv) 40 mg DAILY@06 IV Last administered on 02/27/18 05:29; Admin Dose 40 MG; Start 02/18/18 at 06:00 Midazolam HCl 50 ml @ 1 mls/hr TITRATE IV Last administered on 02/25/18at 03:58; Admin Dose 5.5 MLS/HR; Start 02/17/18 at 18:30 Propofol 100 ml @ 2.43 mls/hr Q12H IV Last administered on 02/22/18at 20:15; Admin Dose 19.44 MLS/HR; Start 02/18/18 at 09:30 Fentanyl 100 ml @ 2.5 mls/hr TITRATE IV Last administered on 02/26/18 16:29; Admin Dose 2.5 MLS/HR; Start 02/18/18 at 09:30 IV Flush (NS 10 ml) 10 ml PRN PRN IV IV PROTOCOL; Start 02/18/18 at 13:30 Eye Lubricant (Artificial Tears Oph) 2 drop QID BOTH EYES Last administered on 02/27/18 09:28; Admin Dose 2 DROP; Start 02/20/18 at 13:00 Eye Lubricant (Akwa Oint) 1 applic TID BOTH EYES Last administered on 02/27/18at 09:28; Admin Dose 1 APPLIC; Start 02/20/18 at 13:00 Norepinephrine 250 ml @ 1.875 mls/ hr TITRATE IV ; Start 02/20/18 at 23:45 Furosemide (Lasix) 20 mg DAILY IV Last administered on 02/27/18at 09:27; Admin D ose 20 MG; Start 02/22/18 at 10:30 Methylprednisolone Sodium Succinate (Solu-Medrol) 60 mg Q6H IV Last administered on 02/27/18at 09:27; Admin Dose 60 MG; Start 02/22/18 at 15:30 Enoxaparin Sodium (Lovenox) 40 mg DAILY SC Last administered on 02/27/18at 10:19; Admin Dose 40 MG; Start 02/23/18 at 09:00 Morphine Sulfate (morphine) 6 mg Q4H PRN GTB SEVERE PAIN LEVEL 7-10 Last administered on 02/24/18at 21:33; Admin Dose 6 MG; Start 02/23/18 at 12:00 Insulin Glargine (Lantus) 22 units DAILY@0800 SC Last administered on 02/26/18at 09:47; Admin Dose 22 UNITS; Start 02/24/18 at 12:00 Diagnostic Test (Pha) (Accu-Chek) 1 ea 02 XX Last administered on 02/27/18at 01:45; Admin Dose 1 EA; Start 02/25/18 at 02:00 Insulin Aspart (Novolog Insulin Pen) NOVOLOG *MODERATE* ALGORI... Q4 SC Last administered on 02/26/18at 08:45; Admin Dose 2 UNIT; Start 02/24/18 at 17:00 Miscellaneous Information 1 ea NOTE XX ; Start 02/24/18 at 11:30 Glucose (Glutose) 15 gm Q15M PRN PO DECREASED GLUCOSE; Start 02/24/18 at 11:30 Glucose (Glutose) 22.5 gm Q15M PRN PO DECREASED GLUCOSE; Start 02/24/18 at 11:30 Dextrose (D50w Syringe) 25 ml Q15M PRN IV DECREASED GLUCOSE; Start 02/24/18 at 11:30 Dextrose (D50w Syringe) 50 ml Q15M PRN IV DECREASED GLUCOSE; Start 02/24/18 at 11:30 Glucagon (Glucagen) 1 mg Q15M PRN IM DECREASED GLUCOSE; Start 02/24/18 at 11:30 Glucose (Glutose) 15 gm Q15M PRN BUCCAL DECREASED GLUCOSE; Start 02/24/18 at 11:30 Docusate Sodium (Colace Liquid Cup) 100 mg BID GTB Last administered on 02/27/18at 09:27; Admin Dose 100 MG; Start 02/25/18 at 03:50 Polyethylene Glycol (Miralax) 17 gm DAILY NGT Last administered on 02/27/18at 09:27; Admin Dose 17 GM; Start 02/25/18 at 03:52 Dexmedetomidine HCl 200 mcg/ Sodium Chloride 50 ml @ 4.05 mls/hr TITRATE IV Last administered on 02/27/18at 07:30; Admin Dose 4.05 MLS/HR; Start 02/25/18 at 09:00 Meropenem/Sodium Chloride 50 ml @ 100 mls/hr Q8 IVPB Last administered on 02/27/18at 05:29; Admin Dose 100 MLS/HR; Start 02/25/18 at 17:00 Voriconazole 100 ml @ 50 mls/hr Q12 IVPB Last administered on 02/26/18at 21:32; Admin Dose 50 MLS/HR; Start 02/25/18 at 21:00 Trimethoprim/ Sulfamethoxazole (Bactrim (Ds)) 1 tab MoWeFr NGT Last administered on 02/25/18at 23:41; Admin Dose 1 TAB; Start 02/25/18 at 17:00 Vancomycin HCl (Vanco Iv Per Pharmacy) VANCOMYCIN PER PHARMACY PER PROTOCOL XX ; Start 02/25/18 at 17:30 Vancomycin HCl 1.25 gm/Sodium Chloride 250 ml @ 83.333 mls/ hr Q12H IVPB Last administered on 02/27/18at 07:55; Admin Dose 83.333 MLS/HR; Start 02/26/18 at 08:00 Imaging Imaging CXR 02/26/18 IMPRESSION: Worsening bilateral lower lobe infiltrates. Possible small left pleural effusion. No other significant change. CT Chest 02/24/18 IMPRESSION: 1. Bilateral lower lobe consolidation and ground-glass opacity, concerning for pneumonia. Mild left pleural effusion. 2. Sclerotic lesions are seen involving multiple vertebral bodies, concerning for osseous metastases. 3. Lines and tubes in place, as above. 4. Status post cholecystectomy. LENKA FREGOSO NP Feb 27, 2018 11:02
--- NOTE | 2018-02-27 14:22 | PN ---
Date/Time of Note Date/Time of Note DATE: 02/27/18 TIME: 14:21 Assessment/Plan VTE Prophylaxis Risk score (from Ns)>0 risk: 13 SCD applied (from [facility]): Yes Pharmacological prophylaxis: heparin Lines/Catheters IV Catheter Type (from [facility]): PICC Line Central line still needed: Yes Urinary Cath still in place: Yes Reason Cath still needed: urinary retention Assessment/Plan Hospital Course 62 yo female with stage IV melanoma with ARDS leading to acute respiratory failure Acute respiratory failure/ARDS: - MV per pulmonary - Steroids per pulmonary Abx per ID for pneumonia Metastatic melanoma - Further care if able to be extubated Anemia Thrombocytopenia Result Diagram: 02/27/18 0721 02/27/18 0721 Results 24hrs Laboratory Tests Test 02/26/18 16:33 02/26/18 19:43 02/27/18 01:43 02/27/18 04:48 Bedside Glucose 110 106 100 99 Test 02/27/18 07:21 02/27/18 07:28 02/27/18 09:45 02/27/18 09:46 White Blood Count 7.7 Red Blood Count 2.89 L Hemoglobin 9.1 L Hematocrit 28.0 L Mean Corpuscular 96.9 Volume Mean Corpuscular 31.5 Hemoglobin Mean Corpuscular 32.5 Hemoglobin Concen t Red Cell 15.1 H Distribution Width Platelet Count 88 L Mean Platelet 12.7 H Volume Immature 1.000 H Granulocytes % Neutrophils % 84.4 H Lymphocytes % 8.1 L Monocytes % 6.5 Eosinophils % 0.0 Basophils % 0.0 Nucleated Red 0.3 H Blood Cells % Immature 0.080 H Granulocytes # Neutrophils # 6.5 Lymphocytes # 0.6 L Monocytes # 0.5 Eosinophils # 0.0 Basophils # 0.0 Nucleated Red 0.0 Blood Cells # Sodium Level 137 Potassium Level 4.2 Chloride Level 104 Carbon Dioxide 28 Level Anion Gap 5 Blood Urea 44 H Nitrogen Creatinine 0.71 Est Glomerular > 60 Filtrat Rate mL/min Glucose Level 98 Calcium Level 7.8 L Vancomycin Level 16.8 Trough Blood Gas Blood arterial Specimen Source Arterial Blood 02/27/2018 10:14: Date Drawn 58 AM Arterial Blood pH 7.522 H (Temp corrected) Arterial Blood 34.5 L pCO2 (Temp correct) Arterial Blood 73.6 L pO2 (Temp corrected) Arterial Blood 27.7 H HCO3 Arterial Blood 4.9 H Base Excess Arterial Blood 93.9 L Oxygen Saturation Ruperto Test ACCEPTAB Arterial Blood Left Radial Gas Puncture Site Arterial 0 Blood Carboxyhemo globin Arterial Blood 0.1 Methemoglobin Blood Gas A-a O2 171.9 H Differential Oxyhemoglobin 93.8 Percent Blood Gas 37.0 Temperature Blood Gas Actual 13 Respiration Rate Blood Gas VENT - CPAP Modality FiO2 40.0 Blood Gas Low 8.0 PEEP Setting Blood Gas 10 Pressure Support Blood Gas TM Notified Whom Blood Gas 02/27/2018 10:23: Notified Time 43 AM Bedside Glucose 90 Test 02/27/18 12:52 Bedside Glucose 102 Subjective 24 Hr Interval Summary Free Text/Dictation Tolerating CPAP trial when seen this AM. Appeared comfortable Exam/Review of Systems Vital Signs Vitals Vital Signs Date Temp Pulse Resp B/P (MAP) Pulse Ox O2 O2 Flow FiO2 Time Delivery Rate 02/27/18 55 17 132/52 90 Nasal 13:00 (78) Cannula 02/27/18 40 08:00 02/27/18 98.1 07:00 Intake and Output 02/26/18 02/26/18 02/27/18 1515:00 23:00 07:00 IntakeIntake Total 1271.6 ml 1100.85 ml 437.36 ml OutputOutput Total 1100 ml 365 ml 270 ml BalanceBalance 171.6 ml 735.85 ml 167.36 ml Medications Medications Current Medications IV Flush (NS 3 ml) 3 ml PER PROTOCOL IV ; Start 02/17/18 at 13:30 Ondansetron HCl (Zofran Inj) 4 mg Q6H PRN IV NAUSEA AND/OR VOMITING; Start 02/17/18 at 13:30 Acetaminophen (Tylenol Tab) 650 mg Q6H PRN PO PAIN LEVEL 1-3 OR FEVER Last administered on 02/21/18at 12:50; Admin Dose 650 MG; Start 02/17/18 at 13:30 Acetaminophen/ Hydrocodone Bitart ([employer] (5/325)) 1 tab Q6H PRN PO MODERATE PAIN LEVEL 4-6; Start 02/17/18 at 13:30 Docusate Sodium (Colace) 100 mg Q12H PRN PO CONSTIPATION Last administered on 02/26/18at 21:33; Admin Dose 100 MG; Start 02/17/18 at 13:30 Pantoprazole (Protonix Iv) 40 mg DAILY@06 IV Last administered on 02/27/18 05:29; Admin Dose 40 MG; Start 02/18/18 at 06:00 Midazolam HCl 50 ml @ 1 mls/hr TITRATE IV Last administered on 02/25/18 03:58; Admin Dose 5.5 MLS/HR; Start 02/17/18 at 18:30 Propofol 100 ml @ 2.43 mls/hr Q12H IV Last administered on 02/22/18 20:15; Admin Dose 19.44 MLS/HR; Start 02/18/18 at 09:30 Fentanyl 100 ml @ 2.5 mls/hr TITRATE IV Last administered on 02/26/18 16:29; Admin Dose 2.5 MLS/HR; Start 02/18/18 at 09:30 IV Flush (NS 10 ml) 10 ml PRN PRN IV IV PROTOCOL; Start 02/18/18 at 13:30 Eye Lubricant (Artificial Tears Oph) 2 drop QID BOTH EYES Last administered on 02/27/18 12:49; Admin Dose 2 DROP; Start 02/20/18 at 13:00 Eye Lubricant (Akwa Oint) 1 applic TID BOTH EYES Last administered on 02/27/18 12:49; Admin Dose 1 APPLIC; Start 02/20/18 at 13:00 Norepinephrine 250 ml @ 1.875 mls/ hr TITRATE IV ; Start 02/20/18 at 23:45 Furosemide (Lasix) 20 mg DAILY IV Last administered on 02/27/18 09:27; Admin Dose 20 MG; Start 02/22/18 at 10:30 Methylprednisolone Sodium Succinate (Solu-Medrol) 60 mg Q6H IV Last administered on 02/27/18 09:27; Admin Dose 60 MG; Start 02/22/18 at 15:30 Enoxaparin Sodium (Lovenox) 40 mg DAILY SC Last administered on 02/27/18 10:19; Admin Dose 40 MG; Start 02/23/18 at 09:00 Morphine Sulfate (morphine) 6 mg Q4H PRN GTB SEVERE PAIN LEVEL 7-10 Last administered on 02/24/18 21:33; Admin Dose 6 MG; Start 02/23/18 at 12:00 Insulin Glargine (Lantus) 22 units DAILY@0800 SC Last administered on 02/26/18at 09:47; Admin Dose 22 UNITS; Start 02/24/18 at 12:00 Diagnostic Test (Pha) (Accu-Chek) 1 ea 02 XX Last administered on 02/27/18at 01:45; Admin Dose 1 EA; Start 02/25/18 at 02:00 Insulin Aspart (Novolog Insulin Pen) NOVOLOG *MODERATE* ALGORI... Q4 SC Last administered on 02/26/18at 08:45; Admin Dose 2 UNIT; Start 02/24/18 at 17:00 Miscellaneous Information 1 ea NOTE XX ; Start 02/24/18 at 11:30 Glucose (Glutose) 15 gm Q15M PRN PO DECREASED GLUCOSE; Start 02/24/18 at 11:30 Glucose (Glutose) 22.5 gm Q15M PRN PO DECREASED GLUCOSE; Start 02/24/18 at 11:30 Dextrose (D50w Syringe) 25 ml Q15M PRN IV DECREASED GLUCOSE; Start 02/24/18 at 11:30 Dextrose (D50w Syringe) 50 ml Q15M PRN IV DECREASED GLUCOSE; Start 02/24/18 at 11:30 Glucagon (Glucagen) 1 mg Q15M PRN IM DECREASED GLUCOSE; Start 02/24/18 at 11:30 Glucose (Glutose) 15 gm Q15M PRN BUCCAL DECREASED GLUCOSE; Start 02/24/18 at 11:30 Docusate Sodium (Colace Liquid Cup) 100 mg BID GTB Last administered on 02/27/18at 09:27; Admin Dose 100 MG; Start 02/25/18 at 03:50 Polyethylene Glycol (Miralax) 17 gm DAILY NGT Last administered on 02/27/18at 09:27; Admin Dose 17 GM; Start 02/25/18 at 03:52 Dexmedetomidine HCl 200 mcg/ Sodium Chloride 50 ml @ 4.05 mls/hr TITRATE IV Last administered on 02/27/18at 07:30; Admin Dose 4.05 MLS/HR; Start 02/25/18 at 09:00 Meropenem/Sodium Chloride 50 ml @ 100 mls/hr Q8 IVPB Last administered on 02/27/18at 05:29; Admin Dose 100 MLS/HR; Start 02/25/18 at 17:00 Voriconazole 100 ml @ 50 mls/hr Q12 IVPB Last administered on 02/26/18at 21:32; Admin Dose 50 MLS/HR; Start 02/25/18 at 21:00 Trimethoprim/ Sulfamethoxazole (Bactrim (Ds)) 1 tab MoWeFr NGT Last administered on 02/25/18at 23:41; Admin Dose 1 TAB; Start 02/25/18 at 17:00 Vancomycin HCl (Vanco Iv Per Pharmacy) VANCOMYCIN PER PHARMACY PER PROTOCOL XX ; Start 02/25/18 at 17:30 Vancomycin HCl 1.25 gm/Sodium Chloride 250 ml @ 83.333 mls/ hr Q12H IVPB Last administered on 02/27/18at 07:55; Admin Dose 83.333 MLS/HR; Start 02/26/18 at 08:00 SJ BOWMAN MD Feb 27, 2018 14:22
[2018-02-27] MEDS: HYDROCODONE/APAP (5/325) TAB PO PRN (15:18)
[2018-02-27] MEDS: DOCUSATE SODIUM 100 MG CAP PO PRN (15:44)
[2018-02-27] MEDS: VORICONAZOLE 200 MG/100 ML 100 ML IVPB SCH ×2 (15:44→20:31)
[2018-02-27 19:25] LABS: PNEUMOCYSTIS JIROVECCI DFA NOT DETECTED
[2018-02-27] MEDS: TRIMETHOPRIM/SULFAMETHOX (DS) TAB NGT SCH (19:48)
[2018-02-27] MEDS: VANCOMYCIN 1 GM 250 ML IVPB SCH (20:36)
[2018-02-28] VITALS (34 sets, daily range): BP systolic 115–158; BP diastolic 53–75; PULSE 42–82; RESP 11–27
[2018-02-28] MEDS: INSULIN ASPART [NOVOLOG] 3 ML PEN SC SCH ×6 (01:00→20:35)
[2018-02-28] MEDS: ACCU-CHEK XX SCH (01:27)
--- NOTE | 2018-02-28 01:54 | RADRPT ---
Vent Rate: 49 bpm RR Interval: 0 msec SD Interval: 116 msec QRS Duration: 86 msec QT Interval: 428 msec QTC Interval: 386 msec P-R-T [place]: 35 - 22 - 27 degrees Marked sinus bradycardia with sinus arrhythmia Abnormal ECG Electronically Signed By: Paul Santana [id number]
[2018-02-28] MEDS: METHYLPREDNISOLONE 125 MG INJ IV SCH ×4 (04:29→20:30)
[2018-02-28] MEDS: MEROPENEM 1 GM/50ML(PMX) 50 ML IVPB SCH ×3 (05:59→21:31)
[2018-02-28] MEDS: PANTOPRAZOLE 40 MG INJ IV SCH (06:01)
[2018-02-28] MEDS: ALBUTEROL/IPRATROPIUM (NEB) 3 ML AMP HHN SCH ×3 (07:52→20:19)
[2018-02-28] MEDS: VANCOMYCIN 1 GM 250 ML IVPB SCH ×2 (08:08→20:28)
--- NOTE | 2018-02-28 08:44 | CONS ---
Date/Time of Note Date/Time of Note DATE: 02/28/18 TIME: 08:41 Assessment/Plan Assessment/Plan Assessment/Plan Assessment and recommendations; 1. Patient with history of stage IV melanoma admitted for respiratory failure due to possibly acute renal injury from immunotherapy. However there is a high possibility patient also has had bacterial pneumonia most involving lower lobes. 2. Status post extubation yesterday. 3. Hypoxemia requiring high flow nasal cannula. Patient however clinically appears very comfortable. 4. Anemia and thrombocytopenia. 5. Mild hyperglycemia from steroids. Obtain follow-up chest x-ray. Continue current supportive care. Result Diagram: 02/28/18 0425 02/28/18 0400 Results 24hrs Laboratory Tests Test 02/27/18 09:45 02/27/18 09:46 02/27/18 12:52 02/27/18 18:46 Blood Gas Blood arterial Specimen Source Arterial Blood 02/27/2018 10:14 Date Drawn :58 AM Arterial Blood 7.522 H pH (Temp corrected ) Arterial Blood 34.5 L pCO2 (Temp correct) Arterial Blood 73.6 L pO2 (Temp corrected ) Arterial Blood 27.7 H HCO3 Arterial Blood 4.9 H Base Excess Arterial Blood 93.9 L Oxygen Saturati on Ruperto Test ACCEPTAB Arterial Blood Left Radial Gas Puncture Site Arterial 0 Blood Carboxyhe moglobin Arterial Blood 0.1 Methemoglobin Blood Gas A-a 171.9 H O2 Differential Oxyhemoglobin 93.8 Percent Blood Gas 37.0 Temperature Blood Gas 13 Actual Respiration Rat e Blood Gas VENT - CPAP Modality FiO2 40.0 Blood Gas Low 8.0 PEEP Setting Blood Gas 10 Pressure Support Blood Gas Notified Whom Blood Gas 02/27/2018 10:23 Notified Time :43 AM Bedside Glucose 90 102 98 Test 02/27/18 20:23 02/27/18 23:00 02/28/18 01:21 02/28/18 04:00 Bedside Glucose 99 103 Blood Gas Blood arterial Specimen Source Arterial Blood 02/27/2018 11:00 Date Drawn :47 PM Arterial Blood 7.516 H pH (Temp corrected ) Arterial Blood 33.0 L pCO2 (Temp correct) Arterial Blood 55.2 L pO2 (Temp corrected ) Arterial Blood 26.1 H HCO3 Arterial Blood 3.4 H Base Excess Arterial Blood 88.1 L Oxygen Saturati on Ruperto Test ACCEPTAB Arterial Blood Right Radial Gas Puncture Site Arterial 0.3 Blood Carboxyhe moglobin Arterial Blood 0.3 Methemoglobin Blood Gas A-a 228.1 H O2 Differential Oxyhemoglobin 87.6 L Percent Blood Gas 37.0 Temperature Blood Gas NASAL CANNULA Modality FiO2 45.0 Blood Gas UP Notified Whom Blood Gas 02/27/2018 11:17 Notified Time :38 PM Sodium Level 138 Potassium Level 4.2 Chloride Level 106 Carbon Dioxide 27 Level Anion Gap 5 Blood Urea 44 H Nitrogen Creatinine 0.71 Est Glomerular > 60 Filtrat Rate mL/min Glucose Level 108 Calcium Level 7.6 L Test 02/28/18 04:25 02/28/18 04:30 02/28/18 05:28 White Blood 11.0 #H Count Red Blood Count 3.07 L Hemoglobin 9.7 L Hematocrit 29.7 L Mean 96.7 Corpuscular Volume Mean 31.6 Corpuscular Hemoglobin Mean 32.7 Corpuscular Hemoglobin Conc ent Red Cell 14.7 H Distribution Width Platelet Count 98 L Mean Platelet 11.8 H Volume Immature 1.200 H Granulocytes % Neutrophils % 84.6 H Lymphocytes % 8.7 L Monocytes % 5.4 Eosinophils % 0.0 Basophils % 0.1 Nucleated Red 0.2 H Blood Cells % Immature 0.130 H Granulocytes # Neutrophils # 9.3 H Lymphocytes # 1.0 Monocytes # 0.6 Eosinophils # 0.0 Basophils # 0.0 Nucleated Red 0.0 Blood Cells # Bedside Glucose 109 Blood Gas Blood Specimen arterial Source Arterial Blood 02/28/2018 5:20 Date Drawn :36 AM Arterial Blood 7.513 H pH (Temp corrected ) Arterial Blood 34.0 L pCO2 (Temp correct) Arterial Blood 64.3 L pO2 (Temp corrected ) Arterial Blood 26.7 H HCO3 Arterial Blood 3.8 H Base Excess Arterial Blood 91.4 L Oxygen Saturati on Ruperto Test ACCEPTAB Arterial Blood Right Radial Gas Puncture Site Arterial 0.3 Blood Carboxyhe moglobin Arterial Blood 0.1 Methemoglobin Blood Gas A-a 614.7 H O2 Differential Oxyhemoglobin 91.0 L Percent Blood Gas 37.0 Temperature Blood Gas MASK - NRB Modality FiO2 100.0 Blood Gas UP Notified Whom Blood Gas 02/28/2018 5:34 Notified Time :23 AM Consultation Date/Type/Reason Admit Date/Time Feb 17, 2018 at 12:57 Initial Consult Date 02/18/18 Type of Consult Pulmonary/critical care Requesting Provider: SJ BOWMAN MD 24 HR Interval Summary Free Text/Dictation Patient's condition is critical but stable. Patient was successfully extubated yesterday. However requiring 100% FiO2 for O2 saturation maintenance. Patient herself denies any shortness of breath, chest pain, coughing or wheezing. General exam; elderly female, awake and alert. Currently in no distress. Having conversation. Exam/Review of Systems Vital Signs Vitals Vital Signs Date Temp Pulse Resp B/P (MAP) Pulse Ox O2 O2 Flow FiO2 Time Delivery Rate 02/28/18 97 100 08:25 02/28/18 59 08:00 02/28/18 20 Nasal 25.0 07:52 Cannula 02/28/18 142/65 07:30 (90) 02/28/18 97.4 04:00 Intake and Output 02/27/18 02/27/18 02/28/18 1515:00 23:00 07:00 IntakeIntake Total 4.06 ml 740 ml 100 ml OutputOutput Total 550 ml 265 ml 715 ml BalanceBalance -545.94 ml 475 ml -615 ml Exam HEENT exam; supple neck, no JVD. No lymphadenopathy. Midline trachea. No thyromegaly. Patient has good dentition. No neck masses. Chest exam; diminished but clear breath sounds. S1-S2 audible, no murmurs. Regular rhythm. Abdomen exam; soft, no organomegaly. Nontender. Bowel sounds audible. Extremity exam; no edema. Pulses 1+. [employer] exam; focal deficit. Medications Medications Current Medications IV Flush (NS 3 ml) 3 ml PER PROTOCOL IV ; Start 02/17/18 at 13:30 Ondansetron HCl (Zofran Inj) 4 mg Q6H PRN IV NAUSEA AND/OR VOMITING; Start 02/17/18 at 13:30 Acetaminophen (Tylenol Tab) 650 mg Q6H PRN PO PAIN LEVEL 1-3 OR FEVER Last administered on 02/21/18at 12:50; Admin Dose 650 MG; Start 02/17/18 at 13:30 Acetaminophen/ Hydrocodone Bitart ([place] (5/325)) 1 tab Q6H PRN PO MODERATE PAIN LEVEL 4-6 Last administered on 02/27/18at 15:18; Admin Dose 1 TAB; Start 02/17/18 at 13:30 Docusate Sodium (Colace) 100 mg Q12H PRN PO CONSTIPATION Last administered on 02/27/18 15:44; Admin Dose 100 MG; Start 02/17/18 at 13:30 Pantoprazole (Protonix Iv) 40 mg DAILY@06 IV Last administered on 02/28/18 06:01; Admin Dose 40 MG; Start 02/18/18 at 06:00 IV Flush (NS 10 ml) 10 ml PRN PRN IV IV PROTOCOL; Start 02/18/18 at 13:30 Eye Lubricant (Artificial Tears Oph) 2 drop QID BOTH EYES Last administered on 02/27/18 20:32; Admin Dose 2 DROP; Start 02/20/18 at 13:00 Norepinephrine 250 ml @ 1.875 mls/ hr TITRATE IV ; Start 02/20/18 at 23:45 Furosemide (Lasix) 20 mg DAILY IV Last administered on 02/27/18 09:27; Admin Dose 20 MG; Start 02/22/18 at 10:30 Methylprednisolone Sodium Succinate (Solu-Medrol) 60 mg Q6H IV Last administered on 02/28/18 04:29; Admin Dose 60 MG; Start 02/22/18 at 15:30 Enoxaparin Sodium (Lovenox) 40 mg DAILY SC Last administered on 02/27/18 10:19; Admin Dose 40 MG; Start 02/23/18 at 09:00 Morphine Sulfate (morphine) 6 mg Q4H PRN GTB SEVERE PAIN LEVEL 7-10 Last administered on 02/24/18 21:33; Admin Dose 6 MG; Start 02/23/18 at 12:00 Insulin Glargine (Lantus) 22 units DAILY@0800 SC Last administered on 02/26/18 09:47; Admin Dose 22 UNITS; Start 02/24/18 at 12:00 Diagnostic Test (Pha) (Accu-Chek) 1 ea 02 XX Last administered on 02/28/18 01:27; Admin Dose 1 EA; Start 02/25/18 at 02:00 Insulin Aspart (Novolog Insulin Pen) NOVOLOG *MODERATE* ALGORI... Q4 SC Last administered on 02/26/18 08:45; Admin Dose 2 UNIT; Start 02/24/18 at 17:00 Miscellaneous Information 1 ea NOTE XX ; Start 02/24/18 at 11:30 Glucose (Glutose) 15 gm Q15M PRN PO DECREASED GLUCOSE; Start 02/24/18 at 11:30 Glucose (Glutose) 22.5 gm Q15M PRN PO DECREASED GLUCOSE; Start 02/24/18 at 11:30 Dextrose (D50w Syringe) 25 ml Q15M PRN IV DECREASED GLUCOSE; Start 02/24/18 at 11:30 Dextrose (D50w Syringe) 50 ml Q15M PRN IV DECREASED GLUCOSE; Start 02/24/18 at 11:30 Glucagon (Glucagen) 1 mg Q15M PRN IM DECREASED GLUCOSE; Start 02/24/18 at 11:30 Glucose (Glutose) 15 gm Q15M PRN BUCCAL DECREASED GLUCOSE; Start 02/24/18 at 11:30 Docusate Sodium (Colace Liquid Cup) 100 mg BID GTB Last administered on 02/27/18at 20:32; Admin Dose 100 MG; Start 02/25/18 at 03:50 Polyethylene Glycol (Miralax) 17 gm DAILY NGT Last administered on 02/27/18at 09:27; Admin Dose 17 GM; Start 02/25/18 at 03:52 Dexmedetomidine HCl 200 mcg/ Sodium Chloride 50 ml @ 4.05 mls/hr TITRATE IV Last administered on 02/27/18at 07:30; Admin Dose 4.05 MLS/HR; Start 02/25/18 at 09:00 Meropenem/Sodium Chloride 50 ml @ 100 mls/hr Q8 IVPB Last administered on 02/28/18at 05:59; Admin Dose 100 MLS/HR; Start 02/25/18 at 17:00 Voriconazole 100 ml @ 50 mls/hr Q12 IVPB Last administered on 02/27/18at 20:31; Admin Dose 50 MLS/HR; Start 02/25/18 at 21:00 Trimethoprim/ Sulfamethoxazole (Bactrim (Ds)) 1 tab MoWeFr NGT Last administered on 02/27/18at 19:48; Admin Dose 1 TAB; Start 02/25/18 at 17:00 Vancomycin HCl (Vanco Iv Per Pharmacy) VANCOMYCIN PER PHARMACY PER PROTOCOL XX ; Start 02/25/18 at 17:30 Vancomycin HCl 250 ml @ 125 mls/hr Q12H IVPB Last administered on 02/28/18 08:08; Admin Dose 125 MLS/HR; Start 02/27/18 at 20:00 Albuterol/ Ipratropium (Duoneb) 3 ml Q6H RESP THERAPY HHN Last administered on 02/28/18at 07:52; Admin Dose 3 ML; Start 02/28/18 at 08:00 JUDY LYON Feb 28, 2018 08:44
[2018-02-28] MEDS: FUROSEMIDE 20 MG INJ IV SCH (08:49)
[2018-02-28] MEDS: POLYETHYLENE GLYCOL 17 GM PACKET NGT SCH (08:49)
[2018-02-28] MEDS: ENOXAPARIN 40 MG/0.4 ML SYG SC SCH (08:50)
[2018-02-28] MEDS: ARTIFICIAL TEARS 15 ML OPH BOTH EYES SCH ×3 (08:51→17:00)
[2018-02-28] MEDS: INSULIN GLARGINE [LANTus] (100 UNITS/ML) SYG SC SCH (08:51)
[2018-02-28] MEDS: DOCUSATE SODIUM 100 MG CAP PO SCH ×2 (09:00→20:28)
[2018-02-28] MEDS: VORICONAZOLE 200 MG/100 ML 100 ML IVPB SCH ×2 (10:18→20:28)
--- NOTE | 2018-02-28 10:47 | CONS ---
Date/Time of Note Date/Time of Note DATE: 02/28/18 TIME: 10:31 Assessment/Plan Assessment/Plan Assessment/Plan A 62 yo female with #Metastatic Melanoma - last Nivolumab was 2 weeks ago - 02/21/2018-sp Remicade 300 mg - will re-dose Remicade on 03/06 if needed. -given patient is extubated; will hold Remicade for now #ARDS - likely 2/2 Nivolumab and questionable underlying pneumonia - 02/27/2018- extubated ; stable - on o2 15 L, FIO2 100 %- O2 SAT 96%; plan to lower FIO2 today - cont to monitor in ICU -patient appears to be slowly recovering- alert/responsive today -CT Chest reveals evidence of bibasilar infiltrates but no evidence of PE -if her condition does not improve significantly by Friday, will plan to given another dose of remicade. this has already been ordered with the pharmacy -cont high dose steroids the patient is currently getting - Solumedrol 60mg q 6 hours -continue IV antibiotics in case of any underlying infection contributing to ARDS -BAL hopefully scheduled for today. -appreciate ID recs and workup for underlying opportunistic infection -If patient is able to recover, oncology would not recommend for her to c ontinue Nivolumab given this grade 4 toxicity - will re-dose Remicade on 03/06 if needed. Approximately 50 min was spend in face to face time with patent's son at the bed side, and in coordination of her care. Patient seen in collaboration with Dr Streeter. staff. Result Diagram: 02/28/18 0425 02/28/18 0400 Results 24hrs Laboratory Tests Test 02/27/18 12:52 02/27/18 18:46 02/27/18 20:23 02/27/18 23:00 Bedside Glucose 102 98 99 Blood Gas Blood Specimen arterial Source Arterial Blood 02/27/2018 11:0 Date Drawn 0:47 PM Arterial Blood 7.516 H pH (Temp corrected ) Arterial Blood 33.0 L pCO2 (Temp correct) Arterial Blood 55.2 L pO2 (Temp corrected ) Arterial Blood 26.1 H HCO3 Arterial Blood 3.4 H Base Excess Arterial Blood 88.1 L Oxygen Saturati on Ruperto Test ACCEPTAB Arterial Blood Right Radial Gas Puncture Site Arterial 0.3 Blood Carboxyhe moglobin Arterial Blood 0.3 Methemoglobin Blood Gas A-a 228.1 H O2 Differential Oxyhemoglobin 87.6 L Percent Blood Gas 37.0 Temperature Blood Gas NASAL CANNULA Modality FiO2 45.0 Blood Gas UP Notified Whom Blood Gas 02/27/2018 11:1 Notified Time 7:38 PM Test 02/28/18 01:21 02/28/18 04:00 02/28/18 04:25 02/28/18 04:30 Bedside Glucose 103 109 Sodium Level 138 Potassium Level 4.2 Chloride Level 106 Carbon Dioxide 27 Level Anion Gap 5 Blood Urea 44 H Nitrogen Creatinine 0.71 Est Glomerular > 60 Filtrat Rate mL/min Glucose Level 108 Calcium Level 7.6 L White Blood 11.0 #H Count Red Blood Count 3.07 L Hemoglobin 9.7 L Hematocrit 29.7 L Mean 96.7 Corpuscular Volume Mean 31.6 Corpuscular Hemoglobin Mean 32.7 Corpuscular Hemoglobin Conc ent Red Cell 14.7 H Distribution Width Platelet Count 98 L Mean Platelet 11.8 H Volume Immature 1.200 H Granulocytes % Neutrophils % 84.6 H Lymphocytes % 8.7 L Monocytes % 5.4 Eosinophils % 0.0 Basophils % 0.1 Nucleated Red 0.2 H Blood Cells % Immature 0.130 H Granulocytes # Neutrophils # 9.3 H Lymphocytes # 1.0 Monocytes # 0.6 Eosinophils # 0.0 Basophils # 0.0 Nucleated Red 0.0 Blood Cells # Test 02/28/18 05:28 02/28/18 08:46 02/28/18 10:23 Blood Gas Blood arterial Specimen Source Arterial Blood 02/28/2018 5:20: Date Drawn 36 AM Arterial Blood 7.513 H pH (Temp corrected ) Arterial Blood 34.0 L pCO2 (Temp correct) Arterial Blood 64.3 L pO2 (Temp corrected ) Arterial Blood 26.7 H HCO3 Arterial Blood 3.8 H Base Excess Arterial Blood 91.4 L Oxygen Saturati on Ruperto Test ACCEPTAB Arterial Blood Right Radial Gas Puncture Site Arterial 0.3 Blood Carboxyhe moglobin Arterial Blood 0.1 Methemoglobin Blood Gas A-a 614.7 H O2 Differential Oxyhemoglobin 91.0 L Percent Blood Gas 37.0 Temperature Blood Gas MASK - NRB Modality FiO2 100.0 Blood Gas UP Notified Whom Blood Gas 02/28/2018 5:34: Notified Time 23 AM Bedside Glucose 95 Lab Scanned REFERENCE LAB Report Consultation Date/Type/Reason Admit Date/Time Feb 17, 2018 at 12:57 Initial Consult Date 02/18/18 Type of Consult ONCOLOGY Reason for Consultation METASTATIC MELANOMA Requesting Provider: SJ BOWMAN MD 24 HR Interval Summary Free Text/Dictation - Extubated 02/27/18 - Feeling better;alert; responsive - 100 % O2- O2 sat 98% --given patient is extubated; will hold Remicade for now - No new events reported last night per staff Constitutional: improved, requiring IVF, requiring O2 Detailed Summary Eyes: no complaints ENT: no complaints Respiratory: no complaints Cardiovascular: no complaints Gastrointestinal: no complaints Genitourinary: no complaints Musculoskeletal: restricted range of motion Skin: no complaints Neurologic: no complaints Endocrine: no complaints Psychological: nl mood/affect Immunologic: no complaints Exam/Review of Systems Vital Signs Vitals Vital Signs Date Temp Pulse Resp B/P (MAP) Pulse Ox O2 O2 Flow FiO2 Time Delivery Rate 02/28/18 79 20 94 Nasal 15.0 100 10:06 Cannula 02/28/18 128/58 09:00 (81) 02/28/18 97.9 08:00 Intake and Output 02/27/18 02/27/18 02/28/18 1515:00 23:00 07:00 IntakeIntake Total 4.06 ml 740 ml 100 ml OutputOutput Total 550 ml 265 ml 715 ml BalanceBalance -545.94 ml 475 ml -615 ml Exam Constitutional: alert, well developed Psych: nl mood/affect Head: atraumatic Eyes: nl conjunctiva, EOMI, nl lids, nl sclera ENMT: nl external ears & nose Neck: non-tender Respiratory: diminished breath sounds (at bases) Cardiovascular: nl pulses, other (s1s2) Gastrointestinal: soft, non-tender Musculoskeletal: muscle weakness Extremities: normal pulses Neurological: nl speech, other (alert/responsive) Skin: nl turgor Lymph: nontender Medications Medications Current Medications IV Flush (NS 3 ml) 3 ml PER PROTOCOL IV ; Start 02/17/18 at 13:30 Ondansetron HCl (Zofran Inj) 4 mg Q6H PRN IV NAUSEA AND/OR VOMITING; Start 02/17/18 at 13:30 Acetaminophen (Tylenol Tab) 650 mg Q6H PRN PO PAIN LEVEL 1-3 OR FEVER Last administered on 02/21/18 12:50; Admin Dose 650 MG; Start 02/17/18 at 13:30 Acetaminophen/ Hydrocodone Bitart ([place] (5/325)) 1 tab Q6H PRN PO MODERATE PAIN LEVEL 4-6 Last administered on 02/27/18 15:18; Admin Dose 1 TAB; Start 02/17/18 at 13:30 Docusate Sodium (Colace) 100 mg Q12H PRN PO CONSTIPATION Last administered on 02/27/18 15:44; Admin Dose 100 MG; Start 02/17/18 at 13:30 Pantoprazole (Protonix Iv) 40 mg DAILY@06 IV Last administered on 02/28/18 06:01; Admin Dose 40 MG; Start 02/18/18 at 06:00 IV Flush (NS 10 ml) 10 ml PRN PRN IV IV PROTOCOL; Start 02/18/18 at 13:30 Eye Lubricant (Artificial Tears Oph) 2 drop QID BOTH EYES Last administered on 02/28/18 08:51; Admin Dose 2 DROP; Start 02/20/18 at 13:00 Norepinephrine 250 ml @ 1.875 mls/ hr TITRATE IV ; Start 02/20/18 at 23:45 Furosemide (Lasix) 20 mg DAILY IV Last administered on 02/28/18 08:49; Admin Dose 20 MG; Start 02/22/18 at 10:30 Methylprednisolone Sodium Succinate (Solu-Medrol) 60 mg Q6H IV Last administered on 02/28/18 08:49; Admin Dose 60 MG; Start 02/22/18 at 15:30 Enoxaparin Sodium (Lovenox) 40 mg DAILY SC Last administered on 02/28/18 08:50; Admin Dose 40 MG; Start 02/23/18 at 09:00 Morphine Sulfate (morphine) 6 mg Q4H PRN GTB SEVERE PAIN LEVEL 7-10 Last administered on 02/24/18 21:33; Admin Dose 6 MG; Start 02/23/18 at 12:00 Insulin Glargine (Lantus) 22 units DAILY@0800 SC Last administered on 02/28/18 08:51; Admin Dose 22 UNITS; Start 02/24/18 at 12:00 Diagnostic Test (Pha) (Accu-Chek) 1 ea 02 XX Last administered on 1/12/19at 01:27; Admin Dose 1 EA; Start 02/25/18 at 02:00 Insulin Aspart (Novolog Insulin Pen) NOVOLOG *MODERATE* ALGORI... Q4 SC Last administered on 02/26/18at 08:45; Admin Dose 2 UNIT; Start 02/24/18 at 17:00 Miscellaneous Information 1 ea NOTE XX ; Start 02/24/18 at 11:30 Glucose (Glutose) 15 gm Q15M PRN PO DECREASED GLUCOSE; Start 02/24/18 at 11:30 Glucose (Glutose) 22.5 gm Q15M PRN PO DECREASED GLUCOSE; Start 02/24/18 at 11:30 Dextrose (D50w Syringe) 25 ml Q15M PRN IV DECREASED GLUCOSE; Start 02/24/18 at 11:30 Dextrose (D50w Syringe) 50 ml Q15M PRN IV DECREASED GLUCOSE; Start 02/24/18 at 11:30 Glucagon (Glucagen) 1 mg Q15M PRN IM DECREASED GLUCOSE; Start 02/24/18 at 11:30 Glucose (Glutose) 15 gm Q15M PRN BUCCAL DECREASED GLUCOSE; Start 02/24/18 at 11:30 Polyethylene Glycol (Miralax) 17 gm DAILY NGT Last administered on 02/28/18at 08:49; Admin Dose 17 GM; Start 02/25/18 at 03:52 Dexmedetomidine HCl 200 mcg/ Sodium Chloride 50 ml @ 4.05 mls/hr TITRATE IV Last administered on 02/27/18at 07:30; Admin Dose 4.05 MLS/HR; Start 02/25/18 at 09:00 Meropenem/Sodium Chloride 50 ml @ 100 mls/hr Q8 IVPB Last administered on 02/28/18at 05:59; Admin Dose 100 MLS/HR; Start 02/25/18 at 17:00 Voriconazole 100 ml @ 50 mls/hr Q12 IVPB Last administered on 02/28/18at 10:18; Admin Dose 50 MLS/HR; Start 02/25/18 at 21:00 Trimethoprim/ Sulfamethoxazole (Bactrim (Ds)) 1 tab MoWeFr NGT Last administered on 02/27/18at 19:48; Admin Dose 1 TAB; Start 02/25/18 at 17:00 Vancomycin HCl (Vanco Iv Per Pharmacy) VANCOMYCIN PER PHARMACY PER PROTOCOL XX ; Start 02/25/18 at 17:30 Vancomycin HCl 250 ml @ 125 mls/hr Q12H IVPB Last administered on 02/28/18at 08:08; Admin Dose 125 MLS/HR; Start 02/27/18 at 20:00 Albuterol/ Ipratropium (Duoneb) 3 ml Q6H RESP THERAPY HHN Last administered on 02/28/18at 07:52; Admin Dose 3 ML; Start 02/28/18 at 08:00 Docusate Sodium (Colace) 100 mg BID PO Last administered on 02/28/18at 09:00; Admin Dose 100 MG; Start 02/28/18 at 09:00 Miscellaneous Information (*Rx Drug Level Order Reminder*) VANCOMYCIN TROUGH AT 0700 ONCE ONCE XX ; Start 03/01/18 at 07:00; Stop 03/01/18 at 07:01 GEMA HEREDIA Feb 28, 2018 10:42
--- NOTE | 2018-02-28 16:24 | PN ---
Date/Time of Note Date/Time of Note DATE: 02/28/18 TIME: 16:21 Assessment/Plan VTE [place] [facility] [place]: 9 [place] [facility] [place] Yes Pharmacological prophylaxis: NA/contraindicated Pharm contraindication: patient refusal Lines/Catheters IV Catheter Type (from [facility] PICC Line Central line still needed: Yes Urinary Cath still in place: Yes Reason Cath still needed: urinary retention Assessment/Plan Hospital Course 62 yo female with stage IV melanoma with ARDS leading to acute respiratory failure Acute respiratory failure/ARDS: - Now extubated and doing well on NC - Steroids per pulmonary Abx per ID for pneumonia Metastatic melanoma - Further care as outpatient. In clinical trial in [place]. Should not receive nivolumab again given this may have been ALI from it Anemia Thrombocytopenia Result Diagram: 02/28/18 0425 02/28/18 0400 Results 24hrs Laboratory Tests Test 02/27/18 18:46 02/27/18 20:23 02/27/18 23:00 02/28/18 01:21 Bedside Glucose 98 99 103 Blood Gas Blood arterial Specimen Source Arterial Blood 02/27/2018 11:00 Date Drawn :47 PM Arterial Blood 7.516 H pH (Temp corrected ) Arterial Blood 33.0 L pCO2 (Temp correct) Arterial Blood 55.2 L pO2 (Temp corrected ) Arterial Blood 26.1 H HCO3 Arterial Blood 3.4 H Base Excess Arterial Blood 88.1 L Oxygen Saturati on Ruperto Test ACCEPTAB Arterial Blood Right Radial Gas Puncture Site Arterial 0.3 Blood Carboxyhe moglobin Arterial Blood 0.3 Methemoglobin Blood Gas A-a 228.1 H O2 Differential Oxyhemoglobin 87.6 L Percent Blood Gas 37.0 Temperature Blood Gas NASAL CANNULA Modality FiO2 45.0 Blood Gas UP Notified Whom Blood Gas 02/27/2018 11:17 Notified Time :38 PM Test 02/28/18 04:00 02/28/18 04:25 02/28/18 04:30 02/28/18 05:28 Sodium Level 138 Potassium Level 4.2 Chloride Level 106 Carbon Dioxide 27 Level Anion Gap 5 Blood Urea 44 H Nitrogen Creatinine 0.71 Est Glomerular > 60 Filtrat Rate mL/min Glucose Level 108 Calcium Level 7.6 L White Blood 11.0 #H Count Red Blood Count 3.07 L Hemoglobin 9.7 L Hematocrit 29.7 L Mean 96.7 Corpuscular Volume Mean 31.6 Corpuscular Hemoglobin Mean 32.7 Corpuscular Hemoglobin Conc ent Red Cell 14.7 H Distribution Width Platelet Count 98 L Mean Platelet 11.8 H Volume Immature 1.200 H Granulocytes % Neutrophils % 84.6 H Lymphocytes % 8.7 L Monocytes % 5.4 Eosinophils % 0.0 Basophils % 0.1 Nucleated Red 0.2 H Blood Cells % Immature 0.130 H Granulocytes # Neutrophils # 9.3 H Lymphocytes # 1.0 Monocytes # 0.6 Eosinophils # 0.0 Basophils # 0.0 Nucleated Red 0.0 Blood Cells # Bedside Glucose 109 Blood Gas Blood Specimen arterial Source Arterial Blood 02/28/2018 5:20 Date Drawn :36 AM Arterial Blood 7.513 H pH (Temp corrected ) Arterial Blood 34.0 L pCO2 (Temp correct) Arterial Blood 64.3 L pO2 (Temp corrected ) Arterial Blood 26.7 H HCO3 Arterial Blood 3.8 H Base Excess Arterial Blood 91.4 L Oxygen Saturati on Ruperto Test ACCEPTAB Arterial Blood Right Radial Gas Puncture Site Arterial 0.3 Blood Carboxyhe moglobin Arterial Blood 0.1 Methemoglobin Blood Gas A-a 614.7 H O2 Differential Oxyhemoglobin 91.0 L Percent Blood Gas 37.0 Temperature Blood Gas MASK - NRB Modality FiO2 100.0 Blood Gas Notified Whom Blood Gas 02/28/2018 5:34 Notified Time :23 AM Test 02/28/18 08:46 02/28/18 10:23 02/28/18 10:36 02/28/18 12:00 Bedside Glucose 95 Lab Scanned REFERENCE LAB REFERENCE LAB Report Blood Gas Blood Specimen arterial Source Arterial Blood 02/28/2018 11:5 Date Drawn 5:14 AM Arterial Blood 7.523 H pH (Temp corrected ) Arterial Blood 30.7 L pCO2 (Temp correct) Arterial Blood 62.5 L pO2 (Temp corrected ) Arterial Blood 24.7 HCO3 Arterial Blood 2.4 Base Excess Arterial Blood 91.1 L Oxygen Saturati on Ruperto Test ACCEPTAB Arterial Blood Left Radial Gas Puncture Site Arterial 0.3 Blood Carboxyhe moglobin Arterial Blood 0.4 Methemoglobin Blood Gas A-a 619.8 H O2 Differential Oxyhemoglobin 90.5 L Percent Blood Gas 37.0 Temperature Blood Gas HFNC Modality FiO2 100.0 Blood Gas Notified Whom Blood Gas 02/28/2018 12:0 Notified Time 7:27 PM Test 02/28/18 13:13 Bedside Glucose 116 Subjective 24 Hr Interval Summary Free Text/Dictation Exubated! Doing well on NC Exam/Review of Systems Vital Signs Vitals Vital Signs Date Temp Pulse Resp B/P (MAP) Pulse Ox O2 O2 Flow FiO2 Time Delivery Rate 02/28/18 63 16:00 02/28/18 96 100 13:36 02/28/18 20 Nasal 15.0 13:36 Cannula 02/28/18 128/58 09:00 (81) 02/28/18 97.9 08:00 Intake and Output 02/27/18 02/27/18 02/28/18 1414:59 22:59 06:59 IntakeIntake Total 58.09 ml 490 ml 300 ml OutputOutput Total 580 ml 225 ml 605 ml BalanceBalance -521.91 ml 265 ml -305 ml Exam Constitutional: alert, oriented, well developed Psych: no complaints, nl mood/affect Head: normocephalic, atraumatic Eyes: nl conjunctiva, EOMI, nl lids, nl sclera, PERRL ENMT: nl external ears & nose, nl lips & teeth, nl nasal mucosa & septum Neck: supple, non-tender Respiratory: clear to auscultation, normal air movement Cardiovascular: regular rate and rhythm, nl pulses Gastrointestinal: soft, nl liver, spleen, non-tender Musculoskeletal: nl extremities to inspection, nl gait and stance Extremities: normal pulses Neurological: BED AND BREAKFAST INNKEEPER II-XII intact, nl mental status, nl speech, nl strength Skin: nl turgor; No rash or lesions Lymph: nl lymph nodes Medications Medications Current Medications IV Flush (NS 3 ml) 3 ml PER PROTOCOL IV ; Start 02/17/18 at 13:30 Ondansetron HCl (Zofran Inj) 4 mg Q6H PRN IV NAUSEA AND/OR VOMITING; Start 02/17/18 at 13:30 Acetaminophen (Tylenol Tab) 650 mg Q6H PRN PO PAIN LEVEL 1-3 OR FEVER Last administered on 02/21/18at 12:50; Admin Dose 650 MG; Start 02/17/18 at 13:30 Acetaminophen/ Hydrocodone Bitart (Cisco (5/325)) 1 tab Q6H PRN PO MODERATE PAIN LEVEL 4-6 Last administered on 02/27/18 15:18; Admin Dose 1 TAB; Start 02/17/18 at 13:30 Docusate Sodium (Colace) 100 mg Q12H PRN PO CONSTIPATION Last administered on 02/27/18 15:44; Admin Dose 100 MG; Start 02/17/18 at 13:30 Pantoprazole (Protonix Iv) 40 mg DAILY@06 IV Last administered on 02/28/18 06:01; Admin Dose 40 MG; Start 02/18/18 at 06:00 IV Flush (NS 10 ml) 10 ml PRN PRN IV IV PROTOCOL; Start 02/18/18 at 13:30 Eye Lubricant (Artificial Tears Oph) 2 drop QID BOTH EYES Last administered on 02/28/18 08:51; Admin Dose 2 DROP; Start 02/20/18 at 13:00 Norepinephrine 250 ml @ 1.875 mls/ hr TITRATE IV ; Start 02/20/18 at 23:45 Furosemide (Lasix) 20 mg DAILY IV Last administered on 02/28/18 08:49; Admin Dose 20 MG; Start 02/22/18 at 10:30 Methylprednisolone Sodium Succinate (Solu-Medrol) 60 mg Q6H IV Last administered on 02/28/18 08:49; Admin Dose 60 MG; Start 02/22/18 at 15:30 Enoxaparin Sodium (Lovenox) 40 mg DAILY SC Last administered on 02/28/18 08:50; Admin Dose 40 MG; Start 02/23/18 at 09:00 Morphine Sulfate (morphine) 6 mg Q4H PRN GTB SEVERE PAIN LEVEL 7-10 Last administered on 02/24/18 21:33; Admin Dose 6 MG; Start 02/23/18 at 12:00 Insulin Glargine (Lantus) 22 units DAILY@0800 SC Last administered on 02/28/18 08:51; Admin Dose 22 UNITS; Start 02/24/18 at 12:00 Diagnostic Test (Pha) (Accu-Chek) 1 ea 02 XX Last administered on 02/28/18 01:27; Admin Dose 1 EA; Start 02/25/18 at 02:00 Insulin Aspart (Novolog Insulin Pen) NOVOLOG *MODERATE* ALGORI... Q4 SC Last administered on 1/10/19at 08:45; Admin Dose 2 UNIT; Start 02/24/18 at 17:00 Miscellaneous Information 1 ea NOTE XX ; Start 02/24/18 at 11:30 Glucose (Glutose) 15 gm Q15M PRN PO DECREASED GLUCOSE; Start 02/24/18 at 11:30 Glucose (Glutose) 22.5 gm Q15M PRN PO DECREASED GLUCOSE; Start 02/24/18 at 11:30 Dextrose (D50w Syringe) 25 ml Q15M PRN IV DECREASED GLUCOSE; Start 02/24/18 at 11:30 Dextrose (D50w Syringe) 50 ml Q15M PRN IV DECREASED GLUCOSE; Start 02/24/18 at 11:30 Glucagon (Glucagen) 1 mg Q15M PRN IM DECREASED GLUCOSE; Start 02/24/18 at 11:30 Glucose (Glutose) 15 gm Q15M PRN BUCCAL DECREASED GLUCOSE; Start 02/24/18 at 11:30 Polyethylene Glycol (Miralax) 17 gm DAILY NGT Last administered on 02/28/18at 08:49; Admin Dose 17 GM; Start 02/25/18 at 03:52 Dexmedetomidine HCl 200 mcg/ Sodium Chloride 50 ml @ 4.05 mls/hr TITRATE IV Last administered on 02/27/18at 07:30; Admin Dose 4.05 MLS/HR; Start 02/25/18 at 09:00 Meropenem/Sodium Chloride 50 ml @ 100 mls/hr Q8 IVPB Last administered on 02/28/18at 14:16; Admin Dose 100 MLS/HR; Start 02/25/18 at 17:00 Voriconazole 100 ml @ 50 mls/hr Q12 IVPB Last administered on 02/28/18at 10:18; Admin Dose 50 MLS/HR; Start 02/25/18 at 21:00 Trimethoprim/ Sulfamethoxazole (Bactrim (Ds)) 1 tab MoWeFr NGT Last administered on 02/27/18at 19:48; Admin Dose 1 TAB; Start 02/25/18 at 17:00 Vancomycin HCl (Vanco Iv Per Pharmacy) VANCOMYCIN PER PHARMACY PER PROTOCOL XX ; Start 02/25/18 at 17:30 Vancomycin HCl 250 ml @ 125 mls/hr Q12H IVPB Last administered on 02/28/18at 08:08; Admin Dose 125 MLS/HR; Start 02/27/18 at 20:00 Albuterol/ Ipratropium (Duoneb) 3 ml Q6H RESP THERAPY HHN Last administered on 02/28/18at 13:36; Admin Dose 3 ML; Start 02/28/18 at 08:00 Docusate Sodium (Colace) 100 mg BID PO Last administered on 02/28/18at 09:00; Admin Dose 100 MG; Start 02/28/18 at 09:00 Miscellaneous Information (*Rx Drug Level Order Reminder*) VANCOMYCIN TROUGH AT 0700 ONCE ONCE XX ; Start 03/01/18 at 07:00; Stop 03/01/18 at 07:01 SJ BOWMAN MD Feb 28, 2018 16:24
--- NOTE | 2018-02-28 23:22 | CONS ---
Date/Time of Note Date/Time of Note DATE: 02/28/18 TIME: 23:15 Assessment/Plan Assessment/Plan Hospital Course assessment/impression - pneumonia, either infectious etiology vs. nivolumab pneumonitis. It can be a combination of two - ARDS, clinically improved - acute hypoxic resp failure, intubated 02/17/2018, extubated 02/26/2018 - immunocompromised state: metastatic melanoma, receipt of nivolumab, infliximab and tapering methylprednisolone - metastatic melanoma, on nivolumab until recently - anemia and thrombocytopenia assessment/Plan - pending results: coccidioides, cryptococci, aspergillus galactomannan and antigen, histoplasma antigen - so far: negative repeat blood cultures, procalcitonin <0.1, normal 1,9-aszf-G-glucan level, negative nasopharyngeal swab for respiratory viruses, negative legionella, negative pneumocystis jiroveci - continue IV vancomycin, meropenem, voriconazole (02/25/2018-) - will d/c IV vancomycin if Pt's clinically the same tomorrow - continue prophylaxis for pneumocystis jiroveci while Pt's on methylprednisolone taper (02/17/2018-): pNGT Bactrim DS 1 tab three times a week (02/25/2018-) - management d/w Pt's RN Yamile and son the critical care time I took to care for this Pt today was from 2150 to 2230 Result Diagram: 02/28/18 0425 02/28/18 0400 Results 24hrs Laboratory Tests Test 02/28/18 01:21 02/28/18 04:00 02/28/18 04:25 02/28/18 04:30 Bedside Glucose 103 109 Sodium Level 138 Potassium Level 4.2 Chloride Level 106 Carbon Dioxide 27 Level Anion Gap 5 Blood Urea 44 H Nitrogen Creatinine 0.71 Est Glomerular > 60 Filtrat Rate mL/min Glucose Level 108 Calcium Level 7.6 L White Blood 11.0 #H Count Red Blood Count 3.07 L Hemoglobin 9.7 L Hematocrit 29.7 L Mean 96.7 Corpuscular Volume Mean 31.6 Corpuscular Hemoglobin Mean 32.7 Corpuscular Hemoglobin Conc ent Red Cell 14.7 H Distribution Width Platelet Count 98 L Mean Platelet 11.8 H Volume Immature 1.200 H Granulocytes % Neutrophils % 84.6 H Lymphocytes % 8.7 L Monocytes % 5.4 Eosinophils % 0.0 Basophils % 0.1 Nucleated Red 0.2 H Blood Cells % Immature 0.130 H Granulocytes # Neutrophils # 9.3 H Lymphocytes # 1.0 Monocytes # 0.6 Eosinophils # 0.0 Basophils # 0.0 Nucleated Red 0.0 Blood Cells # Test 02/28/18 05:28 02/28/18 08:46 02/28/18 10:23 02/28/18 10:36 Blood Gas Blood arterial Specimen Source Arterial Blood 02/28/2018 5:20: Date Drawn 36 AM Arterial Blood 7.513 H pH (Temp corrected ) Arterial Blood 34.0 L pCO2 (Temp correct) Arterial Blood 64.3 L pO2 (Temp corrected ) Arterial Blood 26.7 H HCO3 Arterial Blood 3.8 H Base Excess Arterial Blood 91.4 L Oxygen Saturati on Ruperto Test ACCEPTAB Arterial Blood Right Radial Gas Puncture Site Arterial 0.3 Blood Carboxyhe moglobin Arterial Blood 0.1 Methemoglobin Blood Gas A-a 614.7 H O2 Differential Oxyhemoglobin 91.0 L Percent Blood Gas 37.0 Temperature Blood Gas MASK - NRB Modality FiO2 100.0 Blood Gas Notified Whom Blood Gas 02/28/2018 5:34: Notified Time 23 AM Bedside Glucose 95 Lab Scanned REFERENCE LAB REFERENCE LAB Report Test 02/28/18 12:00 02/28/18 13:13 02/28/18 17:27 02/28/18 20:34 Blood Gas Blood arterial Specimen Source Arterial Blood 02/28/2018 11:55 Date Drawn :14 AM Arterial Blood 7.523 H pH (Temp corrected ) Arterial Blood 30.7 L pCO2 (Temp correct) Arterial Blood 62.5 L pO2 (Temp corrected ) Arterial Blood 24.7 HCO3 Arterial Blood 2.4 Base Excess Arterial Blood 91.1 L Oxygen Saturati on Ruperto Test ACCEPTAB Arterial Blood Left Radial Gas Puncture Site Arterial 0.3 Blood Carboxyhe moglobin Arterial Blood 0.4 Methemoglobin Blood Gas A-a 619.8 H O2 Differential Oxyhemoglobin 90.5 L Percent Blood Gas 37.0 Temperature Blood Gas HFNC Modality FiO2 100.0 Blood Gas Notified Whom Blood Gas 02/28/2018 12:07 Notified Time :27 PM Bedside Glucose 116 149 115 Consultation Date/Type/Reason Admit Date/Time Feb 17, 2018 at 12:57 Initial Consult Date 02/25/18 Type of Consult ID Requesting Provider: SJ BOWMAN MD 24 HR Interval Summary Constitutional: no complaints Detailed Summary Eyes: no complaints ENT: no complaints Respiratory: no complaints Cardiovascular: no complaints Gastrointestinal: no complaints Genitourinary: other (FC) Musculoskeletal: no complaints Skin: no complaints Neurologic: no complaints Exam/Review of Systems Vital Signs Vitals Vital Signs Date Temp Pulse Resp B/P (MAP) Pulse Ox O2 O2 Flow FiO2 Time Delivery Rate 02/28/18 93 100 20:22 02/28/18 54 19 Nasal 15.0 20:20 Cannula 02/28/18 98.4 122/61 20:00 (81) Intake and Output 02/27/18 02/27/18 02/28/18 1414:59 22:59 06:59 IntakeIntake Total 58.09 ml 490 ml 300 ml OutputOutput Total 580 ml 225 ml 605 ml BalanceBalance -521.91 ml 265 ml -305 ml Exam Constitutional: alert, oriented, obese Psych: no complaints, nl mood/affect Head: normocephalic, atraumatic Eyes: nl conjunctiva, nl lids ENMT: nl external ears & nose, nl nasal mucosa & septum, mucosa pink and moist Neck: other (not swollen) Respiratory: wheezing Cardiovascular: regular rate and rhythm, nl pulses Gastrointestinal: soft, non-tender Genitourinary - Female: other (FC) Musculoskeletal: No swelling Extremities: normal pulses Neurological: nl mental status Skin: nl turgor, ecchymosis Medications Medications Current Medications IV Flush (NS 3 ml) 3 ml PER PROTOCOL IV ; Start 02/17/18 at 13:30 Ondansetron HCl (Zofran Inj) 4 mg Q6H PRN IV NAUSEA AND/OR VOMITING; Start 02/17/18 at 13:30 Acetaminophen (Tylenol Tab) 650 mg Q6H PRN PO PAIN LEVEL 1-3 OR FEVER Last administered on 02/21/18at 12:50; Admin Dose 650 MG; Start 02/17/18 at 13:30 Acetaminophen/ Hydrocodone Bitart (Cosmos (5/325)) 1 tab Q6H PRN PO MODERATE PAIN LEVEL 4-6 Last administered on 02/27/18at 15:18; Admin Dose 1 TAB; Start 02/17/18 at 13:30 Docusate Sodium (Colace) 100 mg Q12H PRN PO CONSTIPATION Last administered on 02/27/18 15:44; Admin Dose 100 MG; Start 02/17/18 at 13:30 Pantoprazole (Protonix Iv) 40 mg DAILY@06 IV Last administered on 02/28/18at 06:01; Admin Dose 40 MG; Start 02/18/18 at 06:00 IV Flush (NS 10 ml) 10 ml PRN PRN IV IV PROTOCOL; Start 02/18/18 at 13:30 Norepinephrine 250 ml @ 1.875 mls/ hr TITRATE IV ; Start 02/20/18 at 23:45 Furosemide (Lasix) 20 mg DAILY IV Last administered on 02/28/18 08:49; Admin Dose 20 MG; Start 02/22/18 at 10:30 Methylprednisolone Sodium Succinate (Solu-Medrol) 60 mg Q6H IV Last administered on 02/28/18 20:30; Admin Dose 60 MG; Start 02/22/18 at 15:30 Enoxaparin Sodium (Lovenox) 40 mg DAILY SC Last administered on 02/28/18 08:50; Admin Dose 40 MG; Start 02/23/18 at 09:00 Morphine Sulfate (morphine) 6 mg Q4H PRN GTB SEVERE PAIN LEVEL 7-10 Last administered on 02/24/18 21:33; Admin Dose 6 MG; Start 02/23/18 at 12:00 Insulin Glargine (Lantus) 22 units DAILY@0800 SC Last administered on 02/28/18 08:51; Admin Dose 22 UNITS; Start 02/24/18 at 12:00 Diagnostic Test (Pha) (Accu-Chek) 1 ea 02 XX Last administered on 02/28/18at 01:27; Admin Dose 1 EA; Start 02/25/18 at 02:00 Insulin Aspart (Novolog Insulin Pen) NOVOLOG *MODERATE* ALGORI... Q4 SC Last administered on 02/26/18 08:45; Admin Dose 2 UNIT; Start 02/24/18 at 17:00 Miscellaneous Information 1 ea NOTE XX ; Start 02/24/18 at 11:30 Glucose (Glutose) 15 gm Q15M PRN PO DECREASED GLUCOSE; Start 02/24/18 at 11:30 Glucose (Glutose) 22.5 gm Q15M PRN PO DECREASED GLUCOSE; Start 02/24/18 at 11:30 Dextrose (D50w Syringe) 25 ml Q15M PRN IV DECREASED GLUCOSE; Start 02/24/18 at 11:30 Dextrose (D50w Syringe) 50 ml Q15M PRN IV DECREASED GLUCOSE; Start 02/24/18 at 11:30 Glucagon (Glucagen) 1 mg Q15M PRN IM DECREASED GLUCOSE; Start 02/24/18 at 11:30 Glucose (Glutose) 15 gm Q15M PRN BUCCAL DECREASED GLUCOSE; Start 02/24/18 at 11:30 Polyethylene Glycol (Miralax) 17 gm DAILY NGT Last administered on 02/28/18at 08:49; Admin Dose 17 GM; Start 02/25/18 at 03:52 Dexmedetomidine HCl 200 mcg/ Sodium Chloride 50 ml @ 4.05 mls/hr TITRATE IV Last administered on 02/27/18 07:30; Admin Dose 4.05 MLS/HR; Start 02/25/18 at 09:00 Meropenem/Sodium Chloride 50 ml @ 100 mls/hr Q8 IVPB Last administered on 02/28/18at 21:31; Admin Dose 100 MLS/HR; Start 02/25/18 at 17:00 Voriconazole 100 ml @ 50 mls/hr Q12 IVPB Last administered on 02/28/18 20:28; Admin Dose 50 MLS/HR; Start 02/25/18 at 21:00 Trimethoprim/ Sulfamethoxazole (Bactrim (Ds)) 1 tab MoWeFr NGT Last administered on 02/27/18at 19:48; Admin Dose 1 TAB; Start 02/25/18 at 17:00 Vancomycin HCl (Vanco Iv Per Pharmacy) VANCOMYCIN PER PHARMACY PER PROTOCOL XX ; Start 02/25/18 at 17:30 Vancomycin HCl 250 ml @ 125 mls/hr Q12H IVPB Last administered on 02/28/18 20:28; Admin Dose 125 MLS/HR; Start 02/27/18 at 20:00 Albuterol/ Ipratropium (Duoneb) 3 ml Q6H RESP THERAPY HHN Last administered on 02/28/18 20:19; Admin Dose 3 ML; Start 02/28/18 at 08:00 Docusate Sodium (Colace) 100 mg BID PO Last administered on 1/12/19at 20:28; Admin Dose 100 MG; Start 02/28/18 at 09:00 Miscellaneous Information (*Rx Drug Level Order Reminder*) VANCOMYCIN TROUGH AT 0700 ONCE ONCE XX ; Start 03/01/18 at 07:00; Stop 03/01/18 at 07:01 VANESSA GILLIS M.D. Feb 28, 2018 23:22
[2018-03-01] VITALS (26 sets, daily range): BP systolic 108–146; BP diastolic 50–75; PULSE 37–73; RESP 10–33
[2018-03-01] MEDS: INSULIN ASPART [NOVOLOG] 3 ML PEN SC SCH ×5 (01:00→21:00)
[2018-03-01] MEDS: ALBUTEROL/IPRATROPIUM (NEB) 3 ML AMP HHN SCH ×4 (01:02→20:08)
[2018-03-01] MEDS: ACCU-CHEK XX SCH (01:39)
[2018-03-01] MEDS: METHYLPREDNISOLONE 125 MG INJ IV SCH ×4 (04:29→21:14)
[2018-03-01] MEDS: MEROPENEM 1 GM/50ML(PMX) 50 ML IVPB SCH ×3 (05:20→21:14)
[2018-03-01] MEDS: PANTOPRAZOLE 40 MG INJ IV SCH (05:20)
[2018-03-01] MEDS: VANCOMYCIN 1 GM 250 ML IVPB SCH (08:12)
[2018-03-01] MEDS: INSULIN GLARGINE [LANTus] (100 UNITS/ML) SYG SC SCH (08:16)
[2018-03-01] MEDS: POLYETHYLENE GLYCOL 17 GM PACKET NGT SCH (09:00)
[2018-03-01] MEDS: FUROSEMIDE 20 MG INJ IV SCH (09:32)
[2018-03-01] MEDS: DOCUSATE SODIUM 100 MG CAP PO SCH ×2 (09:33→21:00)
[2018-03-01] MEDS: ENOXAPARIN 40 MG/0.4 ML SYG SC SCH (09:34)
--- NOTE | 2018-03-01 10:16 | CONS ---
Date/Time of Note Date/Time of Note DATE: 03/01/18 TIME: 10:14 Assessment/Plan Assessment/Plan Assessment/Plan Chest x-ray showing basilar infiltrates bilaterally. Assessment recommendations; 1. Patient with history of stage IV melanoma admitted for respiratory failure due to severe bilateral pneumonia possibly acute lung injury from immunotherapy. However clinical findings are more consistent with bacterial pneumonia involving bibasilar regions. Status post extubation with improving clinical status. However still requiring high flow nasal cannula at 85% FiO2 25 L/min. 2. Hyperglycemia due to steroids. 3. Anemia and thrombocytopenia. Continue current supportive care. Wean down FiO2 as tolerated. Result Diagram: 03/01/18 0700 03/01/18 0700 Results 24hrs Laboratory Tests Test 02/28/18 10:23 02/28/18 10:36 02/28/18 12:00 02/28/18 13:13 Lab Scanned REFERENCE LAB REFERENCE LAB Report Blood Gas Blood Specimen arterial Source Arterial Blood 02/28/2018 11:5 Date Drawn 5:14 AM Arterial Blood 7.523 H pH (Temp corrected ) Arterial Blood 30.7 L pCO2 (Temp correct) Arterial Blood 62.5 L pO2 (Temp corrected ) Arterial Blood 24.7 HCO3 Arterial Blood 2.4 Base Excess Arterial Blood 91.1 L Oxygen Saturati on Ruperto Test ACCEPTAB Arterial Blood Left Radial Gas Puncture Site Arterial 0.3 Blood Carboxyhe moglobin Arterial Blood 0.4 Methemoglobin Blood Gas A-a 619.8 H O2 Differential Oxyhemoglobin 90.5 L Percent Blood Gas 37.0 Temperature Blood Gas HFNC Modality FiO2 100.0 Blood Gas Notified Whom Blood Gas 02/28/2018 12:0 Notified Time 7:27 PM Bedside Glucose 116 Test 02/28/18 17:27 02/28/18 20:34 03/01/18 01:09 03/01/18 04:31 Bedside Glucose 149 115 115 95 Test 03/01/18 07:00 03/01/18 08:10 White Blood 8.0 # Count Red Blood Count 2.57 L Hemoglobin 8.4 L Hematocrit 25.2 L Mean 98.1 Corpuscular Volume Mean 32.7 Corpuscular Hemoglobin Mean 33.3 Corpuscular Hemoglobin Conc ent Red Cell 14.7 H Distribution Width Platelet Count 100 L Mean Platelet 11.9 H Volume Immature 0.900 H Granulocytes % Neutrophils % 86.0 H Lymphocytes % 6.8 L Monocytes % 6.3 Eosinophils % 0.0 Basophils % 0.0 Nucleated Red 0.3 H Blood Cells % Immature 0.070 H Granulocytes # Neutrophils # 6.9 Lymphocytes # 0.5 L Monocytes # 0.5 Eosinophils # 0.0 Basophils # 0.0 Nucleated Red 0.0 Blood Cells # Blood Gas Blood arterial Specimen Source Arterial Blood 03/01/2018 8:25: Date Drawn 46 AM Arterial Blood 7.522 H pH (Temp corrected ) Arterial Blood 35.0 pCO2 (Temp correct) Arterial Blood 80.9 pO2 (Temp corrected ) Arterial Blood 28.1 H HCO3 Arterial Blood 5.1 H Base Excess Arterial Blood 95.4 Oxygen Saturati on Ruperto Test ACCEPTAB Arterial Blood Right Radial Gas Puncture Site Arterial 0.3 Blood Carboxyhe moglobin Arterial Blood 0.4 Methemoglobin Blood Gas A-a 524.9 H O2 Differential Oxyhemoglobin 94.7 Percent Blood Gas 37.0 Temperature Blood Gas HFNC Modality FiO2 90.0 Blood Gas DT Notified Whom Blood Gas 03/01/2018 8:39: Notified Time 29 AM Sodium Level 137 Potassium Level 3.9 Chloride Level 106 Carbon Dioxide 29 Level Anion Gap 2 L Blood Urea 39 H Nitrogen Creatinine 0.72 Est Glomerular > 60 Filtrat Rate mL/min Glucose Level 99 Calcium Level 7.3 L Vancomycin 19.8 Level Trough Bedside Glucose 106 Consultation Date/Type/Reason Admit Date/Time Feb 17, 2018 at 12:57 Initial Consult Date 02/18/18 Type of Consult Pulmonary/critical care Requesting Provider: SJ BOWMAN MD 24 HR Interval Summary Free Text/Dictation Patient's condition is continually improving. However still requiring 85% FiO2 via high flow nasal cannula. Patient denies any shortness of breath. General exam; elderly female, awake alert, currently no distress. Exam/Review of Systems Vital Signs Vitals Vital Signs Date Temp Pulse Resp B/P (MAP) Pulse Ox O2 O2 Flow FiO2 Time Delivery Rate 03/01/18 98 85 08:47 03/01/18 49 12 25.0 08:47 03/01/18 115/57 High Flow 07:00 (76) 03/01/18 98.3 00:00 Intake and Output 02/28/18 02/28/18 03/01/18 1515:00 23:00 07:00 IntakeIntake Total 840 ml 760 ml 530 ml OutputOutput Total 780 ml 400 ml 355 ml BalanceBalance 60 ml 360 ml 175 ml Exam HEENT exam; supple neck, no JVD. No lymphadenopathy. Midline trachea. No thyromegaly. Patient has fair dentition. No neck masses. Chest exam; bilateral basilar crackles. Upper lobes are fairly clear. S1-S2 audible, no murmurs. Regular rhythm. Abdomen exam; soft, no organomegaly. Bowel sounds audible. Extremity exam; no peripheral edema. Pulses 1+. PAINTER HAND exam; no focal deficit. Medications Medications Current Medications IV Flush (NS 3 ml) 3 ml PER PROTOCOL IV ; Start 02/17/18 at 13:30 Ondansetron HCl (Zofran Inj) 4 mg Q6H PRN IV NAUSEA AND/OR VOMITING; Start 02/17/18 at 13:30 Acetaminophen (Tylenol Tab) 650 mg Q6H PRN PO PAIN LEVEL 1-3 OR FEVER Last administered on 02/21/18at 12:50; Admin Dose 650 MG; Start 02/17/18 at 13:30 Acetaminophen/ Hydrocodone Bitart ([place] (5/325)) 1 tab Q6H PRN PO MODERATE PAIN LEVEL 4-6 Last administered on 02/27/18at 15:18; Admin Dose 1 TAB; Start 02/17/18 at 13:30 Docusate Sodium (Colace) 100 mg Q12H PRN PO CONSTIPATION Last administered on 02/27/18at 15:44; Admin Dose 100 MG; Start 02/17/18 at 13:30 Pantoprazole (Protonix Iv) 40 mg DAILY@06 IV Last administered on 03/01/18at 05:20; Admin Dose 40 MG; Start 02/18/18 at 06:00 IV Flush (NS 10 ml) 10 ml PRN PRN IV IV PROTOCOL; Start 02/18/18 at 13:30 Norepinephrine 250 ml @ 1.875 mls/ hr TITRATE IV ; Start 02/20/18 at 23:45 Furosemide (Lasix) 20 mg DAILY IV Last administered on 03/01/18at 09:32; Admin Dose 20 MG; Start 02/22/18 at 10:30 Methylprednisolone Sodium Succinate (Solu-Medrol) 60 mg Q6H IV Last admini stered on 03/01/18at 09:32; Admin Dose 60 MG; Start 02/22/18 at 15:30 Enoxaparin Sodium (Lovenox) 40 mg DAILY SC Last administered on 03/01/18 09:34; Admin Dose 40 MG; Start 02/23/18 at 09:00 Morphine Sulfate (morphine) 6 mg Q4H PRN GTB SEVERE PAIN LEVEL 7-10 Last administered on 02/24/18 21:33; Admin Dose 6 MG; Start 02/23/18 at 12:00 Insulin Glargine (Lantus) 22 units DAILY@0800 SC Last administered on 03/01/18 08:16; Admin Dose 22 UNITS; Start 02/24/18 at 12:00 Diagnostic Test (Pha) (Accu-Chek) 1 ea 02 XX Last administered on 03/01/18at 01:39; Admin Dose 1 EA; Start 02/25/18 at 02:00 Miscellaneous Information 1 ea NOTE XX ; Start 02/24/18 at 11:30 Glucose (Glutose) 15 gm Q15M PRN PO DECREASED GLUCOSE; Start 02/24/18 at 11:30 Glucose (Glutose) 22.5 gm Q15M PRN PO DECREASED GLUCOSE; Start 02/24/18 at 11:30 Dextrose (D50w Syringe) 25 ml Q15M PRN IV DECREASED GLUCOSE; Start 02/24/18 at 11:30 Dextrose (D50w Syringe) 50 ml Q15M PRN IV DECREASED GLUCOSE; Start 02/24/18 at 11:30 Glucagon (Glucagen) 1 mg Q15M PRN IM DECREASED GLUCOSE; Start 02/24/18 at 11:30 Glucose (Glutose) 15 gm Q15M PRN BUCCAL DECREASED GLUCOSE; Start 02/24/18 at 11:30 Polyethylene Glycol (Miralax) 17 gm DAILY NGT Last administered on 02/28/18at 08:49; Admin Dose 17 GM; Start 02/25/18 at 03:52 Dexmedetomidine HCl 200 mcg/ Sodium Chloride 50 ml @ 4.05 mls/hr TITRATE IV Last administered on 02/27/18 07:30; Admin Dose 4.05 MLS/HR; Start 02/25/18 at 09:00 Meropenem/Sodium Chloride 50 ml @ 100 mls/hr Q8 IVPB Last administered on 1/13/19at 05:20; Admin Dose 100 MLS/HR; Start 02/25/18 at 17:00 Voriconazole 100 ml @ 50 mls/hr Q12 IVPB Last administered on 02/28/18at 20:28; Admin Dose 50 MLS/HR; Start 02/25/18 at 21:00 Trimethoprim/ Sulfamethoxazole (Bactrim (Ds)) 1 tab MoWeFr NGT Last administered on 02/27/18at 19:48; Admin Dose 1 TAB; Start 02/25/18 at 17:00 Vancomycin HCl (Vanco Iv Per Pharmacy) VANCOMYCIN PER PHARMACY PER PROTOCOL XX ; Start 02/25/18 at 17:30 Vancomycin HCl 250 ml @ 125 mls/hr Q12H IVPB Last administered on 03/01/18at 08:12; Admin Dose 125 MLS/HR; Start 02/27/18 at 20:00; Stop 03/01/18 at 11:00 Albuterol/ Ipratropium (Duoneb) 3 ml Q6H RESP THERAPY HHN Last administered on 03/01/18at 08:46; Admin Dose 3 ML; Start 02/28/18 at 08:00 Docusate Sodium (Colace) 100 mg BID PO Last administered on 03/01/18at 09:33; Admin Dose 100 MG; Start 02/28/18 at 09:00 Insulin Aspart (Novolog Insulin Pen) NOVOLOG *MODERATE* ALGORI... AC MEALS AND BEDTIME SC ; Start 03/01/18 at 11:00 Vancomycin HCl 1.5 gm/Sodium Chloride 250 ml @ 83.333 mls/ hr Q24H IVPB ; Start 03/02/18 at 08:00 JUDY LYON Mar 01, 2018 10:16
[2018-03-01] MEDS: VORICONAZOLE 200 MG/100 ML 100 ML IVPB SCH ×2 (11:06→21:13)
--- NOTE | 2018-03-01 11:35 | PN ---
Date/Time of Note Date/Time of Note DATE: 03/01/18 TIME: 11:34 Assessment/Plan VTE Prophylaxis Risk score (from Ns)>0 risk: 9 SCD applied (from Ns): Yes Pharmacological prophylaxis: heparin Lines/Catheters IV Catheter Type (from Nrsg): PICC Line Central line still needed: Yes Urinary Cath still in place: Yes Reason Cath still needed: urinary retention Assessment/Plan Hospital Course 62 yo female with stage IV melanoma with ARDS leading to acute respiratory failure Acute respiratory failure/ARDS: - Now extubated and doing well on NC. Wean O2 as tolerated - Steroids per pulmonary Abx per ID for pneumonia Metastatic melanoma - Further care as outpatient. In clinical trial in [place]. Should not receive nivolumab again given this may have been ALI from it Anemia Thrombocytopenia Discharge plan: Can be discharged when oxygen is weaned down. Oncology follow up in [place] Result Diagram: 03/01/18 0700 03/01/18 0700 Results 24hrs Laboratory Tests Test 02/28/18 12:00 02/28/18 13:13 02/28/18 17:27 02/28/18 20:34 Blood Gas Blood arterial Specimen Source Arterial Blood 02/28/2018 11:55 Date Drawn :14 AM Arterial Blood 7.523 H pH (Temp corrected) Arterial Blood 30.7 L pCO2 (Temp correct) Arterial Blood 62.5 L pO2 (Temp corrected) Arterial Blood 24.7 HCO3 Arterial Blood 2.4 Base Excess Arterial Blood 91.1 L Oxygen Saturatio n Ruperto Test ACCEPTAB Arterial Blood Left Radial Gas Puncture Site Arterial 0.3 Blood Carboxyhem oglobin Arterial Blood 0.4 Methemoglobin Blood Gas A-a O2 619.8 H Differential Oxyhemoglobin 90.5 L Percent Blood Gas 37.0 Temperature Blood Gas HFNC Modality FiO2 100.0 Blood Gas Notified Whom Blood Gas 02/28/2018 12:07 Notified Time :27 PM Bedside Glucose 116 149 115 Test 03/01/18 01:09 03/01/18 04:31 03/01/18 07:00 03/01/18 08:10 Bedside Glucose 115 95 106 White Blood 8.0 # Count Red Blood Count 2.57 L Hemoglobin 8.4 L Hematocrit 25.2 L Mean Corpuscular 98.1 Volume Mean Corpuscular 32.7 Hemoglobin Mean Corpuscular 33.3 Hemoglobin Cristel nt Red Cell 14.7 H Distribution Width Platelet Count 100 L Mean Platelet 11.9 H Volume Immature 0.900 H Granulocytes % Neutrophils % 86.0 H Lymphocytes % 6.8 L Monocytes % 6.3 Eosinophils % 0.0 Basophils % 0.0 Nucleated Red 0.3 H Blood Cells % Immature 0.070 H Granulocytes # Neutrophils # 6.9 Lymphocytes # 0.5 L Monocytes # 0.5 Eosinophils # 0.0 Basophils # 0.0 Nucleated Red 0.0 Blood Cells # Blood Gas Blood arterial Specimen Source Arterial Blood 03/01/2018 8:25: Date Drawn 46 AM Arterial Blood 7.522 H pH (Temp corrected) Arterial Blood 35.0 pCO2 (Temp correct) Arterial Blood 80.9 pO2 (Temp corrected) Arterial Blood 28.1 H HCO3 Arterial Blood 5.1 H Base Excess Arterial Blood 95.4 Oxygen Saturatio n Ruperto Test ACCEPTAB Arterial Blood Right Radial Gas Puncture Site Arterial 0.3 Blood Carboxyhem oglobin Arterial Blood 0.4 Methemoglobin Blood Gas A-a O2 524.9 H Differential Oxyhemoglobin 94.7 Percent Blood Gas 37.0 Temperature Blood Gas HFNC Modality FiO2 90.0 Blood Gas DT Notified Whom Blood Gas 03/01/2018 8:39: Notified Time 29 AM Sodium Level 137 Potassium Level 3.9 Chloride Level 106 Carbon Dioxide 29 Level Anion Gap 2 L Blood Urea 39 H Nitrogen Creatinine 0.72 Est Glomerular > 60 Filtrat Rate mL/min Glucose Level 99 Calcium Level 7.3 L Vancomycin Level 19.8 Trough Test 03/01/18 10:35 Lab Scanned REFERENCE LAB Report Subjective 24 Hr Interval Summary Free Text/Dictation Very stable respiratory status On high flow O2 60% Exam/Review of Systems Vital Signs Vitals Vital Signs Date Temp Pulse Resp B/P (MAP) Pulse Ox O2 O2 Flow FiO2 Time Delivery Rate 03/01/18 54 22 132/60 100 High Flow 10:00 (84) 03/01/18 85 08:47 03/01/18 25.0 08:47 03/01/18 98.0 08:00 Intake and Output 02/28/18 02/28/18 03/01/18 1515:00 23:00 07:00 IntakeIntake Total 840 ml 760 ml 530 ml OutputOutput Total 780 ml 400 ml 355 ml BalanceBalance 60 ml 360 ml 175 ml Exam Constitutional: alert, oriented, well developed Psych: no complaints, nl mood/affect Head: normocephalic, atraumatic Eyes: nl conjunctiva, EOMI, nl lids, nl sclera, PERRL ENMT: nl external ears & nose, nl lips & teeth, nl nasal mucosa & septum Neck: supple, non-tender Respiratory: clear to auscultation, normal air movement Cardiovascular: regular rate and rhythm, nl pulses Gastrointestinal: soft, nl liver, spleen, non-tender Musculoskeletal: nl extremities to inspection, nl gait and stance Extremities: normal pulses Neurological: COMPUTER NETWORKING INSTRUCTOR II-XII intact, nl mental status, nl speech, nl strength Skin: nl turgor; No rash or lesions Lymph: nl lymph nodes Medications Medications Current Medications IV Flush (NS 3 ml) 3 ml PER PROTOCOL IV ; Start 02/17/18 at 13:30 Ondansetron HCl (Zofran Inj) 4 mg Q6H PRN IV NAUSEA AND/OR VOMITING; Start 02/17/18 at 13:30 Acetaminophen (Tylenol Tab) 650 mg Q6H PRN PO PAIN LEVEL 1-3 OR FEVER Last administered on 02/21/18at 12:50; Admin Dose 650 MG; Start 02/17/18 at 13:30 Acetaminophen/ Hydrocodone Bitart ([place] (5/325)) 1 tab Q6H PRN PO MODERATE PAIN LEVEL 4-6 Last administered on 02/27/18at 15:18; Admin Dose 1 TAB; Start 02/17/18 at 13:30 Docusate Sodium (Colace) 100 mg Q12H PRN PO CONSTIPATION Last administered on 02/27/18at 15:44; Admin Dose 100 MG; Start 02/17/18 at 13:30 Pantoprazole (Protonix Iv) 40 mg DAILY@06 IV Last administered on 03/01/18at 05:20; Admin Dose 40 MG; Start 02/18/18 at 06:00 IV Flush (NS 10 ml) 10 ml PRN PRN IV IV PROTOCOL; Start 02/18/18 at 13:30 Norepinephrine 250 ml @ 1.875 mls/ hr TITRATE IV ; Start 02/20/18 at 23:45 Furosemide (Lasix) 20 mg DAILY IV Last administered on 03/01/18at 09:32; Admin Dose 20 MG; Start 02/22/18 at 10:30 Methylprednisolone Sodium Succinate (Solu-Medrol) 60 mg Q6H IV Last administered on 03/01/18at 09:32; Admin Dose 60 MG; Start 02/22/18 at 15:30 Enoxaparin Sodium (Lovenox) 40 mg DAILY SC Last administered on 03/01/18 09 :34; Admin Dose 40 MG; Start 02/23/18 at 09:00 Morphine Sulfate (morphine) 6 mg Q4H PRN GTB SEVERE PAIN LEVEL 7-10 Last administered on 02/24/18at 21:33; Admin Dose 6 MG; Start 02/23/18 at 12:00 Insulin Glargine (Lantus) 22 units DAILY@0800 SC Last administered on 03/01/18 08:16; Admin Dose 22 UNITS; Start 02/24/18 at 12:00 Diagnostic Test (Pha) (Accu-Chek) 1 ea 02 XX Last administered on 03/01/18at 01:39; Admin Dose 1 EA; Start 02/25/18 at 02:00 Miscellaneous Information 1 ea NOTE XX ; Start 02/24/18 at 11:30 Glucose (Glutose) 15 gm Q15M PRN PO DECREASED GLUCOSE; Start 02/24/18 at 11:30 Glucose (Glutose) 22.5 gm Q15M PRN PO DECREASED GLUCOSE; Start 02/24/18 at 11:30 Dextrose (D50w Syringe) 25 ml Q15M PRN IV DECREASED GLUCOSE; Start 02/24/18 at 11:30 Dextrose (D50w Syringe) 50 ml Q15M PRN IV DECREASED GLUCOSE; Start 02/24/18 at 11:30 Glucagon (Glucagen) 1 mg Q15M PRN IM DECREASED GLUCOSE; Start 02/24/18 at 11:30 Glucose (Glutose) 15 gm Q15M PRN BUCCAL DECREASED GLUCOSE; Start 02/24/18 at 1 1:30 Polyethylene Glycol (Miralax) 17 gm DAILY NGT Last administered on 02/28/18at 08:49; Admin Dose 17 GM; Start 02/25/18 at 03:52 Dexmedetomidine HCl 200 mcg/ Sodium Chloride 50 ml @ 4.05 mls/hr TITRATE IV Last administered on 02/27/18at 07:30; Admin Dose 4.05 MLS/HR; Start 02/25/18 at 09:00 Meropenem/Sodium Chloride 50 ml @ 100 mls/hr Q8 IVPB Last administered on 03/01/18at 05:20; Admin Dose 100 MLS/HR; Start 02/25/18 at 17:00 Voriconazole 100 ml @ 50 mls/hr Q12 IVPB Last administered on 03/01/18at 11:06; Admin Dose 50 MLS/HR; Start 02/25/18 at 21:00 Trimethoprim/ Sulfamethoxazole (Bactrim (Ds)) 1 tab MoWeFr NGT Last administered on 02/27/18at 19:48; Admin Dose 1 TAB; Start 02/25/18 at 17:00 Vancomycin HCl (Vanco Iv Per Pharmacy) VANCOMYCIN PER PHARMACY PER PROTOCOL XX ; Start 02/25/18 at 17:30 Albuterol/ Ipratropium (Duoneb) 3 ml Q6H RESP THERAPY HHN Last administered on 03/01/18at 08:46; Admin Dose 3 ML; Start 02/28/18 at 08:00 Docusate Sodium (Colace) 100 mg BID PO Last administered on 03/01/18at 09:33; Admin Dose 100 MG; Start 02/28/18 at 09:00 Insulin Aspart (Novolog Insulin Pen) NOVOLOG *MODERATE* ALGORI... AC MEALS AND BEDTIME SC ; Start 03/01/18 at 11:00 Vancomycin HCl 1.5 gm/Sodium Chloride 250 ml @ 83.333 mls/ hr Q24H IVPB ; Start 03/02/18 at 08:00 SJ BOWMAN MD Mar 01, 2018 11:35
--- NOTE | 2018-03-01 11:44 | CONS ---
Date/Time of Note Date/Time of Note DATE: 03/01/18 TIME: 11:43 Assessment/Plan Assessment/Plan Assessment/Plan A 62 yo female with #Metastatic Melanoma - last Nivolumab was 2 weeks ago - 02/21/2018-sp Remicade 300 mg - will re-dose Remicade on 03/06 if needed. -given patient is extubated; will hold Remicade for now #ARDS - likely 2/2 Nivolumab and questionable underlying pneumonia - 02/27/2018- extubated ; stable - on o2 25 L, FIO2 85 %- O2 SAT 100% - cont to monitor in ICU -patient appears to be slowly recovering- alert/responsive today -CT Chest reveals evidence of bibasilar infiltrates but no evidence of PE -if her condition does not improve significantly by Friday, will plan to given another dose of remicade. this has already been ordered with the pharmacy -cont high dose steroids the patient is currently getting - Solumedrol 60mg q 6 hours -continue IV antibiotics in case of any underlying infection contributing to ARDS -BAL hopefully scheduled for today. -appreciate ID recs and workup for underlying opportunistic infection -If patient is able to recover, oncology would not recommend for her to continue Nivolumab given this grade 4 toxicity Approximately 50 min was spend in face to face time with patent's son at the bed side, and in coordination of her care. Patient seen in collaboration with Dr Streeter. staff. Result Diagram: 03/01/18 0700 03/01/18 0700 Results 24hrs Laboratory Tests Test 02/28/18 12:00 02/28/18 13:13 02/28/18 17:27 02/28/18 20:34 Blood Gas Blood arterial Specimen Source Arterial Blood 02/28/2018 11:55 Date Drawn :14 AM Arterial Blood 7.523 H pH (Temp corrected) Arterial Blood 30.7 L pCO2 (Temp correct) Arterial Blood 62.5 L pO2 (Temp corrected) Arterial Blood 24.7 HCO3 Arterial Blood 2.4 Base Excess Arterial Blood 91.1 L Oxygen Saturatio n Ruperto Test ACCEPTAB Arterial Blood Left Radial Gas Puncture Site Arterial 0.3 Blood Carboxyhem oglobin Arterial Blood 0.4 Methemoglobin Blood Gas A-a O2 619.8 H Differential Oxyhemoglobin 90.5 L Percent Blood Gas 37.0 Temperature Blood Gas HFNC Modality FiO2 100.0 Blood Gas Notified Whom Blood Gas 02/28/2018 12:07 Notified Time :27 PM Bedside Glucose 116 149 115 Test 03/01/18 01:09 03/01/18 04:31 03/01/18 07:00 03/01/18 08:10 Bedside Glucose 115 95 106 White Blood 8.0 # Count Red Blood Count 2.57 L Hemoglobin 8.4 L Hematocrit 25.2 L Mean Corpuscular 98.1 Volume Mean Corpuscular 32.7 Hemoglobin Mean Corpuscular 33.3 Hemoglobin Cristel nt Red Cell 14.7 H Distribution Width Platelet Count 100 L Mean Platelet 11.9 H Volume Immature 0.900 H Granulocytes % Neutrophils % 86.0 H Lymphocytes % 6.8 L Monocytes % 6.3 Eosinophils % 0.0 Basophils % 0.0 Nucleated Red 0.3 H Blood Cells % Immature 0.070 H Granulocytes # Neutrophils # 6.9 Lymphocytes # 0.5 L Monocytes # 0.5 Eosinophils # 0.0 Basophils # 0.0 Nucleated Red 0.0 Blood Cells # Blood Gas Blood arterial Specimen Source Arterial Blood 03/01/2018 8:25: Date Drawn 46 AM Arterial Blood 7.522 H pH (Temp corrected) Arterial Blood 35.0 pCO2 (Temp correct) Arterial Blood 80.9 pO2 (Temp corrected) Arterial Blood 28.1 H HCO3 Arterial Blood 5.1 H Base Excess Arterial Blood 95.4 Oxygen Saturatio n Rueprto Test ACCEPTAB Arterial Blood Right Radial Gas Puncture Site Arterial 0.3 Blood Carboxyhem oglobin Arterial Blood 0.4 Methemoglobin Blood Gas A-a O2 524.9 H Differential Oxyhemoglobin 94.7 Percent Blood Gas 37.0 Temperature Blood Gas HFNC Modality FiO2 90.0 Blood Gas DT Notified Whom Blood Gas 03/01/2018 8:39: Notified Time 29 AM Sodium Level 137 Potassium Level 3.9 Chloride Level 106 Carbon Dioxide 29 Level Anion Gap 2 L Blood Urea 39 H Nitrogen Creatinine 0.72 Est Glomerular > 60 Filtrat Rate mL/min Glucose Level 99 Calcium Level 7.3 L Vancomycin Level 19.8 Trough Test 03/01/18 10:35 Lab Scanned REFERENCE LAB Report Consultation Date/Type/Reason Admit Date/Time Feb 17, 2018 at 12:57 Initial Consult Date 02/18/18 Type of Consult ONCOLOGY Requesting Provider: SJ BOWMAN MD Exam/Review of Systems Vital Signs Vitals Vital Signs Date Temp Pulse Resp B/P (MAP) Pulse Ox O2 O2 Flow FiO2 Time Delivery Rate 03/01/18 54 22 132/60 100 High Flow 10:00 (84) 03/01/18 85 08:47 03/01/18 25.0 08:47 03/01/18 98.0 08:00 Intake and Output 02/28/18 02/28/18 03/01/18 1515:00 23:00 07:00 IntakeIntake Total 840 ml 760 ml 530 ml OutputOutput Total 780 ml 400 ml 355 ml BalanceBalance 60 ml 360 ml 175 ml Medications Medications Current Medications IV Flush (NS 3 ml) 3 ml PER PROTOCOL IV ; Start 02/17/18 at 13:30 Ondansetron HCl (Zofran Inj) 4 mg Q6H PRN IV NAUSEA AND/OR VOMITING; Start 02/17/18 at 13:30 Acetaminophen (Tylenol Tab) 650 mg Q6H PRN PO PAIN LEVEL 1-3 OR FEVER Last administered on 02/21/18at 12:50; Admin Dose 650 MG; Start 02/17/18 at 13:30 Acetaminophen/ Hydrocodone Bitart ([place] (5/325)) 1 tab Q6H PRN PO MODERATE PAIN LEVEL 4-6 Last administered on 02/27/18at 15:18; Admin Dose 1 TAB; Start 02/17/18 at 13:30 Docusate Sodium (Colace) 100 mg Q12H PRN PO CONSTIPATION Last administered on 02/27/18at 15:44; Admin Dose 100 MG; Start 02/17/18 at 13:30 Pantoprazole (Protonix Iv) 40 mg DAILY@06 IV Last administered on 03/01/18at 05:20; Admin Dose 40 MG; Start 02/18/18 at 06:00 IV Flush (NS 10 ml) 10 ml PRN PRN IV IV PROTOCOL; Start 02/18/18 at 13:30 Norepinephrine 250 ml @ 1.875 mls/ hr TITRATE IV ; Start 02/20/18 at 23:45 Furosemide (Lasix) 20 mg DAILY IV Last administered on 03/01/18at 09:32; Admin Dose 20 MG; Start 02/22/18 at 10:30 Methylprednisolone Sodium Succinate (Solu-Medrol) 60 mg Q6H IV Last administered on 03/01/18 09:32; Admin Dose 60 MG; Start 02/22/18 at 15:30 Enoxaparin Sodium (Lovenox) 40 mg DAILY SC Last administered on 03/01/18 09:34; Admin Dose 40 MG; Start 02/23/18 at 09:00 Morphine Sulfate (morphine) 6 mg Q4H PRN GTB SEVERE PAIN LEVEL 7-10 Last adm inistered on 02/24/18at 21:33; Admin Dose 6 MG; Start 02/23/18 at 12:00 Insulin Glargine (Lantus) 22 units DAILY@0800 SC Last administered on 03/01/18 08:16; Admin Dose 22 UNITS; Start 02/24/18 at 12:00 Diagnostic Test (Pha) (Accu-Chek) 1 ea 02 XX Last administered on 03/01/18at 01:39; Admin Dose 1 EA; Start 02/25/18 at 02:00 Miscellaneous Information 1 ea NOTE XX ; Start 02/24/18 at 11:30 Glucose (Glutose) 15 gm Q15M PRN PO DECREASED GLUCOSE; Start 02/24/18 at 11:30 Glucose (Glutose) 22.5 gm Q15M PRN PO DECREASED GLUCOSE; Start 02/24/18 at 11:30 Dextrose (D50w Syringe) 25 ml Q15M PRN IV DECREASED GLUCOSE; Start 02/24/18 at 11:30 Dextrose (D50w Syringe) 50 ml Q15M PRN IV DECREASED GLUCOSE; Start 02/24/18 at 11:30 Glucagon (Glucagen) 1 mg Q15M PRN IM DECREASED GLUCOSE; Start 02/24/18 at 11:30 Glucose (Glutose) 15 gm Q15M PRN BUCCAL DECREASED GLUCOSE; Start 02/24/18 at 11:30 Polyethylene Glycol (Miralax) 17 gm DAILY NGT Last administered on 02/28/18at 08:49; Admin Dose 17 GM; Start 02/25/18 at 03:52 Dexmedetomidine HCl 200 mcg/ Sodium Chloride 50 ml @ 4.05 mls/hr TITRATE IV Last administered on 02/27/18at 07:30; Admin Dose 4.05 MLS/HR; Start 02/25/18 at 09:00 Meropenem/Sodium Chloride 50 ml @ 100 mls/hr Q8 IVPB Last administered on 03/01/18at 05:20; Admin Dose 100 MLS/HR; Start 02/25/18 at 17:00 Voriconazole 100 ml @ 50 mls/hr Q12 IVPB Last administered on 03/01/18at 11:06; Admin Dose 50 MLS/HR; Start 02/25/18 at 21:00 Trimethoprim/ Sulfamethoxazole (Bactrim (Ds)) 1 tab MoWeFr NGT Last administered on 02/27/18at 19:48; Admin Dose 1 TAB; Start 02/25/18 at 17:00 Vancomycin HCl (Vanco Iv Per Pharmacy) VANCOMYCIN PER PHARMACY PER PROTOCOL XX ; Start 02/25/18 at 17:30 Albuterol/ Ipratropium (Duoneb) 3 ml Q6H RESP THERAPY HHN Last administered on 03/01/18at 08:46; Admin Dose 3 ML; Start 02/28/18 at 08:00 Docusate Sodium (Colace) 100 mg BID PO Last administered on 03/01/18at 09:33; Admin Dose 100 MG; Start 02/28/18 at 09:00 Insulin Aspart (Novolog Insulin Pen) NOVOLOG *MODERATE* ALGORI... AC MEALS AND BEDTIME SC ; Start 03/01/18 at 11:00 Vancomycin HCl 1.5 gm/Sodium Chloride 250 ml @ 83.333 mls/ hr Q24H IVPB ; Start 03/02/18 at 08:00 GEMA HEREDIA Mar 01, 2018 11:44
--- NOTE | 2018-03-01 16:23 | CONS ---
[facility] HCIS Consult Follow-up Patient Name: Sujatha Almonte Unit Number: [id number] Date of : 1955 Patient Status: Admitted Inpatient Attending Doctor: Kodak Olmedo MD Edit: VANESSA MEDINA M.D. on 03/02/18 @ 00:51 Carol attestation: I discussed the management with EMERGENCY VEHICLE TECHNICIAN See and agree with her Date/Time of Note Date/Time of Note DATE: 03/01/18 TIME: 16:15 Assessment/Plan Assessment/Plan Hospital Course Assessment/Impression - Pneumonia, either infectious etiology vs. nivolumab pneumonitis. It can be a combination of two - ARDS, clinically improved - Acute hypoxic resp failure, intubated 02/17/2018, extubated 02/26/2018 - Immunocompromised state: metastatic melanoma, receipt of nivolumab, infliximab and tapering methylprednisolone - Metastatic melanoma, on nivolumab until recently - Anemia and thrombocytopenia Assessment/Plan - pending results: coccidioides, aspergillus galactomannan and antigen - so far: negative repeat blood cultures, procalcitonin <0.1, normal 1,3-ubtx-V-glucan level, negative nasopharyngeal swab for respiratory viruses, negative legionella, negative pneumocystis jiroveci, histoplasma antigen <0.5, crypto neg - Discontinue IV vancomycin (02/25/18 - 03/01/18) - ordered - Continue meropenem, voriconazole (02/25/2018-) - Continue prophylaxis for pneumocystis jiroveci while Pt's on methylprednisolone taper (02/17/2018-): pNGT Bactrim DS 1 tab three times a week (02/25/2018-) Management was d/w patient, FARRUKH Benton, and with Dr. Medina Thank you Total critical care time spent: 40 min Result Diagram: 03/01/18 0700 03/01/18 0700 Results 24hrs Laboratory Tests Test 02/28/18 17:27 02/28/18 20:34 03/01/18 01:09 03/01/18 04:31 Bedside Glucose 149 115 115 95 Test 03/01/18 07:00 03/01/18 08:10 03/01/18 10:35 03/01/18 12:11 White Blood 8.0 # Count Red Blood Count 2.57 L Hemoglobin 8.4 L Hematocrit 25.2 L Mean Corpuscular 98.1 Volume Mean Corpuscular 32.7 Hemoglobin Mean Corpuscular 33.3 Hemoglobin Cristel nt Red Cell 14.7 H Distribution Width Platelet Count 100 L Mean Platelet 11.9 H Volume Immature 0.900 H Granulocytes % Neutrophils % 86.0 H Lymphocytes % 6.8 L Monocytes % 6.3 Eosinophils % 0.0 Basophils % 0.0 Nucleated Red 0.3 H Blood Cells % Immature 0.070 H Granulocytes # Neutrophils # 6.9 Lymphocytes # 0.5 L Monocytes # 0.5 Eosinophils # 0.0 Basophils # 0.0 Nucleated Red 0.0 Blood Cells # Blood Gas Blood arterial Specimen Source Arterial Blood 03/01/2018 8:25: Date Drawn 46 AM Arterial Blood 7.522 H pH (Temp corrected) Arterial Blood 35.0 pCO2 (Temp correct) Arterial Blood 80.9 pO2 (Temp corrected) Arterial Blood 28.1 H HCO3 Arterial Blood 5.1 H Base Excess Arterial Blood 95.4 Oxygen Saturatio n Ruperto Test ACCEPTAB Arterial Blood Right Radial Gas Puncture Site Arterial 0.3 Blood Carboxyhem oglobin Arterial Blood 0.4 Methemoglobin Blood Gas A-a O2 524.9 H Differential Oxyhemoglobin 94.7 Percent Blood Gas 37.0 Temperature Blood Gas HFNC Modality FiO2 90.0 Blood Gas DT Notified Whom Blood Gas 03/01/2018 8:39: Notified Time 29 AM Sodium Level 137 Potassium Level 3.9 Chloride Level 106 Carbon Dioxide 29 Level Anion Gap 2 L Blood Urea 39 H Nitrogen Creatinine 0.72 Est Glomerular > 60 Filtrat Rate mL/min Glucose Level 99 Calcium Level 7.3 L Vancomycin Level 19.8 Trough Bedside Glucose 106 95 Lab Scanned REFERENCE LAB Report Consultation Date/Type/Reason Admit Date/Time Feb 17, 2018 at 12:57 Initial Consult Date 02/25/18 Type of Consult ID Requesting Provider: KODAK OLMEDO MD 24 HR Interval Summary Free Text/Dictation Patient was titrated from 100% fio2 to 75% today. Has been tolerating. Remains afebrile. F/c was removed today. D/w RN Serenity. Per d/w patient, denies feeling of fever, chills, night sweats, n/v/d, dysuria, pruritis, rash. C/o slight sob at times, none now. C/o "marga" colored sputum "large amount." Exam/Review of Systems Vital Signs Vitals Vital Signs Date Temp Pulse Resp B/P (MAP) Pulse Ox O2 O2 Flow FiO2 Time Delivery Rate 03/01/18 66 18 142/69 99 15:00 (93) 03/01/18 High Flow 14:00 03/01/18 80 13:25 03/01/18 25.0 13:25 03/01/18 98.4 12:00 Intake and Output 02/28/18 02/28/18 03/01/18 1515:00 23:00 07:00 IntakeIntake Total 840 ml 760 ml 530 ml OutputOutput Total 780 ml 400 ml 355 ml BalanceBalance 60 ml 360 ml 175 ml Allergies Coded Allergies Penicillins (Verified Allergy, Unknown, 02/17/18) Exam Constitutional: alert, oriented, well developed, obese Psych: no complaints, nl mood/affect Head: normocephalic, atraumatic, other (wearing glasses ) Eyes: nl conjunctiva, nl lids, nl sclera ENMT: nl external ears & nose, nl nasal mucosa & septum, mucosa pink and moist (no thrush noted ) Neck: supple, non-tender Respiratory: normal air movement, diminished breath sounds, other (on high flow via nc 75% fio2 ) Cardiovascular: regular rate and rhythm, nl pulses Gastrointestinal: soft, non-tender, bowel sounds (normoactive bowel sounds ) Genitourinary - Female: other (wearing a diaper ) Musculoskeletal: nl extremities to inspection Extremities: normal pulses Neurological: nl mental status, nl speech ([place]ish speaking) Skin: nl turgor, ecchymosis (scattered ) Medications Medications Current Medications IV Flush (NS 3 ml) 3 ml PER PROTOCOL IV ; Start 02/17/18 at 13:30 Ondansetron HCl (Zofran Inj) 4 mg Q6H PRN IV NAUSEA AND/OR VOMITING; Start 1/1/19 at 13:30 Acetaminophen (Tylenol Tab) 650 mg Q6H PRN PO PAIN LEVEL 1-3 OR FEVER Last administered on 02/21/18 12:50; Admin Dose 650 MG; Start 02/17/18 at 13:30 Acetaminophen/ Hydrocodone Bitart ([place] (5/325)) 1 tab Q6H PRN PO MODERATE PAIN LEVEL 4-6 Last administered on 02/27/18 15:18; Admin Dose 1 TAB; Start 02/17/18 at 13:30 Docusate Sodium (Colace) 100 mg Q12H PRN PO CONSTIPATION Last administered on 02/27/18 15:44; Admin Dose 100 MG; Start 02/17/18 at 13:30 Pantoprazole (Protonix Iv) 40 mg DAILY@06 IV Last administered on 03/01/18 05:20; Admin Dose 40 MG; Start 02/18/18 at 06:00 IV Flush (NS 10 ml) 10 ml PRN PRN IV IV PROTOCOL; Start 02/18/18 at 13:30 Norepinephrine 250 ml @ 1.875 mls/ hr TITRATE IV ; Start 02/20/18 at 23:45 Furosemide (Lasix) 20 mg DAILY IV Last administered on 03/01/18 09:32; Admin Dose 20 MG; Start 02/22/18 at 10:30 Methylprednisolone Sodium Succinate (Solu-Medrol) 60 mg Q6H IV Last administered on 03/01/18 15:13; Admin Dose 60 MG; Start 02/22/18 at 15:30 Enoxaparin Sodium (Lovenox) 40 mg DAILY SC Last administered on 03/01/18 09: 34; Admin Dose 40 MG; Start 02/23/18 at 09:00 Morphine Sulfate (morphine) 6 mg Q4H PRN GTB SEVERE PAIN LEVEL 7-10 Last administered on 02/24/18 21:33; Admin Dose 6 MG; Start 02/23/18 at 12:00 Insulin Glargine (Lantus) 22 units DAILY@0800 SC Last administered on 03/01/18 08:16; Admin Dose 22 UNITS; Start 02/24/18 at 12:00 Diagnostic Test (Pha) (Accu-Chek) 1 ea 02 XX Last administered on 1/13/19at 01:39; Admin Dose 1 EA; Start 02/25/18 at 02:00 Miscellaneous Information 1 ea NOTE XX ; Start 02/24/18 at 11:30 Glucose (Glutose) 15 gm Q15M PRN PO DECREASED GLUCOSE; Start 02/24/18 at 11:30 Glucose (Glutose) 22.5 gm Q15M PRN PO DECREASED GLUCOSE; Start 02/24/18 at 11:30 Dextrose (D50w Syringe) 25 ml Q15M PRN IV DECREASED GLUCOSE; Start 02/24/18 at 11:30 Dextrose (D50w Syringe) 50 ml Q15M PRN IV DECREASED GLUCOSE; Start 02/24/18 at 11:30 Glucagon (Glucagen) 1 mg Q15M PRN IM DECREASED GLUCOSE; Start 02/24/18 at 11:30 Glucose (Glutose) 15 gm Q15M PRN BUCCAL DECREASED GLUCOSE; Start 02/24/18 at 11 :30 Polyethylene Glycol (Miralax) 17 gm DAILY NGT Last administered on 02/28/18at 08:49; Admin Dose 17 GM; Start 02/25/18 at 03:52 Dexmedetomidine HCl 200 mcg/ Sodium Chloride 50 ml @ 4.05 mls/hr TITRATE IV Last administered on 02/27/18at 07:30; Admin Dose 4.05 MLS/HR; Start 02/25/18 at 09:00 Meropenem/Sodium Chloride 50 ml @ 100 mls/hr Q8 IVPB Last administered on 03/01/18at 14:04; Admin Dose 100 MLS/HR; Start 02/25/18 at 17:00 Voriconazole 100 ml @ 50 mls/hr Q12 IVPB Last administered on 03/01/18at 11:06; Admin Dose 50 MLS/HR; Start 02/25/18 at 21:00 Trimethoprim/ Sulfamethoxazole (Bactrim (Ds)) 1 tab MoWeFr NGT Last administered on 02/27/18at 19:48; Admin Dose 1 TAB; Start 02/25/18 at 17:00 Vancomycin HCl (Vanco Iv Per Pharmacy) VANCOMYCIN PER PHARMACY PER PROTOCOL XX ; Start 02/25/18 at 17:30 Albuterol/ Ipratropium (Duoneb) 3 ml Q6H RESP THERAPY HHN Last administered on 03/01/18at 13:27; Admin Dose 3 ML; Start 02/28/18 at 08:00 Docusate Sodium (Colace) 100 mg BID PO Last administered on 03/01/18at 09:33; Admin Dose 100 MG; Start 02/28/18 at 09:00 Insulin Aspart (Novolog Insulin Pen) NOVOLOG *MODERATE* ALGORI... AC MEALS AND BEDTIME SC ; Start 03/01/18 at 11:00 Vancomycin HCl 1.5 gm/Sodium Chloride 250 ml @ 83.333 mls/ hr Q24H IVPB ; Start 03/02/18 at 08:00 Imaging Imaging CXR 03/01/18 IMPRESSION: Bibasilar consolidation with have not changed significantly. LENKA FREGOSO NP Mar 01, 2018 16:23
[2018-03-02] VITALS (24 sets, daily range): BP systolic 106–145; BP diastolic 51–76; PULSE 43–68; RESP 14–30
[2018-03-02] MEDS: ALBUTEROL/IPRATROPIUM (NEB) 3 ML AMP HHN SCH ×4 (01:20→20:52)
[2018-03-02] MEDS: ACCU-CHEK XX SCH (02:16)
[2018-03-02] MEDS: METHYLPREDNISOLONE 125 MG INJ IV SCH (04:44)
[2018-03-02] MEDS: PANTOPRAZOLE 40 MG INJ IV SCH (05:32)
[2018-03-02] MEDS: MEROPENEM 1 GM/50ML(PMX) 50 ML IVPB SCH ×3 (05:33→22:44)
[2018-03-02] MEDS ORDERED: VANCOMYCIN HCL 1.5 GM in SOD CHLORIDE 0.9% 250 ML IVPB SCH (08:00)
[2018-03-02] MEDS: INSULIN ASPART [NOVOLOG] 3 ML PEN SC SCH ×4 (08:13→21:00)
[2018-03-02] MEDS: INSULIN GLARGINE [LANTus] (100 UNITS/ML) SYG SC SCH (08:30)
--- NOTE | 2018-03-02 08:55 | CONS ---
Date/Time of Note Date/Time of Note DATE: 03/02/18 TIME: 08:50 Assessment/Plan Assessment/Plan Hospital Course A 62 yo female with #Metastatic Melanoma - last Nivolumab was 2 weeks ago -pt currently on a clinical trial at [facility] using Nivolumab and a study drug -given this grade 4 toxicity she likely will not be able to proceed with more nivolumab #ARDS - likely 2/2 Nivolumab and questionable underlying pneumonia -- 02/21/2018-sp Remicade 300 mg - 02/27/2018- extubated ; stable - FIO2 45 %- O2 SAT 100% - cont to monitor in ICU -will change prednisone dose from IV solumedrol to po prednisone 1mg/kg and taper by 10mg every 5 days -CT Chest reveals evidence of bibasilar infiltrates but no evidence of PE -appreciate ID recs and workup for underlying opportunistic infection Approximately 50 min was spend in face to face time with patent's son at the bed side, and in coordination of her care. Result Diagram: 03/02/18 0500 03/02/18 0500 Results 24hrs Laboratory Tests Test 03/01/18 10:35 03/01/18 12:11 03/01/18 17:58 03/01/18 21:17 Lab Scanned Report REFERENCE LAB Bedside Glucose 95 100 114 Test 03/02/18 05:00 03/02/18 08:13 White Blood Count 5.8 # Red Blood Count 2.54 L Hemoglobin 8.1 L Hematocrit 25.0 L Mean Corpuscular 98.4 Volume Mean Corpuscular 31.9 Hemoglobin Mean Corpuscular 32.4 Hemoglobin Concent Red Cell 14.8 H Distribution Width Platelet Count 95 L Mean Platelet 12.0 H Volume Immature 1.000 H Granulocytes % Neutrophils % 82.0 H Lymphocytes % 10.1 L Monocytes % 6.9 Eosinophils % 0.0 Basophils % 0.0 Nucleated Red 0.3 H Blood Cells % Immature 0.060 H Granulocytes # Neutrophils # 4.7 Lymphocytes # 0.6 L Monocytes # 0.4 Eosinophils # 0.0 Basophils # 0.0 Nucleated Red 0.0 Blood Cells # Sodium Level 143 Potassium Level 3.5 Chloride Level 106 Carbon Dioxide 29 Level Anion Gap 8 Blood Urea 36 H Nitrogen Creatinine 0.74 Est Glomerular > 60 Filtrat Rate mL/min Glucose Level 111 Calcium Level 6.9 L Phosphorus Level 3.0 Magnesium Level 2.4 Bedside Glucose 108 Consultation Date/Type/Reason Admit Date/Time Feb 17, 2018 at 12:57 Initial Consult Date 02/18/18 Type of Consult oncology Reason for Consultation metastatic melanoma Requesting Provider: SJ BOWMAN MD 24 HR Interval Summary Free Text/Dictation no acute overnight events. pt is extubated and doing well Exam/Review of Systems Vital Signs Vitals Vital Signs Date Temp Pulse Resp B/P (MAP) Pulse Ox O2 O2 Flow FiO2 Time Delivery Rate 03/02/18 57 23 92 60 08:18 03/02/18 122/61 High Flow 06:00 (81) 03/02/18 98.8 04:00 03/01/18 25.0 13:25 Intake and Output 03/01/18 03/01/18 03/02/18 1515:00 23:00 07:00 IntakeIntake Total 1120 ml 480 ml 120 ml OutputOutput Total 725 ml BalanceBalance 395 ml 480 ml 120 ml Exam Constitutional: alert, oriented Psych: no complaints Head: normocephalic Eyes: nl conjunctiva ENMT: nl external ears & nose Neck: supple Respiratory: clear to auscultation Cardiovascular: regular rate and rhythm Gastrointestinal: soft Musculoskeletal: nl extremities to inspection Extremities: normal pulses Medications Medications Current Medications IV Flush (NS 3 ml) 3 ml PER PROTOCOL IV ; Start 02/17/18 at 13:30 Ondansetron HCl (Zofran Inj) 4 mg Q6H PRN IV NAUSEA AND/OR VOMITING; Start 02/17/18 at 13:30 Acetaminophen (Tylenol Tab) 650 mg Q6H PRN PO PAIN LEVEL 1-3 OR FEVER Last administered on 02/21/18at 12:50; Admin Dose 650 MG; Start 02/17/18 at 13:30 Acetaminophen/ Hydrocodone Bitart ([place] (5/325)) 1 tab Q6H PRN PO MODERATE PAIN LEVEL 4-6 Last administered on 02/27/18at 15:18; Admin Dose 1 TAB; Start 02/17/18 at 13:30 Docusate Sodium (Colace) 100 mg Q12H PRN PO CONSTIPATION Last administered on 02/27/18at 15:44; Admin Dose 100 MG; Start 02/17/18 at 13:30 Pantoprazole (Protonix Iv) 40 mg DAILY@06 IV Last administered on 03/02/18at 05:32; Admin Dose 40 MG; Start 02/18/18 at 06:00 IV Flush (NS 10 ml) 10 ml PRN PRN IV IV PROTOCOL; Start 02/18/18 at 13:30 Furosemide (Lasix) 20 mg DAILY IV Last administered on 03/01/18at 09:32; Admin Dose 20 MG; Start 02/22/18 at 10:30 Methylprednisolone Sodium Succinate (Solu-Medrol) 60 mg Q6H IV Last administered on 03/02/18at 04:44; Admin Dose 60 MG; Start 02/22/18 at 15:30 Enoxaparin Sodium (Lovenox) 40 mg DAILY SC Last administered on 03/01/18at 09:34; Admin Dose 40 MG; Start 02/23/18 at 09:00 Morphine Sulfate (morphine) 6 mg Q4H PRN GTB SEVERE PAIN LEVEL 7-10 Last administered on 02/24/18at 21:33; Admin Dose 6 MG; Start 02/23/18 at 12:00 Insulin Glargine (Lantus) 22 units DAILY@0800 SC Last administered on 03/01/18at 08:16; Admin Dose 22 UNITS; Start 02/24/18 at 12:00 Diagnostic Test (Pha) (Accu-Chek) 1 ea 02 XX Last administered on 03/02/18at 02:16; Admin Dose 1 EA; Start 02/25/18 at 02:00 Miscellaneous Information 1 ea NOTE XX ; Start 02/24/18 at 11:30 Glucose (Glutose) 15 gm Q15M PRN PO DECREASED GLUCOSE; Start 02/24/18 at 11:30 Glucose (Glutose) 22.5 gm Q15M PRN PO DECREASED GLUCOSE; Start 02/24/18 at 11:30 Dextrose (D50w Syringe) 25 ml Q15M PRN IV DECREASED GLUCOSE; Start 02/24/18 at 11:30 Dextrose (D50w Syringe) 50 ml Q15M PRN IV DECREASED GLUCOSE; Start 02/24/18 at 11:30 Glucagon (Glucagen) 1 mg Q15M PRN IM DECREASED GLUCOSE; Start 02/24/18 at 11:30 Glucose (Glutose) 15 gm Q15M PRN BUCCAL DECREASED GLUCOSE; Start 02/24/18 at 11:30 Polyethylene Glycol (Miralax) 17 gm DAILY NGT Last administered on 02/28/18 08:49; Admin Dose 17 GM; Start 02/25/18 at 03:52 Meropenem/Sodium Chloride 50 ml @ 100 mls/hr Q8 IVPB Last administered on 03/02/18at 05:33; Admin Dose 100 MLS/HR; Start 02/25/18 at 17:00 Voriconazole 100 ml @ 50 mls/hr Q12 IVPB Last administered on 03/01/18at 21:13; Admin Dose 50 MLS/HR; Start 02/25/18 at 21:00 Trimethoprim/ Sulfamethoxazole (Bactrim (Ds)) 1 tab MoWeFr NGT Last administered on 02/27/18at 19:48; Admin Dose 1 TAB; Start 02/25/18 at 17:00 Albuterol/ Ipratropium (Duoneb) 3 ml Q6H RESP THERAPY HHN Last administered on 03/02/18at 08:18; Admin Dose 3 ML; Start 02/28/18 at 08:00 Docusate Sodium (Colace) 100 mg BID PO Last administered on 03/01/18at 09:33; Admin Dose 100 MG; Start 02/28/18 at 09:00 Insulin Aspart (Novolog Insulin Pen) NOVOLOG *MODERATE* ALGORI... AC MEALS AND BEDTIME SC ; Start 03/01/18 at 11:00 LIA CASAREZ M.D. Mar 02, 2018 08:55
[2018-03-02] MEDS: DOCUSATE SODIUM 100 MG CAP PO SCH ×2 (09:00→21:00)
[2018-03-02] MEDS: POLYETHYLENE GLYCOL 17 GM PACKET NGT SCH (09:00)
--- NOTE | 2018-03-02 09:38 | CONS ---
Date/Time of Note Date/Time of Note DATE: 03/02/18 TIME: 09:35 Assessment/Plan Assessment/Plan Assessment/Plan Patient is currently on high flow nasal cannula at 60% FiO2 at 30 L/min. Assessment and recommendations; 1. Patient status post respiratory failure admitted for severe bilateral pneumonia possibly acute lung injury from immunotherapy, however clinical findings are more consistent with arterial pneumonia with basilar predominance. Clinically markedly improved overall. 2. Stage IV melanoma extent of Pulmonary involvement currently is difficult to ascertain. 3. Hyperglycemia, steroid associated. Discontinue IV Solu-Medrol. Start prednisone 40 mg daily. Wean down FiO2 as tolerated. Obtain follow-up chest x-ray 24 hours. Patient also can be transferred to medical floor. Continue current antibiotics for now. Patient receiving chest percussion to lower lobes. Result Diagram: 03/02/18 0500 03/02/18 0500 Results 24hrs Laboratory Tests Test 03/01/18 10:35 03/01/18 12:11 03/01/18 17:58 03/01/18 21:17 Lab Scanned Report REFERENCE LAB Bedside Glucose 95 100 114 Test 03/02/18 05:00 03/02/18 08:13 White Blood Count 5.8 # Red Blood Count 2.54 L Hemoglobin 8.1 L Hematocrit 25.0 L Mean Corpuscular 98.4 Volume Mean Corpuscular 31.9 Hemoglobin Mean Corpuscular 32.4 Hemoglobin Concent Red Cell 14.8 H Distribution Width Platelet Count 95 L Mean Platelet 12.0 H Volume Immature 1.000 H Granulocytes % Neutrophils % 82.0 H Lymphocytes % 10.1 L Monocytes % 6.9 Eosinophils % 0.0 Basophils % 0.0 Nucleated Red 0.3 H Blood Cells % Immature 0.060 H Granulocytes # Neutrophils # 4.7 Lymphocytes # 0.6 L Monocytes # 0.4 Eosinophils # 0.0 Basophils # 0.0 Nucleated Red 0.0 Blood Cells # Sodium Level 143 Potassium Level 3.5 Chloride Level 106 Carbon Dioxide 29 Level Anion Gap 8 Blood Urea 36 H Nitrogen Creatinine 0.74 Est Glomerular > 60 Filtrat Rate mL/min Glucose Level 111 Calcium Level 6.9 L Phosphorus Level 3.0 Magnesium Level 2.4 Bedside Glucose 108 Consultation Date/Type/Reason Admit Date/Time Feb 17, 2018 at 12:57 Initial Consult Date 02/18/18 Type of Consult Pulmonary/critical care Requesting Provider: SJ BOWMAN MD 24 HR Interval Summary Free Text/Dictation Patient's condition is continually improving. Denies any shortness of breath, coughing, sputum production or wheezing. General exam; elderly female, awake and alert. Currently in no distress. Exam/Review of Systems Vital Signs Vitals Vital Signs Date Temp Pulse Resp B/P (MAP) Pulse Ox O2 O2 Flow FiO2 Time Delivery Rate 03/02/18 57 23 92 60 08:18 03/02/18 122/61 High Flow 06:00 (81) 03/02/18 98.8 04:00 03/01/18 25.0 13:25 Intake and Output 03/01/18 03/01/18 03/02/18 1515:00 23:00 07:00 IntakeIntake Total 1120 ml 480 ml 120 ml OutputOutput Total 725 ml BalanceBalance 395 ml 480 ml 120 ml Exam H EENT exam; supple neck, no JVD. No lymphadenopathy. Midline trachea. No thyromegaly. Patient has fair dentition. No neck masses. Chest exam; minimal basilar crackles. Upper lobes are clear. S1-S2 audible, no murmurs. Regular rhythm. Abdomen exam; soft, no organomegaly. Bowel sounds audible. Extremity exam; no peripheral edema or clubbing. RHIA exam; no focal deficit. Medications Medications Current Medications IV Flush (NS 3 ml) 3 ml PER PROTOCOL IV ; Start 02/17/18 at 13:30 Ondansetron HCl (Zofran Inj) 4 mg Q6H PRN IV NAUSEA AND/OR VOMITING; Start 02/17/18 at 13:30 Acetaminophen (Tylenol Tab) 650 mg Q6H PRN PO PAIN LEVEL 1-3 OR FEVER Last administered on 02/21/18at 12:50; Admin Dose 650 MG; Start 02/17/18 at 13:30 Acetaminophen/ Hydrocodone Bitart ([place] (5/325)) 1 tab Q6H PRN PO MODERATE PAIN LEVEL 4-6 Last administered on 02/27/18at 15:18; Admin Dose 1 TAB; Start 02/17/18 at 13:30 Docusate Sodium (Colace) 100 mg Q12H PRN PO CONSTIPATION Last administered on 02/27/18at 15:44; Admin Dose 100 MG; Start 02/17/18 at 13:30 Pantoprazole (Protonix Iv) 40 mg DAILY@06 IV Last administered on 03/02/18at 05:32; Admin Dose 40 MG; Start 02/18/18 at 06:00 IV Flush (NS 10 ml) 10 ml PRN PRN IV IV PROTOCOL; Start 02/18/18 at 13:30 Furosemide (Lasix) 20 mg DAILY IV Last administered on 03/01/18at 09:32; Admin Dose 20 MG; Start 02/22/18 at 10:30 Methylprednisolone Sodium Succinate (Solu-Medrol) 60 mg Q6H IV Last administered on 03/02/18at 04:44; Admin Dose 60 MG; Start 02/22/18 at 15:30 Enoxaparin Sodium (Lovenox) 40 mg DAILY SC Last administered on 03/01/18at 09: 34; Admin Dose 40 MG; Start 02/23/18 at 09:00 Morphine Sulfate (morphine) 6 mg Q4H PRN GTB SEVERE PAIN LEVEL 7-10 Last administered on 02/24/18at 21:33; Admin Dose 6 MG; Start 02/23/18 at 12:00 Insulin Glargine (Lantus) 22 units DAILY@0800 SC Last administered on 03/01/18at 08:16; Admin Dose 22 UNITS; Start 02/24/18 at 12:00 Diagnostic Test (Pha) (Accu-Chek) 1 ea 02 XX Last administered on 03/02/18at 02:16; Admin Dose 1 EA; Start 02/25/18 at 02:00 Miscellaneous Information 1 ea NOTE XX ; Start 02/24/18 at 11:30 Glucose (Glutose) 15 gm Q15M PRN PO DECREASED GLUCOSE; Start 02/24/18 at 11:30 Glucose (Glutose) 22.5 gm Q15M PRN PO DECREASED GLUCOSE; Start 02/24/18 at 11:30 Dextrose (D50w Syringe) 25 ml Q15M PRN IV DECREASED GLUCOSE; Start 02/24/18 at 11:30 Dextrose (D50w Syringe) 50 ml Q15M PRN IV DECREASED GLUCOSE; Start 02/24/18 at 11:30 Glucagon (Glucagen) 1 mg Q15M PRN IM DECREASED GLUCOSE; Start 02/24/18 at 11:30 Glucose (Glutose) 15 gm Q15M PRN BUCCAL DECREASED GLUCOSE; Start 02/24/18 at 11 :30 Polyethylene Glycol (Miralax) 17 gm DAILY NGT Last administered on 02/28/18at 08:49; Admin Dose 17 GM; Start 02/25/18 at 03:52 Meropenem/Sodium Chloride 50 ml @ 100 mls/hr Q8 IVPB Last administered on 03/02/18at 05:33; Admin Dose 100 MLS/HR; Start 02/25/18 at 17:00 Voriconazole 100 ml @ 50 mls/hr Q12 IVPB Last administered on 03/01/18at 21:13; Admin Dose 50 MLS/HR; Start 02/25/18 at 21:00 Trimethoprim/ Sulfamethoxazole (Bactrim (Ds)) 1 tab MoWeFr NGT Last administered on 02/27/18at 19:48; Admin Dose 1 TAB; Start 02/25/18 at 17:00 Albuterol/ Ipratropium (Duoneb) 3 ml Q6H RESP THERAPY HHN Last administered on 03/02/18at 08:18; Admin Dose 3 ML; Start 02/28/18 at 08:00 Docusate Sodium (Colace) 100 mg BID PO Last administered on 03/01/18 09:33; Admin Dose 100 MG; Start 02/28/18 at 09:00 Insulin Aspart (Novolog Insulin Pen) NOVOLOG *MODERATE* ALGORI... AC MEALS AND BEDTIME SC ; Start 03/01/18 at 11:00 JUDY LYON Mar 02, 2018 09:38
[2018-03-02] MEDS: VORICONAZOLE 200 MG/100 ML 100 ML IVPB SCH (09:47)
[2018-03-02] MEDS: ENOXAPARIN 40 MG/0.4 ML SYG SC SCH (09:48)
[2018-03-02] MEDS: FUROSEMIDE 20 MG INJ IV SCH (09:48)
--- NOTE | 2018-03-02 13:46 | CONS ---
Date/Time of Note Date/Time of Note DATE: 03/02/18 TIME: 13:32 Assessment/Plan Assessment/Plan Hospital Course Assessment/Impression - Pneumonia, either infectious etiology vs. nivolumab pneumonitis. It can be a combination of two - ARDS, clinically improved - Acute hypoxic resp failure, intubated 02/17/2018, extubated 02/26/2018 - Immunocompromised state: metastatic melanoma, receipt of nivolumab, infliximab and tapering methylprednisolone - Metastatic melanoma, on nivolumab until recently - Anemia and thrombocytopenia Assessment/Plan - Pending results: coccidioides, aspergillus galactomannan and antigen - Thusfar: negative repeat blood cultures, procalcitonin <0.1, normal 1,8-nusy-L-glucan level, negative nasopharyngeal swab for respiratory viruses, negative legionella, negative pneumocystis jiroveci, histoplasma antigen <0.5, crypto neg - Continue meropenem, voriconazole (02/25/2018-); s/p IV vanco (02/25/18 - 03/01/18) - Continue prophylaxis for pneumocystis jiroveci while Pt's on meth ylprednisolone/prednisone taper (02/17/2018-): PO Bactrim DS 1 tab three times a week (02/25/2018-) Management was d/w patient, FARRUKH Benton, and with Dr. Bill. Thank you Total critical care time spent: 40 min Result Diagram: 03/02/18 0500 03/02/18 0500 Results 24hrs Laboratory Tests Test 03/01/18 17:58 03/01/18 21:17 03/02/18 05:00 03/02/18 08:13 Bedside Glucose 100 114 108 White Blood Count 5.8 # Red Blood Count 2.54 L Hemoglobin 8.1 L Hematocrit 25.0 L Mean Corpuscular 98.4 Volume Mean Corpuscular 31.9 Hemoglobin Mean Corpuscular 32.4 Hemoglobin Concent Red Cell 14.8 H Distribution Width Platelet Count 95 L Mean Platelet Volume 12.0 H Immature 1.000 H Granulocytes % Neutrophils % 82.0 H Lymphocytes % 10.1 L Monocytes % 6.9 Eosinophils % 0.0 Basophils % 0.0 Nucleated Red Blood 0.3 H Cells % Immature 0.060 H Granulocytes # Neutrophils # 4.7 Lymphocytes # 0.6 L Monocytes # 0.4 Eosinophils # 0.0 Basophils # 0.0 Nucleated Red Blood 0.0 Cells # Sodium Level 143 Potassium Level 3.5 Chloride Level 106 Carbon Dioxide Level 29 Anion Gap 8 Blood Urea Nitrogen 36 H Creatinine 0.74 Est Glomerular > 60 Filtrat Rate mL/min Glucose Level 111 Calcium Level 6.9 L Phosphorus Level 3.0 Magnesium Level 2.4 Test 03/02/18 11:52 Bedside Glucose 160 Consultation Date/Type/Reason Admit Date/Time Feb 17, 2018 at 12:57 Initial Consult Date 02/25/18 Type of Consult ID Requesting Provider: SJ BOWMAN MD 24 HR Interval Summary Free Text/Dictation Patient has remained afebrile, WBC improved 5.8. Blood cultures ngtd. Per d/w RN Serenity, patient titrated down to fio2 60% on high flow. She did become sob with exertion with physical therapy. She noted that patient has been having "soft" stool. Otherwise no acute issues were reported today. Methylprednisolone was transitioned to prednisone today. Per d/w patient, she denies feeling of fevers, chills, night sweats, cough, n/v/d, dysuria, pruritis, rash. Did c/o sob with exertion. Pt mentions that from receiving the lasix, she has been having "mucho mucho peepee." Exam/Review of Systems Vital Signs Vitals Vital Signs Date Temp Pulse Resp B/P (MAP) Pulse Ox O2 O2 Flow FiO2 Time Delivery Rate 03/02/18 45 12:00 03/02/18 20 133/76 99 High Flow 10:00 (95) 03/02/18 60 08:18 03/02/18 98.2 08:00 03/01/18 25.0 13:25 Intake and Output 03/01/18 03/01/18 03/02/18 1515:00 23:00 07:00 IntakeIntake Total 1120 ml 480 ml 120 ml OutputOutput Total 725 ml BalanceBalance 395 ml 480 ml 120 ml Allergies Coded Allergies Penicillins (Verified Allergy, Unknown, 02/17/18) Exam Constitutional: alert, oriented, well developed, obese, other (wearing glasses ) Psych: no complaints, nl mood/affect Head: normocephalic, atraumatic Eyes: nl conjunctiva, nl lids, nl sclera ENMT: nl external ears & nose, nl nasal mucosa & septum, mucosa pink and moist (no thrush noted) Neck: supple, non-tender Respiratory: clear to auscultation, normal air movement, diminished breath sounds (bibasilarlly, anteriorly, no wheezing ), other (On high flow via nc 60% ) Cardiovascular: regular rate and rhythm, nl pulses Gastrointestinal: soft, non-tender, bowel sounds (normoactive ) Genitourinary - Female: other (wearing a diaper) Musculoskeletal: nl extremities to inspection Extremities: normal pulses, edema (generalized 2-3+) Neurological: nl mental status, nl speech (mozambican speaking ) Skin: nl turgor; No rash or lesions Medications Medications Current Medications IV Flush (NS 3 ml) 3 ml PER PROTOCOL IV ; Start 02/17/18 at 13:30 Ondansetron HCl (Zofran Inj) 4 mg Q6H PRN IV NAUSEA AND/OR VOMITING; Start 02/17/18 at 13:30 Acetaminophen (Tylenol Tab) 650 mg Q6H PRN PO PAIN LEVEL 1-3 OR FEVER Last administered on 02/21/18at 12:50; Admin Dose 650 MG; Start 02/17/18 at 13:30 Acetaminophen/ Hydrocodone Bitart ([place] (5/325)) 1 tab Q6H PRN PO MODERATE PAIN LEVEL 4-6 Last administered on 02/27/18at 15:18; Admin Dose 1 TAB; Start 02/17/18 at 13:30 Docusate Sodium (Colace) 100 mg Q12H PRN PO CONSTIPATION Last administered on 02/27/18at 15:44; Admin Dose 100 MG; Start 02/17/18 at 13:30 IV Flush (NS 10 ml) 10 ml PRN PRN IV IV PROTOCOL; Start 02/18/18 at 13:30 Furosemide (Lasix) 20 mg DAILY IV Last administered on 03/02/18 09:48; Admin Dose 20 MG; Start 02/22/18 at 10:30 Enoxaparin Sodium (Lovenox) 40 mg DAILY SC Last administered on 03/02/18 09:48; Admin Dose 40 MG; Start 02/23/18 at 09:00 Morphine Sulfate (morphine) 6 mg Q4H PRN GTB SEVERE PAIN LEVEL 7-10 Last administered on 02/24/18 21:33; Admin Dose 6 MG; Start 02/23/18 at 12:00 Insulin Glargine (Lantus) 22 units DAILY@0800 SC Last administered on 03/02/18at 08:30; Admin Dose 22 UNITS; Start 02/24/18 at 12:00 Diagnostic Test (Pha) (Accu-Chek) 1 ea 02 XX Last administered on 03/02/18at 02:16; Admin Dose 1 EA; Start 02/25/18 at 02:00 Miscellaneous Information 1 ea NOTE XX ; Start 02/24/18 at 11:30 Glucose (Glutose) 15 gm Q15M PRN PO DECREASED GLUCOSE; Start 02/24/18 at 11:30 Glucose (Glutose) 22.5 gm Q15M PRN PO DECREASED GLUCOSE; Start 02/24/18 at 11:30 Dextrose (D50w Syringe) 25 ml Q15M PRN IV DECREASED GLUCOSE; Start 02/24/18 at 11:30 Dextrose (D50w Syringe) 50 ml Q15M PRN IV DECREASED GLUCOSE; Start 02/24/18 at 11:30 Glucagon (Glucagen) 1 mg Q15M PRN IM DECREASED GLUCOSE; Start 02/24/18 at 11:30 Glucose (Glutose) 15 gm Q15M PRN BUCCAL DECREASED GLUCOSE; Start 02/24/18 at 11:30 Meropenem/Sodium Chloride 50 ml @ 100 mls/hr Q8 IVPB Last administered on 03/02/18at 05:33; Admin Dose 100 MLS/HR; Start 02/25/18 at 17:00 Voriconazole 100 ml @ 50 mls/hr Q12 IVPB Last administered on 03/02/18at 09:47; Admin Dose 50 MLS/HR; Start 02/25/18 at 21:00 Trimethoprim/ Sulfamethoxazole (Bactrim (Ds)) 1 tab MoWeFr NGT Last administered on 02/27/18at 19:48; Admin Dose 1 TAB; Start 02/25/18 at 17:00 Albuterol/ Ipratropium (Duoneb) 3 ml Q6H RESP THERAPY HHN Last administered on 03/02/18 08:18; Admin Dose 3 ML; Start 02/28/18 at 08:00 Docusate Sodium (Colace) 100 mg BID PO Last administered on 03/01/18at 09:33; Admin Dose 100 MG; Start 02/28/18 at 09:00 Insulin Aspart (Novolog Insulin Pen) NOVOLOG *MODERATE* ALGORI... AC MEALS AND BEDTIME SC Last administered on 03/02/18at 12:52; Admin Dose 2 UNIT; Start 03/01/18 at 11:00 Prednisone (Prednisone) 40 mg DAILY PO ; Start 03/03/18 at 09:00 Imaging Imaging No new imaging LENKA FREGOSO NP Mar 02, 2018 13:43
--- NOTE | 2018-03-02 15:59 | PN ---
Date/Time of Note Date/Time of Note DATE: 03/02/18 TIME: 15:55 Assessment/Plan VTE Prophylaxis Risk score (from Ns)>0 risk: 8 Pharmacological prophylaxis: LMWH Lines/Catheters Urinary Cath still in place: No Assessment/Plan Hospital Course 62 yo female with stage IV melanoma with ARDS leading to acute respiratory failure 1. Acute respiratory failure/ARDS: - Now extubated and doing well on high flow - Steroids per pulmonary -Continue antibiotics for possible pneumonia 2. Metastatic melanoma - Further care as outpatient. In clinical trial in [place]. Should not receive nivolumab again given this may have been the etiology of ARDS 3. Bicytopenia with anemia and thrombocytopenia secondary to melanoma therapy -Hematology following Prophylaxis: Lovenox Discharge plan: Can be discharged when oxygen is weaned down. Oncology follow up in [place] Result Diagram: 03/02/18 0500 03/02/18 0500 Results 24hrs Laboratory Tests Test 03/01/18 17:58 03/01/18 21:17 03/02/18 05:00 03/02/18 08:13 Bedside Glucose 100 114 108 White Blood Count 5.8 # Red Blood Count 2.54 L Hemoglobin 8.1 L Hematocrit 25.0 L Mean Corpuscular 98.4 Volume Mean Corpuscular 31.9 Hemoglobin Mean Corpuscular 32.4 Hemoglobin Concent Red Cell 14.8 H Distribution Width Platelet Count 95 L Mean Platelet Volume 12.0 H Immature 1.000 H Granulocytes % Neutrophils % 82.0 H Lymphocytes % 10.1 L Monocytes % 6.9 Eosinophils % 0.0 Basophils % 0.0 Nucleated Red Blood 0.3 H Cells % Immature 0.060 H Granulocytes # Neutrophils # 4.7 Lymphocytes # 0.6 L Monocytes # 0.4 Eosinophils # 0.0 Basophils # 0.0 Nucleated Red Blood 0.0 Cells # Sodium Level 143 Potassium Level 3.5 Chloride Level 106 Carbon Dioxide Level 29 Anion Gap 8 Blood Urea Nitrogen 36 H Creatinine 0.74 Est Glomerular > 60 Filtrat Rate mL/min Glucose Level 111 Calcium Level 6.9 L Phosphorus Level 3.0 Magnesium Level 2.4 Test 03/02/18 11:52 Bedside Glucose 160 Subjective 24 Hr Interval Summary Constitutional: no complaints Exam/Review of Systems Vital Signs Vitals Vital Signs Date Temp Pulse Resp B/P (MAP) Pulse Ox O2 O2 Flow FiO2 Time Delivery Rate 03/02/18 97 50 15:00 03/02/18 58 17 124/58 High Flow 15:00 (80) 03/02/18 98.3 12:00 03/01/18 25.0 13:25 Intake and Output 03/01/18 03/01/18 03/02/18 1515:00 23:00 07:00 IntakeIntake Total 1120 ml 480 ml 120 ml OutputOutput Total 725 ml BalanceBalance 395 ml 480 ml 120 ml Exam Constitutional: alert, oriented Respiratory: clear to auscultation Cardiovascular: regular rate and rhythm Gastrointestinal: soft Musculoskeletal: nl extremities to inspection Medications Medications Current Medications IV Flush (NS 3 ml) 3 ml PER PROTOCOL IV ; Start 02/17/18 at 13:30 Ondansetron HCl (Zofran Inj) 4 mg Q6H PRN IV NAUSEA AND/OR VOMITING; Start 02/17/18 at 13:30 Acetaminophen (Tylenol Tab) 650 mg Q6H PRN PO PAIN LEVEL 1-3 OR FEVER Last administered on 02/21/18at 12:50; Admin Dose 650 MG; Start 02/17/18 at 13:30 Acetaminophen/ Hydrocodone Bitart ([place] (5/325)) 1 tab Q6H PRN PO MODERATE PAIN LEVEL 4-6 Last administered on 02/27/18at 15:18; Admin Dose 1 TAB; Start 02/17/18 at 13:30 Docusate Sodium (Colace) 100 mg Q12H PRN PO CONSTIPATION Last administered on 02/27/18at 15:44; Admin Dose 100 MG; Start 02/17/18 at 13:30 IV Flush (NS 10 ml) 10 ml PRN PRN IV IV PROTOCOL; Start 02/18/18 at 13:30 Furosemide (Lasix) 20 mg DAILY IV Last administered on 03/02/18at 09:48; Admin Dose 20 MG; Start 02/22/18 at 10:30 Enoxaparin Sodium (Lovenox) 40 mg DAILY SC Last administered on 03/02/18at 09:48; Admin Dose 40 MG; Start 02/23/18 at 09:00 Morphine Sulfate (morphine) 6 mg Q4H PRN GTB SEVERE PAIN LEVEL 7-10 Last administered on 02/24/18at 21:33; Admin Dose 6 MG; Start 02/23/18 at 12:00 Insulin Glargine (Lantus) 22 units DAILY@0800 SC Last administered on 03/02/18at 08:30; Admin Dose 22 UNITS; Start 02/24/18 at 12:00 Diagnostic Test (Pha) (Accu-Chek) 1 ea 02 XX Last administered on 03/02/18at 02:16; Admin Dose 1 EA; Start 02/25/18 at 02:00 Miscellaneous Information 1 ea NOTE XX ; Start 02/24/18 at 11:30 Glucose (Glutose) 15 gm Q15M PRN PO DECREASED GLUCOSE; Start 02/24/18 at 11:30 Glucose (Glutose) 22.5 gm Q15M PRN PO DECREASED GLUCOSE; Start 02/24/18 at 11:30 Dextrose (D50w Syringe) 25 ml Q15M PRN IV DECREASED GLUCOSE; Start 02/24/18 at 11:30 Dextrose (D50w Syringe) 50 ml Q15M PRN IV DECREASED GLUCOSE; Start 02/24/18 at 11:30 Glucagon (Glucagen) 1 mg Q15M PRN IM DECREASED GLUCOSE; Start 02/24/18 at 11:30 Glucose (Glutose) 15 gm Q15M PRN BUCCAL DECREASED GLUCOSE; Start 02/24/18 at 11:30 Meropenem/Sodium Chloride 50 ml @ 100 mls/hr Q8 IVPB Last administered on 03/02/18at 14:38; Admin Dose 100 MLS/HR; Start 02/25/18 at 17:00 Voriconazole 100 ml @ 50 mls/hr Q12 IVPB Last administered on 03/02/18at 09:47; Admin Dose 50 MLS/HR; Start 02/25/18 at 21:00 Trimethoprim/ Sulfamethoxazole (Bactrim (Ds)) 1 tab MoWeFr NGT Last administered on 02/27/18at 19:48; Admin Dose 1 TAB; Start 02/25/18 at 17:00 Albuterol/ Ipratropium (Duoneb) 3 ml Q6H RESP THERAPY HHN Last administered on 03/02/18at 13:54; Admin Dose 3 ML; Start 02/28/18 at 08:00 Docusate Sodium (Colace) 100 mg BID PO Last administered on 03/01/18at 09:33; Admin Dose 100 MG; Start 02/28/18 at 09:00 Insulin Aspart (Novolog Insulin Pen) NOVOLOG *MODERATE* ALGORI... AC MEALS AND BEDTIME SC Last administered on 03/02/18at 12:52; Admin Dose 2 UNIT; Start 03/01/18 at 11:00 Prednisone (Prednisone) 40 mg DAILY PO ; Start 03/03/18 at 09:00 JULY TRAMMELL Mar 02, 2018 15:59
[2018-03-02] MEDS: TRIMETHOPRIM/SULFAMETHOX (DS) TAB NGT SCH (19:03)
[2018-03-03] VITALS (11 sets, daily range): BP systolic 102–117; BP diastolic 46–57; PULSE 39–60; RESP 18–22
[2018-03-03] MEDS: VORICONAZOLE 200 MG/100 ML 100 ML IVPB SCH ×2 (00:51→08:16)
[2018-03-03] MEDS: ALBUTEROL/IPRATROPIUM (NEB) 3 ML AMP HHN SCH ×4 (01:31→19:59)
[2018-03-03] MEDS: ACCU-CHEK XX SCH (02:00)
[2018-03-03] MEDS: INSULIN ASPART [NOVOLOG] 3 ML PEN SC SCH ×4 (06:07→21:00)
[2018-03-03] MEDS: MEROPENEM 1 GM/50ML(PMX) 50 ML IVPB SCH ×3 (06:08→22:00)
[2018-03-03] MEDS: FUROSEMIDE 20 MG INJ IV SCH (08:09)
[2018-03-03] MEDS: predniSONE 20 MG TAB PO SCH (08:10)
[2018-03-03] MEDS: DOCUSATE SODIUM 100 MG CAP PO SCH ×2 (08:10→20:54)
[2018-03-03] MEDS: ENOXAPARIN 40 MG/0.4 ML SYG SC SCH (08:15)
[2018-03-03] MEDS: INSULIN GLARGINE [LANTus] (100 UNITS/ML) SYG SC SCH (08:18)
[2018-03-03] MEDS ORDERED: POTASSIUM CHLORIDE (SR) 20 MEQ TAB PO STA (10:23)
--- NOTE | 2018-03-03 10:40 | CONS ---
Date/Time of Note Date/Time of Note DATE: 03/03/18 TIME: 10:35 Assessment/Plan Assessment/Plan Assessment/Plan - Pneumonia, either infectious etiology vs. nivolumab pneumonitis. It can be a combination of two - ARDS, slow improvement - Acute hypoxic resp failure, intubated 02/17/2018, extubated 02/26/2018 - still on high flow O2 - Immunocompromised state: metastatic melanoma, receipt of nivolumab, infliximab and tapering methylprednisolone - Metastatic melanoma, on nivolumab until recently - Normocytic anemia - Thrombocytopenia Recommendations: - Continue meropenem and voriconazole (02/25/2018-); s/p IV vanco (02/25/18 - 03/01/18) - Continue prophylaxis for pneumocystis jiroveci while Pt's on m ethylprednisolone/prednisone taper (02/17/2018-): PO Bactrim DS 1 tab three times a week (02/25/2018-) - Pending results: coccidioides - Thusfar: negative repeat blood cultures, procalcitonin <0.1, normal 1,5-okgb-Z-glucan level, negative nasopharyngeal swab for respiratory viruses, negative legionella, negative pneumocystis jiroveci, histoplasma antigen <0.5, crypto neg, aspergillus neg Management was d/w patient, FARRUKH Herring, and with Dr. Bill. Result Diagram: 03/03/18 0500 03/03/18 0500 Results 24hrs Laboratory Tests Test 03/02/18 11:52 03/02/18 19:06 03/02/18 22:05 03/03/18 02:39 Bedside Glucose 160 185 90 144 Test 03/03/18 05:00 03/03/18 06:05 03/03/18 07:31 03/03/18 09:23 White Blood Count 6.5 Red Blood Count 2.66 L Hemoglobin 8.6 L Hematocrit 25.7 L Mean Corpuscular 96.6 Volume Mean Corpuscular 32.3 Hemoglobin Mean Corpuscular 33.5 Hemoglobin Concent Red Cell 14.7 H Distribution Width Platelet Count 99 L Mean Platelet 11.8 H Volume Immature 1.100 H Granulocytes % Neutrophils % 78.7 H Lymphocytes % 10.2 L Monocytes % 10.0 Eosinophils % 0.0 Basophils % 0.0 Nucleated Red 0.3 H Blood Cells % Immature 0.070 H Granulocytes # Neutrophils # 5.1 Lymphocytes # 0.7 L Monocytes # 0.7 Eosinophils # 0.0 Basophils # 0.0 Nucleated Red 0.0 Blood Cells # Sodium Level 138 Potassium Level 3.4 L Chloride Level 107 Carbon Dioxide 30 Level Anion Gap 1 L Blood Urea 36 H Nitrogen Creatinine 0.69 Est Glomerular > 60 Filtrat Rate mL/min Glucose Level 94 Calcium Level 7.3 L Bedside Glucose 98 100 Lab Scanned Report REFERENCE LAB Consultation Date/Type/Reason Admit Date/Time Feb 17, 2018 at 12:57 Initial Consult Date 02/25/18 Type of Consult Infectious Disease Requesting Provider: SJ BOWMAN MD 24 HR Interval Summary Free Text/Dictation No acute issues except for low potassium today which is being replaced per d/w nursing. Pt reports [place]. Feels slightly better. Exam/Review of Systems Vital Signs Vitals Vital Signs Date Temp Pulse Resp B/P (MAP) Pulse Ox O2 O2 Flow FiO2 Time Delivery Rate 03/03/18 94 60 09:58 03/03/18 50 08:20 03/03/18 16 Nasal 25.0 07:43 Cannula 03/03/18 98.4 102/56 07:12 (71) Intake and Output 03/02/18 03/02/18 03/03/18 1515:00 23:00 07:00 IntakeIntake Total 730 ml 120 ml 200 ml BalanceBalance 730 ml 120 ml 200 ml Exam Constitutional: alert, oriented, well developed, obese Psych: nl mood/affect Head: normocephalic, atraumatic Eyes: nl conjunctiva, nl lids, nl sclera, other (wearing glasses) ENMT: nl external ears & nose, nl lips & teeth, nl nasal mucosa & septum, mucosa pink and moist Neck: supple, non-tender Respiratory: clear to auscultation, normal air movement, diminished breath sounds (at bases), other (still on high flow O2 at 25 LPM with FiO2 at 60% via NC); No wheezing Cardiovascular: regular rate and rhythm, nl pulses Gastrointestinal: soft, non-tender, bowel sounds (normoactive) Genitourinary - Female: other (wearing diaper) Musculoskeletal: nl extremities to inspection Extremities: normal pulses, edema Neurological: nl mental status, nl speech (S[place]i speaking only) Skin: nl turgor; No rash or lesions Medications Medications Current Medications IV Flush (NS 3 ml) 3 ml PER PROTOCOL IV ; Start 02/17/18 at 13:30 Ondansetron HCl (Zofran Inj) 4 mg Q6H PRN IV NAUSEA AND/OR VOMITING; Start 02/17/18 at 13:30 Acetaminophen (Tylenol Tab) 650 mg Q6H PRN PO PAIN LEVEL 1-3 OR FEVER Last administered on 02/21/18at 12:50; Admin Dose 650 MG; Start 02/17/18 at 13:30 Acetaminophen/ Hydrocodone Bitart ([place] (5/325)) 1 tab Q6H PRN PO MODERATE PAIN LEVEL 4-6 Last administered on 02/27/18at 15:18; Admin Dose 1 TAB; Start 02/17/18 at 13:30 Docusate Sodium (Colace) 100 mg Q12H PRN PO CONSTIPATION Last administered on 02/27/18at 15:44; Admin Dose 100 MG; Start 02/17/18 at 13:30 IV Flush (NS 10 ml) 10 ml PRN PRN IV IV PROTOCOL; Start 02/18/18 at 13:30 Furosemide (Lasix) 20 mg DAILY IV Last administered on 03/03/18at 08:09; Admin Dose 20 MG; Start 02/22/18 at 10:30 Enoxaparin Sodium (Lovenox) 40 mg DAILY SC Last administered on 03/03/18at 08:15; Admin Dose 40 MG; Start 02/23/18 at 09:00 Morphine Sulfate (morphine) 6 mg Q4H PRN GTB SEVERE PAIN LEVEL 7-10 Last administered on 02/24/18at 21:33; Admin Dose 6 MG; Start 02/23/18 at 12:00 Insulin Glargine (Lantus) 22 units DAILY@0800 SC Last administered on 03/03/18at 08:18; Admin Dose 22 UNITS; Start 02/24/18 at 12:00 Diagnostic Test (Pha) (Accu-Chek) 1 ea 02 XX Last administered on 03/03/18at 02:00; Admin Dose 1 EA; Start 02/25/18 at 02:00 Miscellaneous Information 1 ea NOTE XX ; Start 02/24/18 at 11:30 Glucose (Glutose) 15 gm Q15M PRN PO DECREASED GLUCOSE; Start 02/24/18 at 11:30 Glucose (Glutose) 22.5 gm Q15M PRN PO DECREASED GLUCOSE; Start 02/24/18 at 11:30 Dextrose (D50w Syringe) 25 ml Q15M PRN IV DECREASED GLUCOSE; Start 02/24/18 at 11:30 Dextrose (D50w Syringe) 50 ml Q15M PRN IV DECREASED GLUCOSE; Start 02/24/18 at 11:30 Glucagon (Glucagen) 1 mg Q15M PRN IM DECREASED GLUCOSE; Start 02/24/18 at 11:30 Glucose (Glutose) 15 gm Q15M PRN BUCCAL DECREASED GLUCOSE; Start 02/24/18 at 11:30 Meropenem/Sodium Chloride 50 ml @ 100 mls/hr Q8 IVPB Last administered on 03/03/18at 06:08; Admin Dose 100 MLS/HR; Start 02/25/18 at 17:00 Voriconazole 100 ml @ 50 mls/hr Q12 IVPB Last administered on 03/03/18at 08:16; Admin Dose 50 MLS/HR; Start 02/25/18 at 21:00 Trimethoprim/ Sulfamethoxazole (Bactrim (Ds)) 1 tab MoWeFr NGT Last administered on 03/02/18at 19:03; Admin Dose 1 TAB; Start 02/25/18 at 17:00 Albuterol/ Ipratropium (Duoneb) 3 ml Q6H RESP THERAPY HHN Last administered on 03/03/18at 07:43; Admin Dose 3 ML; Start 02/28/18 at 08:00 Docusate Sodium (Colace) 100 mg BID PO Last administered on 03/03/18at 08:10; Admin Dose 100 MG; Start 02/28/18 at 09:00 Insulin Aspart (Novolog Insulin Pen) NOVOLOG *MODERATE* ALGORI... AC MEALS AND BEDTIME SC Last administered on 03/02/18 19:07; Admin Dose 4 UNIT; Start 03/01/18 at 11:00 Prednisone (Prednisone) 40 mg DAILY PO Last administered on 03/03/18at 08:10; Admin Dose 40 MG; Start 03/03/18 at 09:00 Imaging Imaging CXR 03/03/2018: Stable appearance of multifocal lower lung opacities. Removal of the endotracheal tube and the gastric tube. DARNELL ORDONEZ NP Mar 03, 2018 10:40
--- NOTE | 2018-03-03 10:55 | CONS ---
Date/Time of Note Date/Time of Note DATE: 03/03/18 TIME: 10:53 Assessment/Plan Assessment/Plan Assessment/Plan Chest x-ray was reviewed from today which is showing improvement in bibasilar pneumonia. Patient is currently on high flow nasal cannula at 60% FiO2 25 L/min. Assessment recommendations; 1. Patient status post extubation admitted for severe bilateral pneumonia with possibility of acute lung injury from immunotherapy. 2. Stage IV metastatic melanoma. 3. Anemia and thrombocytopenia. 4. Persistent hypoxemia. Extent of any pulmonary involvement from melanoma is currently difficult to ascertain. Continue current supportive care. Wean down FiO2 as tolerated. Steroid taper in 24 hours. Result Diagram: 03/03/18 0500 03/03/18 0500 Results 24hrs Laboratory Tests Test 03/02/18 11:52 03/02/18 19:06 03/02/18 22:05 03/03/18 02:39 Bedside Glucose 160 185 90 144 Test 03/03/18 05:00 03/03/18 06:05 03/03/18 07:31 03/03/18 09:23 White Blood Count 6.5 Red Blood Count 2.66 L Hemoglobin 8.6 L Hematocrit 25.7 L Mean Corpuscular 96.6 Volume Mean Corpuscular 32.3 Hemoglobin Mean Corpuscular 33.5 Hemoglobin Concent Red Cell 14.7 H Distribution Width Platelet Count 99 L Mean Platelet 11.8 H Volume Immature 1.100 H Granulocytes % Neutrophils % 78.7 H Lymphocytes % 10.2 L Monocytes % 10.0 Eosinophils % 0.0 Basophils % 0.0 Nucleated Red 0.3 H Blood Cells % Immature 0.070 H Granulocytes # Neutrophils # 5.1 Lymphocytes # 0.7 L Monocytes # 0.7 Eosinophils # 0.0 Basophils # 0.0 Nucleated Red 0.0 Blood Cells # Sodium Level 138 Potassium Level 3.4 L Chloride Level 107 Carbon Dioxide 30 Level Anion Gap 1 L Blood Urea 36 H Nitrogen Creatinine 0.69 Est Glomerular > 60 Filtrat Rate mL/min Glucose Level 94 Calcium Level 7.3 L Bedside Glucose 98 100 Lab Scanned Report REFERENCE LAB Consultation Date/Type/Reason Admit Date/Time Feb 17, 2018 at 12:57 Initial Consult Date 02/18/18 Type of Consult Pulmonary/critical care Requesting Provider: SJ BOWMAN MD 24 HR Interval Summary Free Text/Dictation Patient's condition is stable. Has been moved to medical floor. Patient denies any shortness of breath, coughing, wheezing or any sputum production. General exam; elderly female, awake and alert. Currently in no distress. Exam/Review of Systems Vital Signs Vitals Vital Signs Date Temp Pulse Resp B/P (MAP) Pulse Ox O2 O2 Flow FiO2 Time Delivery Rate 03/03/18 94 60 09:58 03/03/18 50 08:20 03/03/18 16 Nasal 25.0 07:43 Cannula 03/03/18 98.4 102/56 07:12 (71) Intake and Output 03/02/18 03/02/18 03/03/18 1515:00 23:00 07:00 IntakeIntake Total 730 ml 120 ml 200 ml BalanceBalance 730 ml 120 ml 200 ml Exam H EENT exam; supple neck, no JVD. No lymphadenopathy. Midline trachea. No thyromegaly. Patient has good dentition. No neck masses. Chest exam; minimal bibasilar crackles otherwise clear to auscultation. S1-S2 audible, no murmurs. Regular rhythm. Abdomen exam; soft, no organomegaly. Bowel sounds audible. Extremity exam; no peripheral edema or clubbing. BAKER BISCUIT exam; no focal deficit. Medications Medications Current Medications IV Flush (NS 3 ml) 3 ml PER PROTOCOL IV ; Start 02/17/18 at 13:30 Ondansetron HCl (Zofran Inj) 4 mg Q6H PRN IV NAUSEA AND/OR VOMITING; Start 02/17/18 at 13:30 Acetaminophen (Tylenol Tab) 650 mg Q6H PRN PO PAIN LEVEL 1-3 OR FEVER Last administered on 02/21/18at 12:50; Admin Dose 650 MG; Start 02/17/18 at 13:30 Acetaminophen/ Hydrocodone Bitart ([place] (5/325)) 1 tab Q6H PRN PO MODERATE PAIN LEVEL 4-6 Last administered on 02/27/18at 15:18; Admin Dose 1 TAB; Start 02/17/18 at 13:30 Docusate Sodium (Colace) 100 mg Q12H PRN PO CONSTIPATION Last administered on 02/27/18at 15:44; Admin Dose 100 MG; Start 02/17/18 at 13:30 IV Flush (NS 10 ml) 10 ml PRN PRN IV IV PROTOCOL; Start 02/18/18 at 13:30 Furosemide (Lasix) 20 mg DAILY IV Last administered on 03/03/18at 08:09; Admin Dose 20 MG; Start 02/22/18 at 10:30 Enoxaparin Sodium (Lovenox) 40 mg DAILY SC Last administered on 03/03/18at 08:15; Admin Dose 40 MG; Start 02/23/18 at 09:00 Morphine Sulfate (morphine) 6 mg Q4H PRN GTB SEVERE PAIN LEVEL 7-10 Last administered on 02/24/18at 21:33; Admin Dose 6 MG; Start 02/23/18 at 12:00 Insulin Glargine (Lantus) 22 units DAILY@0800 SC Last administered on 03/03/18at 08:18; Admin Dose 22 UNITS; Start 02/24/18 at 12:00 Diagnostic Test (Pha) (Accu-Chek) 1 ea 02 XX Last administered on 03/03/18at 02:00; Admin Dose 1 EA; Start 02/25/18 at 02:00 Miscellaneous Information 1 ea NOTE XX ; Start 02/24/18 at 11:30 Glucose (Glutose) 15 gm Q15M PRN PO DECREASED GLUCOSE; Start 02/24/18 at 11:30 Glucose (Glutose) 22.5 gm Q15M PRN PO DECREASED GLUCOSE; Start 02/24/18 at 11:30 Dextrose (D50w Syringe) 25 ml Q15M PRN IV DECREASED GLUCOSE; Start 02/24/18 at 11:30 Dextrose (D50w Syringe) 50 ml Q15M PRN IV DECREASED GLUCOSE; Start 02/24/18 at 11:30 Glucagon (Glucagen) 1 mg Q15M PRN IM DECREASED GLUCOSE; Start 02/24/18 at 11:30 Glucose (Glutose) 15 gm Q15M PRN BUCCAL DECREASED GLUCOSE; Start 02/24/18 at 11:30 Meropenem/Sodium Chloride 50 ml @ 100 mls/hr Q8 IVPB Last administered on 03/03/18at 06:08; Admin Dose 100 MLS/HR; Start 02/25/18 at 17:00 Voriconazole 100 ml @ 50 mls/hr Q12 IVPB Last administered on 03/03/18at 08:16; Admin Dose 50 MLS/HR; Start 02/25/18 at 21:00 Trimethoprim/ Sulfamethoxazole (Bactrim (Ds)) 1 tab MoWeFr NGT Last administere d on 03/02/18 19:03; Admin Dose 1 TAB; Start 02/25/18 at 17:00 Albuterol/ Ipratropium (Duoneb) 3 ml Q6H RESP THERAPY HHN Last administered on 03/03/18at 07:43; Admin Dose 3 ML; Start 02/28/18 at 08:00 Docusate Sodium (Colace) 100 mg BID PO Last administered on 03/03/18at 08:10; Admin Dose 100 MG; Start 02/28/18 at 09:00 Insulin Aspart (Novolog Insulin Pen) NOVOLOG *MODERATE* ALGORI... AC MEALS AND BEDTIME SC Last administered on 03/02/18at 19:07; Admin Dose 4 UNIT; Start 03/01/18 at 11:00 Prednisone (Prednisone) 40 mg DAILY PO Last administered on 03/03/18 08:10; Admin Dose 40 MG; Start 03/03/18 at 09:00 JUDY LYON Mar 03, 2018 10:55
--- NOTE | 2018-03-03 14:05 | PN ---
Date/Time of Note Date/Time of Note DATE: 03/03/18 TIME: 14:03 Assessment/Plan VTE Prophylaxis Risk score (from [facility])>0 risk: 12 SCD applied (from [facility]): Yes Pharmacological prophylaxis: LMWH Lines/Catheters Urinary Cath still in place: No Assessment/Plan Hospital Course 62 yo female with stage IV melanoma with ARDS leading to acute respiratory failure 1. Acute respiratory failure/ARDS: - Now extubated and doing well on high flow - Steroids per pulmonary -Continue antibiotics for possible pneumonia 2. Metastatic melanoma - Further care as outpatient. In clinical trial in [place]. Should not receive nivolumab again given this may have been the etiology of ARDS 3. Bicytopenia with anemia and thrombocytopenia secondary to melanoma therapy -Hematology following Prophylaxis: Lovenox Discharge plan: Can be discharged when oxygen is weaned down. Oncology follow up in [place] Result Diagram: 03/03/18 0500 03/03/18 0500 Results 24hrs Laboratory Tests Test 03/02/18 19:06 03/02/18 22:05 03/03/18 02:39 03/03/18 05:00 Bedside Glucose 185 90 144 White Blood Count 6.5 Red Blood Count 2.66 L Hemoglobin 8.6 L Hematocrit 25.7 L Mean Corpuscular 96.6 Volume Mean Corpuscular 32.3 Hemoglobin Mean Corpuscular 33.5 Hemoglobin Concent Red Cell 14.7 H Distribution Width Platelet Count 99 L Mean Platelet 11.8 H Volume Immature 1.100 H Granulocytes % Neutrophils % 78.7 H Lymphocytes % 10.2 L Monocytes % 10.0 Eosinophils % 0.0 Basophils % 0.0 Nucleated Red 0.3 H Blood Cells % Immature 0.070 H Granulocytes # Neutrophils # 5.1 Lymphocytes # 0.7 L Monocytes # 0.7 Eosinophils # 0.0 Basophils # 0.0 Nucleated Red 0.0 Blood Cells # Sodium Level 138 Potassium Level 3.4 L Chloride Level 107 Carbon Dioxide 30 Level Anion Gap 1 L Blood Urea 36 H Nitrogen Creatinine 0.69 Est Glomerular > 60 Filtrat Rate mL/min Glucose Level 94 Calcium Level 7.3 L Test 03/03/18 06:05 03/03/18 07:31 03/03/18 09:23 03/03/18 11:08 Bedside Glucose 98 100 107 Lab Scanned Report REFERENCE LAB Subjective 24 Hr Interval Summary Constitutional: no complaints Exam/Review of Systems Vital Signs Vitals Vital Signs Date Temp Pulse Resp B/P (MAP) Pulse Ox O2 O2 Flow FiO2 Time Delivery Rate 03/03/18 55 16 96 Nasal 25.0 60 13:41 Cannula 03/03/18 98.5 106/57 11:19 (73) Intake and Output 03/02/18 03/02/18 03/03/18 1515:00 23:00 07:00 IntakeIntake Total 730 ml 120 ml 200 ml BalanceBalance 730 ml 120 ml 200 ml Exam Constitutional: alert, oriented Respiratory: clear to auscultation Cardiovascular: regular rate and rhythm Gastrointestinal: soft; No distended Musculoskeletal: nl extremities to inspection Medications Medications Current Medications IV Flush (NS 3 ml) 3 ml PER PROTOCOL IV ; Start 02/17/18 at 13:30 Ondansetron HCl (Zofran Inj) 4 mg Q6H PRN IV NAUSEA AND/OR VOMITING; Start 02/17/18 at 13:30 Acetaminophen (Tylenol Tab) 650 mg Q6H PRN PO PAIN LEVEL 1-3 OR FEVER Last administered on 02/21/18at 12:50; Admin Dose 650 MG; Start 02/17/18 at 13:30 Acetaminophen/ Hydrocodone Bitart ([place] (5/325)) 1 tab Q6H PRN PO MODERATE PAIN LEVEL 4-6 Last administered on 02/27/18at 15:18; Admin Dose 1 TAB; Start 02/17/18 at 13:30 Docusate Sodium (Colace) 100 mg Q12H PRN PO CONSTIPATION Last administered on 02/27/18at 15:44; Admin Dose 100 MG; Start 02/17/18 at 13:30 IV Flush (NS 10 ml) 10 ml PRN PRN IV IV PROTOCOL; Start 02/18/18 at 13:30 Furosemide (Lasix) 20 mg DAILY IV Last administered on 03/03/18at 08:09; Admin Dose 20 MG; Start 02/22/18 at 10:30 Enoxaparin Sodium (Lovenox) 40 mg DAILY SC Last administered on 03/03/18at 08:15; Admin Dose 40 MG; Start 02/23/18 at 09:00 Morphine Sulfate (morphine) 6 mg Q4H PRN GTB SEVERE PAIN LEVEL 7-10 Last administered on 02/24/18at 21:33; Admin Dose 6 MG; Start 02/23/18 at 12:00 Insulin Glargine (Lantus) 22 units DAILY@0800 SC Last administered on 03/03/18 08:18; Admin Dose 22 UNITS; Start 02/24/18 at 12:00 Diagnostic Test (Pha) (Accu-Chek) 1 ea 02 XX Last administered on 03/03/18at 02:00; Admin Dose 1 EA; Start 02/25/18 at 02:00 Miscellaneous Information 1 ea NOTE XX ; Start 02/24/18 at 11:30 Glucose (Glutose) 15 gm Q15M PRN PO DECREASED GLUCOSE; Start 02/24/18 at 11:30 Glucose (Glutose) 22.5 gm Q15M PRN PO DECREASED GLUCOSE; Start 02/24/18 at 11:30 Dextrose (D50w Syringe) 25 ml Q15M PRN IV DECREASED GLUCOSE; Start 02/24/18 at 11:30 Dextrose (D50w Syringe) 50 ml Q15M PRN IV DECREASED GLUCOSE; Start 02/24/18 at 11:30 Glucagon (Glucagen) 1 mg Q15M PRN IM DECREASED GLUCOSE; Start 02/24/18 at 11:30 Glucose (Glutose) 15 gm Q15M PRN BUCCAL DECREASED GLUCOSE; Start 02/24/18 at 11:30 Meropenem/Sodium Chloride 50 ml @ 100 mls/hr Q8 IVPB Last administered on 03/03/18at 13:32; Admin Dose 100 MLS/HR; Start 02/25/18 at 17:00 Trimethoprim/ Sulfamethoxazole (Bactrim (Ds)) 1 tab MoWeFr NGT Last administered on 03/02/18 19:03; Admin Dose 1 TAB; Start 02/25/18 at 17:00 Albuterol/ Ipratropium (Duoneb) 3 ml Q6H RESP THERAPY HHN Last administered on 03/03/18 13:40; Admin Dose 3 ML; Start 02/28/18 at 08:00 Docusate Sodium (Colace) 100 mg BID PO Last administered on 03/03/18 08:10; Admin Dose 100 MG; Start 02/28/18 at 09:00 Insulin Aspart (Novolog Insulin Pen) NOVOLOG *MODERATE* ALGORI... AC MEALS AND BEDTIME SC Last administered on 1/14/19at 19:07; Admin Dose 4 UNIT; Start 03/01/18 at 11:00 Prednisone (Prednisone) 40 mg DAILY PO Last administered on 03/03/18at 08:10; Admin Dose 40 MG; Start 03/03/18 at 09:00 Voriconazole (Vfend) 200 mg BID PO ; Start 03/03/18 at 21:00 JULY TRAMMELL Mar 03, 2018 14:05
--- NOTE | 2018-03-03 14:20 | CONS ---
Date/Time of Note Date/Time of Note DATE: 03/03/18 TIME: : Assessment/Plan Assessment/Plan Assessment/Plan A 62 yo female with #Metastatic Melanoma - last Nivolumab was 2 weeks ago -pt currently on a clinical trial at [facility] using Nivolumab and a study drug -given this grade 4 toxicity she likely will not be able to proceed with more Nivolumab #ARDS - likely 2/2 Nivolumab and questionable underlying pneumonia -- 02/21/2018-sp Remicade 300 mg - 02/27/2018- extubated ; stable - High Flow O2 50 %- O2 SAT 96% -will change prednisone dose from IV solumedrol to po prednisone 1mg/kg and taper by 10mg every 5 days -CT Chest reveals evidence of bibasilar infiltrates but no evidence of PE -appreciate ID recs and workup for underlying opportunistic infection # Anemia- Hgb 8.6 2/ chemo - cont to monitor # Acute Hypokalemia - replace per PMD Patient seen in collaboration with Dr Streeter. Dw Staff Result Diagram: 03/03/18 0500 03/03/18 0500 Results 24hrs Laboratory Tests Test 03/02/18 19:06 03/02/18 22:05 03/03/18 02:39 03/03/18 05:00 Bedside Glucose 185 90 144 White Blood Count 6.5 Red Blood Count 2.66 L Hemoglobin 8.6 L Hematocrit 25.7 L Mean Corpuscular 96.6 Volume Mean Corpuscular 32.3 Hemoglobin Mean Corpuscular 33.5 Hemoglobin Concent Red Cell 14.7 H Distribution Width Platelet Count 99 L Mean Platelet 11.8 H Volume Immature 1.100 H Granulocytes % Neutrophils % 78.7 H Lymphocytes % 10.2 L Monocytes % 10.0 Eosinophils % 0.0 Basophils % 0.0 Nucleated Red 0.3 H Blood Cells % Immature 0.070 H Granulocytes # Neutrophils # 5.1 Lymphocytes # 0.7 L Monocytes # 0.7 Eosinophils # 0.0 Basophils # 0.0 Nucleated Red 0.0 Blood Cells # Sodium Level 138 Potassium Level 3.4 L Chloride Level 107 Carbon Dioxide 30 Level Anion Gap 1 L Blood Urea 36 H Nitrogen Creatinine 0.69 Est Glomerular > 60 Filtrat Rate mL/min Glucose Level 94 Calcium Level 7.3 L Test 03/03/18 06:05 03/03/18 07:31 03/03/18 09:23 03/03/18 11:08 Bedside Glucose 98 100 107 Lab Scanned Report REFERENCE LAB Consultation Date/Type/Reason Admit Date/Time Feb 17, 2018 at 12:57 Initial Consult Date 02/18/18 Type of Consult ONCOLOGY Requesting Provider: SJ BOWMAN MD 24 HR Interval Summary Free Text/Dictation Feels weak but feels better than yesterday - High Flow O2 50 %- O2 SAT 96% no new events reported last night per staff Constitutional: requiring O2 Detailed Summary Eyes: no complaints ENT: no complaints Respiratory: shortness of breath (on exertion) Gastrointestinal: no complaints Genitourinary: no complaints Musculoskeletal: no complaints Skin: no complaints Neurologic: no complaints Exam/Review of Systems Vital Signs Vitals Vital Signs Date Temp Pulse Resp B/P (MAP) Pulse Ox O2 O2 Flow FiO2 Time Delivery Rate 03/03/18 55 16 96 Nasal 25.0 60 13:41 Cannula 03/03/18 98.5 106/57 11:19 (73) Intake and Output 03/02/18 03/02/18 03/03/18 1515:00 23:00 07:00 IntakeIntake Total 730 ml 120 ml 200 ml BalanceBalance 730 ml 120 ml 200 ml Exam Constitutional: alert, oriented, well developed Psych: nl mood/affect Head: normocephalic Eyes: nl conjunctiva, EOMI, nl lids, nl sclera ENMT: nl external ears & nose Neck: non-tender Respiratory: diminished breath sounds (bilaterally) Cardiovascular: nl pulses, other (s1s2) Gastrointestinal: soft, non-tender Musculoskeletal: nl extremities to inspection Extremities: normal pulses Neurological: nl speech, other (alert/responsive) Skin: nl turgor Lymph: nontender Medications Medications Current Medications IV Flush (NS 3 ml) 3 ml PER PROTOCOL IV ; Start 02/17/18 at 13:30 Ondansetron HCl (Zofran Inj) 4 mg Q6H PRN IV NAUSEA AND/OR VOMITING; Start 02/17/18 at 13:30 Acetaminophen (Tylenol Tab) 650 mg Q6H PRN PO PAIN LEVEL 1-3 OR FEVER Last administered on 02/21/18at 12:50; Admin Dose 650 MG; Start 02/17/18 at 13:30 Acetaminophen/ Hydrocodone Bitart ([place] (5/325)) 1 tab Q6H PRN PO MODERATE PAIN LEVEL 4-6 Last administered on 02/27/18at 15:18; Admin Dose 1 TAB; Start 02/17/18 at 13:30 Docusate Sodium (Colace) 100 mg Q12H PRN PO CONSTIPATION Last administered on at 15:44; Admin Dose 100 MG; Start 02/17/18 at 13:30 IV Flush (NS 10 ml) 10 ml PRN PRN IV IV PROTOCOL; Start 02/18/18 at 13:30 Furosemide (Lasix) 20 mg DAILY IV Last administered on 03/03/18at 08:09; Admin Dose 20 MG; Start 02/22/18 at 10:30 Enoxaparin Sodium (Lovenox) 40 mg DAILY SC Last administered on 03/03/18at 08:15; Admin Dose 40 MG; Start 02/23/18 at 09:00 Morphine Sulfate (morphine) 6 mg Q4H PRN GTB SEVERE PAIN LEVEL 7-10 Last administered on 02/24/18at 21:33; Admin Dose 6 MG; Start 02/23/18 at 12:00 Insulin Glargine (Lantus) 22 units DAILY@0800 SC Last administered on 03/03/18at 08:18; Admin Dose 22 UNITS; Start 02/24/18 at 12:00 Diagnostic Test (Pha) (Accu-Chek) 1 ea 02 XX Last administered on 03/03/18at 02:00; Admin Dose 1 EA; Start 02/25/18 at 02:00 Miscellaneous Information 1 ea NOTE XX ; Start 02/24/18 at 11:30 Glucose (Glutose) 15 gm Q15M PRN PO DECREASED GLUCOSE; Start 02/24/18 at 11:30 Glucose (Glutose) 22.5 gm Q15M PRN PO DECREASED GLUCOSE; Start 02/24/18 at 11:30 Dextrose (D50w Syringe) 25 ml Q15M PRN IV DECREASED GLUCOSE; Start 02/24/18 at 11:30 Dextrose (D50w Syringe) 50 ml Q15M PRN IV DECREASED GLUCOSE; Start 02/24/18 at 11:30 Glucagon (Glucagen) 1 mg Q15M PRN IM DECREASED GLUCOSE; Start 02/24/18 at 11:30 Glucose (Glutose) 15 gm Q15M PRN BUCCAL DECREASED GLUCOSE; Start 02/24/18 at 11:30 Meropenem/Sodium Chloride 50 ml @ 100 mls/hr Q8 IVPB Last administered on 03/03/18at 13:32; Admin Dose 100 MLS/HR; Start 02/25/18 at 17:00 Trimethoprim/ Sulfamethoxazole (Bactrim (Ds)) 1 tab MoWeFr NGT Last administered on 03/02/18at 19:03; Admin Dose 1 TAB; Start 02/25/18 at 17:00 Albuterol/ Ipratropium (Duoneb) 3 ml Q6H RESP THERAPY HHN Last administered on 03/03/18at 13:40; Admin Dose 3 ML; Start 02/28/18 at 08:00 Docusate Sodium (Colace) 100 mg BID PO Last administered on 03/03/18at 08:10; Admin Dose 100 MG; Start 02/28/18 at 09:00 Insulin Aspart (Novolog Insulin Pen) NOVOLOG *MODERATE* ALGORI... AC MEALS AND BEDTIME SC Last administered on 03/02/18at 19:07; Admin Dose 4 UNIT; Start 03/01/18 at 11:00 Prednisone (Prednisone) 40 mg DAILY PO Last administered on 03/03/18at 08:10; Admin Dose 40 MG; Start 03/03/18 at 09:00 Voriconazole (Vfend) 200 mg BID PO ; Start 03/03/18 at 21:00 GEMA HEREDIA Mar 03, 2018 2:19 pm
[2018-03-03] MEDS: VORICONAZOLE 200 MG TAB PO SCH (20:53)
[2018-03-04] VITALS (14 sets, daily range): BP systolic 91–111; BP diastolic 50–67; PULSE 39–86; RESP 16–18
[2018-03-04] MEDS: ALBUTEROL/IPRATROPIUM (NEB) 3 ML AMP HHN SCH ×4 (01:51→19:27)
[2018-03-04] MEDS: ACCU-CHEK XX SCH (02:00)
[2018-03-04] MEDS: INSULIN ASPART [NOVOLOG] 3 ML PEN SC SCH ×4 (06:34→20:09)
[2018-03-04] MEDS: MEROPENEM 1 GM/50ML(PMX) 50 ML IVPB SCH ×3 (06:34→21:14)
[2018-03-04] MEDS: predniSONE 20 MG TAB PO SCH (08:20)
[2018-03-04] MEDS: VORICONAZOLE 200 MG TAB PO SCH ×2 (08:20→20:09)
[2018-03-04] MEDS: FUROSEMIDE 20 MG INJ IV SCH (08:20)
[2018-03-04] MEDS: DOCUSATE SODIUM 100 MG CAP PO SCH ×2 (08:20→20:09)
[2018-03-04] MEDS: ENOXAPARIN 40 MG/0.4 ML SYG SC SCH (08:25)
[2018-03-04] MEDS: INSULIN GLARGINE [LANTus] (100 UNITS/ML) SYG SC SCH (08:25)
--- NOTE | 2018-03-04 09:04 | CONS ---
Date/Time of Note Date/Time of Note DATE: 03/04/18 TIME: 09:01 Assessment/Plan Assessment/Plan Hospital Course A 62 yo female with #Metastatic Melanoma - last Nivolumab was 2 weeks ago -pt currently on a clinical trial at [facility] using Nivolumab and a study drug -given this grade 4 toxicity she likely will not be able to proceed with more Nivolumab #ARDS - likely 2/2 Nivolumab and questionable underlying pneumonia -- 02/21/2018-sp Remicade 300 mg - 02/27/2018- extubated ; stable - High Flow O2 50 %- O2 SAT 96% -continue prednisone 40 mg q day started 03/03, and taper by 10mg every 5 days -CT Chest reveals evidence of bibasilar infiltrates but no evidence of PE -appreciate ID recs and workup for underlying opportunistic infection # Anemia- Hgb 8.6 03/21 chemo - cont to monitor # Acute Hypokalemia - replace per PMD Thank you for the opportunity to participate in this patients care A total of 40 minutes of face to face time was spent speaking with the patient, of which greater than 50% was spent in counseling and coordination of care and the detailed question and answer session. Result Diagram: 03/03/18 0500 03/04/18 0454 Results 24hrs Laboratory Tests Test 03/03/18 09:23 03/03/18 11:08 03/03/18 17:08 03/03/18 21:24 Lab Scanned Report REFERENCE LAB Bedside Glucose 107 126 109 Test 03/04/18 04:54 03/04/18 06:32 03/04/18 07:53 Sodium Level 139 Potassium Level 3.9 Chloride Level 106 Carbon Dioxide 30 Level Anion Gap 3 L Blood Urea 32 H Nitrogen Creatinine 0.58 Est Glomerular > 60 Filtrat Rate mL/min Glucose Level 85 Calcium Level 7.1 L Bedside Glucose 78 71 Consultation Date/Type/Reason Admit Date/Time Feb 17, 2018 at 12:57 Initial Consult Date 02/18/18 Type of Consult oncology Reason for Consultation metastatic melanoma Requesting Provider: SJ BOWMAN MD 24 HR Interval Summary Free Text/Dictation pt doing well on prednisone 40 mg q day. Exam/Review of Systems Vital Signs Vitals Vital Signs Date Temp Pulse Resp B/P (MAP) Pulse Ox O2 O2 Flow FiO2 Time Delivery Rate 03/04/18 98.5 55 18 97/56 (70) 94 07:21 03/04/18 40 04:33 03/04/18 25.0 02:01 03/03/18 Vapotherm 20:00 Intake and Output 03/03/18 03/03/18 03/04/18 1515:00 23:00 07:00 IntakeIntake Total 150 ml 800 ml 250 ml BalanceBalance 150 ml 800 ml 250 ml Exam Constitutional: alert, oriented Psych: no complaints Head: normocephalic Eyes: nl conjunctiva ENMT: nl external ears & nose Neck: supple Cardiovascular: regular rate and rhythm Gastrointestinal: soft Musculoskeletal: nl extremities to inspection Extremities: normal pulses Medications Medications Current Medications IV Flush (NS 3 ml) 3 ml PER PROTOCOL IV ; Start 02/17/18 at 13:30 Ondansetron HCl (Zofran Inj) 4 mg Q6H PRN IV NAUSEA AND/OR VOMITING; Start 02/17/18 at 13:30 Acetaminophen (Tylenol Tab) 650 mg Q6H PRN PO PAIN LEVEL 1-3 OR FEVER Last administered on 02/21/18at 12:50; Admin Dose 650 MG; Start 02/17/18 at 13:30 Acetaminophen/ Hydrocodone Bitart ([place] (5/325)) 1 tab Q6H PRN PO MODERATE PAIN LEVEL 4-6 Last administered on 02/27/18at 15:18; Admin Dose 1 TAB; Start 02/17/18 at 13:30 Docusate Sodium (Colace) 100 mg Q12H PRN PO CONSTIPATION Last administered on 02/27/18at 15:44; Admin Dose 100 MG; Start 02/17/18 at 13:30 IV Flush (NS 10 ml) 10 ml PRN PRN IV IV PROTOCOL; Start 02/18/18 at 13:30 Furosemide (Lasix) 20 mg DAILY IV Last administered on 03/04/18at 08:20; Admin D ose 20 MG; Start 02/22/18 at 10:30 Enoxaparin Sodium (Lovenox) 40 mg DAILY SC Last administered on 03/04/18at 08:25; Admin Dose 40 MG; Start 02/23/18 at 09:00 Morphine Sulfate (morphine) 6 mg Q4H PRN GTB SEVERE PAIN LEVEL 7-10 Last administered on 02/24/18at 21:33; Admin Dose 6 MG; Start 02/23/18 at 12:00 Insulin Glargine (Lantus) 22 units DAILY@0800 SC Last administered on 03/04/18at 08:25; Admin Dose 22 UNITS; Start 02/24/18 at 12:00 Diagnostic Test (Pha) (Accu-Chek) 1 ea 02 XX Last administered on 03/04/18at 02:00; Admin Dose 1 EA; Start 02/25/18 at 02:00 Miscellaneous Information 1 ea NOTE XX ; Start 02/24/18 at 11:30 Glucose (Glutose) 15 gm Q15M PRN PO DECREASED GLUCOSE; Start 02/24/18 at 11:30 Glucose (Glutose) 22.5 gm Q15M PRN PO DECREASED GLUCOSE; Start 02/24/18 at 11:30 Dextrose (D50w Syringe) 25 ml Q15M PRN IV DECREASED GLUCOSE; Start 02/24/18 at 11:30 Dextrose (D50w Syringe) 50 ml Q15M PRN IV DECREASED GLUCOSE; Start 02/24/18 at 11:30 Glucagon (Glucagen) 1 mg Q15M PRN IM DECREASED GLUCOSE; Start 02/24/18 at 11:30 Glucose (Glutose) 15 gm Q15M PRN BUCCAL DECREASED GLUCOSE; Start 02/24/18 at 11:30 Meropenem/Sodium Chloride 50 ml @ 100 mls/hr Q8 IVPB Last administered on 03/04/18at 06:34; Admin Dose 100 MLS/HR; Start 02/25/18 at 17:00 Trimethoprim/ Sulfamethoxazole (Bactrim (Ds)) 1 tab MoWeFr NGT Last administered on 03/02/18at 19:03; Admin Dose 1 TAB; Start 02/25/18 at 17:00 Albuterol/ Ipratropium (Duoneb) 3 ml Q6H RESP THERAPY HHN Last administered on 03/04/18at 01:51; Admin Dose 3 ML; Start 02/28/18 at 08:00 Docusate Sodium (Colace) 100 mg BID PO Last administered on 03/04/18 08:20; Admin Dose 100 MG; Start 02/28/18 at 09:00 Insulin Aspart (Novolog Insulin Pen) NOVOLOG *MODERATE* ALGORI... AC MEALS AND BEDTIME SC Last administered on 03/02/18at 19:07; Admin Dose 4 UNIT; Start 03/01/18 at 11:00 Prednisone (Prednisone) 40 mg DAILY PO Last administered on 03/04/18 08:20; Admin Dose 40 MG; Start 03/03/18 at 09:00 Voriconazole (Vfend) 200 mg BID PO Last administered on 03/04/18 08:20; Admin Dose 200 MG; Start 03/03/18 at 21:00 LIA CASAREZ M.D. Mar 04, 2018 09:04
--- NOTE | 2018-03-04 09:59 | CONS ---
Date/Time of Note Date/Time of Note DATE: 03/04/18 TIME: 09:57 Assessment/Plan Assessment/Plan Assessment/Plan Assessment and recommendations; 1. Patient status post respiratory failure due to severe bilateral pneumonia possibly acute lung injury from immunotherapy which the patient has been on due to stage IV melanoma. 2. Anemia and thrombocytopenia. Continue current supportive care. Decrease prednisone to 30 mg with further tapering in 24 hours. Continue voriconazole. Consider stopping meropenem. Consider transfer to rehab center. Wean down FiO2 as tolerated. Continue chest PT and lower lobes. Obtain follow-up chest x-ray 24 hours. Result Diagram: 03/03/18 0500 03/04/18 0454 Results 24hrs Laboratory Tests Test 03/03/18 11:08 03/03/18 17:08 03/03/18 21:24 03/04/18 04:54 Bedside Glucose 107 126 109 Sodium Level 139 Potassium Level 3.9 Chloride Level 106 Carbon Dioxide Level 30 Anion Gap 3 L Blood Urea Nitrogen 32 H Creatinine 0.58 Est Glomerular > 60 Filtrat Rate mL/min Glucose Level 85 Calcium Level 7.1 L Test 03/04/18 06:32 03/04/18 07:53 Bedside Glucose 78 71 Consultation Date/Type/Reason Admit Date/Time Feb 17, 2018 at 12:57 Initial Consult Date 02/18/18 Type of Consult Pulmonary/critical care Requesting Provider: SJ BOWMAN MD 24 HR Interval Summary Free Text/Dictation Patient's condition is continually improving. Denies any shortness of breath at rest. Any coughing, wheezing, sputum production or any chest pain. Denies any fever. General exam; elderly female, awake alert, currently in no distress. Exam/Review of Systems Vital Signs Vitals Vital Signs Date Temp Pulse Resp B/P (MAP) Pulse Ox O2 O2 Flow FiO2 Time Delivery Rate 03/04/18 Vapotherm 09:00 03/04/18 86 08:00 03/04/18 98.5 18 97/56 (70) 94 07:21 03/04/18 40 04:33 03/04/18 25.0 02:01 Intake and Output 03/03/18 03/03/18 03/04/18 1515:00 23:00 07:00 IntakeIntake Total 150 ml 800 ml 250 ml BalanceBalance 150 ml 800 ml 250 ml Exam H HEENT exam; supple neck, no JVD. No lymphadenopathy. Midline trachea. No thyromegaly. Patient has good dentition. No neck masses. Chest exam; diminished breath sound lung bases. Upper lobes are clear. S1-S2 audible, no murmurs. Regular rhythm. Abdomen exam; soft, no organomegaly. Nontender. Bowel sounds audible. Extremity exam; no peripheral edema. [employer] exam; no focal deficit. Medications Medications Current Medications IV Flush (NS 3 ml) 3 ml PER PROTOCOL IV ; Start 02/17/18 at 13:30 Ondansetron HCl (Zofran Inj) 4 mg Q6H PRN IV NAUSEA AND/OR VOMITING; Start 02/17/18 at 13:30 Acetaminophen (Tylenol Tab) 650 mg Q6H PRN PO PAIN LEVEL 1-3 OR FEVER Last administered on 02/21/18at 12:50; Admin Dose 650 MG; Start 02/17/18 at 13:30 Acetaminophen/ Hydrocodone Bitart ([place] (5/325)) 1 tab Q6H PRN PO MODERATE PAIN LEVEL 4-6 Last administered on 02/27/18at 15:18; Admin Dose 1 TAB; Start 02/17/18 at 13:30 Docusate Sodium (Colace) 100 mg Q12H PRN PO CONSTIPATION Last administered on 02/27/18 15:44; Admin Dose 100 MG; Start 02/17/18 at 13:30 IV Flush (NS 10 ml) 10 ml PRN PRN IV IV PROTOCOL; Start 02/18/18 at 13:30 Furosemide (Lasix) 20 mg DAILY IV Last administered on 03/04/18 08:20; Admin Dose 20 MG; Start 02/22/18 at 10:30 Enoxaparin Sodium (Lovenox) 40 mg DAILY SC Last administered on 03/04/18 08:25; Admin Dose 40 MG; Start 02/23/18 at 09:00 Morphine Sulfate (morphine) 6 mg Q4H PRN GTB SEVERE PAIN LEVEL 7-10 Last administered on 02/24/18at 21:33; Admin Dose 6 MG; Start 02/23/18 at 12:00 Insulin Glargine (Lantus) 22 units DAILY@0800 SC Last administered on 03/04/18 08:25; Admin Dose 22 UNITS; Start 02/24/18 at 12:00 Diagnostic Test (Pha) (Accu-Chek) 1 ea 02 XX Last administered on 03/04/18at 02:00; Admin Dose 1 EA; Start 02/25/18 at 02:00 Miscellaneous Information 1 ea NOTE XX ; Start 02/24/18 at 11:30 Glucose (Glutose) 15 gm Q15M PRN PO DECREASED GLUCOSE; Start 02/24/18 at 11:30 Glucose (Glutose) 22.5 gm Q15M PRN PO DECREASED GLUCOSE; Start 02/24/18 at 11:30 Dextrose (D50w Syringe) 25 ml Q15M PRN IV DECREASED GLUCOSE; Start 02/24/18 at 11:30 Dextrose (D50w Syringe) 50 ml Q15M PRN IV DECREASED GLUCOSE; Start 02/24/18 at 11:30 Glucagon (Glucagen) 1 mg Q15M PRN IM DECREASED GLUCOSE; Start 02/24/18 at 11:30 Glucose (Glutose) 15 gm Q15M PRN BUCCAL DECREASED GLUCOSE; Start 02/24/18 at 11:30 Meropenem/Sodium Chloride 50 ml @ 100 mls/hr Q8 IVPB Last administered on 03/04/18at 06:34; Admin Dose 100 MLS/HR; Start 02/25/18 at 17:00 Trimethoprim/ Sulfamethoxazole (Bactrim (Ds)) 1 tab MoWeFr NGT Last administered on 03/02/18at 19:03; Admin Dose 1 TAB; Start 02/25/18 at 17:00 Albuterol/ Ipratropium (Duoneb) 3 ml Q6H RESP THERAPY HHN Last administered on 03/04/18at 01:51; Admin Dose 3 ML; Start 02/28/18 at 08:00 Docusate Sodium (Colace) 100 mg BID PO Last administered on 03/04/18at 08:20; Admin Dose 100 MG; Start 02/28/18 at 09:00 Insulin Aspart (Novolog Insulin Pen) NOVOLOG *MODERATE* ALGORI... AC MEALS AND BEDTIME SC Last administered on 03/02/18at 19:07; Admin Dose 4 UNIT; Start 03/01/18 at 11:00 Prednisone (Prednisone) 40 mg DAILY PO Last administered on 03/04/18at 08:20; Admin Dose 40 MG; Start 03/03/18 at 09:00 Voriconazole (Vfend) 200 mg BID PO Last administered on 03/04/18at 08:20; Admin Dose 200 MG; Start 03/03/18 at 21:00 JUDY LYON Mar 04, 2018 09:59
--- NOTE | 2018-03-04 12:13 | PN ---
Date/Time of Note Date/Time of Note DATE: 03/04/18 TIME: 12:13 Assessment/Plan VTE Prophylaxis Risk score [place]from [facility] [place] risk: 9 SCD applied [place]from [facility] [place] Yes Pharmacological prophylaxis: LMWH Lines/Catheters Urinary Cath still in place: No Assessment/Plan Hospital Course 62 yo female with stage IV melanoma with ARDS leading to acute respiratory failure 1. Acute respiratory failure/ARDS: - Now extubated and doing well on high flow - Steroids per pulmonary -Continue antibiotics for possible pneumonia 2. Metastatic melanoma - Further care as outpatient. In clinical trial in [place]. Should not receive nivolumab again given this may have been the etiology of ARDS 3. Bicytopenia with anemia and thrombocytopenia secondary to melanoma therapy -Hematology following Prophylaxis: Lovenox Discharge plan: Can be discharged when oxygen is weaned down. Oncology follow up in [place] Result Diagram: 03/03/18 0500 03/04/18 0454 Results 24hrs Laboratory Tests Test 03/03/18 17:08 03/03/18 21:24 03/04/18 04:54 03/04/18 06:32 Bedside Glucose 126 109 78 Sodium Level 139 Potassium Level 3.9 Chloride Level 106 Carbon Dioxide 30 Level Anion Gap 3 L Blood Urea 32 H Nitrogen Creatinine 0.58 Est Glomerular > 60 Filtrat Rate mL/min Glucose Level 85 Calcium Level 7.1 L Test 03/04/18 07:53 03/04/18 10:59 03/04/18 11:40 Bedside Glucose 71 103 Lab Scanned Report REFERENCE LAB Subjective 24 Hr Interval Summary Constitutional: no complaints Exam/Review of Systems Vital Signs Vitals Vital Signs Date Temp Pulse Resp B/P (MAP) Pulse Ox O2 O2 Flow FiO2 Time Delivery Rate 03/04/18 98.4 66 18 111/67 95 11:26 (82) 03/04/18 Vapotherm 09:00 03/04/18 40 04:33 03/04/18 25.0 02:01 Intake and Output 03/03/18 03/03/18 03/04/18 1515:00 23:00 07:00 IntakeIntake Total 150 ml 800 ml 250 ml BalanceBalance 150 ml 800 ml 250 ml Exam Constitutional: alert, oriented Respiratory: clear to auscultation Cardiovascular: regular rate and rhythm Gastrointestinal: soft; No distended Musculoskeletal: nl extremities to inspection Medications Medications Current Medications IV Flush (NS 3 ml) 3 ml PER PROTOCOL IV ; Start 02/17/18 at 13:30 Ondansetron HCl (Zofran Inj) 4 mg Q6H PRN IV NAUSEA AND/OR VOMITING; Start 02/17/18 at 13:30 Acetaminophen (Tylenol Tab) 650 mg Q6H PRN PO PAIN LEVEL 1-3 OR FEVER Last administered on 02/21/18at 12:50; Admin Dose 650 MG; Start 02/17/18 at 13:30 Acetaminophen/ Hydrocodone Bitart ([place] (5/325)) 1 tab Q6H PRN PO MODERATE PAIN LEVEL 4-6 Last administered on 02/27/18 15:18; Admin Dose 1 TAB; Start 02/17/18 at 13:30 Docusate Sodium (Colace) 100 mg Q12H PRN PO CONSTIPATION Last administered on 02/27/18 15:44; Admin Dose 100 MG; Start 02/17/18 at 13:30 IV Flush (NS 10 ml) 10 ml PRN PRN IV IV PROTOCOL; Start 02/18/18 at 13:30 Furosemide (Lasix) 20 mg DAILY IV Last administered on 03/04/18 08:20; Admin Dose 20 MG; Start 02/22/18 at 10:30 Enoxaparin Sodium (Lovenox) 40 mg DAILY SC Last administered on 03/04/18 08:25; Admin Dose 40 MG; Start 02/23/18 at 09:00 Morphine Sulfate (morphine) 6 mg Q4H PRN GTB SEVERE PAIN LEVEL 7-10 Last administered on 02/24/18 21:33; Admin Dose 6 MG; Start 02/23/18 at 12:00 Insulin Glargine (Lantus) 22 units DAILY@0800 SC Last administered on 03/04/18 08:25; Admin Dose 22 UNITS; Start 02/24/18 at 12:00 Diagnostic Test (Pha) (Accu-Chek) 1 ea 02 XX Last administered on 03/04/18at 02:00; Admin Dose 1 EA; Start 02/25/18 at 02:00 Miscellaneous Information 1 ea NOTE XX ; Start 02/24/18 at 11:30 Glucose (Glutose) 15 gm Q15M PRN PO DECREASED GLUCOSE; Start 02/24/18 at 11:30 Glucose (Glutose) 22.5 gm Q15M PRN PO DECREASED GLUCOSE; Start 02/24/18 at 11:30 Dextrose (D50w Syringe) 25 ml Q15M PRN IV DECREASED GLUCOSE; Start 02/24/18 at 11:30 Dextrose (D50w Syringe) 50 ml Q15M PRN IV DECREASED GLUCOSE; Start 02/24/18 at 11:30 Glucagon (Glucagen) 1 mg Q15M PRN IM DECREASED GLUCOSE; Start 02/24/18 at 11:30 Glucose (Glutose) 15 gm Q15M PRN BUCCAL DECREASED GLUCOSE; Start 02/24/18 at 11:30 Meropenem/Sodium Chloride 50 ml @ 100 mls/hr Q8 IVPB Last administered on 03/04/18at 06:34; Admin Dose 100 MLS/HR; Start 02/25/18 at 17:00 Trimethoprim/ Sulfamethoxazole (Bactrim (Ds)) 1 tab MoWeFr NGT Last administered on 03/02/18at 19:03; Admin Dose 1 TAB; Start 02/25/18 at 17:00 Albuterol/ Ipratropium (Duoneb) 3 ml Q6H RESP THERAPY HHN Last administered on 03/04/18at 01:51; Admin Dose 3 ML; Start 02/28/18 at 08:00 Docusate Sodium (Colace) 100 mg BID PO Last administered on 03/04/18at 08:20; Admin Dose 100 MG; Start 02/28/18 at 09:00 Insulin Aspart (Novolog Insulin Pen) NOVOLOG *MODERATE* ALGORI... AC MEALS AND BEDTIME SC Last administered on 03/02/18at 19:07; Admin Dose 4 UNIT; Start 03/01/18 at 11:00 Voriconazole (Vfend) 200 mg BID PO Last administered on 03/04/18at 08:20; Admin Dose 200 MG; Start 03/03/18 at 21:00 Prednisone (Prednisone) 30 mg DAILY PO ; Start 03/05/18 at 09:00 JULY TRAMMELL Mar 04, 2018 12:13
--- NOTE | 2018-03-04 15:09 | CONS ---
Date/Time of Note Date/Time of Note DATE: 03/04/18 TIME: 15:05 Assessment/Plan Assessment/Plan Hospital Course - Pneumonia, either infectious etiology vs. nivolumab pneumonitis. It can be a combination of two - ARDS, slow improvement - Acute hypoxic resp failure, intubated 02/17/2018, extubated 02/26/2018 - still on high flow O2 - Immunocompromised state: metastatic melanoma, receipt of nivolumab, infliximab and tapering methylprednisolone - Metastatic melanoma, on nivolumab until recently - Normocytic anemia - Thrombocytopenia Recommendations: - Continue meropenem and voriconazole (02/25/2018-); s/p IV vanco (02/25/18 - 03/01/18); likely to complete 10-14 days of empiric Merrem depending on clinical improvement. - Continue prophylaxis for pneumocystis jiroveci while Pt's on methylprednisolon e/prednisone taper (02/17/2018-): PO Bactrim DS 1 tab three times a week (02/25/2018-) - Pending results: coccidioides - Thusfar: negative repeat blood cultures, procalcitonin <0.1, normal 1,1-lpxa-Z-glucan level, negative nasopharyngeal swab for respiratory viruses, negative legionella, negative pneumocystis jiroveci, histoplasma antigen <0.5, crypto neg, aspergillus neg Result Diagram: 03/03/18 0500 03/04/18 0454 Results 24hrs Laboratory Tests Test 03/03/18 17:08 03/03/18 21:24 03/04/18 04:54 03/04/18 06:32 Bedside Glucose 126 109 78 Sodium Level 139 Potassium Level 3.9 Chloride Level 106 Carbon Dioxide 30 Level Anion Gap 3 L Blood Urea 32 H Nitrogen Creatinine 0.58 Est Glomerular > 60 Filtrat Rate mL/min Glucose Level 85 Calcium Level 7.1 L Test 03/04/18 07:53 03/04/18 10:59 03/04/18 11:40 Bedside Glucose 71 103 Lab Scanned Report REFERENCE LAB Consultation Date/Type/Reason Admit Date/Time Feb 17, 2018 at 12:57 Initial Consult Date 02/25/18 Requesting Provider: SJ BOWMAN MD Exam/Review of Systems Vital Signs Vitals Vital Signs Date Temp Pulse Resp B/P (MAP) Pulse Ox O2 O2 Flow FiO2 Time Delivery Rate 03/04/18 93 40 12:45 03/04/18 82 17 12:44 03/04/18 98.4 111/67 11:26 (82) 03/04/18 Vapotherm 09:00 03/04/18 25.0 02:01 Intake and Output 03/03/18 03/03/18 03/04/18 1414:59 22:59 06:59 IntakeIntake Total 150 ml 800 ml 250 ml BalanceBalance 150 ml 800 ml 250 ml Exam Constitutional: alert, oriented, well developed Psych: no complaints, nl mood/affect Head: normocephalic, atraumatic Eyes: EOMI Neck: supple Respiratory: clear to auscultation Cardiovascular: regular rate and rhythm Gastrointestinal: soft Medications Medications Current Medications IV Flush (NS 3 ml) 3 ml PER PROTOCOL IV ; Start 02/17/18 at 13:30 Ondansetron HCl (Zofran Inj) 4 mg Q6H PRN IV NAUSEA AND/OR VOMITING; Start 02/17/18 at 13:30 Acetaminophen (Tylenol Tab) 650 mg Q6H PRN PO PAIN LEVEL 1-3 OR FEVER Last administered on 02/21/18at 12:50; Admin Dose 650 MG; Start 02/17/18 at 13:30 Acetaminophen/ Hydrocodone Bitart ([place] (5/325)) 1 tab Q6H PRN PO MODERATE PAIN LEVEL 4-6 Last administered on 02/27/18at 15:18; Admin Dose 1 TAB; Start 02/17/18 at 13:30 Docusate Sodium (Colace) 100 mg Q12H PRN PO CONSTIPATION Last administered on 02/27/18at 15:44; Admin Dose 100 MG; Start 02/17/18 at 13:30 IV Flush (NS 10 ml) 10 ml PRN PRN IV IV PROTOCOL; Start 02/18/18 at 13:30 Furosemide (Lasix) 20 mg DAILY IV Last administered on 03/04/18at 08:20; Admin Dose 20 MG; Start 02/22/18 at 10:30 Enoxaparin Sodium (Lovenox) 40 mg DAILY SC Last administered on 03/04/18at 08:25; Admin Dose 40 MG; Start 02/23/18 at 09:00 Morphine Sulfate (morphine) 6 mg Q4H PRN GTB SEVERE PAIN LEVEL 7-10 Last administered on 02/24/18at 21:33; Admin Dose 6 MG; Start 02/23/18 at 12:00 Insulin Glargine (Lantus) 22 units DAILY@0800 SC Last administered on 03/04/18at 08:25; Admin Dose 22 UNITS; Start 02/24/18 at 12:00 Diagnostic Test (Pha) (Accu-Chek) 1 ea 02 XX Last administered on 03/04/18at 02:00; Admin Dose 1 EA; Start 02/25/18 at 02:00 Miscellaneous Information 1 ea NOTE XX ; Start 02/24/18 at 11:30 Glucose (Glutose) 15 gm Q15M PRN PO DECREASED GLUCOSE; Start 02/24/18 at 11:30 Glucose (Glutose) 22.5 gm Q15M PRN PO DECREASED GLUCOSE; Start 02/24/18 at 11:30 Dextrose (D50w Syringe) 25 ml Q15M PRN IV DECREASED GLUCOSE; Start 02/24/18 at 11:30 Dextrose (D50w Syringe) 50 ml Q15M PRN IV DECREASED GLUCOSE; Start 02/24/18 at 11:30 Glucagon (Glucagen) 1 mg Q15M PRN IM DECREASED GLUCOSE; Start 02/24/18 at 11:30 Glucose (Glutose) 15 gm Q15M PRN BUCCAL DECREASED GLUCOSE; Start 02/24/18 at 11:30 Meropenem/Sodium Chloride 50 ml @ 100 mls/hr Q8 IVPB Last administered on 03/04/18at 13:08; Admin Dose 100 MLS/HR; Start 02/25/18 at 17:00 Trimethoprim/ Sulfamethoxazole (Bactrim (Ds)) 1 tab MoWeFr NGT Last administered on 03/02/18at 19:03; Admin Dose 1 TAB; Start 02/25/18 at 17:00 Albuterol/ Ipratropium (Duoneb) 3 ml Q6H RESP THERAPY HHN Last administered on 03/04/18at 12:44; Admin Dose 3 ML; Start 02/28/18 at 08:00 Docusate Sodium (Colace) 100 mg BID PO Last administered on 03/04/18at 08:20; Admin Dose 100 MG; Start 02/28/18 at 09:00 Insulin Aspart (Novolog Insulin Pen) NOVOLOG *MODERATE* ALGORI... AC MEALS AND BEDTIME SC Last administered on 03/02/18at 19:07; Admin Dose 4 UNIT; Start 03/01/18 at 11:00 Voriconazole (Vfend) 200 mg BID PO Last administered on 03/04/18at 08:20; Admin Dose 200 MG; Start 03/03/18 at 21:00 Prednisone (Prednisone) 30 mg DAILY PO ; Start 03/05/18 at 09:00 ALTAF RICKS MD Mar 04, 2018 15:09
[2018-03-04] MEDS: TRIMETHOPRIM/SULFAMETHOX (DS) TAB NGT SCH (17:26)
[2018-03-04] MEDS: MELATONIN 5 MG TABLET PO SCH (23:00)
[2018-03-05] VITALS (12 sets, daily range): BP systolic 87–112; BP diastolic 51–63; PULSE 54–76; RESP 17–18
[2018-03-05] MEDS: ACCU-CHEK XX SCH (00:29)
[2018-03-05] MEDS: ALBUTEROL/IPRATROPIUM (NEB) 3 ML AMP HHN SCH ×4 (01:42→20:53)
[2018-03-05] MEDS ORDERED: ALBUMIN HUMAN 25% 100 ML IV ONE (05:00)
[2018-03-05] MEDS ORDERED: SOD CHLORIDE 0.9% 250 ML IV ONE (05:00)
[2018-03-05] MEDS: MEROPENEM 1 GM/50ML(PMX) 50 ML IVPB SCH ×3 (05:05→22:37)
[2018-03-05] MEDS: INSULIN ASPART [NOVOLOG] 3 ML PEN SC SCH ×4 (07:00→20:16)
[2018-03-05] MEDS ORDERED: predniSONE 10 MG TAB ONE (07:35)
[2018-03-05] MEDS: FUROSEMIDE 20 MG INJ IV SCH (07:40)
[2018-03-05] MEDS: VORICONAZOLE 200 MG TAB PO SCH (07:41)
[2018-03-05] MEDS: DOCUSATE SODIUM 100 MG CAP PO SCH ×2 (07:41→20:17)
[2018-03-05] MEDS: ENOXAPARIN 40 MG/0.4 ML SYG SC SCH (07:54)
[2018-03-05] MEDS: INSULIN GLARGINE [LANTus] (100 UNITS/ML) SYG SC SCH (07:54)
[2018-03-05] MEDS ORDERED: predniSONE 10 MG TAB PO SCH (09:00)
--- NOTE | 2018-03-05 09:15 | CONS ---
Date/Time of Note Date/Time of Note DATE: 03/05/18 TIME: 09:13 Assessment/Plan Assessment/Plan Assessment/Plan Assessment and recommendations; 1. Patient with history of stage IV melanoma admitted for respiratory failure due to severe bilateral pneumonia versus possible acute lung injury from immunotherapy with marked overall clinical improvement. 2. Improving hypoxemia, currently maintained on 3 L nasal cannula. 3. Mild hyperglycemia, steroid-induced. Consider stopping antibiotics. Decrease prednisone to 20 mg with further tapering in the next 48 hours. Consider discharge/rehab placement. Result Diagram: 03/03/18 0500 03/04/18 0454 Results 24hrs Laboratory Tests Test 03/04/18 10:59 03/04/18 11:40 03/04/18 17:24 03/04/18 19:53 Bedside Glucose 103 107 120 Lab Scanned Report REFERENCE LAB Test 03/05/18 07:40 Bedside Glucose 95 Consultation Date/Type/Reason Admit Date/Time Feb 17, 2018 at 12:57 Initial Consult Date 02/18/18 Type of Consult Pulmonary/critical care Requesting Provider: SJ BOWMAN MD 24 HR Interval Summary Free Text/Dictation Patient's condition is stable. Has been weaned down to 3 L nasal cannula. Patient denies any shortness of breath, coughing, chest pain, wheezing or any sputum production. General exam; elderly female, awake alert, currently in no distress. Exam/Review of Systems Vital Signs Vitals Vital Signs Date Temp Pulse Resp B/P (MAP) Pulse Ox O2 O2 Flow FiO2 Time Delivery Rate 03/05/18 3.0 08:16 03/05/18 64 18 94 Nasal 08:15 Cannula 03/05/18 98.4 97/54 (68) 07:37 03/04/18 35 15:56 Intake and Output 03/04/18 03/04/18 03/05/18 1515:00 23:00 07:00 IntakeIntake Total 1100 ml 800 ml BalanceBalance 1100 ml 800 ml Exam H EENT exam; supple neck, no JVD. No lymphadenopathy. Midline trachea. No thyromegaly. Patient has fair dentition. Chest exam; minimally decreased breath sounds in lung bases. Upper lobes are clear. S1-S2 audible, no murmurs. Regular rhythm. Abdomen exam; soft, no organomegaly. Nontender. Nondistended. Bowel sounds audible. Extremity exam; no peripheral edema or clubbing. 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 Medications Medications Current Medications IV Flush (NS 3 ml) 3 ml PER PROTOCOL IV ; Start 02/17/18 at 13:30 Ondansetron HCl (Zofran Inj) 4 mg Q6H PRN IV NAUSEA AND/OR VOMITING; Start 02/17/18 at 13:30 Acetaminophen (Tylenol Tab) 650 mg Q6H PRN PO PAIN LEVEL 1-3 OR FEVER Last administered on 02/21/18at 12:50; Admin Dose 650 MG; Start 02/17/18 at 13:30 Acetaminophen/ Hydrocodone Bitart ([place] (5/325)) 1 tab Q6H PRN PO MODERATE PAIN LEVEL 4-6 Last administered on 02/27/18at 15:18; Admin Dose 1 TAB; Start 02/17/18 at 13:30 Docusate Sodium (Colace) 100 mg Q12H PRN PO CONSTIPATION Last administered on 02/27/18at 15:44; Admin Dose 100 MG; Start 02/17/18 at 13:30 IV Flush (NS 10 ml) 10 ml PRN PRN IV IV PROTOCOL; Start 02/18/18 at 13:30 Furosemide (Lasix) 20 mg DAILY IV Last administered on 03/04/18at 08:20; Admin D ose 20 MG; Start 02/22/18 at 10:30 Enoxaparin Sodium (Lovenox) 40 mg DAILY SC Last administered on 03/05/18at 07:54; Admin Dose 40 MG; Start 02/23/18 at 09:00 Morphine Sulfate (morphine) 6 mg Q4H PRN GTB SEVERE PAIN LEVEL 7-10 Last administered on 02/24/18at 21:33; Admin Dose 6 MG; Start 02/23/18 at 12:00 Insulin Glargine (Lantus) 22 units DAILY@0800 SC Last administered on 03/05/18at 07:54; Admin Dose 22 UNITS; Start 02/24/18 at 12:00 Diagnostic Test (Pha) (Accu-Chek) 1 ea 02 XX Last administered on 03/04/18at 02:00; Admin Dose 1 EA; Start 02/25/18 at 02:00 Miscellaneous Information 1 ea NOTE XX ; Start 02/24/18 at 11:30 Glucose (Glutose) 15 gm Q15M PRN PO DECREASED GLUCOSE; Start 02/24/18 at 11:30 Glucose (Glutose) 22.5 gm Q15M PRN PO DECREASED GLUCOSE; Start 02/24/18 at 11:30 Dextrose (D50w Syringe) 25 ml Q15M PRN IV DECREASED GLUCOSE; Start 02/24/18 at 11:30 Dextrose (D50w Syringe) 50 ml Q15M PRN IV DECREASED GLUCOSE; Start 02/24/18 at 11:30 Glucagon (Glucagen) 1 mg Q15M PRN IM DECREASED GLUCOSE; Start 02/24/18 at 11:30 Glucose (Glutose) 15 gm Q15M PRN BUCCAL DECREASED GLUCOSE; Start 02/24/18 at 11:30 Meropenem/Sodium Chloride 50 ml @ 100 mls/hr Q8 IVPB Last administered on 03/05/18at 05:05; Admin Dose 100 MLS/HR; Start 02/25/18 at 17:00 Trimethoprim/ Sulfamethoxazole (Bactrim (Ds)) 1 tab MoWeFr NGT Last administered on 03/04/18at 17:26; Admin Dose 1 TAB; Start 02/25/18 at 17:00 Albuterol/ Ipratropium (Duoneb) 3 ml Q6H RESP THERAPY HHN Last administered on 03/05/18at 08:14; Admin Dose 3 ML; Start 02/28/18 at 08:00 Docusate Sodium (Colace) 100 mg BID PO Last administered on 03/04/18at 08:20; Admin Dose 100 MG; Start 02/28/18 at 09:00 Insulin Aspart (Novolog Insulin Pen) NOVOLOG *MODERATE* ALGORI... AC MEALS AND BEDTIME SC Last administered on 03/02/18at 19:07; Admin Dose 4 UNIT; Start 03/01/18 at 11:00 Voriconazole (Vfend) 200 mg BID PO Last administered on 03/05/18at 07:41; Admin Dose 200 MG; Start 03/03/18 at 21:00 Prednisone (Prednisone) 30 mg DAILY PO Last administered on 03/05/18at 07:41; Admin Dose 30 MG; Start 03/05/18 at 09:00 Melatonin (Melatonin) 5 mg HS PO Last administered on 03/04/18at 23:00; Admin Dose 5 MG; Start 03/04/18 at 21:30 JUDY LYON Mar 05, 2018 09:15
--- NOTE | 2018-03-05 12:04 | PN ---
Date/Time of Note Date/Time of Note DATE: 03/05/18 TIME: 12:02 Assessment/Plan VTE Prophylaxis Risk score (from [facility] [place])>0 risk: 12 SCD applied (from [facility] [place]): Yes Pharmacological prophylaxis: LMWH Lines/Catheters Urinary Cath still in place: No Assessment/Plan Hospital Course 62 yo female with stage IV melanoma with ARDS leading to acute respiratory failure 1. Acute respiratory failure/ARDS: - Now off high flow and doing well on nasal cannula -Continue prednisone -Continue antibiotics for possible pneumonia, ID follow 2. Metastatic melanoma - Further care as outpatient. In clinical trial in [place]. Should not receive nivolumab again given this may have been the etiology of ARDS 3. 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 as she is still not ambulatory Result Diagram: 03/03/18 0500 03/04/18 0454 Results 24hrs Laboratory Tests Test 03/04/18 17:24 03/04/18 19:53 03/05/18 07:40 03/05/18 11:37 Bedside Glucose 107 120 95 105 Subjective 24 Hr Interval Summary Constitutional: no complaints Exam/Review of Systems Vital Signs Vitals Vital Signs Date Temp Pulse Resp B/P (MAP) Pulse Ox O2 O2 Flow FiO2 Time Delivery Rate 03/05/18 98.2 65 17 99/53 (68) 94 11:07 03/05/18 3.0 08:16 03/05/18 Nasal 08:15 Cannula 03/04/18 35 15:56 Intake and Output 03/04/18 03/04/18 03/05/18 1515:00 23:00 07:00 IntakeIntake Total 1100 ml 800 ml BalanceBalance 1100 ml 800 ml Exam Constitutional: alert, oriented Respiratory: clear to auscultation Cardiovascular: regular rate and rhythm Gastrointestinal: soft; No distended Musculoskeletal: nl extremities to inspection Medications Medications Current Medications IV Flush (NS 3 ml) 3 ml PER PROTOCOL IV ; Start 02/17/18 at 13:30 Ondansetron HCl (Zofran Inj) 4 mg Q6H PRN IV NAUSEA AND/OR VOMITING; Start 02/17/18 at 13:30 Acetaminophen (Tylenol Tab) 650 mg Q6H PRN PO PAIN LEVEL 1-3 OR FEVER Last administered on 02/21/18 12:50; Admin Dose 650 MG; Start 02/17/18 at 13:30 Acetaminophen/ Hydrocodone Bitart ([place] (5/325)) 1 tab Q6H PRN PO MODERATE PAIN LEVEL 4-6 Last administered on 02/27/18at 15:18; Admin Dose 1 TAB; Start 02/17/18 at 13:30 Docusate Sodium (Colace) 100 mg Q12H PRN PO CONSTIPATION Last administered on 02/27/18at 15:44; Admin Dose 100 MG; Start 02/17/18 at 13:30 IV Flush (NS 10 ml) 10 ml PRN PRN IV IV PROTOCOL; Start 02/18/18 at 13:30 Furosemide (Lasix) 20 mg DAILY IV Last administered on 03/04/18 08:20; Admin Dose 20 MG; Start 02/22/18 at 10:30 Enoxaparin Sodium (Lovenox) 40 mg DAILY SC Last administered on 03/05/18 07:54; Admin Dose 40 MG; Start 02/23/18 at 09:00 Morphine Sulfate (morphine) 6 mg Q4H PRN GTB SEVERE PAIN LEVEL 7-10 Last administered on 02/24/18at 21:33; Admin Dose 6 MG; Start 02/23/18 at 12:00 Insulin Glargine (Lantus) 22 units DAILY@0800 SC Last administered on 03/05/18 07:54; Admin Dose 22 UNITS; Start 02/24/18 at 12:00 Diagnostic Test (Pha) (Accu-Chek) 1 ea 02 XX Last administered on 03/04/18at 02:00; Admin Dose 1 EA; Start 02/25/18 at 02:00 Miscellaneous Information 1 ea NOTE XX ; Start 02/24/18 at 11:30 Glucose (Glutose) 15 gm Q15M PRN PO DECREASED GLUCOSE; Start 02/24/18 at 11:30 Glucose (Glutose) 22.5 gm Q15M PRN PO DECREASED GLUCOSE; Start 02/24/18 at 11:30 Dextrose (D50w Syringe) 25 ml Q15M PRN IV DECREASED GLUCOSE; Start 02/24/18 at 11:30 Dextrose (D50w Syringe) 50 ml Q15M PRN IV DECREASED GLUCOSE; Start 02/24/18 at 11:30 Glucagon (Glucagen) 1 mg Q15M PRN IM DECREASED GLUCOSE; Start 02/24/18 at 11:30 Glucose (Glutose) 15 gm Q15M PRN BUCCAL DECREASED GLUCOSE; Start 02/24/18 at 11:30 Meropenem/Sodium Chloride 50 ml @ 100 mls/hr Q8 IVPB Last administered on 03/05/18at 05:05; Admin Dose 100 MLS/HR; Start 02/25/18 at 17:00 Trimethoprim/ Sulfamethoxazole (Bactrim (Ds)) 1 tab MoWeFr NGT Last adminis tered on 03/04/18at 17:26; Admin Dose 1 TAB; Start 02/25/18 at 17:00 Albuterol/ Ipratropium (Duoneb) 3 ml Q6H RESP THERAPY HHN Last administered on 03/05/18at 08:14; Admin Dose 3 ML; Start 02/28/18 at 08:00 Docusate Sodium (Colace) 100 mg BID PO Last administered on 03/04/18at 08:20; Admin Dose 100 MG; Start 02/28/18 at 09:00 Insulin Aspart (Novolog Insulin Pen) NOVOLOG *MODERATE* ALGORI... AC MEALS AND BEDTIME SC Last administered on 03/02/18at 19:07; Admin Dose 4 UNIT; Start 03/01/18 at 11:00 Voriconazole (Vfend) 200 mg BID PO Last administered on 03/05/18at 07:41; Admin Dose 200 MG; Start 03/03/18 at 21:00 Melatonin (Melatonin) 5 mg HS PO Last administered on 03/04/18at 23:00; Admin Dose 5 MG; Start 03/04/18 at 21:30 Prednisone (Prednisone) 20 mg DAILY PO ; Start 03/06/18 at 09:00 JULY TRAMMELL Mar 05, 2018 12:04
--- NOTE | 2018-03-05 12:38 | CONS ---
Date/Time of Note Date/Time of Note DATE: 03/05/18 TIME: 12:37 Assessment/Plan Assessment/Plan Assessment/Plan A 62 yo female with #Metastatic Melanoma - last Nivolumab was 2 weeks ago -pt currently on a clinical trial at [facility] using Nivolumab and a study drug -given this grade 4 toxicity she likely will not be able to proceed with more Nivolumab #ARDS - likely 2/2 Nivolumab and questionable underlying pneumonia -- 02/21/2018-sp Remicade 300 mg - 02/27/2018- extubated ; stable - On O2 3L via NC- O2 Sat 94% -continue prednisone 40 mg q day started 03/03, and taper by 10mg every 5 days -CT Chest reveals evidence of bibasilar infiltrates but no evidence of PE -appreciate ID recs and workup for underlying opportunistic infection # Anemia- Hgb 8.6 03/21 chemo - cont to monitor # Acute Hypokalemia - replace per PMD A total of 30 minutes of face to face time was spent speaking with the patient, of which greater than 50% was spent in counseling and coordination of care and the detailed question and answer session. Result Diagram: 03/03/18 0500 03/04/18 0454 Results 24hrs Laboratory Tests Test 03/04/18 17:24 03/04/18 19:53 03/05/18 07:40 03/05/18 11:37 Bedside Glucose 107 120 95 105 Consultation Date/Type/Reason Admit Date/Time Feb 17, 2018 at 12:57 pm Initial Consult Date 02/18/18 Type of Consult ONCOLOGY Reason for Consultation Metastatic Melanoma Requesting Provider: SJ BOWMAN MD 24 HR Interval Summary Free Text/Dictation - Feels better - On O2 2L via NC- o2 SAT 94% - no new events reported last night per staff Constitutional: requiring O2 Detailed Summary Eyes: no complaints ENT: no complaints Respiratory: no complaints Cardiovascular: no complaints Gastrointestinal: no complaints Genitourinary: no complaints Musculoskeletal: restricted range of motion Skin: no complaints Neurologic: no complaints Endocrine: no complaints Lymphatic: no complaints Psychological: nl mood/affect Exam/Review of Systems Vital Signs Vitals Vital Signs Date Temp Pulse Resp B/P (MAP) Pulse Ox O2 O2 Flow FiO2 Time Delivery Rate 03/05/18 98.2 65 17 99/53 (68) 94 11:07 03/05/18 3.0 08:16 03/05/18 Nasal 08:15 Cannula 03/04/18 35 15:56 Intake and Output 03/04/18 03/04/18 03/05/18 1515:00 23:00 07:00 IntakeIntake Total 1100 ml 800 ml BalanceBalance 1100 ml 800 ml Exam Constitutional: alert, well developed Psych: nl mood/affect Head: atraumatic Eyes: nl conjunctiva, EOMI, nl lids, nl sclera ENMT: nl external ears & nose Neck: non-tender Respiratory: diminished breath sounds (at bases) Cardiovascular: nl pulses, other (s1s2) Gastrointestinal: soft, non-tender Musculoskeletal: muscle weakness, range of motion Extremities: edema Neurological: nl speech, other (alert/awake) Skin: nl turgor Lymph: nontender Medications Medications Current Medications IV Flush (NS 3 ml) 3 ml PER PROTOCOL IV ; Start 02/17/18 at 13:30 Ondansetron HCl (Zofran Inj) 4 mg Q6H PRN IV NAUSEA AND/OR VOMITING; Start 02/17/18 at 13:30 Acetaminophen (Tylenol Tab) 650 mg Q6H PRN PO PAIN LEVEL 1-3 OR FEVER Last administered on 02/21/18at 12:50; Admin Dose 650 MG; Start 02/17/18 at 13:30 Acetaminophen/ Hydrocodone Bitart ([place] (5/325)) 1 tab Q6H PRN PO MODERATE PAIN LEVEL 4-6 Last administered on 02/27/18at 15:18; Admin Dose 1 TAB; Start 02/17/18 at 13:30 Docusate Sodium (Colace) 100 mg Q12H PRN PO CONSTIPATION Last administered on 02/27/18at 15:44; Admin Dose 100 MG; Start 02/17/18 at 13:30 IV Flush (NS 10 ml) 10 ml PRN PRN IV IV PROTOCOL; Start 02/18/18 at 13:30 Furosemide (Lasix) 20 mg DAILY IV Last administered on 03/04/18at 08:20; Admin Dose 20 MG; Start 02/22/18 at 10:30 Enoxaparin Sodium (Lovenox) 40 mg DAILY SC Last administered on 03/05/18at 07:54; Admin Dose 40 MG; Start 02/23/18 at 09:00 Morphine Sulfate (morphine) 6 mg Q4H PRN GTB SEVERE PAIN LEVEL 7-10 Last administered on 02/24/18at 21:33; Admin Dose 6 MG; Start 02/23/18 at 12:00 Insulin Glargine (Lantus) 22 units DAILY@0800 SC Last administered on 03/05/18at 07:54; Admin Dose 22 UNITS; Start 02/24/18 at 12:00 Diagnostic Test (Pha) (Accu-Chek) 1 ea 02 XX Last administered on 03/04/18at 02:00; Admin Dose 1 EA; Start 02/25/18 at 02:00 Miscellaneous Information 1 ea NOTE XX ; Start 02/24/18 at 11:30 Glucose (Glutose) 15 gm Q15M PRN PO DECREASED GLUCOSE; Start 02/24/18 at 11:30 Glucose (Glutose) 22.5 gm Q15M PRN PO DECREASED GLUCOSE; Start 02/24/18 at 11:30 Dextrose (D50w Syringe) 25 ml Q15M PRN IV DECREASED GLUCOSE; Start 02/24/18 at 11:30 Dextrose (D50w Syringe) 50 ml Q15M PRN IV DECREASED GLUCOSE; Start 02/24/18 at 11:30 Glucagon (Glucagen) 1 mg Q15M PRN IM DECREASED GLUCOSE; Start 02/24/18 at 11:30 Glucose (Glutose) 15 gm Q15M PRN BUCCAL DECREASED GLUCOSE; Start 02/24/18 at 11:30 Meropenem/Sodium Chloride 50 ml @ 100 mls/hr Q8 IVPB Last administered on 02/17 09/04at 05:05; Admin Dose 100 MLS/HR; Start 02/25/18 at 17:00 Trimethoprim/ Sulfamethoxazole (Bactrim (Ds)) 1 tab MoWeFr NGT Last administered on 03/04/18at 17:26; Admin Dose 1 TAB; Start 02/25/18 at 17:00 Albuterol/ Ipratropium (Duoneb) 3 ml Q6H RESP THERAPY HHN Last administered on 03/05/18at 08:14; Admin Dose 3 ML; Start 02/28/18 at 08:00 Docusate Sodium (Colace) 100 mg BID PO Last administered on 03/04/18at 08:20; Admin Dose 100 MG; Start 02/28/18 at 09:00 Insulin Aspart (Novolog Insulin Pen) NOVOLOG *MODERATE* ALGORI... AC MEALS AND BEDTIME SC Last administered on 03/02/18at 19:07; Admin Dose 4 UNIT; Start 03/01/18 at 11:00 Voriconazole (Vfend) 200 mg BID PO Last administered on 03/05/18at 07:41; Admin Dose 200 MG; Start 03/03/18 at 21:00 Melatonin (Melatonin) 5 mg HS PO Last administered on 03/04/18at 23:00; Admin Dose 5 MG; Start 03/04/18 at 21:30 Prednisone (Prednisone) 20 mg DAILY PO ; Start 03/06/18 at 09:00 GEMA HEREDIA Mar 05, 2018 12:38 pm
--- NOTE | 2018-03-05 17:34 | CONS ---
Date/Time of Note Date/Time of Note DATE: 03/05/18 TIME: 17:33 Assessment/Plan Assessment/Plan Hospital Course - Pneumonia, either infectious etiology vs. nivolumab pneumonitis. It can be a combination of two - ARDS, slow improvement - Acute hypoxic resp failure, intubated 02/17/2018, extubated 02/26/2018, s/p high flow O2, now on room air - Immunocompromised state: metastatic melanoma, receipt of nivolumab, infliximab and tapering methylprednisolone->prednisone - Metastatic melanoma, on nivolumab until recently - Normocytic anemia - Thrombocytopenia - Thus far: negative repeat blood cultures, procalcitonin <0.1, normal 1,0-acvu-E-glucan level, negative nasopharyngeal swab for respiratory viruses, negative legionella, negative pneumocystis jiroveci, histoplasma antigen <0.5, crypto neg, aspergillus negative, coccidioides negative Recommendations: - DC voriconazole (02/25/2018-) - Continue empiric meropenem (02/25/2018-), likely to complete 10-14 days depending on clinical improvement. S/p IV vanco (02/25/18 - 03/01/18) - Continue prophylaxis for pneumocystis jiroveci while Pt's on methyl prednisolone/prednisone taper (02/17/2018-): PO Bactrim DS 1 tab three times a week (02/25/2018-) Management d/w patient and with Dr. Bill. Result Diagram: 03/03/18 0500 03/04/18 0454 Results 24hrs Laboratory Tests Test 03/04/18 19:53 03/05/18 07:40 03/05/18 11:37 03/05/18 16:49 Bedside Glucose 120 95 105 132 Consultation Date/Type/Reason Admit Date/Time Feb 17, 2018 at 12:57 Initial Consult Date 02/25/18 Type of Consult Infectious Disease Requesting Provider: SJ BOWMAN MD 24 HR Interval Summary Free Text/Dictation Pt now on room air. Denies SOB and pain at rest. C/o BLE pain with movement. Coccidioides negative Exam/Review of Systems Vital Signs Vitals Vital Signs Date Temp Pulse Resp B/P (MAP) Pulse Ox O2 O2 Flow FiO2 Time Delivery Rate 03/05/18 71 16:00 03/05/18 98.1 18 111/60 91 15:26 (77) 03/05/18 Nasal 3.0 14:55 Cannula 03/04/18 35 15:56 Intake and Output 03/04/18 03/04/18 03/05/18 1515:00 23:00 07:00 IntakeIntake Total 1100 ml 800 ml BalanceBalance 1100 ml 800 ml Exam Constitutional: alert, oriented, well developed, obese Psych: no complaints, nl mood/affect Head: normocephalic, atraumatic ENMT: nl external ears & nose, nl lips & teeth, nl nasal mucosa & septum, mucosa pink and moist Neck: supple, non-tender Respiratory: clear to auscultation (anteriorly), normal air movement (stable on room air), diminished breath sounds (at bases); No wheezing Cardiovascular: regular rate and rhythm, nl pulses Gastrointestinal: soft, non-tender; No distended Genitourinary - Female: other (wearing diaper) Musculoskeletal: other (bilateral foot drop) Extremities: normal pulses, edema Neurological: nl mental status, nl speech (Angolan speaking only) Skin: nl turgor Medications Medications Current Medications IV Flush (NS 3 ml) 3 ml PER PROTOCOL IV ; Start 02/17/18 at 13:30 Ondansetron HCl (Zofran Inj) 4 mg Q6H PRN IV NAUSEA AND/OR VOMITING; Start 02/17/18 at 13:30 Acetaminophen (Tylenol Tab) 650 mg Q6H PRN PO PAIN LEVEL 1-3 OR FEVER Last administered on 02/21/18at 12:50; Admin Dose 650 MG; Start 02/17/18 at 13:30 Acetaminophen/ Hydrocodone Bitart ([place] (5/325)) 1 tab Q6H PRN PO MODERATE PAIN LEVEL 4-6 Last administered on 02/27/18at 15:18; Admin Dose 1 TAB; Start 02/17/18 at 13:30 Docusate Sodium (Colace) 100 mg Q12H PRN PO CONSTIPATION Last administered on 02/27/18at 15:44; Admin Dose 100 MG; Start 02/17/18 at 13:30 IV Flush (NS 10 ml) 10 ml PRN PRN IV IV PROTOCOL; Start 02/18/18 at 13:30 Furosemide (Lasix) 20 mg DAILY IV Last administered on 03/04/18at 08:20; Admin Dose 20 MG; Start 02/22/18 at 10:30 Enoxaparin Sodium (Lovenox) 40 mg DAILY SC Last administered on 03/05/18at 07:54; Admin Dose 40 MG; Start 02/23/18 at 09:00 Morphine Sulfate (morphine) 6 mg Q4H PRN GTB SEVERE PAIN LEVEL 7-10 Last administered on 02/24/18at 21:33; Admin Dose 6 MG; Start 02/23/18 at 12:00 Insulin Glargine (Lantus) 22 units DAILY@0800 SC Last administered on 03/05/18at 07:54; Admin Dose 22 UNITS; Start 02/24/18 at 12:00 Diagnostic Test (Pha) (Accu-Chek) 1 ea 02 XX Last administered on 03/04/18at 02:00; Admin Dose 1 EA; Start 02/25/18 at 02:00 Miscellaneous Information 1 ea NOTE XX ; Start 02/24/18 at 11:30 Glucose (Glutose) 15 gm Q15M PRN PO DECREASED GLUCOSE; Start 02/24/18 at 11:30 Glucose (Glutose) 22.5 gm Q15M PRN PO DECREASED GLUCOSE; Start 02/24/18 at 11:30 Dextrose (D50w Syringe) 25 ml Q15M PRN IV DECREASED GLUCOSE; Start 02/24/18 at 11:30 Dextrose (D50w Syringe) 50 ml Q15M PRN IV DECREASED GLUCOSE; Start 02/24/18 at 11:30 Glucagon (Glucagen) 1 mg Q15M PRN IM DECREASED GLUCOSE; Start 02/24/18 at 11:30 Glucose (Glutose) 15 gm Q15M PRN BUCCAL DECREASED GLUCOSE; Start 02/24/18 at 11:30 Meropenem/Sodium Chloride 50 ml @ 100 mls/hr Q8 IVPB Last administered on 03/05/18at 13:20; Admin Dose 100 MLS/HR; Start 02/25/18 at 17:00 Trimethoprim/ Sulfamethoxazole (Bactrim (Ds)) 1 tab MoWeFr NGT Last administered on 03/04/18at 17:26; Admin Dose 1 TAB; Start 02/25/18 at 17:00 Albuterol/ Ipratropium (Duoneb) 3 ml Q6H RESP THERAPY HHN Last administered on 03/05/18at 14:54; Admin Dose 3 ML; Start 02/28/18 at 08:00 Docusate Sodium (Colace) 100 mg BID PO Last administered on 03/04/18at 08:20; Admin Dose 100 MG; Start 02/28/18 at 09:00 Insulin Aspart (Novolog Insulin Pen) NOVOLOG *MODERATE* ALGORI... AC MEALS AND BEDTIME SC Last administered on 03/02/18 19:07; Admin Dose 4 UNIT; Start 03/01/18 at 11:00 Voriconazole (Vfend) 200 mg BID PO Last administered on 03/05/18at 07:41; Admin Dose 200 MG; Start 03/03/18 at 21:00 Melatonin (Melatonin) 5 mg HS PO Last administered on 03/04/18at 23:00; Admin Dose 5 MG; Start 03/04/18 at 21:30 Prednisone (Prednisone) 20 mg DAILY PO ; Start 03/06/18 at 09:00 Imaging Imaging CXR 03/03/2018: Stable appearance of multifocal lower lung opacities. Removal of the endotracheal tube and the gastric tube. DARNELL ORDONEZ NP Mar 05, 2018 17:34
[2018-03-05] MEDS: MELATONIN 5 MG TABLET PO SCH (22:34)
[2018-03-06] VITALS (12 sets, daily range): BP systolic 93–118; BP diastolic 52–66; PULSE 60–102; RESP 16–18
[2018-03-06] MEDS: ALBUTEROL/IPRATROPIUM (NEB) 3 ML AMP HHN SCH ×5 (01:27→23:52)
[2018-03-06] MEDS: ACCU-CHEK XX SCH (01:37)
[2018-03-06] MEDS: MEROPENEM 1 GM/50ML(PMX) 50 ML IVPB SCH ×3 (05:15→22:18)
[2018-03-06] MEDS: INSULIN ASPART [NOVOLOG] 3 ML PEN SC SCH ×3 (07:00→16:46)
[2018-03-06] MEDS: FUROSEMIDE 20 MG INJ IV SCH (07:55)
[2018-03-06] MEDS: DOCUSATE SODIUM 100 MG CAP PO SCH ×2 (07:55→21:09)
[2018-03-06] MEDS: INSULIN GLARGINE [LANTus] (100 UNITS/ML) SYG SC SCH (08:26)
[2018-03-06] MEDS: ENOXAPARIN 40 MG/0.4 ML SYG SC SCH (08:27)
[2018-03-06] MEDS ORDERED: predniSONE 20 MG TAB PO SCH (09:00)
--- NOTE | 2018-03-06 11:22 | CONS ---
Date/Time of Note Date/Time of Note DATE: 03/06/18 TIME: 11:20 Assessment/Plan Assessment/Plan Assessment/Plan Assessment and recommendations; next 1. Patient admitted with respiratory failure due to severe bilateral pneumonia possibly acute lung injury from immunotherapy with marked overall clinical improvement. 2. Metastatic stage IV melanoma. 3. Critical illness neuropathy/myopathy. 4. Mild anemia and thrombocytopenia. Decrease prednisone to 15 mg daily as a maintenance dose. Consider stopping antibiotics. Consider transfer to rehab center for physical therapy. Result Diagram: 03/03/18 0500 03/04/18 0454 Results 24hrs Laboratory Tests Test 03/05/18 11:37 03/05/18 16:49 03/05/18 20:10 03/06/18 07:54 Bedside Glucose 105 132 115 97 Consultation Date/Type/Reason Admit Date/Time Feb 17, 2018 at 12:57 Initial Consult Date 02/18/18 Type of Consult Pulmonary/critical care Requesting Provider: SJ BOWMAN MD 24 HR Interval Summary Free Text/Dictation Patient's condition is continually improving. Denies any shortness of, coughing, chest pain. Patient is doing very well on room air now. General exam; elderly female, awake alert, currently no distress. Exam/Review of Systems Vital Signs Vitals Vital Signs Date Temp Pulse Resp B/P (MAP) Pulse Ox O2 O2 Flow FiO2 Time Delivery Rate 03/06/18 92 21 09:45 03/06/18 86 16 Nasal 09:44 Cannula 03/06/18 3.0 07:26 03/06/18 98.1 118/66 07:25 (83) Intake and Output 03/05/18 03/05/18 03/06/18 1515:00 23:00 07:00 IntakeIntake Total 1250 ml 700 ml BalanceBalance 1250 ml 700 ml Exam H EENT exam; supple neck, no JVD. No lymphadenopathy. Midline trachea. No thyromegaly. Patient has good dentition. Chest exam; clear to auscultation. S1-S2 audible, no murmurs. Regular rhythm. Abdomen exam; soft, no organomegaly. Bowel sounds audible. Nontender. Extremity exam; lymphedema in both feet. 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 Medications Medications Current Medications IV Flush (NS 3 ml) 3 ml PER PROTOCOL IV ; Start 02/17/18 at 13:30 Ondansetron HCl (Zofran Inj) 4 mg Q6H PRN IV NAUSEA AND/OR VOMITING; Start 02/17/18 at 13:30 Acetaminophen (Tylenol Tab) 650 mg Q6H PRN PO PAIN LEVEL 1-3 OR FEVER Last administered on 02/21/18at 12:50; Admin Dose 650 MG; Start 02/17/18 at 13:30 Acetaminophen/ Hydrocodone Bitart ([place] (5/325)) 1 tab Q6H PRN PO MODERATE PAIN LEVEL 4-6 Last administered on 02/27/18at 15:18; Admin Dose 1 TAB; Start 02/17/18 at 13:30 Docusate Sodium (Colace) 100 mg Q12H PRN PO CONSTIPATION Last administered on 02/27/18at 15:44; Admin Dose 100 MG; Start 02/17/18 at 13:30 IV Flush (NS 10 ml) 10 ml PRN PRN IV IV PROTOCOL; Start 02/18/18 at 13:30 Enoxaparin Sodium (Lovenox) 40 mg DAILY SC Last administered on 03/06/18at 08:27; Admin Dose 40 MG; Start 02/23/18 at 09:00 Morphine Sulfate (morphine) 6 mg Q4H PRN GTB SEVERE PAIN LEVEL 7-10 Last administered on 02/24/18at 21:33; Admin Dose 6 MG; Start 02/23/18 at 12:00 Insulin Glargine (Lantus) 22 units DAILY@0800 SC Last administered on 03/06/18at 08:26; Admin Dose 22 UNITS; Start 02/24/18 at 12:00 Diagnostic Test (Pha) (Accu-Chek) 1 ea 02 XX Last administered on 03/04/18at 02:00; Admin Dose 1 EA; Start 02/25/18 at 02:00 Miscellaneous Information 1 ea NOTE XX ; Start 02/24/18 at 11:30 Glucose (Glutose) 15 gm Q15M PRN PO DECREASED GLUCOSE; Start 02/24/18 at 11:30 Glucose (Glutose) 22.5 gm Q15M PRN PO DECREASED GLUCOSE; Start 02/24/18 at 11:30 Dextrose (D50w Syringe) 25 ml Q15M PRN IV DECREASED GLUCOSE; Start 02/24/18 at 11:30 Dextrose (D50w Syringe) 50 ml Q15M PRN IV DECREASED GLUCOSE; Start 02/24/18 at 11:30 Glucagon (Glucagen) 1 mg Q15M PRN IM DECREASED GLUCOSE; Start 02/24/18 at 11:30 Glucose (Glutose) 15 gm Q15M PRN BUCCAL DECREASED GLUCOSE; Start 02/24/18 at 11:30 Meropenem/Sodium Chloride 50 ml @ 100 mls/hr Q8 IVPB Last administered on 03/06/18at 05:15; Admin Dose 100 MLS/HR; Start 02/25/18 at 17:00 Trimethoprim/ Sulfamethoxazole (Bactrim (Ds)) 1 tab MoWeFr NGT Last administered on 03/04/18at 17:26; Admin Dose 1 TAB; Start 02/25/18 at 17:00 Albuterol/ Ipratropium (Duoneb) 3 ml Q6H RESP THERAPY HHN Last administered on 03/06/18at 09:40; Admin Dose 3 ML; Start 02/28/18 at 08:00 Docusate Sodium (Colace) 100 mg BID PO Last administered on 03/04/18at 08:20; Admin Dose 100 MG; Start 02/28/18 at 09:00 Insulin Aspart (Novolog Insulin Pen) NOVOLOG *MODERATE* ALGORI... AC MEALS AND BEDTIME SC Last administered on 03/02/18at 19:07; Admin Dose 4 UNIT; Start 03/01/18 at 11:00 Melatonin (Melatonin) 5 mg HS PO Last administered on 03/05/18at 22:34; Admin Dose 5 MG; Start 03/04/18 at 21:30 Prednisone (Prednisone) 20 mg DAILY PO Last administered on 03/06/18at 08:02; Admin Dose 20 MG; Start 03/06/18 at 09:00 Furosemide (Lasix) 40 mg BID DIURETICS IV ; Start 03/06/18 at 18:00 JUDY LYON Mar 06, 2018 11:21
--- NOTE | 2018-03-06 12:34 | PN ---
Date/Time of Note Date/Time of Note DATE: 03/06/18 TIME: 12:29 Assessment/Plan VTE Prophylaxis Risk score (from [facility] [place] risk: 3 SCD applied (from [facility]): Yes Pharmacological prophylaxis: LMWH Lines/Catheters Urinary Cath still in place: No Assessment/Plan Hospital Course 62 yo female with stage IV melanoma with ARDS leading to acute respiratory failure 1. Acute respiratory failure/ARDS: - Now off supplemental oxygen -Continue prednisone -Continue antibiotics for possible pneumonia, ID following 2. Metastatic melanoma - Further care as outpatient. In clinical trial in [place]. Should not receive nivolumab again given this may have been the etiology of ARDS 3. Bicytopenia with anemia and thrombocytopenia secondary to melanoma therapy- stable -Hematology following 4. Lower extremity swelling secondary to lymphedema -Increase Lasix dose 5. 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 Prophylaxis: Lovenox Discharge plan: Patient now off supplemental oxygen, child support case officer to arrange for rehab placement as she is still not ambulatory Result Diagram: 03/03/18 0500 03/04/18 0454 Results 24hrs Laboratory Tests Test 03/05/18 16:49 03/05/18 20:10 03/06/18 07:54 03/06/18 11:49 Bedside Glucose 132 115 97 91 Subjective 24 Hr Interval Summary Lymphatic: lymphadema Exam/Review of Systems Vital Signs Vitals Vital Signs Date Temp Pulse Resp B/P (MAP) Pulse Ox O2 O2 Flow FiO2 Time Delivery Rate 03/06/18 98.6 75 17 110/66 91 12:14 (81) 03/06/18 21 09:45 03/06/18 Nasal 09:44 Cannula 03/06/18 3.0 07:26 Intake and Output 03/05/18 03/05/18 03/06/18 1515:00 23:00 07:00 IntakeIntake Total 1250 ml 700 ml BalanceBalance 1250 ml 700 ml Exam Constitutional: alert, oriented Respiratory: clear to auscultation Cardiovascular: regular rate and rhythm Gastrointestinal: soft; No distended Extremities: edema Medications Medications Current Medications IV Flush (NS 3 ml) 3 ml PER PROTOCOL IV ; Start 02/17/18 at 13:30 Ondansetron HCl (Zofran Inj) 4 mg Q6H PRN IV NAUSEA AND/OR VOMITING; Start 02/17/18 at 13:30 Acetaminophen (Tylenol Tab) 650 mg Q6H PRN PO PAIN LEVEL 1-3 OR FEVER Last administered on 02/21/18at 12:50; Admin Dose 650 MG; Start 02/17/18 at 13:30 Acetaminophen/ Hydrocodone Bitart ([place] (5/325)) 1 tab Q6H PRN PO MODERATE PAIN LEVEL 4-6 Last administered on 02/27/18at 15:18; Admin Dose 1 TAB; Start 02/17/18 at 13:30 Docusate Sodium (Colace) 100 mg Q12H PRN PO CONSTIPATION Last administered on 02/27/18at 15:44; Admin Dose 100 MG; Start 02/17/18 at 13:30 IV Flush (NS 10 ml) 10 ml PRN PRN IV IV PROTOCOL; Start 02/18/18 at 13:30 Enoxaparin Sodium (Lovenox) 40 mg DAILY SC Last administered on 03/06/18at 08:27; Admin Dose 40 MG; Start 02/23/18 at 09:00 Morphine Sulfate (morphine) 6 mg Q4H PRN GTB SEVERE PAIN LEVEL 7-10 Last admi nistered on 02/24/18at 21:33; Admin Dose 6 MG; Start 02/23/18 at 12:00 Insulin Glargine (Lantus) 22 units DAILY@0800 SC Last administered on 03/06/18at 08:26; Admin Dose 22 UNITS; Start 02/24/18 at 12:00 Diagnostic Test (Pha) (Accu-Chek) 1 ea 02 XX Last administered on 03/04/18at 02:00; Admin Dose 1 EA; Start 02/25/18 at 02:00 Miscellaneous Information 1 ea NOTE XX ; Start 02/24/18 at 11:30 Glucose (Glutose) 15 gm Q15M PRN PO DECREASED GLUCOSE; Start 02/24/18 at 11:30 Glucose (Glutose) 22.5 gm Q15M PRN PO DECREASED GLUCOSE; Start 02/24/18 at 11:30 Dextrose (D50w Syringe) 25 ml Q15M PRN IV DECREASED GLUCOSE; Start 02/24/18 at 11:30 Dextrose (D50w Syringe) 50 ml Q15M PRN IV DECREASED GLUCOSE; Start 02/24/18 at 11:30 Glucagon (Glucagen) 1 mg Q15M PRN IM DECREASED GLUCOSE; Start 02/24/18 at 11:30 Glucose (Glutose) 15 gm Q15M PRN BUCCAL DECREASED GLUCOSE; Start 02/24/18 at 11:30 Meropenem/Sodium Chloride 50 ml @ 100 mls/hr Q8 IVPB Last administered on 03/06/18at 05:15; Admin Dose 100 MLS/HR; Start 02/25/18 at 17:00 Trimethoprim/ Sulfamethoxazole (Bactrim (Ds)) 1 tab MoWeFr NGT Last administere d on 03/04/18at 17:26; Admin Dose 1 TAB; Start 02/25/18 at 17:00 Albuterol/ Ipratropium (Duoneb) 3 ml Q6H RESP THERAPY HHN Last administered on 03/06/18at 09:40; Admin Dose 3 ML; Start 02/28/18 at 08:00 Docusate Sodium (Colace) 100 mg BID PO Last administered on 03/04/18at 08:20; Admin Dose 100 MG; Start 02/28/18 at 09:00 Insulin Aspart (Novolog Insulin Pen) NOVOLOG *MODERATE* ALGORI... AC MEALS AND BEDTIME SC Last administered on 03/02/18at 19:07; Admin Dose 4 UNIT; Start 03/01/18 at 11:00 Melatonin (Melatonin) 5 mg HS PO Last administered on 03/05/18at 22:34; Admin Dose 5 MG; Start 03/04/18 at 21:30 Furosemide (Lasix) 40 mg BID DIURETICS IV ; Start 03/06/18 at 18:00 Prednisone (Prednisone) 15 mg DAILY PO ; Start 03/07/18 at 09:00 JULY TRAMMELL Mar 06, 2018 12:34
--- NOTE | 2018-03-06 15:08 | CONS ---
Date/Time of Note Date/Time of Note DATE: 03/06/18 TIME: 15:06 Assessment/Plan Assessment/Plan Hospital Course - Pneumonia, either infectious etiology vs. nivolumab pneumonitis. It can be a combination of two - ARDS, slow improvement - Acute hypoxic resp failure, intubated 02/17/2018, extubated 02/26/2018, s/p high flow O2, now on room air - Immunocompromised state: metastatic melanoma, receipt of nivolumab, infliximab and tapering methylprednisolone->prednisone - Metastatic melanoma, on nivolumab until recently - Normocytic anemia - Thrombocytopenia - Thus far: negative repeat blood cultures, procalcitonin <0.1, normal 1,8-hiyq-Y-glucan level, negative nasopharyngeal swab for respiratory viruses, negative legionella, negative pneumocystis jiroveci, histoplasma antigen <0.5, crypto neg, aspergillus negative, coccidioides negative Recommendations: - Continue empiric meropenem (02/25/2018-), likely to complete 10-14 days depending on clinical improvement. S/p IV vanco (02/25/18 - 03/01/18) - For now continue prophylaxis for pneumocystis jiroveci while Pt's on methylprednisolone/prednisone taper (02/17/2018-): PO Bactrim DS 1 tab three times a week (02/25/2018-). Potentially will be able to stop once doses become increasingly low. Result Diagram: 03/03/18 0500 03/04/18 0454 Results 24hrs Laboratory Tests Test 03/05/18 16:49 03/05/18 20:10 03/06/18 07:54 03/06/18 11:49 Bedside Glucose 132 115 97 91 Consultation Date/Type/Reason Admit Date/Time Feb 17, 2018 at 12:57 Initial Consult Date 02/25/18 Requesting Provider: SJ BOWMAN MD Exam/Review of Systems Vital Signs Vitals Vital Signs Date Temp Pulse Resp B/P (MAP) Pulse Ox O2 O2 Flow FiO2 Time Delivery Rate 03/06/18 96 21 14:07 03/06/18 80 16 14:05 03/06/18 98.6 110/66 12:14 (81) 03/06/18 Nasal 09:44 Cannula 03/06/18 3.0 07:26 Intake and Output 03/05/18 03/05/18 03/06/18 1515:00 23:00 07:00 IntakeIntake Total 1250 ml 700 ml BalanceBalance 1250 ml 700 ml Exam sleeping peacefully Medications Medications Current Medications IV Flush (NS 3 ml) 3 ml PER PROTOCOL IV ; Start 02/17/18 at 13:30 Ondansetron HCl (Zofran Inj) 4 mg Q6H PRN IV NAUSEA AND/OR VOMITING; Start 02/17/18 at 13:30 Acetaminophen (Tylenol Tab) 650 mg Q6H PRN PO PAIN LEVEL 1-3 OR FEVER Last administered on 02/21/18 12:50; Admin Dose 650 MG; Start 02/17/18 at 13:30 Acetaminophen/ Hydrocodone Bitart ([place] (5/325)) 1 tab Q6H PRN PO MODERATE PAIN LEVEL 4-6 Last administered on 02/27/18 15:18; Admin Dose 1 TAB; Start 02/17/18 at 13:30 Docusate Sodium (Colace) 100 mg Q12H PRN PO CONSTIPATION Last administered on 02/27/18at 15:44; Admin Dose 100 MG; Start 02/17/18 at 13:30 IV Flush (NS 10 ml) 10 ml PRN PRN IV IV PROTOCOL; Start 02/18/18 at 13:30 Enoxaparin Sodium (Lovenox) 40 mg DAILY SC Last administered on 03/06/18 08:27; Admin Dose 40 MG; Start 02/23/18 at 09:00 Morphine Sulfate (morphine) 6 mg Q4H PRN GTB SEVERE PAIN LEVEL 7-10 Last administered on 02/24/18 21:33; Admin Dose 6 MG; Start 02/23/18 at 12:00 Insulin Glargine (Lantus) 22 units DAILY@0800 SC Last administered on 03/06/18 08:26; Admin Dose 22 UNITS; Start 02/24/18 at 12:00 Diagnostic Test (Pha) (Accu-Chek) 1 ea 02 XX Last administered on 03/04/18at 02:00; Admin Dose 1 EA; Start 02/25/18 at 02:00 Miscellaneous Information 1 ea NOTE XX ; Start 02/24/18 at 11:30 Glucose (Glutose) 15 gm Q15M PRN PO DECREASED GLUCOSE; Start 02/24/18 at 11:30 Glucose (Glutose) 22.5 gm Q15M PRN PO DECREASED GLUCOSE; Start 02/24/18 at 11:30 Dextrose (D50w Syringe) 25 ml Q15M PRN IV DECREASED GLUCOSE; Start 02/24/18 at 11:30 Dextrose (D50w Syringe) 50 ml Q15M PRN IV DECREASED GLUCOSE; Start 02/24/18 at 11:30 Glucagon (Glucagen) 1 mg Q15M PRN IM DECREASED GLUCOSE; Start 02/24/18 at 11:30 Glucose (Glutose) 15 gm Q15M PRN BUCCAL DECREASED GLUCOSE; Start 02/24/18 at 11:30 Meropenem/Sodium Chloride 50 ml @ 100 mls/hr Q8 IVPB Last administered on 03/06at 13:52; Admin Dose 100 MLS/HR; Start 02/25/18 at 17:00 Trimethoprim/ Sulfamethoxazole (Bactrim (Ds)) 1 tab MoWeFr NGT Last administered on 03/04/18at 17:26; Admin Dose 1 TAB; Start 02/25/18 at 17:00 Albuterol/ Ipratropium (Duoneb) 3 ml Q6H RESP THERAPY HHN Last administered on 03/06/18at 14:02; Admin Dose 3 ML; Start 02/28/18 at 08:00 Docusate Sodium (Colace) 100 mg BID PO Last administered on 03/04/18at 08:20; Admin Dose 100 MG; Start 02/28/18 at 09:00 Insulin Aspart (Novolog Insulin Pen) NOVOLOG *MODERATE* ALGORI... AC MEALS AND BEDTIME SC Last administered on 03/02/18at 19:07; Admin Dose 4 UNIT; Start 03/01/18 at 11:00 Melatonin (Melatonin) 5 mg HS PO Last administered on 03/05/18at 22:34; Admin Dose 5 MG; Start 03/04/18 at 21:30 Furosemide (Lasix) 40 mg BID DIURETICS IV ; Start 03/06/18 at 18:00 Prednisone (Prednisone) 15 mg DAILY PO ; Start 03/07/18 at 09:00 ALTAF RICKS MD Mar 06, 2018 15:08
--- NOTE | 2018-03-06 16:21 | CONS ---
Date/Time of Note Date/Time of Note DATE: 03/06/18 TIME: :19 Assessment/Plan Assessment/Plan Assessment/Plan A 62 yo female with #Metastatic Melanoma - last Nivolumab was 2 weeks ago -pt currently on a clinical trial at [facility] using Nivolumab and a study drug -given this grade 4 toxicity she likely will not be able to proceed with more Nivolumab #ARDS - likely 2/2 Nivolumab and questionable underlying pneumonia -- 02/21/2018-sp Remicade 300 mg - 02/27/2018- extubated ; stable - On O2 3L via NC- O2 Sat 94% -Plan; Cont Prednisone 20 mg po daily. Will do steroid tapering slowly -CT Chest reveals evidence of bibasilar infiltrates but no evidence of PE -appreciate ID recs and workup for underlying opportunistic infection # Anemia- Hgb 8.6 03/21 chemo - cont to monitor # Acute Hypokalemia- resolved A total of 30 minutes of face to face time was spent speaking with the patient, of which greater than 50% was spent in counseling and coordination of care and the detailed question and answer session. Result Diagram: 03/03/18 0500 03/04/18 0454 Results 24hrs Laboratory Tests Test 03/05/18 16:49 03/05/18 20:10 03/06/18 07:54 03/06/18 11:49 Bedside Glucose 132 115 97 91 Consultation Date/Type/Reason Admit Date/Time Feb 17, 2018 at 12:57 pm Initial Consult Date 02/18/18 Type of Consult ONCOLOGY Requesting Provider: SJ BOWMAN MD 24 HR Interval Summary Free Text/Dictation - feels better; no new events reported last night. Constitutional: requiring O2 Detailed Summary Respiratory: no complaints Cardiovascular: no complaints Gastrointestinal: no complaints Genitourinary: no complaints Musculoskeletal: no complaints Skin: no complaints Neurologic: no complaints Endocrine: no complaints Lymphatic: no complaints Psychological: nl mood/affect Immunologic: no complaints Exam/Review of Systems Vital Signs Vitals Vital Signs Date Temp Pulse Resp B/P (MAP) Pulse Ox O2 O2 Flow FiO2 Time Delivery Rate 03/06/18 80 16:00 03/06/18 98.4 18 108/58 91 15:52 (75) 03/06/18 21 14:07 03/06/18 Nasal 09:44 Cannula 03/06/18 3.0 07:26 Intake and Output 03/05/18 03/05/18 03/06/18 1515:00 23:00 07:00 IntakeIntake Total 1250 ml 700 ml BalanceBalance 1250 ml 700 ml Exam Constitutional: alert, oriented, well developed Psych: nl mood/affect Head: atraumatic Eyes: nl conjunctiva, EOMI, nl lids, nl sclera ENMT: nl external ears & nose Neck: non-tender Respiratory: clear to auscultation Cardiovascular: nl pulses, other (s1ss2) Gastrointestinal: soft, non-tender Musculoskeletal: nl extremities to inspection Extremities: normal pulses Neurological: nl mental status, nl speech Skin: nl turgor Lymph: nontender Medications Medications Current Medications IV Flush (NS 3 ml) 3 ml PER PROTOCOL IV ; Start 02/17/18 at 13:30 Ondansetron HCl (Zofran Inj) 4 mg Q6H PRN IV NAUSEA AND/OR VOMITING; Start 02/17/18 at 13:30 Acetaminophen (Tylenol Tab) 650 mg Q6H PRN PO PAIN LEVEL 1-3 OR FEVER Last administered on 02/21/18at 12:50; Admin Dose 650 MG; Start 02/17/18 at 13:30 Acetaminophen/ Hydrocodone Bitart ([place] (5/325)) 1 tab Q6H PRN PO MODERATE PAIN LEVEL 4-6 Last administered on 02/27/18at 15:18; Admin Dose 1 TAB; Start 02/17/18 at 13:30 Docusate Sodium (Colace) 100 mg Q12H PRN PO CONSTIPATION Last administered on 02/27/18at 15:44; Admin Dose 100 MG; Start 02/17/18 at 13:30 IV Flush (NS 10 ml) 10 ml PRN PRN IV IV PROTOCOL; Start 02/18/18 at 13:30 Enoxaparin Sodium (Lovenox) 40 mg DAILY SC Last administered on 03/06/18at 08:27; Admin Dose 40 MG; Start 02/23/18 at 09:00 Morphine Sulfate (morphine) 6 mg Q4H PRN GTB SEVERE PAIN LEVEL 7-10 Last administered on 02/24/18at 21:33; Admin Dose 6 MG; Start 02/23/18 at 12:00 Insulin Glargine (Lantus) 22 units DAILY@0800 SC Last administered on 03/06/18 08:26; Admin Dose 22 UNITS; Start 02/24/18 at 12:00 Diagnostic Test (Pha) (Accu-Chek) 1 ea 02 XX Last administered on 03/04/18at 02:00; Admin Dose 1 EA; Start 02/25/18 at 02:00 Miscellaneous Information 1 ea NOTE XX ; Start 02/24/18 at 11:30 Glucose (Glutose) 15 gm Q15M PRN PO DECREASED GLUCOSE; Start 02/24/18 at 11:30 Glucose (Glutose) 22.5 gm Q15M PRN PO DECREASED GLUCOSE; Start 02/24/18 at 11:30 Dextrose (D50w Syringe) 25 ml Q15M PRN IV DECREASED GLUCOSE; Start 02/24/18 at 11:30 Dextrose (D50w Syringe) 50 ml Q15M PRN IV DECREASED GLUCOSE; Start 02/24/18 at 11:30 Glucagon (Glucagen) 1 mg Q15M PRN IM DECREASED GLUCOSE; Start 02/24/18 at 11:30 Glucose (Glutose) 15 gm Q15M PRN BUCCAL DECREASED GLUCOSE; Start 02/24/18 at 11:30 Meropenem/Sodium Chloride 50 ml @ 100 mls/hr Q8 IVPB Last administered on 03/06/18at 13:52; Admin Dose 100 MLS/HR; Start 02/25/18 at 17:00 Trimethoprim/ Sulfamethoxazole (Bactrim (Ds)) 1 tab MoWeFr NGT Last administered on 03/04/18at 17:26; Admin Dose 1 TAB; Start 02/25/18 at 17:00 Albuterol/ Ipratropium (Duoneb) 3 ml Q6H RESP THERAPY HHN Last administered on 03/06/18at 14:02; Admin Dose 3 ML; Start 02/28/18 at 08:00 Docusate Sodium (Colace) 100 mg BID PO Last administered on 03/04/18 08:20; Admin Dose 100 MG; Start 02/28/18 at 09:00 Insulin Aspart (Novolog Insulin Pen) NOVOLOG *MODERATE* ALGORI... AC MEALS AND BEDTIME SC Last administered on 03/02/18at 19:07; Admin Dose 4 UNIT; Start 03/01/18 at 11:00 Melatonin (Melatonin) 5 mg HS PO Last administered on 03/05/18at 22:34; Admin Dose 5 MG; Start 03/04/18 at 21:30 Furosemide (Lasix) 40 mg BID DIURETICS IV ; Start 03/06/18 at 18:00 Prednisone (Prednisone) 15 mg DAILY PO ; Start 03/07/18 at 09:00 GEMA HEREDIA Mar 06, 2018 16:21
[2018-03-06] MEDS ORDERED: FUROSEMIDE 40 MG INJ ONE (16:34)
[2018-03-06] MEDS: FUROSEMIDE 40 MG INJ IV SCH (16:45)
[2018-03-06] MEDS: TRIMETHOPRIM/SULFAMETHOX (DS) TAB NGT SCH (16:45)
[2018-03-06] MEDS: Insulin NOVOLOG SS MODERATE Algorithm (SS with meals and bedtime) SC SCH (21:00)
[2018-03-06] MEDS: MELATONIN 5 MG TABLET PO SCH (21:09)
[2018-03-07] VITALS (12 sets, daily range): BP systolic 93–119; BP diastolic 50–63; PULSE 54–97; RESP 18
[2018-03-07] MEDS: ACCU-CHEK XX SCH (02:00)
[2018-03-07] MEDS: morphine LIQ (10 MG/5 ML) CUP GTB PRN (02:37)
[2018-03-07] MEDS: MEROPENEM 1 GM/50ML(PMX) 50 ML IVPB SCH ×3 (05:27→20:24)
[2018-03-07] MEDS: FUROSEMIDE 40 MG INJ IV SCH ×2 (05:34→17:19)
[2018-03-07] MEDS: Insulin NOVOLOG SS MODERATE Algorithm (SS with meals and bedtime) SC SCH ×4 (07:47→20:23)
[2018-03-07] MEDS: INSULIN GLARGINE [LANTus] (100 UNITS/ML) SYG SC SCH (07:57)
[2018-03-07] MEDS: ALBUTEROL/IPRATROPIUM (NEB) 3 ML AMP HHN SCH ×4 (08:00→19:42)
[2018-03-07] MEDS: DOCUSATE SODIUM 100 MG CAP PO SCH ×2 (09:00→20:24)
[2018-03-07] MEDS: predniSONE 5 MG TAB PO SCH (09:11)
[2018-03-07] MEDS: ENOXAPARIN 40 MG/0.4 ML SYG SC SCH (09:15)
--- NOTE | 2018-03-07 11:13 | PN ---
Date/Time of Note Date/Time of Note DATE: 03/07/18 TIME: 10:58 Assessment/Plan VTE Prophylaxis Risk score (from [facility])>0 risk: 9 SCD applied (from [facility]): Yes Pharmacological prophylaxis: LMWH Lines/Catheters Urinary Cath still in place: No Assessment/Plan Hospital Course 62 yo female with stage IV melanoma with ARDS leading to acute respiratory failure 1. Acute respiratory failure/ARDS-resolved - Now off supplemental oxygen -Continue prednisone -Continue antibiotics for possible pneumonia, ID following 2. Metastatic melanoma - Further care as outpatient. In clinical trial in [place]. Should not receive nivolumab again given this may have been the etiology of ARDS 3. Bicytopenia with anemia and thrombocytopenia secondary to melanoma therapy- stable -Hematology following 4. Lower extremity swelling secondary to lymphedema-improved with increased dose of Lasix -Continue Lasix regimen 5. Debility secondary to prolonged ICU stay -Patient reports both weakness and pain in both legs -Baclofen and magnesium -Continue PT -manager of training and development to arrange for rehab placed -Lymphedema has improved, continue Lasix Prophylaxis: Lovenox Discharge plan: Patient now off supplemental oxygen, renal case manager to arrange for rehab placement as she is still not ambulatory Result Diagram: 03/07/1851803/07/18518 Results 24hrs Laboratory Tests Test 03/06/18 11:49 03/06/18 16:45 03/06/18 21:07 03/07/18 05:19 Bedside Glucose 91 103 114 White Blood Count 5.1 # Red Blood Count 2.67 L Hemoglobin 8.6 L Hematocrit 26.6 L Mean Corpuscular 99.6 Volume Mean Corpuscular 32.2 Hemoglobin Mean Corpuscular 32.3 Hemoglobin Concent Red Cell 15.8 H Distribution Width Platelet Count 81 L Mean Platelet Volume 11.1 H Immature 1.000 H Granulocytes % Neutrophils % 73.3 Lymphocytes % 10.9 L Monocytes % 11.9 H Eosinophils % 2.9 Basophils % 0.0 Nucleated Red Blood 0.0 Cells % Immature 0.050 H Granulocytes # Neutrophils # 3.8 Lymphocytes # 0.6 L Monocytes # 0.6 Eosinophils # 0.2 Basophils # 0.0 Nucleated Red Blood 0.0 Cells # Sodium Level 137 Potassium Level 3.5 Chloride Level 102 Carbon Dioxide Level 32 H Anion Gap 3 L Blood Urea Nitrogen 23 H Creatinine 0.70 Est Glomerular > 60 Filtrat Rate mL/min Glucose Level 73 Calcium Level 7.6 L Phosphorus Level 3.0 Magnesium Level 2.1 Test 03/07/18 07:47 Bedside Glucose 84 Subjective 24 Hr Interval Summary Musculoskeletal: other (Weakness and pain in both legs) Exam/Review of Systems Vital Signs Vitals Vital Signs Date Temp Pulse Resp B/P (MAP) Pulse Ox O2 O2 Flow FiO2 Time Delivery Rate 03/07/18 69 18 98 21 09:26 03/07/18 Nasal 3.0 07:30 Cannula 03/07/18 98.2 96/57 (70) 07:19 Intake and Output 03/06/18 03/06/18 03/07/18 1515:00 23:00 07:00 IntakeIntake Total 770 ml 400 ml BalanceBalance 770 ml 400 ml Exam Constitutional: alert, oriented Respiratory: clear to auscultation Cardiovascular: regular rate and rhythm Gastrointestinal: soft; No distended Extremities: edema Medications Medications Current Medications IV Flush (NS 3 ml) 3 ml PER PROTOCOL IV ; Start 02/17/18 at 13:30 Ondansetron HCl (Zofran Inj) 4 mg Q6H PRN IV NAUSEA AND/OR VOMITING; Start 02/17/18 at 13:30 Acetaminophen (Tylenol Tab) 650 mg Q6H PRN PO PAIN LEVEL 1-3 OR FEVER Last administered on 02/21/18at 12:50; Admin Dose 650 MG; Start 02/17/18 at 13:30 Acetaminophen/ Hydrocodone Bitart ([place] (5/325)) 1 tab Q6H PRN PO MODERATE PAIN LEVEL 4-6 Last administered on 02/27/18at 15:18; Admin Dose 1 TAB; Start 02/17/18 at 13:30 Docusate Sodium (Colace) 100 mg Q12H PRN PO CONSTIPATION Last administered on 02/27/18at 15:44; Admin Dose 100 MG; Start 02/17/18 at 13:30 IV Flush (NS 10 ml) 10 ml PRN PRN IV IV PROTOCOL; Start 02/18/18 at 13:30 Enoxaparin Sodium (Lovenox) 40 mg DAILY SC Last administered on 03/07/18at 09:15; Admin Dose 40 MG; Start 02/23/18 at 09:00 Morphine Sulfate (morphine) 6 mg Q4H PRN GTB SEVERE PAIN LEVEL 7-10 Last admi nistered on 03/07/18at 02:37; Admin Dose 6 MG; Start 02/23/18 at 12:00 Insulin Glargine (Lantus) 22 units DAILY@0800 SC Last administered on 03/07/18at 07:57; Admin Dose 22 UNITS; Start 02/24/18 at 12:00 Diagnostic Test (Pha) (Accu-Chek) 1 ea 02 XX Last administered on 03/04/18at 02:00; Admin Dose 1 EA; Start 02/25/18 at 02:00 Miscellaneous Information 1 ea NOTE XX ; Start 02/24/18 at 11:30 Glucose (Glutose) 15 gm Q15M PRN PO DECREASED GLUCOSE; Start 02/24/18 at 11:30 Glucose (Glutose) 22.5 gm Q15M PRN PO DECREASED GLUCOSE; Start 02/24/18 at 11:30 Dextrose (D50w Syringe) 25 ml Q15M PRN IV DECREASED GLUCOSE; Start 02/24/18 at 11:30 Dextrose (D50w Syringe) 50 ml Q15M PRN IV DECREASED GLUCOSE; Start 02/24/18 at 11:30 Glucagon (Glucagen) 1 mg Q15M PRN IM DECREASED GLUCOSE; Start 02/24/18 at 11:30 Glucose (Glutose) 15 gm Q15M PRN BUCCAL DECREASED GLUCOSE; Start 02/24/18 at 11:30 Meropenem/Sodium Chloride 50 ml @ 100 mls/hr Q8 IVPB Last administered on 03/07/18at 05:27; Admin Dose 100 MLS/HR; Start 02/25/18 at 17:00 Trimethoprim/ Sulfamethoxazole (Bactrim (Ds)) 1 tab MoWeFr NGT Last administer ed on 03/06/18at 16:45; Admin Dose 1 TAB; Start 02/25/18 at 17:00 Albuterol/ Ipratropium (Duoneb) 3 ml Q6H RESP THERAPY HHN Last administered on 03/07/18at 09:26; Admin Dose 3 ML; Start 02/28/18 at 08:00 Docusate Sodium (Colace) 100 mg BID PO Last administered on 03/06/18at 21:09; Admin Dose 100 MG; Start 02/28/18 at 09:00 Melatonin (Melatonin) 5 mg HS PO Last administered on 03/06/18at 21:09; Admin Dose 5 MG; Start 03/04/18 at 21:30 Furosemide (Lasix) 40 mg BID DIURETICS IV Last administered on 03/07/18at 05:34; Admin Dose 40 MG; Start 03/06/18 at 18:00 Prednisone (Prednisone) 15 mg DAILY PO Last administered on 03/07/18at 09:11; Admin Dose 15 MG; Start 03/07/18 at 09:00 Insulin Aspart (Novolog Insulin Pen) (Adult SC Insulin - Moder... WITH MEALS BEDTIME SC ; Start 03/06/18 at 21:00 JULY TRAMMELL Mar 07, 2018 11:08
[2018-03-07] MEDS: MAGNESIUM OXIDE 400 MG TAB PO SCH ×2 (12:11→20:23)
[2018-03-07] MEDS: BACLOFEN 10 MG TAB PO SCH ×2 (12:11→20:23)
--- NOTE | 2018-03-07 14:14 | CONS ---
Date/Time of Note Date/Time of Note DATE: 03/07/18 TIME: 14:13 Consult Date/Type/Reason Admit Date/Time Feb 17, 2018 at 12:57 Initial Consult Date 02/18/18 Type of Consultation: Pulm/CCM Requesting Provider: SJ BOWMAN MD Subjective No events. On RA Objective Vital Signs Date Temp Pulse Resp B/P (MAP) Pulse Ox O2 O2 Flow FiO2 Time Delivery Rate 03/07/18 78 12:00 03/07/18 97.9 18 109/61 97 11:06 (77) 03/07/18 21 09:26 03/07/18 Nasal 3.0 07:30 Cannula Intake and Output 03/06/18 03/06/18 03/07/18 1515:00 23:00 07:00 IntakeIntake Total 770 ml 400 ml BalanceBalance 770 ml 400 ml Exam HEENT: Neck supple; no JVD; no LAD CVS: RRR, S1 and S2 CHEST: Subtle basilar rales ABD: Soft, NT, + BS EXT: No c/c; + edema Results/Medications Result Diagram: 03/07/1851803/07/18518 Results 24 hrs Laboratory Tests Test 03/06/18 16:45 03/06/18 21:07 03/07/18 05:19 03/07/18 07:47 Bedside Glucose 103 114 84 White Blood Count 5.1 # Red Blood Count 2.67 L Hemoglobin 8.6 L Hematocrit 26.6 L Mean Corpuscular 99.6 Volume Mean Corpuscular 32.2 Hemoglobin Mean Corpuscular 32.3 Hemoglobin Concent Red Cell 15.8 H Distribution Width Platelet Count 81 L Mean Platelet Volume 11.1 H Immature 1.000 H Granulocytes % Neutrophils % 73.3 Lymphocytes % 10.9 L Monocytes % 11.9 H Eosinophils % 2.9 Basophils % 0.0 Nucleated Red Blood 0.0 Cells % Immature 0.050 H Granulocytes # Neutrophils # 3.8 Lymphocytes # 0.6 L Monocytes # 0.6 Eosinophils # 0.2 Basophils # 0.0 Nucleated Red Blood 0.0 Cells # Sodium Level 137 Potassium Level 3.5 Chloride Level 102 Carbon Dioxide Level 32 H Anion Gap 3 L Blood Urea Nitrogen 23 H Creatinine 0.70 Est Glomerular > 60 Filtrat Rate mL/min Glucose Level 73 Calcium Level 7.6 L Phosphorus Level 3.0 Magnesium Level 2.1 Test 03/07/18 11:54 Bedside Glucose 71 Medications Current Medications IV Flush (NS 3 ml) 3 ml PER PROTOCOL IV ; Start 02/17/18 at 13:30 Ondansetron HCl (Zofran Inj) 4 mg Q6H PRN IV NAUSEA AND/OR VOMITING; Start 02/17/18 at 13:30 Acetaminophen (Tylenol Tab) 650 mg Q6H PRN PO PAIN LEVEL 1-3 OR FEVER Last administered on 02/21/18at 12:50; Admin Dose 650 MG; Start 02/17/18 at 13:30 Acetaminophen/ Hydrocodone Bitart ([place] (5/325)) 1 tab Q6H PRN PO MODERATE PAIN LEVEL 4-6 Last administered on 02/27/18at 15:18; Admin Dose 1 TAB; Start 02/17/18 at 13:30 Docusate Sodium (Colace) 100 mg Q12H PRN PO CONSTIPATION Last administered on 02/27/18at 15:44; Admin Dose 100 MG; Start 02/17/18 at 13:30 IV Flush (NS 10 ml) 10 ml PRN PRN IV IV PROTOCOL; Start 02/18/18 at 13:30 Enoxaparin Sodium (Lovenox) 40 mg DAILY SC Last administered on 03/07/18at 09:15; Admin Dose 40 MG; Start 02/23/18 at 09:00 Morphine Sulfate (morphine) 6 mg Q4H PRN GTB SEVERE PAIN LEVEL 7-10 Last administered on 03/07/18at 02:37; Admin Dose 6 MG; Start 02/23/18 at 12:00 Insulin Glargine (Lantus) 22 units DAILY@0800 SC Last administered on 03/07/18at 07:57; Admin Dose 22 UNITS; Start 02/24/18 at 12:00 Diagnostic Test (Pha) (Accu-Chek) 1 ea 02 XX Last administered on 03/04/18at 02:00; Admin Dose 1 EA; Start 02/25/18 at 02:00 Miscellaneous Information 1 ea NOTE XX ; Start 02/24/18 at 11:30 Glucose (Glutose) 15 gm Q15M PRN PO DECREASED GLUCOSE; Start 02/24/18 at 11:30 Glucose (Glutose) 22.5 gm Q15M PRN PO DECREASED GLUCOSE; Start 02/24/18 at 11:30 Dextrose (D50w Syringe) 25 ml Q15M PRN IV DECREASED GLUCOSE; Start 02/24/18 at 11:30 Dextrose (D50w Syringe) 50 ml Q15M PRN IV DECREASED GLUCOSE; Start 02/24/18 at 11:30 Glucagon (Glucagen) 1 mg Q15M PRN IM DECREASED GLUCOSE; Start 02/24/18 at 11:30 Glucose (Glutose) 15 gm Q15M PRN BUCCAL DECREASED GLUCOSE; Start 02/24/18 at 11:30 Meropenem/Sodium Chloride 50 ml @ 100 mls/hr Q8 IVPB Last administered on 03/07/18at 13:27; Admin Dose 100 MLS/HR; Start 02/25/18 at 17:00 Trimethoprim/ Sulfamethoxazole (Bactrim (Ds)) 1 tab MoWeFr NGT Last administered on 03/06/18at 16:45; Admin Dose 1 TAB; Start 02/25/18 at 17:00 Albuterol/ Ipratropium (Duoneb) 3 ml Q6H RESP THERAPY HHN Last administered on 03/07/18at 09:26; Admin Dose 3 ML; Start 02/28/18 at 08:00 Docusate Sodium (Colace) 100 mg BID PO Last administered on 03/06/18 21:09; Admin Dose 100 MG; Start 02/28/18 at 09:00 Melatonin (Melatonin) 5 mg HS PO Last administered on 03/06/18at 21:09; Admin Dose 5 MG; Start 03/04/18 at 21:30 Furosemide (Lasix) 40 mg BID DIURETICS IV Last administered on 03/07/18at 05:34; Admin Dose 40 MG; Start 03/06/18 at 18:00 Prednisone (Prednisone) 15 mg DAILY PO Last administered on 03/07/18at 09:11; Admin Dose 15 MG; Start 03/07/18 at 09:00 Insulin Aspart (Novolog Insulin Pen) (Adult SC Insulin - Moder... WITH MEALS BEDTIME SC ; Start 03/06/18 at 21:00 Magnesium Oxide (Mag-Ox 400) 400 mg BID PO Last administered on 03/07/18at 12:11; Admin Dose 400 MG; Start 03/07/18 at 11:30 Baclofen (Lioresal) 10 mg BID PO Last administered on 03/07/18at 12:11; Admin Dose 10 MG; Start 03/07/18 at 11:30 Assessment/Plan Additional Assessment/Plan IMP: 1. s/p Severe Hypoxemic Hypoxemic Resp Failure/ARDS--2/2 to PDL-1 (nivolumab) induced pneumonitis. 2. Acute kidney injury--resolved 3. Normocytic anemia 4. Stage IV melanoma 5. Thrombocytopenia RECS: 1. PT/OT 2. Slow CS taper JEFF ORTIZ MD Mar 07, 2018 14:14
[2018-03-07] MEDS: MELATONIN 5 MG TABLET PO SCH (20:23)
--- NOTE | 2018-03-07 23:14 | CONS ---
Date/Time of Note Date/Time of Note DATE: 03/07/18 TIME: 23:08 Assessment/Plan Assessment/Plan Hospital Course - Pneumonia, either infectious etiology vs. nivolumab pneumonitis. It could be a combination of two - s/p ARDS, improved - Acute hypoxic resp failure, intubated 02/17/2018, extubated 02/26/2018, s/p high flow O2, now on room air - Immunocompromised state: metastatic melanoma, receipt of nivolumab, infliximab and tapering methylprednisolone->prednisone - Metastatic melanoma, on nivolumab until recently - Normocytic anemia - Thrombocytopenia - Thus far: negative repeat blood cultures, procalcitonin <0.1, normal 1,5-tujj-M-glucan level, negative nasopharyngeal swab for respiratory viruses, negative legionella, negative pneumocystis jiroveci, histoplasma antigen <0.5, crypto neg, aspergillus negative, coccidioides negative Recommendations: - ordered CXR in AM - Pt's currently on meropenem (02/25/2018-), will determine its ultimate duration based on her clinical status and CXR result tomorrow. S/p IV vanco (02/25/18 - 03/01/18) - prednisone is now at 15 mg daily. Will d/c PCP prophylaxis, PO Bactrim management d/w Pt's FARRUKH Perez Result Diagram: 03/07/1851803/07/18 05 Results 24hrs Laboratory Tests Test 03/07/18 05:19 03/07/18 07:47 03/07/18 11:54 03/07/18 17:14 White Blood Count 5.1 # Red Blood Count 2.67 L Hemoglobin 8.6 L Hematocrit 26.6 L Mean Corpuscular 99.6 Volume Mean Corpuscular 32.2 Hemoglobin Mean Corpuscular 32.3 Hemoglobin Concent Red Cell 15.8 H Distribution Width Platelet Count 81 L Mean Platelet Volume 11.1 H Immature 1.000 H Granulocytes % Neutrophils % 73.3 Lymphocytes % 10.9 L Monocytes % 11.9 H Eosinophils % 2.9 Basophils % 0.0 Nucleated Red Blood 0.0 Cells % Immature 0.050 H Granulocytes # Neutrophils # 3.8 Lymphocytes # 0.6 L Monocytes # 0.6 Eosinophils # 0.2 Basophils # 0.0 Nucleated Red Blood 0.0 Cells # Sodium Level 137 Potassium Level 3.5 Chloride Level 102 Carbon Dioxide Level 32 H Anion Gap 3 L Blood Urea Nitrogen 23 H Creatinine 0.70 Est Glomerular > 60 Filtrat Rate mL/min Glucose Level 73 Calcium Level 7.6 L Phosphorus Level 3.0 Magnesium Level 2.1 Bedside Glucose 84 71 105 Test 03/07/18 20:21 Bedside Glucose 131 Consultation Date/Type/Reason Admit Date/Time Feb 17, 2018 at 12:57 Initial Consult Date 02/25/18 Type of Consult ID Requesting Provider: SJ BOWMAN MD 24 HR Interval Summary Free Text/Dictation Pt was asleep Exam/Review of Systems Vital Signs Vitals Vital Signs Date Temp Pulse Resp B/P (MAP) Pulse Ox O2 O2 Flow FiO2 Time Delivery Rate 03/07/18 Nasal 3.0 21:00 Cannula 03/07/18 69 20:00 03/07/18 97.8 18 93/53 (66) 92 19:45 03/07/18 21 19:42 Intake and Output 03/06/18 03/06/18 03/07/18 1414:59 22:59 06:59 IntakeIntake Total 770 ml 400 ml BalanceBalance 770 ml 400 ml Exam Constitutional: other (asleep soundly) Psych: other (asleep) Head: normocephalic, atraumatic Eyes: nl conjunctiva, nl lids, nl sclera ENMT: nl external ears & nose Neck: other (not swollen) Respiratory: clear to auscultation, normal air movement Cardiovascular: regular rate and rhythm, nl pulses Gastrointestinal: No distended Genitourinary - Female: other (no Cuevas) Musculoskeletal: No swelling Extremities: No edema Neurological: other (asleep) Skin: No rash or lesions Medications Medications Current Medications IV Flush (NS 3 ml) 3 ml PER PROTOCOL IV ; Start 02/17/18 at 13:30 Ondansetron HCl (Zofran Inj) 4 mg Q6H PRN IV NAUSEA AND/OR VOMITING; Start 02/17/18 at 13:30 Acetaminophen (Tylenol Tab) 650 mg Q6H PRN PO PAIN LEVEL 1-3 OR FEVER Last administered on 02/21/18at 12:50; Admin Dose 650 MG; Start 02/17/18 at 13:30 Acetaminophen/ Hydrocodone Bitart ([place] (5/325)) 1 tab Q6H PRN PO MODERATE PAIN LEVEL 4-6 Last administered on 02/27/18at 15:18; Admin Dose 1 TAB; Start 02/17/18 at 13:30 Docusate Sodium (Colace) 100 mg Q12H PRN PO CONSTIPATION Last administered on 02/27/18at 15:44; Admin Dose 100 MG; Start 02/17/18 at 13:30 IV Flush (NS 10 ml) 10 ml PRN PRN IV IV PROTOCOL; Start 02/18/18 at 13:30 Enoxaparin Sodium (Lovenox) 40 mg DAILY SC Last administered on 03/07/18at 09:15; Admin Dose 40 MG; Start 02/23/18 at 09:00 Morphine Sulfate (morphine) 6 mg Q4H PRN GTB SEVERE PAIN LEVEL 7-10 Last administered on 03/07/18at 02:37; Admin Dose 6 MG; Start 02/23/18 at 12:00 Insulin Glargine (Lantus) 22 units DAILY@0800 SC Last administered on 03/07/18at 07:57; Admin Dose 22 UNITS; Start 02/24/18 at 12:00 Diagnostic Test (Pha) (Accu-Chek) 1 ea 02 XX Last administered on 03/04/18at 02:00; Admin Dose 1 EA; Start 02/25/18 at 02:00 Miscellaneous Information 1 ea NOTE XX ; Start 02/24/18 at 11:30 Glucose (Glutose) 15 gm Q15M PRN PO DECREASED GLUCOSE; Start 02/24/18 at 11:30 Glucose (Glutose) 22.5 gm Q15M PRN PO DECREASED GLUCOSE; Start 02/24/18 at 11:30 Dextrose (D50w Syringe) 25 ml Q15M PRN IV DECREASED GLUCOSE; Start 02/24/18 at 11:30 Dextrose (D50w Syringe) 50 ml Q15M PRN IV DECREASED GLUCOSE; Start 02/24/18 at 11:30 Glucagon (Glucagen) 1 mg Q15M PRN IM DECREASED GLUCOSE; Start 02/24/18 at 11:30 Glucose (Glutose) 15 gm Q15M PRN BUCCAL DECREASED GLUCOSE; Start 02/24/18 at 11:30 Meropenem/Sodium Chloride 50 ml @ 100 mls/hr Q8 IVPB Last administered on 03/07/18at 20:24; Admin Dose 100 MLS/HR; Start 02/25/18 at 17:00 Trimethoprim/ Sulfamethoxazole (Bactrim (Ds)) 1 tab MoWeFr NGT Last administered on 03/06/18at 16:45; Admin Dose 1 TAB; Start 02/25/18 at 17:00 Albuterol/ Ipratropium (Duoneb) 3 ml Q6H RESP THERAPY HHN Last administered on 03/07/18 19:42; Admin Dose 3 ML; Start 02/28/18 at 08:00 Docusate Sodium (Colace) 100 mg BID PO Last administered on 03/06/18 21:09; Admin Dose 100 MG; Start 02/28/18 at 09:00 Melatonin (Melatonin) 5 mg HS PO Last administered on 03/07/18 20:23; Admin Dose 5 MG; Start 03/04/18 at 21:30 Furosemide (Lasix) 40 mg BID DIURETICS IV Last administered on 03/07/18 17:19; Admin Dose 40 MG; Start 03/06/18 at 18:00 Prednisone (Prednisone) 15 mg DAILY PO Last administered on 03/07/18at 09:11; Admin Dose 15 MG; Start 03/07/18 at 09:00 Insulin Aspart (Novolog Insulin Pen) (Adult SC Insulin - Moder... WITH MEALS BEDTIME SC ; Start 03/06/18 at 21:00 Magnesium Oxide (Mag-Ox 400) 400 mg BID PO Last administered on 03/07/18at 20: 23; Admin Dose 400 MG; Start 03/07/18 at 11:30 Baclofen (Lioresal) 10 mg BID PO Last administered on 03/07/18at 20:23; Admin Dose 10 MG; Start 03/07/18 at 11:30 VANESSA GILLIS M.D. Mar 07, 2018 23:14
[2018-03-08] VITALS (11 sets, daily range): BP systolic 91–104; BP diastolic 54–57; PULSE 55–81; RESP 18
[2018-03-08] MEDS: ACCU-CHEK XX SCH (02:00)
[2018-03-08] MEDS: ALBUTEROL/IPRATROPIUM (NEB) 3 ML AMP HHN SCH ×4 (02:00→19:52)
[2018-03-08] MEDS: FUROSEMIDE 40 MG INJ IV SCH ×2 (05:32→17:09)
[2018-03-08] MEDS: MEROPENEM 1 GM/50ML(PMX) 50 ML IVPB SCH ×3 (05:32→21:47)
[2018-03-08] MEDS: Insulin NOVOLOG SS MODERATE Algorithm (SS with meals and bedtime) SC SCH ×4 (07:27→20:14)
[2018-03-08] MEDS: INSULIN GLARGINE [LANTus] (100 UNITS/ML) SYG SC SCH (07:38)
[2018-03-08] MEDS: HYDROCODONE/APAP (5/325) TAB PO PRN (08:01)
[2018-03-08] MEDS: MAGNESIUM OXIDE 400 MG TAB PO SCH ×2 (09:21→20:14)
[2018-03-08] MEDS: BACLOFEN 10 MG TAB PO SCH ×2 (09:21→20:14)
[2018-03-08] MEDS: DOCUSATE SODIUM 100 MG CAP PO SCH ×2 (09:21→20:17)
[2018-03-08] MEDS: predniSONE 5 MG TAB PO SCH (09:21)
[2018-03-08] MEDS: ENOXAPARIN 40 MG/0.4 ML SYG SC SCH (09:26)
--- NOTE | 2018-03-08 13:53 | CONS ---
Date/Time of Note Date/Time of Note DATE: 03/08/18 TIME: 13:50 Consult Date/Type/Reason Admit Date/Time Feb 17, 2018 at 12:57 Initial Consult Date 02/18/18 Type of Consultation: Pulm/CCM Requesting Provider: SJ BOWMAN MD Subjective No events. Appears weak. CXR reviewed--looks much improved. Objective Vital Signs Date Temp Pulse Resp B/P (MAP) Pulse Ox O2 O2 Flow FiO2 Time Delivery Rate 03/08/18 61 12:00 03/08/18 98.2 18 104/54 90 11:48 (71) 03/08/18 21 08:27 03/08/18 Nasal 3.0 07:47 Cannula Intake and Output 03/07/18 03/07/18 03/08/18 1515:00 23:00 07:00 IntakeIntake Total 970 ml 220 ml BalanceBalance 970 ml 220 ml Exam HEENT: Neck supple; no JVD; no LAD CVS: RRR, S1 and S2 CHEST: Clear ABD: Soft, NT, + BS EXT: No c/c/e Results/Medications Result Diagram: 03/07/1851803/07/18518 Results 24 hrs Laboratory Tests Test 03/07/18 17:14 03/07/18 20:21 03/08/18 07:26 03/08/18 12:00 Bedside Glucose 105 131 76 53 L Test 03/08/18 12:20 Bedside Glucose 68 L Medications Current Medications IV Flush (NS 3 ml) 3 ml PER PROTOCOL IV ; Start 02/17/18 at 13:30 Ondansetron HCl (Zofran Inj) 4 mg Q6H PRN IV NAUSEA AND/OR VOMITING; Start 02/17/18 at 13:30 Acetaminophen (Tylenol Tab) 650 mg Q6H PRN PO PAIN LEVEL 1-3 OR FEVER Last administered on 02/21/18at 12:50; Admin Dose 650 MG; Start 02/17/18 at 13:30 Acetaminophen/ Hydrocodone Bitart ([place] (5/325)) 1 tab Q6H PRN PO MODERATE PAIN LEVEL 4-6 Last administered on 03/08/18at 08:01; Admin Dose 1 TAB; Start 02/17/18 at 13:30 Docusate Sodium (Colace) 100 mg Q12H PRN PO CONSTIPATION Last administered on 02/27/18at 15:44; Admin Dose 100 MG; Start 02/17/18 at 13:30 IV Flush (NS 10 ml) 10 ml PRN PRN IV IV PROTOCOL; Start 02/18/18 at 13:30 Enoxaparin Sodium (Lovenox) 40 mg DAILY SC Last administered on 03/08/18at 09:26; Admin Dose 40 MG; Start 02/23/18 at 09:00 Morphine Sulfate (morphine) 6 mg Q4H PRN GTB SEVERE PAIN LEVEL 7-10 Last adm inistered on 03/07/18at 02:37; Admin Dose 6 MG; Start 02/23/18 at 12:00 Insulin Glargine (Lantus) 22 units DAILY@0800 SC Last administered on 03/08/18at 07:38; Admin Dose 22 UNITS; Start 02/24/18 at 12:00 Diagnostic Test (Pha) (Accu-Chek) 1 ea 02 XX Last administered on 03/04/18at 02:00; Admin Dose 1 EA; Start 02/25/18 at 02:00 Miscellaneous Information 1 ea NOTE XX ; Start 02/24/18 at 11:30 Glucose (Glutose) 15 gm Q15M PRN PO DECREASED GLUCOSE; Start 02/24/18 at 11:30 Glucose (Glutose) 22.5 gm Q15M PRN PO DECREASED GLUCOSE; Start 02/24/18 at 11:30 Dextrose (D50w Syringe) 25 ml Q15M PRN IV DECREASED GLUCOSE; Start 02/24/18 at 11:30 Dextrose (D50w Syringe) 50 ml Q15M PRN IV DECREASED GLUCOSE; Start 02/24/18 at 11:30 Glucagon (Glucagen) 1 mg Q15M PRN IM DECREASED GLUCOSE; Start 02/24/18 at 11:30 Glucose (Glutose) 15 gm Q15M PRN BUCCAL DECREASED GLUCOSE; Start 02/24/18 at 11:30 Meropenem/Sodium Chloride 50 ml @ 100 mls/hr Q8 IVPB Last administered on 03/08/18at 05:32; Admin Dose 100 MLS/HR; Start 02/25/18 at 17:00 Albuterol/ Ipratropium (Duoneb) 3 ml Q6H RESP THERAPY HHN Last administered on 03/08/18at 08:27; Admin Dose 3 ML; Start 02/28/18 at 08:00 Docusate Sodium (Colace) 100 mg BID PO Last administered on 03/08/18 09:21; Admin Dose 100 MG; Start 02/28/18 at 09:00 Melatonin (Melatonin) 5 mg HS PO Last administered on 03/07/18 20:23; Admin Dose 5 MG; Start 03/04/18 at 21:30 Furosemide (Lasix) 40 mg BID DIURETICS IV Last administered on 03/08/18 05:32; Admin Dose 40 MG; Start 03/06/18 at 18:00 Prednisone (Prednisone) 15 mg DAILY PO Last administered on 03/08/18 09:21; Admin Dose 15 MG; Start 03/07/18 at 09:00 Insulin Aspart (Novolog Insulin Pen) (Adult SC Insulin - Moder... WITH MEALS BEDTIME SC ; Start 03/06/18 at 21:00 Magnesium Oxide (Mag-Ox 400) 400 mg BID PO Last administered on 03/08/18 09:21; Admin Dose 400 MG; Start 03/07/18 at 11:30 Baclofen (Lioresal) 10 mg BID PO Last administered on 03/08/18 09:21; Admin Dose 10 MG; Start 03/07/18 at 11:30 Assessment/Plan Additional Assessment/Plan IMP: 1. s/p Severe Hypoxemic Hypoxemic Resp Failure/ARDS--2/2 to PDL-1 (nivolumab) induced pneumonitis. 2. Acute kidney injury--resolved 3. Normocytic anemia 4. Stage IV melanoma 5. Thrombocytopenia RECS: 1. PT/OT 2. Slow CS taper--> continue prednisone 15 mg for now JEFF ORTIZ MD Mar 08, 2018 13:53
--- NOTE | 2018-03-08 14:00 | CONS ---
Date/Time of Note Date/Time of Note DATE: 03/08/18 TIME: 14:00 Assessment/Plan Assessment/Plan Assessment/Plan 62 yo female with #Metastatic Melanoma - last Nivolumab was 2 weeks ago -pt currently on a clinical trial at [facility] using Nivolumab and a study drug -given this grade 4 toxicity she likely will not be able to proceed with more Nivolumab - On RA - o2 sat 94 % #ARDS - likely 2/2 Nivolumab and questionable underlying pneumonia -- 02/21/2018-sp Remicade 300 mg - 02/27/2018- extubated ; stable 62 yo female with #ARDS - likely 2/2 Nivolumab and questionable underlying pneumonia -- 02/21/2018-sp Remicade 300 mg - 02/27/2018- extubated ; stable - On O2 3L via NC- O2 Sat 94% -Plan; Cont Prednisone 15 mg po daily. Will do steroid tapering slowly -CT Chest reveals evidence of bibasilar infiltrates but no evidence of PE -appreciate ID recs and workup for underlying opportunistic infection # Anemia- Hgb 8.6 03/21 chemo - cont to monitor # Thrombocytopenia- Platelet 81 - no bleeding reported # BLE edema ; pain-ACUTE - will do Venous doppler r/o DVT A total of 30 minutes of face to face time was spent speaking with the patient, of which greater than 50% was spent in counseling and coordination of care and the detailed question and answer session. Result Diagram: 03/07/1851803/07/18518 Results 24hrs Laboratory Tests Test 03/07/18 17:14 03/07/18 20:21 03/08/18 07:26 03/08/18 12:00 Bedside Glucose 105 131 76 53 L Test 03/08/18 12:20 Bedside Glucose 68 L Consultation Date/Type/Reason Admit Date/Time Feb 17, 2018 at 12:57 Initial Consult Date 02/18/18 Type of Consult ONCOLOGY Requesting Provider: SJ BOWMAN MD 24 HR Interval Summary Free Text/Dictation - feels better; no new events reported last night. - Tolerates being on room air. Constitutional: improved Detailed Summary Eyes: no complaints ENT: no complaints Respiratory: no complaints Cardiovascular: no complaints Gastrointestinal: no complaints Genitourinary: no complaints Musculoskeletal: no complaints Skin: no complaints Neurologic: no complaints Exam/Review of Systems Vital Signs Vitals Vital Signs Date Temp Pulse Resp B/P (MAP) Pulse Ox O2 O2 Flow FiO2 Time Delivery Rate 03/08/18 61 12:00 03/08/18 98.2 18 104/54 90 11:48 (71) 03/08/18 21 08:27 03/08/18 Nasal 3.0 07:47 Cannula Intake and Output 03/07/18 03/07/18 03/08/18 1515:00 23:00 07:00 IntakeIntake Total 970 ml 220 ml BalanceBalance 970 ml 220 ml Exam Constitutional: alert, well developed Psych: nl mood/affect Eyes: nl conjunctiva, EOMI, nl lids ENMT: nl external ears & nose Neck: non-tender Respiratory: diminished breath sounds Cardiovascular: nl pulses, other (s1s2) Gastrointestinal: soft, non-tender Musculoskeletal: nl extremities to inspection Extremities: normal pulses Neurological: nl mental status, nl speech Skin: nl turgor Lymph: nontender Medications Medications Current Medications IV Flush (NS 3 ml) 3 ml PER PROTOCOL IV ; Start 02/17/18 at 13:30 Ondansetron HCl (Zofran Inj) 4 mg Q6H PRN IV NAUSEA AND/OR VOMITING; Start 02/17/18 at 13:30 Acetaminophen (Tylenol Tab) 650 mg Q6H PRN PO PAIN LEVEL 1-3 OR FEVER Last administered on 02/21/18at 12:50; Admin Dose 650 MG; Start 02/17/18 at 13:30 Acetaminophen/ Hydrocodone Bitart ([place] (5/325)) 1 tab Q6H PRN PO MODERATE PAIN LEVEL 4-6 Last administered on 03/08/18at 08:01; Admin Dose 1 TAB; Start 02/17/18 at 13:30 Docusate Sodium (Colace) 100 mg Q12H PRN PO CONSTIPATION Last administered on 02/27/18at 15:44; Admin Dose 100 MG; Start 02/17/18 at 13:30 IV Flush (NS 10 ml) 10 ml PRN PRN IV IV PROTOCOL; Start 02/18/18 at 13:30 Enoxaparin Sodium (Lovenox) 40 mg DAILY SC Last administered on 03/08/18at 09:26; Admin Dose 40 MG; Start 02/23/18 at 09:00 Morphine Sulfate (morphine) 6 mg Q4H PRN GTB SEVERE PAIN LEVEL 7-10 Last administered on 03/07/18at 02:37; Admin Dose 6 MG; Start 02/23/18 at 12:00 Insulin Glargine (Lantus) 22 units DAILY@0800 SC Last administered on 03/08/18at 07:38; Admin Dose 22 UNITS; Start 02/24/18 at 12:00 Diagnostic Test (Pha) (Accu-Chek) 1 ea 02 XX Last administered on 03/04/18at 02:00; Admin Dose 1 EA; Start 02/25/18 at 02:00 Miscellaneous Information 1 ea NOTE XX ; Start 02/24/18 at 11:30 Glucose (Glutose) 15 gm Q15M PRN PO DECREASED GLUCOSE; Start 02/24/18 at 11:30 Glucose (Glutose) 22.5 gm Q15M PRN PO DECREASED GLUCOSE; Start 02/24/18 at 11:30 Dextrose (D50w Syringe) 25 ml Q15M PRN IV DECREASED GLUCOSE; Start 02/24/18 at 11:30 Dextrose (D50w Syringe) 50 ml Q15M PRN IV DECREASED GLUCOSE; Start 02/24/18 at 11:30 Glucagon (Glucagen) 1 mg Q15M PRN IM DECREASED GLUCOSE; Start 02/24/18 at 11:30 Glucose (Glutose) 15 gm Q15M PRN BUCCAL DECREASED GLUCOSE; Start 02/24/18 at 11:30 Meropenem/Sodium Chloride 50 ml @ 100 mls/hr Q8 IVPB Last administered on 03/08/18at 05:32; Admin Dose 100 MLS/HR; Start 02/25/18 at 17:00 Albuterol/ Ipratropium (Duoneb) 3 ml Q6H RESP THERAPY HHN Last administered on 03/08/18at 08:27; Admin Dose 3 ML; Start 02/28/18 at 08:00 Docusate Sodium (Colace) 100 mg BID PO Last administered on 03/08/18at 09:21; Admin Dose 100 MG; Start 02/28/18 at 09:00 Melatonin (Melatonin) 5 mg HS PO Last administered on 03/07/18at 20:23; Admin Dose 5 MG; Start 03/04/18 at 21:30 Furosemide (Lasix) 40 mg BID DIURETICS IV Last administered on 03/08/18at 05:32; Admin Dose 40 MG; Start 03/06/18 at 18:00 Prednisone (Prednisone) 15 mg DAILY PO Last administered on 03/08/18 09:21; Admin Dose 15 MG; Start 03/07/18 at 09:00 Insulin Aspart (Novolog Insulin Pen) (Adult SC Insulin - Moder... WITH MEALS BEDTIME SC ; Start 03/06/18 at 21:00 Magnesium Oxide (Mag-Ox 400) 400 mg BID PO Last administered on 03/08/18at 09:21; Admin Dose 400 MG; Start 03/07/18 at 11:30 Baclofen (Lioresal) 10 mg BID PO Last administered on 03/08/18 09:21; Admin Dose 10 MG; Start 03/07/18 at 11:30 GEMA HEREDIA Mar 08, 2018 2:00 pm
--- NOTE | 2018-03-08 17:26 | PN ---
Date/Time of Note Date/Time of Note DATE: 03/08/18 TIME: 17:21 Assessment/Plan VTE Prophylaxis Risk score (from Ns)>0 risk: 7 SCD applied (from Ns): Yes Pharmacological prophylaxis: LMWH Lines/Catheters Urinary Cath still in place: No Assessment/Plan Hospital Course 62 yo female with stage IV melanoma with ARDS leading to acute respiratory failure 1. Acute respiratory failure/ARDS-resolved - Now off supplemental oxygen -Continue prednisone taper -Continue antibiotics for possible pneumonia, ID following 2. Metastatic melanoma - Further care as outpatient. In clinical trial in [place]. Should not receive nivolumab again given this may have been the etiology of ARDS 3. Bicytopenia with anemia and thrombocytopenia secondary to melanoma therapy- stable -Hematology following 4. Lower extremity swelling secondary to lymphedema-resolved with increased dose of Lasix -Lymphedema did respond to Lasix but will now discontinue and monitor off diuretics -Restart Lasix if lymphedema returns 5. Debility secondary to prolonged ICU stay and steroids -Patient was reporting both pain and weakness in legs, pain has resolved with baclofen, weakness does persist -Continue baclofen and magnesium -Continue PT -watershed program manager to arrange for rehab placed -Lymphedema has resolved as above 6. Hyperglycemia secondary to high-dose steroids -Sugars have been stabilizing and is low today as steroid dose has been decreasing -Decrease insulin dose today, anticipate discontinuation of insulin altogether in the next several days -A1c is 5.3 and hence patient is not a diabetic Prophylaxis: Lovenox Discharge plan: Patient now off supplemental oxygen, special education case manager to arrange for rehab placement as patient is still not ambulatory Result Diagram: 03/07/1851803/07/18518 Results 24hrs Laboratory Tests Test 03/07/18 20:21 03/08/18 07:26 03/08/18 12:00 03/08/18 12:20 Bedside Glucose 131 76 53 L 68 L Subjective 24 Hr Interval Summary Musculoskeletal: other (Lower extremity weakness) Exam/Review of Systems Vital Signs Vitals Vital Signs Date Temp Pulse Resp B/P (MAP) Pulse Ox O2 O2 Flow FiO2 Time Delivery Rate 03/08/18 69 16:07 03/08/18 97.6 18 91/57 (68) 98 15:37 03/08/18 21 14:20 03/08/18 Nasal 3.0 07:47 Cannula Intake and Output 03/07/18 03/07/18 03/08/18 1515:00 23:00 07:00 IntakeIntake Total 970 ml 220 ml BalanceBalance 970 ml 220 ml Exam Constitutional: alert, oriented Respiratory: clear to auscultation Cardiovascular: regular rate and rhythm Gastrointestinal: soft; No distended Musculoskeletal: nl extremities to inspection Medications Medications Current Medications IV Flush (NS 3 ml) 3 ml PER PROTOCOL IV ; Start 02/17/18 at 13:30 Ondansetron HCl (Zofran Inj) 4 mg Q6H PRN IV NAUSEA AND/OR VOMITING; Start 02/17/18 at 13:30 Acetaminophen (Tylenol Tab) 650 mg Q6H PRN PO PAIN LEVEL 1-3 OR FEVER Last administered on 02/21/18at 12:50; Admin Dose 650 MG; Start 02/17/18 at 13:30 Acetaminophen/ Hydrocodone Bitart ([place] (5/325)) 1 tab Q6H PRN PO MODERATE PAIN LEVEL 4-6 Last administered on 03/08/18at 08:01; Admin Dose 1 TAB; Start 02/17/18 at 13:30 Docusate Sodium (Colace) 100 mg Q12H PRN PO CONSTIPATION Last administered on 02/27/18at 15:44; Admin Dose 100 MG; Start 02/17/18 at 13:30 IV Flush (NS 10 ml) 10 ml PRN PRN IV IV PROTOCOL; Start 02/18/18 at 13:30 Enoxaparin Sodium (Lovenox) 40 mg DAILY SC Last administered on 03/08/18at 09:26; Admin Dose 40 MG; Start 02/23/18 at 09:00 Morphine Sulfate (morphine) 6 mg Q4H PRN GTB SEVERE PAIN LEVEL 7-10 Last administered on 03/07/18at 02:37; Admin Dose 6 MG; Start 02/23/18 at 12:00 Insulin Glargine (Lantus) 22 units DAILY@0800 SC Last administered on 03/08/18at 07:38; Admin Dose 22 UNITS; Start 02/24/18 at 12:00 Diagnostic Test (Pha) (Accu-Chek) 1 ea 02 XX Last administered on 03/04/18at 02:00; Admin Dose 1 EA; Start 02/25/18 at 02:00 Miscellaneous Information 1 ea NOTE XX ; Start 02/24/18 at 11:30 Glucose (Glutose) 15 gm Q15M PRN PO DECREASED GLUCOSE; Start 02/24/18 at 11:30 Glucose (Glutose) 22.5 gm Q15M PRN PO DECREASED GLUCOSE; Start 02/24/18 at 11:30 Dextrose (D50w Syringe) 25 ml Q15M PRN IV DECREASED GLUCOSE; Start 02/24/18 at 11:30 Dextrose (D50w Syringe) 50 ml Q15M PRN IV DECREASED GLUCOSE; Start 02/24/18 at 11:30 Glucagon (Glucagen) 1 mg Q15M PRN IM DECREASED GLUCOSE; Start 02/24/18 at 11:30 Glucose (Glutose) 15 gm Q15M PRN BUCCAL DECREASED GLUCOSE; Start 02/24/18 at 11:30 Meropenem/Sodium Chloride 50 ml @ 100 mls/hr Q8 IVPB Last administered on 03/08/18at 14:24; Admin Dose 100 MLS/HR; Start 02/25/18 at 17:00 Albuterol/ Ipratropium (Duoneb) 3 ml Q6H RESP THERAPY HHN Last administered on 03/08/18at 14:25; Admin Dose 3 ML; Start 02/28/18 at 08:00 Docusate Sodium (Colace) 100 mg BID PO Last administered on 03/08/18at 09:21; Admin Dose 100 MG; Start 02/28/18 at 09:00 Melatonin (Melatonin) 5 mg HS PO Last administered on 03/07/18at 20:23; Admin Dose 5 MG; Start 03/04/18 at 21:30 Furosemide (Lasix) 40 mg BID DIURETICS IV Last administered on 03/08/18at 17:09; Admin Dose 40 MG; Start 03/06/18 at 18:00 Prednisone (Prednisone) 15 mg DAILY PO Last administered on 03/08/18at 09:21; Admin Dose 15 MG; Start 03/07/18 at 09:00 Insulin Aspart (Novolog Insulin Pen) (Adult SC Insulin - Moder... WITH MEALS BEDTIME SC ; Start 03/06/18 at 21:00 Magnesium Oxide (Mag-Ox 400) 400 mg BID PO Last administered on 03/08/18at 09:21; Admin Dose 400 MG; Start 03/07/18 at 11:30 Baclofen (Lioresal) 10 mg BID PO Last administered on 03/08/18at 09:21; Admin Dose 10 MG; Start 03/07/18 at 11:30 JULY TRAMMELL Mar 08, 2018 17:26
[2018-03-08] MEDS: MELATONIN 5 MG TABLET PO SCH (20:14)
--- NOTE | 2018-03-08 22:29 | CONS ---
Date/Time of Note Date/Time of Note DATE: 03/08/18 TIME: 22:24 Assessment/Plan Assessment/Plan Hospital Course - s/p pneumonia, either infectious etiology vs. nivolumab pneumonitis. It could be a combination of two, resolving - s/p ARDS, improved - s/p acute hypoxic resp failure, intubated 02/17/2018, extubated 02/26/2018, s/p high flow O2, now on room air - Immunocompromised state: metastatic melanoma, receipt of nivolumab, infliximab and tapering methylprednisolone->prednisone - Metastatic melanoma, on nivolumab until recently - Normocytic anemia - Thrombocytopenia - Thus far: negative repeat blood cultures, procalcitonin <0.1, normal 1,6-looj-V-glucan level, negative nasopharyngeal swab for respiratory viruses, negative legionella, negative pneumocystis jiroveci, histoplasma antigen <0.5, crypto neg, aspergillus negative, coccidioides negative recommendations: - reviewed CXR this morning; infiltrate appears improved. will d/c meropenem (02/25/2018-03/08/2018). Pt completed IV vancomycin too (02/25/2018 - 03/01/2018) - then monitor Pt off systemic antibiotics - Note: PO Bactrim as pneumocystis prophylaxis ended on 03/07/2018 as prednisone is now only at 15 mg daily management d/w Pt Result Diagram: 03/07/1851803/07/18 05 Results 24hrs Laboratory Tests Test 03/08/18 07:26 03/08/18 12:00 03/08/18 12:20 03/08/18 17:14 Bedside Glucose 76 53 L 68 L 97 Test 03/08/18 20:10 Bedside Glucose 136 Consultation Date/Type/Reason Admit Date/Time Feb 17, 2018 at 12:57 Initial Consult Date 02/25/18 Type of Consult ID Requesting Provider: SJ BOWMAN MD 24 HR Interval Summary Constitutional: improved Detailed Summary Eyes: no complaints ENT: no complaints Respiratory: no complaints Cardiovascular: no complaints Gastrointestinal: no complaints Genitourinary: no complaints Musculoskeletal: other (walked in the hallway with PT) Skin: no complaints Neurologic: other (still feels too weak to ambulate) Exam/Review of Systems Vital Signs Vitals Vital Signs Date Temp Pulse Resp B/P (MAP) Pulse Ox O2 O2 Flow FiO2 Time Delivery Rate 03/08/18 81 20:00 03/08/18 21 19:51 03/08/18 20 93 19:51 03/08/18 98.4 102/56 Room Air 19:40 (71) 03/08/18 3.0 07:47 Intake and Output 03/07/18 03/07/18 03/08/18 1515:00 23:00 07:00 IntakeIntake Total 970 ml 220 ml BalanceBalance 970 ml 220 ml Exam Constitutional: frail Psych: no complaints, nl mood/affect Head: normocephalic, atraumatic Eyes: nl conjunctiva, nl lids, nl sclera ENMT: nl external ears & nose, nl nasal mucosa & septum, mucosa pink and moist Neck: other (not swollen) Respiratory: clear to auscultation, normal air movement Cardiovascular: regular rate and rhythm, nl pulses Gastrointestinal: soft, non-tender Musculoskeletal: No swelling Extremities: No edema Neurological: [employer]-X[employer] intact, nl mental status, nl speech Skin: nl turgor Medications Medications Current Medications IV Flush (NS 3 ml) 3 ml PER PROTOCOL IV ; Start 02/17/18 at 13:30 Ondansetron HCl (Zofran Inj) 4 mg Q6H PRN IV NAUSEA AND/OR VOMITING; Start 02/17/18 at 13:30 Acetaminophen (Tylenol Tab) 650 mg Q6H PRN PO PAIN LEVEL 1-3 OR FEVER Last administered on 02/21/18at 12:50; Admin Dose 650 MG; Start 02/17/18 at 13:30 Acetaminophen/ Hydrocodone Bitart ([place] (5/325)) 1 tab Q6H PRN PO MODERATE PAIN LEVEL 4-6 Last administered on 03/08/18at 08:01; Admin Dose 1 TAB; Start 02/17/18 at 13:30 Docusate Sodium (Colace) 100 mg Q12H PRN PO CONSTIPATION Last administered on 02/27/18at 15:44; Admin Dose 100 MG; Start 02/17/18 at 13:30 IV Flush (NS 10 ml) 10 ml PRN PRN IV IV PROTOCOL; Start 02/18/18 at 13:30 Enoxaparin Sodium (Lovenox) 40 mg DAILY SC Last administered on 03/08/18at 09:26; Admin Dose 40 MG; Start 02/23/18 at 09:00 Morphine Sulfate (morphine) 6 mg Q4H PRN GTB SEVERE PAIN LEVEL 7-10 Last administered on 03/07/18at 02:37; Admin Dose 6 MG; Start 02/23/18 at 12:00 Diagnostic Test (Pha) (Accu-Chek) 1 ea 02 XX Last administered on 03/04/18at 02:00; Admin Dose 1 EA; Start 02/25/18 at 02:00 Miscellaneous Information 1 ea NOTE XX ; Start 02/24/18 at 11:30 Glucose (Glutose) 15 gm Q15M PRN PO DECREASED GLUCOSE; Start 02/24/18 at 11:30 Glucose (Glutose) 22.5 gm Q15M PRN PO DECREASED GLUCOSE; Start 02/24/18 at 11:30 Dextrose (D50w Syringe) 25 ml Q15M PRN IV DECREASED GLUCOSE; Start 02/24/18 at 11:30 Dextrose (D50w Syringe) 50 ml Q15M PRN IV DECREASED GLUCOSE; Start 02/24/18 at 11:30 Glucagon (Glucagen) 1 mg Q15M PRN IM DECREASED GLUCOSE; Start 02/24/18 at 11:30 Glucose (Glutose) 15 gm Q15M PRN BUCCAL DECREASED GLUCOSE; Start 02/24/18 at 11:30 Meropenem/Sodium Chloride 50 ml @ 100 mls/hr Q8 IVPB Last administered on 03/08/18at 21:47; Admin Dose 100 MLS/HR; Start 02/25/18 at 17:00 Albuterol/ Ipratropium (Duoneb) 3 ml Q6H RESP THERAPY HHN Last administered on 03/08/18at 19:52; Admin Dose 3 ML; Start 02/28/18 at 08:00 Docusate Sodium (Colace) 100 mg BID PO Last administered on 03/08/18at 09:21; Admin Dose 100 MG; Start 02/28/18 at 09:00 Melatonin (Melatonin) 5 mg HS PO Last administered on 03/08/18at 20:14; Admin Dose 5 MG; Start 03/04/18 at 21:30 Prednisone (Prednisone) 15 mg DAILY PO Last administered on 03/08/18at 09:21; Admin Dose 15 MG; Start 03/07/18 at 09:00 Insulin Aspart (Novolog Insulin Pen) (Adult SC Insulin - Moder... WITH MEALS BEDTIME SC ; Start 03/06/18 at 21:00 Magnesium Oxide (Mag-Ox 400) 400 mg BID PO Last administered on 03/08/18at 20:14; Admin Dose 400 MG; Start 03/07/18 at 11:30 Baclofen (Lioresal) 10 mg BID PO Last administered on 03/08/18at 20:14; Admin Dose 10 MG; Start 03/07/18 at 11:30 Insulin Glargine (Lantus) 7 units DAILY@0800 SC ; Start 03/09/18 at 08:00 VANESSA GILLIS M.D. Mar 08, 2018 22:29
[2018-03-09] VITALS (7 sets, daily range): BP systolic 90–120; BP diastolic 52–61; PULSE 58–77; RESP 16–18
[2018-03-09] MEDS: ALBUTEROL/IPRATROPIUM (NEB) 3 ML AMP HHN SCH ×3 (01:48→13:48)
[2018-03-09] MEDS: ACCU-CHEK XX SCH (02:00)
[2018-03-09] MEDS: HYDROCODONE/APAP (5/325) TAB PO PRN (04:23)
[2018-03-09] MEDS: Insulin NOVOLOG SS MODERATE Algorithm (SS with meals and bedtime) SC SCH ×2 (07:51→12:00)
[2018-03-09] MEDS ORDERED: INSULIN GLARGINE [LANTus] (100 UNITS/ML) SYG SC SCH (08:00)
[2018-03-09] MEDS: MAGNESIUM OXIDE 400 MG TAB PO SCH (08:30)
[2018-03-09] MEDS: BACLOFEN 10 MG TAB PO SCH (08:30)
[2018-03-09] MEDS: predniSONE 5 MG TAB PO SCH (08:31)
[2018-03-09] MEDS ORDERED: POTASSIUM CHLORIDE (SR) 20 MEQ TAB PO STA (08:38)
--- NOTE | 2018-03-09 08:39 | PN ---
Date/Time of Note Date/Time of Note DATE: 03/09/18 TIME: 08:38 Assessment/Plan VTE Prophylaxis Risk score (from Nsg)>0 risk: 8 SCD applied (from Nsg): Yes Pharmacological prophylaxis: LMWH Lines/Catheters IV Catheter Type (from Nrsg): PICC Line Central line still needed: Yes Urinary Cath still in place: No Assessment/Plan Assessment/Plan 1. 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 Bicytopenia with anemia and thrombocytopenia secondary to melanoma therapy- stable - Hematology on board and appreciate recommendations - plt noted to be slowly decreasing but no active bleeding appreciated at this t sesar therefore no need for transfusions 3. Acute respiratory failure/ARDS-resolved - Saturating well on room air without any respiratory issues - Continue on slow prednisone taper - Pulm consultation appreciated and cleared for discharge planning 4. Metastatic melanoma - Lives in [place] and discussed need to follow up as outpatient - Per Oncology, should not receive nivolumab again given this may have been the etiology of ARDS 5. Lower extremity swelling secondary to lymphedema- improved - Improved after given Lasix. Will continue to monitor and give as needed if edema returns 6. Debility secondary to prolonged ICU stay and steroids- stable - pain has improved but still with generalized weakness - Continue baclofen - Continue PT 7. Disposition - will discuss discharge planning with family. Patient not ambulating well and recommending Rehab vs SNF placement prior to returning home. Patient would like to discuss with son since she resides in [place] and just visiting [place] right now Result Diagram: 03/09/18 0452 03/09/18 0452 Results 24hrs Laboratory Tests Test 03/08/18 12:00 03/08/18 12:20 03/08/18 17:14 03/08/18 20:10 Bedside Glucose 53 L 68 L 97 136 Test 03/09/18 04:52 03/09/18 07:49 White Blood Count 5.0 Red Blood Count 2.66 L Hemoglobin 8.6 L Hematocrit 26.8 L Mean Corpuscular 100.8 Volume Mean Corpuscular 32.3 Hemoglobin Mean Corpuscular 32.1 Hemoglobin Concent Red Cell 16.4 H Distribution Width Platelet Count 68 L Mean Platelet Volume 11.2 H Immature 0.800 H Granulocytes % Neutrophils % 72.9 Lymphocytes % 13.5 L Monocytes % 11.0 Eosinophils % 1.8 Basophils % 0.0 Nucleated Red Blood 0.0 Cells % Immature 0.040 H Granulocytes # Neutrophils # 3.7 Lymphocytes # 0.7 L Monocytes # 0.6 Eosinophils # 0.1 Basophils # 0.0 Nucleated Red Blood 0.0 Cells # Sodium Level 138 Potassium Level 3.4 L Chloride Level 103 Carbon Dioxide Level 32 H Anion Gap 3 L Blood Urea Nitrogen 26 H Creatinine 0.58 Est Glomerular > 60 Filtrat Rate mL/min Glucose Level 81 Calcium Level 7.8 L Magnesium Level 2.2 Bedside Glucose 79 Subjective 24 Hr Interval Summary Free Text/Dictation Patient still with chronic leg pain but denies any respiratory issues. Still not ambulating well and discussed Rehab placement. Would like to have plan of care discussed with son later today when present. No acute overnight events. Exam/Review of Systems Vital Signs Vitals Vital Signs Date Temp Pulse Resp B/P (MAP) Pulse Ox O2 O2 Flow FiO2 Time Delivery Rate 03/09/18 61 08:00 03/09/18 97.9 16 105/54 94 Room Air 07:24 (71) 03/09/18 21 01:48 03/08/18 3.0 07:47 Intake and Output 03/08/18 03/08/18 03/09/18 1515:00 23:00 07:00 IntakeIntake Total 1220 ml 220 ml BalanceBalance 1220 ml 220 ml Exam General: Patient is laying in bed, no acute distress. awake and answering quest ions appropriately Neck: Supple, nontender, midline Respiratory: Clear to auscultation bilaterally. no wheezing or rhonchi Cardiovascular: regular rate and rhythm, no obvious murmurs Gastrointestinal: soft, non-tender to palpation, nondistended, bowel sounds heard. Neurological: Moves all extremities spontaneously Skin: No new skin lesions Medications Medications Current Medications IV Flush (NS 3 ml) 3 ml PER PROTOCOL IV ; Start 02/17/18 at 13:30 Ondansetron HCl (Zofran Inj) 4 mg Q6H PRN IV NAUSEA AND/OR VOMITING; Start 02/17/18 at 13:30 Acetaminophen (Tylenol Tab) 650 mg Q6H PRN PO PAIN LEVEL 1-3 OR FEVER Last administered on 02/21/18at 12:50; Admin Dose 650 MG; Start 02/17/18 at 13:30 Acetaminophen/ Hydrocodone Bitart ([place] (5/325)) 1 tab Q6H PRN PO MODERATE PAIN LEVEL 4-6 Last administered on 03/09/18at 04:23; Admin Dose 1 TAB; Start 02/17/18 at 13:30 Docusate Sodium (Colace) 100 mg Q12H PRN PO CONSTIPATION Last administered on 02/27/18at 15:44; Admin Dose 100 MG; Start 02/17/18 at 13:30 IV Flush (NS 10 ml) 10 ml PRN PRN IV IV PROTOCOL; Start 02/18/18 at 13:30 Enoxaparin Sodium (Lovenox) 40 mg DAILY SC Last administered on 03/08/18at 09:26; Admin Dose 40 MG; Start 02/23/18 at 09:00 Morphine Sulfate (morphine) 6 mg Q4H PRN GTB SEVERE PAIN LEVEL 7-10 Last administered on 03/07/18at 02:37; Admin Dose 6 MG; Start 02/23/18 at 12:00 Diagnostic Test (Pha) (Accu-Chek) 1 ea 02 XX Last administered on 03/04/18at 02:00; Admin Dose 1 EA; Start 02/25/18 at 02:00 Miscellaneous Information 1 ea NOTE XX ; Start 02/24/18 at 11:30 Glucose (Glutose) 15 gm Q15M PRN PO DECREASED GLUCOSE; Start 02/24/18 at 11:30 Glucose (Glutose) 22.5 gm Q15M PRN PO DECREASED GLUCOSE; Start 02/24/18 at 11:30 Dextrose (D50w Syringe) 25 ml Q15M PRN IV DECREASED GLUCOSE; Start 02/24/18 at 11:30 Dextrose (D50w Syringe) 50 ml Q15M PRN IV DECREASED GLUCOSE; Start 02/24/18 at 11:30 Glucagon (Glucagen) 1 mg Q15M PRN IM DECREASED GLUCOSE; Start 02/24/18 at 11:30 Glucose (Glutose) 15 gm Q15M PRN BUCCAL DECREASED GLUCOSE; Start 02/24/18 at 11:30 Albuterol/ Ipratropium (Duoneb) 3 ml Q6H RESP THERAPY HHN Last administered on 03/09/18at 01:48; Admin Dose 3 ML; Start 02/28/18 at 08:00 Docusate Sodium (Colace) 100 mg BID PO Last administered on 03/08/18at 09:21; Admin Dose 100 MG; Start 02/28/18 at 09:00 Melatonin (Melatonin) 5 mg HS PO Last administered on 03/08/18at 20:14; Admin Dose 5 MG; Start 03/04/18 at 21:30 Prednisone (Prednisone) 15 mg DAILY PO Last administered on 03/08/18at 09:21; Admin Dose 15 MG; Start 03/07/18 at 09:00 Insulin Aspart (Novolog Insulin Pen) (Adult SC Insulin - Moder... WITH MEALS BEDTIME SC ; Start 03/06/18 at 21:00 Magnesium Oxide (Mag-Ox 400) 400 mg BID PO Last administered on 03/08/18at 20:14; Admin Dose 400 MG; Start 03/07/18 at 11:30 Baclofen (Lioresal) 10 mg BID PO Last administered on 03/08/18at 20:14; Admin Dose 10 MG; Start 03/07/18 at 11:30 Insulin Glargine (Lantus) 7 units DAILY@0800 SC ; Start 03/09/18 at 08:00 LIS BAIRD MD Mar 09, 2018 08:38
[2018-03-09] MEDS: ENOXAPARIN 40 MG/0.4 ML SYG SC SCH (08:49)
[2018-03-09] MEDS: DOCUSATE SODIUM 100 MG CAP PO SCH (08:52)
--- NOTE | 2018-03-09 09:46 | CONS ---
[facility] HCIS Consult Follow-up Patient Name: Sujatha Almonte Unit Number: [id number] Date of : 1955 Patient Status: Admitted Inpatient Attending Doctor: Kaylin Lagos MD Edit: VANESSA MEDINA M.D. on 03/11/18 @ 02:57 Carol: I discussed the management with OPEN CLAIMS REPRESENTATIVE Alexiasis and agree. Date/Time of Note Date/Time of Note DATE: 03/09/18 TIME: 09:35 Assessment/Plan Assessment/Plan Hospital Course Assessment/Impression - S/p pneumonia, either infectious etiology vs. nivolumab pneumonitis. It could be a combination of two, resolving - S/p ARDS, improved - S/p acute hypoxic resp failure, intubated 02/17/2018, extubated 02/26/2018, s/p high flow O2, now on room air - Immunocompromised state: metastatic melanoma, receipt of nivolumab, infliximab and tapering methylprednisolone->prednisone - Metastatic melanoma, on nivolumab until recently - Normocytic anemia - Thrombocytopenia - Thus far: negative repeat blood cultures, procalcitonin <0.1, normal 1,2-llji-P-glucan level, negative nasopharyngeal swab for respiratory viruses, negative legionella, negative pneumocystis jiroveci, histoplasma antigen <0.5, crypto neg, aspergillus negative, coccidioides negative Recommendations: - Monitor Pt off systemic antibiotics - pt's s/p Meropenem (02/25/2018-03/08/2018) and IV Vanco (02/25/2018-03/01/2018) - Note: PO Bactrim as pneumocystis prophylaxis ended on 03/07/2018 as prednisone is now only at 15 mg daily Management d/w patient and with Dr. Medina. Thank you . Result Diagram: 03/09/18 0452 03/09/18 0452 Results 24hrs Laboratory Tests Test 03/08/18 12:00 03/08/18 12:20 03/08/18 17:14 03/08/18 20:10 Bedside Glucose 53 L 68 L 97 136 Test 03/09/18 04:52 03/09/18 07:49 White Blood Count 5.0 Red Blood Count 2.66 L Hemoglobin 8.6 L Hematocrit 26.8 L Mean Corpuscular 100.8 Volume Mean Corpuscular 32.3 Hemoglobin Mean Corpuscular 32.1 Hemoglobin Concent Red Cell 16.4 H Distribution Width Platelet Count 68 L Mean Platelet Volume 11.2 H Immature 0.800 H Granulocytes % Neutrophils % 72.9 Lymphocytes % 13.5 L Monocytes % 11.0 Eosinophils % 1.8 Basophils % 0.0 Nucleated Red Blood 0.0 Cells % Immature 0.040 H Granulocytes # Neutrophils # 3.7 Lymphocytes # 0.7 L Monocytes # 0.6 Eosinophils # 0.1 Basophils # 0.0 Nucleated Red Blood 0.0 Cells # Sodium Level 138 Potassium Level 3.4 L Chloride Level 103 Carbon Dioxide Level 32 H Anion Gap 3 L Blood Urea Nitrogen 26 H Creatinine 0.58 Est Glomerular > 60 Filtrat Rate mL/min Glucose Level 81 Calcium Level 7.8 L Magnesium Level 2.2 Bedside Glucose 79 Consultation Date/Type/Reason Admit Date/Time Feb 17, 2018 at 12:57 Initial Consult Date 02/25/18 Type of Consult ID Requesting Provider: SJ BOWMAN MD 24 HR Interval Summary Free Text/Dictation Patient c/o pain in her LLE 5/10 without pain medication and 0/10 with pain medication. Denies all other ROS. No acute issues reported by nsg and patient has remained afebrile. Exam/Review of Systems Vital Signs Vitals Vital Signs Date Temp Pulse Resp B/P (MAP) Pulse Ox O2 O2 Flow FiO2 Time Delivery Rate 03/09/18 72 18 96 21 08:43 03/09/18 97.9 105/54 Room Air 07:24 (71) 03/08/18 3.0 07:47 Intake and Output 03/08/18 03/08/18 03/09/18 1515:00 23:00 07:00 IntakeIntake Total 1220 ml 220 ml BalanceBalance 1220 ml 220 ml Allergies Coded Allergies Penicillins (Verified Allergy, Unknown, 02/17/18) Exam Constitutional: alert, oriented, well developed, obese, other (in no acute distress ) Psych: no complaints, nl mood/affect Head: normocephalic, atraumatic Eyes: nl conjunctiva, nl lids, nl sclera ENMT: nl external ears & nose, nl nasal mucosa & septum, mucosa pink and moist Neck: supple, non-tender Respiratory: clear to auscultation, normal air movement, other (on RA) Cardiovascular: regular rate and rhythm, nl pulses Gastrointestinal: soft, non-tender, bowel sounds (normoactive ) Genitourinary - Female: other (RSL HD catheter site is cdi.) Musculoskeletal: nl extremities to inspection Extremities: normal pulses, other (LUE PICC site is cdi. ) Neurological: nl mental status, nl speech (Italian speaking.) Skin: nl turgor; No rash or lesions Medications Medications Current Medications IV Flush (NS 3 ml) 3 ml PER PROTOCOL IV ; Start 02/17/18 at 13:30 Ondansetron HCl (Zofran Inj) 4 mg Q6H PRN IV NAUSEA AND/OR VOMITING; Start 02/17/18 at 13:30 Acetaminophen (Tylenol Tab) 650 mg Q6H PRN PO PAIN LEVEL 1-3 OR FEVER Last administered on 02/21/18at 12:50; Admin Dose 650 MG; Start 02/17/18 at 13:30 Acetaminophen/ Hydrocodone Bitart ([place] (5/325)) 1 tab Q6H PRN PO MODERATE PAIN LEVEL 4-6 Last administered on 03/09/18at 04:23; Admin Dose 1 TAB; Start 02/17/18 at 13:30 Docusate Sodium (Colace) 100 mg Q12H PRN PO CONSTIPATION Last administered on 02/27/18at 15:44; Admin Dose 100 MG; Start 02/17/18 at 13:30 IV Flush (NS 10 ml) 10 ml PRN PRN IV IV PROTOCOL; Start 02/18/18 at 13:30 Enoxaparin Sodium (Lovenox) 40 mg DAILY SC Last administered on 03/09/18at 08:49; Admin Dose 40 MG; Start 02/23/18 at 09:00 Morphine Sulfate (morphine) 6 mg Q4H PRN GTB SEVERE PAIN LEVEL 7-10 Last administered on 03/07/18at 02:37; Admin Dose 6 MG; Start 02/23/18 at 12:00 Diagnostic Test (Pha) (Accu-Chek) 1 ea 02 XX Last administered on 03/04/18at 02:00; Admin Dose 1 EA; Start 02/25/18 at 02:00 Miscellaneous Information 1 ea NOTE XX ; Start 02/24/18 at 11:30 Glucose (Glutose) 15 gm Q15M PRN PO DECREASED GLUCOSE; Start 02/24/18 at 11:30 Glucose (Glutose) 22.5 gm Q15M PRN PO DECREASED GLUCOSE; Start 02/24/18 at 11:30 Dextrose (D50w Syringe) 25 ml Q15M PRN IV DECREASED GLUCOSE; Start 02/24/18 at 11:30 Dextrose (D50w Syringe) 50 ml Q15M PRN IV DECREASED GLUCOSE; Start 02/24/18 at 11:30 Glucagon (Glucagen) 1 mg Q15M PRN IM DECREASED GLUCOSE; Start 02/24/18 at 11:30 Glucose (Glutose) 15 gm Q15M PRN BUCCAL DECREASED GLUCOSE; Start 02/24/18 at 11:30 Albuterol/ Ipratropium (Duoneb) 3 ml Q6H RESP THERAPY HHN Last administered on 03/09/18at 08:42; Admin Dose 3 ML; Start 02/28/18 at 08:00 Docusate Sodium (Colace) 100 mg BID PO Last administered on 03/08/18at 09:21; Admin Dose 100 MG; Start 02/28/18 at 09:00 Melatonin (Melatonin) 5 mg HS PO Last administered on 03/08/18at 20:14; Admin Dose 5 MG; Start 03/04/18 at 21:30 Prednisone (Prednisone) 15 mg DAILY PO Last administered on 03/09/18at 08:31; Admin Dose 15 MG; Start 03/07/18 at 09:00 Insulin Aspart (Novolog Insulin Pen) (Adult SC Insulin - Moder... WITH MEALS BEDTIME SC ; Start 03/06/18 at 21:00 Magnesium Oxide (Mag-Ox 400) 400 mg BID PO Last administered on 03/09/18at 08:30; Admin Dose 400 MG; Start 03/07/18 at 11:30 Baclofen (Lioresal) 10 mg BID PO Last administered on 03/09/18at 08:30; Admin Dose 10 MG; Start 03/07/18 at 11:30 Insulin Glargine (Lantus) 7 units DAILY@0800 SC Last administered on 03/09/18at 08:49; Admin Dose 7 UNITS; Start 03/09/18 at 08:00 Imaging Imaging CXR 03/08/18 IMPRESSION: Removal of endotracheal tube and nasogastric tube. Left arm PICC line in place. Slightly improved bibasilar infiltrates.. BLE Venous Doppler 03/08/18 IMPRESSION: No sonographic evidence for deep venous thrombosis. LENKA FREGOSO NP Mar 09, 2018 09:45
--- NOTE | 2018-03-09 10:04 | CONS ---
Date/Time of Note Date/Time of Note DATE: 03/09/18 TIME: 10:01 Assessment/Plan Assessment/Plan Assessment/Plan Assessment recommendations; 1. Patient admitted with severe bilateral pneumonia with ARDS due to acute lung injury from immunotherapy versus severe bilateral pneumonia with marked interval clinical and radiological improvement. Patient doing very well now on room air. Patient off antibiotics. 2. Stage IV melanoma. 3. Anemia and thrombocytopenia. 4. Deconditioning due to critical illness neuropathy/myopathy. Continue current supportive care. Maintain prednisone at current dosing. Consider discharge. Will sign off. Result Diagram: 03/09/18 0452 03/09/18 0452 Results 24hrs Laboratory Tests Test 03/08/18 12:00 03/08/18 12:20 03/08/18 17:14 03/08/18 20:10 Bedside Glucose 53 L 68 L 97 136 Test 03/09/18 04:52 03/09/18 07:49 White Blood Count 5.0 Red Blood Count 2.66 L Hemoglobin 8.6 L Hematocrit 26.8 L Mean Corpuscular 100.8 Volume Mean Corpuscular 32.3 Hemoglobin Mean Corpuscular 32.1 Hemoglobin Concent Red Cell 16.4 H Distribution Width Platelet Count 68 L Mean Platelet Volume 11.2 H Immature 0.800 H Granulocytes % Neutrophils % 72.9 Lymphocytes % 13.5 L Monocytes % 11.0 Eosinophils % 1.8 Basophils % 0.0 Nucleated Red Blood 0.0 Cells % Immature 0.040 H Granulocytes # Neutrophils # 3.7 Lymphocytes # 0.7 L Monocytes # 0.6 Eosinophils # 0.1 Basophils # 0.0 Nucleated Red Blood 0.0 Cells # Sodium Level 138 Potassium Level 3.4 L Chloride Level 103 Carbon Dioxide Level 32 H Anion Gap 3 L Blood Urea Nitrogen 26 H Creatinine 0.58 Est Glomerular > 60 Filtrat Rate mL/min Glucose Level 81 Calcium Level 7.8 L Magnesium Level 2.2 Bedside Glucose 79 Consultation Date/Type/Reason Admit Date/Time Feb 17, 2018 at 12:57 Initial Consult Date 02/18/18 Type of Consult Pulmonary/critical care Requesting Provider: SJ BOWMAN MD 24 HR Interval Summary Free Text/Dictation Patient's condition is stable. Denies any shortness of breath, coughing, wheezing,. General exam; elderly female, awake alert, currently in no distress. Exam/Review of Systems Vital Signs Vitals Vital Signs Date Temp Pulse Resp B/P (MAP) Pulse Ox O2 O2 Flow FiO2 Time Delivery Rate 03/09/18 72 18 96 21 08:43 03/09/18 97.9 105/54 Room Air 07:24 (71) 03/08/18 3.0 07:47 Intake and Output 03/08/18 03/08/18 03/09/18 1515:00 23:00 07:00 IntakeIntake Total 1220 ml 220 ml BalanceBalance 1220 ml 220 ml Exam H EENT exam; supple neck, no JVD. No lymphadenopathy. Midline trachea. No thyromegaly. Patient has good dentition. No neck masses. Chest exam; clear to auscultation. S1-S2 audible, no murmurs. Regular rhythm. Abdomen exam; soft, nontender. No organomegaly. Bowel sounds audible. Extremity exam; no edema or clubbing. Pulses 1+. EDUCATIONAL SIGN LANGUAGE INTERPRETER exam; no focal deficit. Medications Medications Current Medications IV Flush (NS 3 ml) 3 ml PER PROTOCOL IV ; Start 02/17/18 at 13:30 Ondansetron HCl (Zofran Inj) 4 mg Q6H PRN IV NAUSEA AND/OR VOMITING; Start 02/17/18 at 13:30 Acetaminophen (Tylenol Tab) 650 mg Q6H PRN PO PAIN LEVEL 1-3 OR FEVER Last administered on 02/21/18at 12:50; Admin Dose 650 MG; Start 02/17/18 at 13:30 Acetaminophen/ Hydrocodone Bitart ([place] (5/325)) 1 tab Q6H PRN PO MODERATE PAIN LEVEL 4-6 Last administered on 03/09/18at 04:23; Admin Dose 1 TAB; Start 02/17/18 at 13:30 Docusate Sodium (Colace) 100 mg Q12H PRN PO CONSTIPATION Last administered on 02/27/18at 15:44; Admin Dose 100 MG; Start 02/17/18 at 13:30 IV Flush (NS 10 ml) 10 ml PRN PRN IV IV PROTOCOL; Start 02/18/18 at 13:30 Enoxaparin Sodium (Lovenox) 40 mg DAILY SC Last administered on 03/09/18at 08:49; Admin Dose 40 MG; Start 02/23/18 at 09:00 Morphine Sulfate (morphine) 6 mg Q4H PRN GTB SEVERE PAIN LEVEL 7-10 Last administered on 03/07/18at 02:37; Admin Dose 6 MG; Start 02/23/18 at 12:00 Diagnostic Test (Pha) (Accu-Chek) 1 ea 02 XX Last administered on 03/04/18at 02:00; Admin Dose 1 EA; Start 02/25/18 at 02:00 Miscellaneous Information 1 ea NOTE XX ; Start 02/24/18 at 11:30 Glucose (Glutose) 15 gm Q15M PRN PO DECREASED GLUCOSE; Start 02/24/18 at 11:30 Glucose (Glutose) 22.5 gm Q15M PRN PO DECREASED GLUCOSE; Start 02/24/18 at 11:30 Dextrose (D50w Syringe) 25 ml Q15M PRN IV DECREASED GLUCOSE; Start 02/24/18 at 11:30 Dextrose (D50w Syringe) 50 ml Q15M PRN IV DECREASED GLUCOSE; Start 02/24/18 at 1 1:30 Glucagon (Glucagen) 1 mg Q15M PRN IM DECREASED GLUCOSE; Start 02/24/18 at 11:30 Glucose (Glutose) 15 gm Q15M PRN BUCCAL DECREASED GLUCOSE; Start 02/24/18 at 11:30 Albuterol/ Ipratropium (Duoneb) 3 ml Q6H RESP THERAPY HHN Last administered on 03/09/18at 08:42; Admin Dose 3 ML; Start 02/28/18 at 08:00 Docusate Sodium (Colace) 100 mg BID PO Last administered on 03/08/18at 09:21; Admin Dose 100 MG; Start 02/28/18 at 09:00 Melatonin (Melatonin) 5 mg HS PO Last administered on 03/08/18at 20:14; Admin Dose 5 MG; Start 03/04/18 at 21:30 Prednisone (Prednisone) 15 mg DAILY PO Last administered on 03/09/18at 08:31; Admin Dose 15 MG; Start 03/07/18 at 09:00 Insulin Aspart (Novolog Insulin Pen) (Adult SC Insulin - Moder... WITH MEALS BEDTIME SC ; Start 03/06/18 at 21:00 Magnesium Oxide (Mag-Ox 400) 400 mg BID PO Last administered on 03/09/18at 08:30; Admin Dose 400 MG; Start 03/07/18 at 11:30 Baclofen (Lioresal) 10 mg BID PO Last administered on 03/09/18at 08:30; Admin Dose 10 MG; Start 03/07/18 at 11:30 Insulin Glargine (Lantus) 7 units DAILY@0800 SC Last administered on 03/09/18at 08:49; Admin Dose 7 UNITS; Start 03/09/18 at 08:00 JUDY LYON Mar 09, 2018 10:04
--- NOTE | 2018-03-09 11:17 | CONS ---
Date/Time of Note Date/Time of Note DATE: 03/07/18 TIME: 16:45 Assessment/Plan Assessment/Plan Assessment/Plan A 62 yo female with #Metastatic Melanoma - last Nivolumab was 2 weeks ago -pt currently on a clinical trial at [facility] using Nivolumab and a study drug -given this grade 4 toxicity she likely will not be able to proceed with more Nivolumab - On RA - o2 sat 94 % #ARDS - likely 2/2 Nivolumab and questionable underlying pneumonia -- 02/21/2018-sp Remicade 300 mg - 02/27/2018- extubated ; stable - On O2 3L via NC- O2 Sat 94% -Plan; Cont Prednisone 15 mg po daily. Will do steroid tapering slowly -CT Chest reveals evidence of bibasilar infiltrates but no evidence of PE -appreciate ID recs and workup for underlying opportunistic infection # Anemia- Hgb 8.6 2/ chemo - cont to monitor # Thrombocytopenia- Platelet 71 - no bleeding reported # BLE edema ; pain-ACUTE - resolved - Venous doppler neg for DVT A total of 30 minutes of face to face time was spent speaking with the patient, of which greater than 50% was spent in counseling and coordination of care and the detailed question and answer session. Result Diagram: 03/07/1851803/07/18518 Results 24hrs Laboratory Tests Test 03/06/18 21:07 03/07/18 05:19 03/07/18 07:47 03/07/18 11:54 Bedside Glucose 114 84 71 White Blood Count 5.1 # Red Blood Count 2.67 L Hemoglobin 8.6 L Hematocrit 26.6 L Mean Corpuscular 99.6 Volume Mean Corpuscular 32.2 Hemoglobin Mean Corpuscular 32.3 Hemoglobin Concent Red Cell 15.8 H Distribution Width Platelet Count 81 L Mean Platelet Volume 11.1 H Immature 1.000 H Granulocytes % Neutrophils % 73.3 Lymphocytes % 10.9 L Monocytes % 11.9 H Eosinophils % 2.9 Basophils % 0.0 Nucleated Red Blood 0.0 Cells % Immature 0.050 H Granulocytes # Neutrophils # 3.8 Lymphocytes # 0.6 L Monocytes # 0.6 Eosinophils # 0.2 Basophils # 0.0 Nucleated Red Blood 0.0 Cells # Sodium Level 137 Potassium Level 3.5 Chloride Level 102 Carbon Dioxide Level 32 H Anion Gap 3 L Blood Urea Nitrogen 23 H Creatinine 0.70 Est Glomerular > 60 Filtrat Rate mL/min Glucose Level 73 Calcium Level 7.6 L Phosphorus Level 3.0 Magnesium Level 2.1 Consultation Date/Type/Reason Admit Date/Time Feb 17, 2018 at 12:57 Initial Consult Date 02/18/18 Type of Consult ONCOLOGY Requesting Provider: SJ BOWMAN MD 24 HR Interval Summary Free Text/Dictation - Feels better on RA No new events reported last night Exam/Review of Systems Vital Signs Vitals Vital Signs Date Temp Pulse Resp B/P (MAP) Pulse Ox O2 O2 Flow FiO2 Time Delivery Rate 03/07/18 98.9 71 18 119/58 96 15:23 (78) 03/07/18 21 09:26 03/07/18 Nasal 3.0 07:30 Cannula Intake and Output 03/06/18 03/06/18 03/07/18 1515:00 23:00 07:00 IntakeIntake Total 770 ml 400 ml BalanceBalance 770 ml 400 ml Exam Constitutional: alert, oriented, well developed Psych: nl mood/affect Head: normocephalic Eyes: nl conjunctiva, EOMI, nl sclera ENMT: nl external ears & nose Respiratory: diminished breath sounds Cardiovascular: nl pulses, other (s1s2) Gastrointestinal: soft, non-tender Musculoskeletal: nl extremities to inspection Extremities: normal pulses Neurological: nl mental status Skin: nl turgor Lymph: nontender Medications Medications Current Medications IV Flush (NS 3 ml) 3 ml PER PROTOCOL IV ; Start 02/17/18 at 13:30 Ondansetron HCl (Zofran Inj) 4 mg Q6H PRN IV NAUSEA AND/OR VOMITING; Start 02/17/18 at 13:30 Acetaminophen (Tylenol Tab) 650 mg Q6H PRN PO PAIN LEVEL 1-3 OR FEVER Last administered on 02/21/18at 12:50; Admin Dose 650 MG; Start 02/17/18 at 13:30 Acetaminophen/ Hydrocodone Bitart ([place] (5/325)) 1 tab Q6H PRN PO MODERATE PAIN LEVEL 4-6 Last administered on 02/27/18at 15:18; Admin Dose 1 TAB; Start 02/17/18 at 13:30 Docusate Sodium (Colace) 100 mg Q12H PRN PO CONSTIPATION Last administered on 02/27/18at 15:44; Admin Dose 100 MG; Start 02/17/18 at 13:30 IV Flush (NS 10 ml) 10 ml PRN PRN IV IV PROTOCOL; Start 02/18/18 at 13:30 Enoxaparin Sodium (Lovenox) 40 mg DAILY SC Last administered on 03/07/18at 09:15; Admin Dose 40 MG; Start 02/23/18 at 09:00 Morphine Sulfate (morphine) 6 mg Q4H PRN GTB SEVERE PAIN LEVEL 7-10 Last administered on 03/07/18at 02:37; Admin Dose 6 MG; Start 02/23/18 at 12:00 Insulin Glargine (Lantus) 22 units DAILY@0800 SC Last administered on 03/07/18at 07:57; Admin Dose 22 UNITS; Start 02/24/18 at 12:00 Diagnostic Test (Pha) (Accu-Chek) 1 ea 02 XX Last administered on 03/04/18at 02: 00; Admin Dose 1 EA; Start 02/25/18 at 02:00 Miscellaneous Information 1 ea NOTE XX ; Start 02/24/18 at 11:30 Glucose (Glutose) 15 gm Q15M PRN PO DECREASED GLUCOSE; Start 02/24/18 at 11:30 Glucose (Glutose) 22.5 gm Q15M PRN PO DECREASED GLUCOSE; Start 02/24/18 at 11:30 Dextrose (D50w Syringe) 25 ml Q15M PRN IV DECREASED GLUCOSE; Start 02/24/18 at 11:30 Dextrose (D50w Syringe) 50 ml Q15M PRN IV DECREASED GLUCOSE; Start 02/24/18 at 11:30 Glucagon (Glucagen) 1 mg Q15M PRN IM DECREASED GLUCOSE; Start 02/24/18 at 11:30 Glucose (Glutose) 15 gm Q15M PRN BUCCAL DECREASED GLUCOSE; Start 02/24/18 at 11:30 Meropenem/Sodium Chloride 50 ml @ 100 mls/hr Q8 IVPB Last administered on 03/07/18at 13:27; Admin Dose 100 MLS/HR; Start 02/25/18 at 17:00 Trimethoprim/ Sulfamethoxazole (Bactrim (Ds)) 1 tab MoWeFr NGT Last administered on 03/06/18at 16:45; Admin Dose 1 TAB; Start 02/25/18 at 17:00 Albuterol/ Ipratropium (Duoneb) 3 ml Q6H RESP THERAPY HHN Last administered on 03/07/18 14:32; Admin Dose 3 ML; Start 02/28/18 at 08:00 Docusate Sodium (Colace) 100 mg BID PO Last administered on 03/06/18 21:09; Admin Dose 100 MG; Start 02/28/18 at 09:00 Melatonin (Melatonin) 5 mg HS PO Last administered on 03/06/18 21:09; Admin Dose 5 MG; Start 03/04/18 at 21:30 Furosemide (Lasix) 40 mg BID DIURETICS IV Last administered on 03/07/18 05:34; Admin Dose 40 MG; Start 03/06/18 at 18:00 Prednisone (Prednisone) 15 mg DAILY PO Last administered on 03/07/18 09:11; Admin Dose 15 MG; Start 03/07/18 at 09:00 Insulin Aspart (Novolog Insulin Pen) (Adult SC Insulin - Moder... WITH MEALS BEDTIME SC ; Start 03/06/18 at 21:00 Magnesium Oxide (Mag-Ox 400) 400 mg BID PO Last administered on 03/07/18at 12:11; Admin Dose 400 MG; Start 03/07/18 at 11:30 Baclofen (Lioresal) 10 mg BID PO Last administered on 03/07/18at 12:11; Admin Dose 10 MG; Start 03/07/18 at 11:30 GEMA HEREDIA Mar 07, 2018 4:55 pm
--- NOTE | 2018-03-09 11:19 | CONS ---
Date/Time of Note Date/Time of Note DATE: 03/09/18 TIME: 11:18 Assessment/Plan Assessment/Plan Assessment/Plan 62 yo female with #Metastatic Melanoma - last Nivolumab was 2 weeks ago -pt currently on a clinical trial at [facility] using Nivolumab and a study drug -given this grade 4 toxicity she likely will not be able to proceed with more Nivolumab - On RA - o2 sat 94 % #ARDS - likely 2/2 Nivolumab and questionable underlying pneumonia -- 02/21/2018-sp Remicade 300 mg - 02/27/2018- extubated ; stable 62 yo female with #ARDS - likely 2/2 Nivolumab and questionable underlying pneumonia -- 02/21/2018-sp Remicade 300 mg - 02/27/2018- extubated ; stable - On O2 3L via NC- O2 Sat 94% -Plan; Cont Prednisone 15 mg po daily. Will do steroid tapering slowly -CT Chest reveals evidence of bibasilar infiltrates but no evidence of PE -appreciate ID recs and workup for underlying opportunistic infection # Anemia- Hgb 8.6 2/2 chemo - cont to monitor A total of 30 minutes of face to face time was spent speaking with the patient, of which greater than 50% was spent in counseling and coordination of care and the detailed question and answer session. Result Diagram: 03/09/18 0452 03/09/18 0452 Results 24hrs Laboratory Tests Test 03/08/18 12:00 03/08/18 12:20 03/08/18 17:14 03/08/18 20:10 Bedside Glucose 53 L 68 L 97 136 Test 03/09/18 04:52 03/09/18 07:49 White Blood Count 5.0 Red Blood Count 2.66 L Hemoglobin 8.6 L Hematocrit 26.8 L Mean Corpuscular 100.8 Volume Mean Corpuscular 32.3 Hemoglobin Mean Corpuscular 32.1 Hemoglobin Concent Red Cell 16.4 H Distribution Width Platelet Count 68 L Mean Platelet Volume 11.2 H Immature 0.800 H Granulocytes % Neutrophils % 72.9 Lymphocytes % 13.5 L Monocytes % 11.0 Eosinophils % 1.8 Basophils % 0.0 Nucleated Red Blood 0.0 Cells % Immature 0.040 H Granulocytes # Neutrophils # 3.7 Lymphocytes # 0.7 L Monocytes # 0.6 Eosinophils # 0.1 Basophils # 0.0 Nucleated Red Blood 0.0 Cells # Sodium Level 138 Potassium Level 3.4 L Chloride Level 103 Carbon Dioxide Level 32 H Anion Gap 3 L Blood Urea Nitrogen 26 H Creatinine 0.58 Est Glomerular > 60 Filtrat Rate mL/min Glucose Level 81 Calcium Level 7.8 L Magnesium Level 2.2 Bedside Glucose 79 Consultation Date/Type/Reason Admit Date/Time Feb 17, 2018 at 12:57 pm Initial Consult Date 02/18/18 Type of Consult ONCOLOGY Requesting Provider: SJ BOWMAN MD 24 HR Interval Summary Free Text/Dictation - feels better -no new issues reported last night Constitutional: improved Detailed Summary Eyes: no complaints ENT: no complaints Respiratory: no complaints Cardiovascular: no complaints Gastrointestinal: no complaints Genitourinary: no complaints Musculoskeletal: no complaints Skin: no complaints Neurologic: no complaints Endocrine: no complaints Lymphatic: no complaints Exam/Review of Systems Vital Signs Vitals Vital Signs Date Temp Pulse Resp B/P (MAP) Pulse Ox O2 O2 Flow FiO2 Time Delivery Rate 03/09/18 72 18 96 21 08:43 03/09/18 Nasal 3.0 08:30 Cannula 03/09/18 97.9 105/54 07:24 (71) Intake and Output 03/08/18 03/08/18 03/09/18 1515:00 23:00 07:00 IntakeIntake Total 1220 ml 220 ml BalanceBalance 1220 ml 220 ml Exam Constitutional: alert, oriented, well developed Psych: no complaints Head: atraumatic Eyes: nl conjunctiva, EOMI, nl lids ENMT: nl external ears & nose Neck: non-tender Respiratory: clear to auscultation Cardiovascular: nl pulses, other (s1s2) Gastrointestinal: soft, non-tender Musculoskeletal: nl extremities to inspection Extremities: normal pulses Neurological: nl mental status Skin: nl turgor Lymph: nontender Medications Medications Current Medications IV Flush (NS 3 ml) 3 ml PER PROTOCOL IV ; Start 02/17/18 at 13:30 Ondansetron HCl (Zofran Inj) 4 mg Q6H PRN IV NAUSEA AND/OR VOMITING; Start 02/17/18 at 13:30 Acetaminophen (Tylenol Tab) 650 mg Q6H PRN PO PAIN LEVEL 1-3 OR FEVER Last administered on 02/21/18at 12:50; Admin Dose 650 MG; Start 02/17/18 at 13:30 Acetaminophen/ Hydrocodone Bitart ([place] (5/325)) 1 tab Q6H PRN PO MODERATE PAIN LEVEL 4-6 Last administered on 03/09/18at 04:23; Admin Dose 1 TAB; Start 02/17/18 at 13:30 Docusate Sodium (Colace) 100 mg Q12H PRN PO CONSTIPATION Last administered on 02/27/18at 15:44; Admin Dose 100 MG; Start 02/17/18 at 13:30 IV Flush (NS 10 ml) 10 ml PRN PRN IV IV PROTOCOL; Start 02/18/18 at 13:30 Enoxaparin Sodium (Lovenox) 40 mg DAILY SC Last administered on 03/09/18at 08:49; Admin Dose 40 MG; Start 02/23/18 at 09:00 Morphine Sulfate (morphine) 6 mg Q4H PRN GTB SEVERE PAIN LEVEL 7-10 Last administered on 03/07/18at 02:37; Admin Dose 6 MG; Start 02/23/18 at 12:00 Diagnostic Test (Pha) (Accu-Chek) 1 ea 02 XX Last administered on 03/04/18at 02:00; Admin Dose 1 EA; Start 02/25/18 at 02:00 Miscellaneous Information 1 ea NOTE XX ; Start 02/24/18 at 11:30 Glucose (Glutose) 15 gm Q15M PRN PO DECREASED GLUCOSE; Start 02/24/18 at 11:30 Glucose (Glutose) 22.5 gm Q15M PRN PO DECREASED GLUCOSE; Start 02/24/18 at 11:30 Dextrose (D50w Syringe) 25 ml Q15M PRN IV DECREASED GLUCOSE; Start 02/24/18 at 11:30 Dextrose (D50w Syringe) 50 ml Q15M PRN IV DECREASED GLUCOSE; Start 02/24/18 at 11:30 Glucagon (Glucagen) 1 mg Q15M PRN IM DECREASED GLUCOSE; Start 02/24/18 at 11:30 Glucose (Glutose) 15 gm Q15M PRN BUCCAL DECREASED GLUCOSE; Start 02/24/18 at 11:30 Albuterol/ Ipratropium (Duoneb) 3 ml Q6H RESP THERAPY HHN Last administered on 03/09/18at 08:42; Admin Dose 3 ML; Start 02/28/18 at 08:00 Docusate Sodium (Colace) 100 mg BID PO Last administered on 03/08/18at 09:21; Admin Dose 100 MG; Start 02/28/18 at 09:00 Melatonin (Melatonin) 5 mg HS PO Last administered on 03/08/18at 20:14; Admin Dose 5 MG; Start 03/04/18 at 21:30 Prednisone (Prednisone) 15 mg DAILY PO Last administered on 03/09/18at 08:31; Admin Dose 15 MG; Start 03/07/18 at 09:00 Insulin Aspart (Novolog Insulin Pen) (Adult SC Insulin - Moder... WITH MEALS BEDTIME SC ; Start 03/06/18 at 21:00 Magnesium Oxide (Mag-Ox 400) 400 mg BID PO Last administered on 03/09/18at 08:30; Admin Dose 400 MG; Start 03/07/18 at 11:30 Baclofen (Lioresal) 10 mg BID PO Last administered on 03/09/18at 08:30; Admin Dose 10 MG; Start 03/07/18 at 11:30 Insulin Glargine (Lantus) 7 units DAILY@0800 SC Last administered on 03/09/18at 08:49; Admin Dose 7 UNITS; Start 03/09/18 at 08:00 GEMA HEREDIA Mar 09, 2018 11:19 am
[2018-03-09] MEDS ORDERED: PRED5TAB PO (14:20)
[2018-03-09] MEDS ORDERED: BACL10TA PO (14:20)
--- NOTE | 2018-03-09 14:25 | PDOCDIS ---
Discharge Instructions DIAGNOSIS Discharge Diagnosis 1. 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 Bicytopenia with anemia and thrombocytopenia secondary to melanoma therapy- stable 3. Acute respiratory failure/ARDS-resolved 4. Metastatic melanoma 5. Lower extremity swelling secondary to lymphedema- improved 6. Debility secondary to prolonged ICU stay and steroids- stable CONDITION [id number] Patient Condition: [id number] Stable HOME CARE INSTRUCTIONS: [id number] Diet Instructions: [id number] Low Fat /Cholesterol [id number] Special Diet: [id number] carb controlled FOLLOW UP/APPOINTMENTS Follow-up Plan 1. Follow up with your primary care physician in 1 week 2. Follow up with your oncologist in 1-2 weeks. It is believed your respiratory issues may have developed as a side effect from the Nivolumab and the Oncologist caring for you during your hospital stay recommend you do not continue on this medication 3. Continue on [id number] daily to help with inflammation in your lungs. Discuss with your primary care/oncologist about tapering 4. Take Baclofen 2-3 times a day to help with muscle spasms in your legs 5. If symptoms return or worsen, please go to your closest emergency department LIS BAIRD MD Mar 09, 2018 14:25
--- NOTE | 2018-03-09 18:15 | DS ---
Date/Time of Note Date/Time of Note DATE: 03/09/18 TIME: 17:58 Discharge Summary Admission/Discharge Info Admit Date/Time Feb 17, 2018 at 12:57 Discharge Date/Time Mar 09, 2018 at 17:00 Discharge Diagnosis 1. 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 Bicytopenia with anemia and thrombocytopenia secondary to melanoma therapy- stable 3. Acute respiratory failure/ARDS-resolved 4. Metastatic melanoma 5. Lower extremity swelling secondary to lymphedema- improved 6. Debility secondary to prolonged ICU stay and steroids- stable Patient Condition: Stable Consults Oncology- Dr. Streeter Pulmonology- Dr. Gandara Infectious disease- Dr. Bill Procedures PROCEDURE: XR Chest. CLINICAL INDICATION: Dyspnea . TECHNIQUE: Single frontal chest x-ray. COMPARISON: CR CHEST 02/26/2018 FINDINGS: There has been removal of the endotracheal tube and nasogastric tube. Left arm PICC line is in place unchanged. . Bilateral lower lung infiltrates atelectasis have slightly improved. There are no significant pleural effusions.. The cardiomediastinal silhouette is unremarkable. The osseous structures are intact. IMPRESSION: Removal of endotracheal tube and nasogastric tube. Left arm PICC line in place. Slightly improved bibasilar infiltrates.. RPTAT: QQ .Sukhdeep Hdez MD, MD Date Time Electronically viewed and signed by .Sukhdeep Hdez MD, MD on 03/08/2018 10:19 PROCEDURE: US Lower extremity Venous. CLINICAL INDICATION: Swelling TECHNIQUE: Multiple sonographic images of the bilateral lower extremity deep venous system were obtained utilizing grayscale, color-flow, compressive sonography and doppler imaging with augmentation. The images were reviewed on a PACS workstation. COMPARISON: None. FINDINGS: There is normal compressibility and flow within the bilateral common femoral, deep femoral, superficial femoral and popliteal veins. The deep veins of the calf were incompletely visualized. IMPRESSION: No sonographic evidence for deep venous thrombosis. .Balta Hines MD, MD Date Time Electronically viewed and signed by .Balta Hines MD, on 03/08/2018 09:16 PROCEDURE: XR Chest. CLINICAL INDICATION: Pneumonia TECHNIQUE: Single AP view of the chest was obtained COMPARISON: 02/26/2018 FINDINGS: The heart and mediastinum are within normal limits. The pulmonary vasculature are unremarkable. The aorta demonstrates atherosclerotic calcifications. Endotracheal tube has been removed. Left PICC line catheter tip again terminates at the SVC. Gastric catheters been removed. Multifocal bilateral lower lung patchy areas of consolidation appear stable. There is no effusion or pneumothorax. Surgical clips are seen overlying the right lateral thorax. Degenerative changes are seen within the thoracic spine and shoulders. There is no acute osseous abnormality. IMPRESSION: Stable appearance of multifocal lower lung opacities. Removal of the endotracheal tube and the gastric tube. RPTAT: AA .Dagoberto Keenan MD, Date Time Electronically viewed and signed by .Dagoberto Keenan MD, MD on 03/03/2018 07:11 PROCEDURE: CT Chest with IV contrast CLINICAL INDICATION: Dyspnea, pneumonia TECHNIQUE: CT of the chest with 100 cc Omnipaque-300 IV contrast. Coronal and sagittal reformatted images. One or more of the following dose reduction techniques were used: automated exposure control, adjustment of the mA and/or kV according to patient size, use of iterative reconstruction technique. DICOM images are available. CTDI 16.3 mGy, DLP 590 mGy-cm. COMPARISON: Chest x-ray, 02/24/2018; CT abdomen, 02/11/2018 FINDINGS: Lungs: Endotracheal tube tip is in the mid trachea. Bilateral lower lobe consolidation and ground-glass opacity are noted, concerning for pneumonia. Mild left pleural effusion. No pneumothorax. No solid pulmonary nodule or mass. Cardiovascular: Normal heart size. No thoracic aortic aneurysm or dissection. Left-sided PICC line tip is in the SVC. Lymph nodes: No lymphadenopathy. Mediastinum: No mediastinal mass. Upper abdomen: Nasogastric tube tip is in the stomach. Status post cholecystectomy. Benign right adrenal adenoma, stable. Musculoskeletal: Sclerotic foci are seen involving T1, T9 and T11 vertebral bodies. Degenerative enthesopathy of the spine. IMPRESSION: 1. Bilateral lower lobe consolidation and ground-glass opacity, concerning for pneumonia. Mild left pleural effusion. 2. Sclerotic lesions are seen involving multiple vertebral bodies, concerning for osseous metastases. 3. Lines and tubes in place, as above. 4. Status post cholecystectomy. RPTAT: AAQQ .David Guevara MD, MD Date Time Electronically viewed and signed by .David Guevara MD, MD on 02/24/2018 16:35 PROCEDURE: XR Chest. CLINICAL INDICATION: Shortness of breath, pneumonia TECHNIQUE: Single frontal radiograph of the chest. COMPARISON: CHEST 02/23/2018 FINDINGS: Endotracheal tube, nasogastric tube, left-sided PICC line in satisfactory position. Similar appearance of bibasilar atelectasis and interstitial edema. Minimal layering bilateral pleural effusions unchanged. No pneumothorax. Cardiomegaly unchanged. Vascular calcifications of the aorta are present compatible with atherosclerosis. IMPRESSION: Similar appearance of bibasilar atelectasis and interstitial edema. Minimal layering bilateral pleural effusions unchanged. RPTAT: AADD .Ulices Langley MD, Date Time Electronically viewed and signed by .Ulices Langley MD, MD on 02/24/2018 09:11 PROCEDURE: XR Chest. CLINICAL INDICATION: Check PICC line position. TECHNIQUE: Single frontal view. February 18, 2018. 1305 hours. COMPARISON: February 18, 2018. 1304 hours. FINDINGS: There is a left arm PICC line with the tip in the upper right atrium. The endotracheal tube and nasogastric tube remain in satisfactory position. There is extensive bilateral pulmonary air space disease consistent with pulmonary edema or bilateral pneumonia with right worse than left. The heart is enlarged. Surgical clips are present in the right. There are small bilateral pleural effusions. There is no pneumothorax. IMPRESSION: 1. Left arm PICC line tip in satisfactory position. 2. No other change from the prior chest radiograph done earlier the same day. RPTAT: QQ .Lucio Kwon MD, Date Time Electronically viewed and signed by .Lucio Kwon MD, on 02/18/2018 13:17 Hx of Present Illness Patient is a 62-year-old female with a history of stage IV melanoma currently on an experimental immune modulating chemotherapy. Patient lives in [place] and is visiting family. Patient was in the ER several days ago with fevers and low back pain and was diagnosed with a UTI and discharged with Keflex. Patient presents today with shortness of breath, chest x-ray showed bilateral opacities and patient was found to be hypoxic and tachypneic and was ultimately intubated in the ER. Patient is unable to provide any history at this time and history is obtained from prior documentation. Hospital Course Patient was admitted to ICU for mechanical ventilation management and Pulmonology was consulted for vent management. CXR was suspicious for ARDS and vent settings were adjusted accordingly. It was believed ARDS was secondary to Nivolumab for treatment of her stage IV Melanoma with underlying pneumonia. Oncology was consulted as well and recommended discontinued immunomodulator medication and start on high dose steroids. She was also started on broad spe ctrum antibiotics but no improvement in overall lung function. ID was consulted for antibiotic recommendations and adjustments were made to patients regime. Patients overall respiratory condition improved and she was extubated and transitioned to high flow. She was eventually weaned of high flow and nasal cannula and steroids were tapered. Discussion was held with son and patient to discontinue the nivolumab and follow up with oncologist as soon as possible. During hospital course she did develop lower extremity swelling and cramping that was relieved with lasix and baclofen. Patients presenting symptoms improved significantly and on day of discharge, patients vitals and physical exam were stable. Patient refused rehab placement as well as FWW prior to discharge. She was discharged home in stable condition. Home Meds Active Scripts Prednisone* (Prednisone*) 5 Mg Tab, 15 MG PO DAILY for 30 Days, #30 TAB 3 Refills Prov:LIS BAIRD MD 03/09/18 Baclofen* (Baclofen*) 10 Mg Tablet, 10 MG PO TID PRN for MUSCLE SPASMS for 30 Days, #90 TAB Prov:LIS BAIRD MD 03/09/18 Naproxen* (Naprosyn*) 500 Mg Tablet, 500 MG PO BID PRN for PAIN AND/OR INFLAMMATION, #30 TAB Prov:LUCIEN HORNER MD 02/11/18 Reported Medications Acetaminophen* (Acetaminophen*) 500 MG Extra Strength Tablet, 1000 MG PO NEEDED PRN for PAIN AND OR ELEVATED TEMP, TAB 02/11/18 Discontinued Reported Medications [Cancer Meds] No Conflict Check, PO DAILY PATIENT TAKE MEDICATIONS FOR CANCER,BUT DON'T KNOW THE NAME AND DOSE. 02/11/18 Hydrocortisone* (Cortef*) 5 Mg Tab, 10 MG PO BID, #120 TAB 02/11/18 Discontinued Scripts Cephalexin* (Keflex*) 500 Mg Capsule, 500 MG PO QID for 5 Days, CAP Prov:LUCIEN HORNER MD 02/11/18 Follow-up Plan 1. Follow up with your primary care physician in 1 week 2. Follow up with your oncologist in 1-2 weeks. It is believed your respiratory issues may have developed as a side effect from the Nivolumab and the Oncologist caring for you during your hospital stay recommend you do not continue on this medication 3. Continue on [id number] daily to help with inflammation in your lungs. Discuss with your primary care/oncologist about tapering 4. Take Baclofen 2-3 times a day to help with muscle spasms in your legs 5. If symptoms return or worsen, please go to your closest emergency department Primary Care Provider Not On Staff Doctor Time spent on discharge: > 30 minutes Pending Labs Laboratory Tests Test 03/08/18 20:10 03/09/18 04:52 03/09/18 07:49 03/09/18 11:39 Bedside 136 79 97 Glucose mg/dL (70-220) mg/dL (70-220) mg/dL (70-220) White Blood 5.0 Count 10^3/ul (4.8-1 0.8) Red Blood 2.66 Count 10^6/ul (4.20- 5.40) Hemoglobin 8.6 g/dl (12.0-16. 0) Hematocrit 26.8 % (37.0-47.0) Mean 100.8 Corpuscular fl (82.0-101.0 Volume ) Mean 32.3 Corpuscular pg (29.0-33.0) Hemoglobin Mean 32.1 Corpuscular g/dl (32.0-37. Hemoglobin Conc 0) ent Red Cell 16.4 Distribution % (11.5-14.5) Width Platelet Count 68 10^3/UL (140-4 15) Mean Platelet 11.2 Volume fl (7.4-10.4) Immature 0.800 Granulocytes % % (0.001-0.429 ) Neutrophils % 72.9 % (39.0-77.0) Lymphocytes % 13.5 % (15.0-51.0) Monocytes % 11.0 % (0.0-11.0) Eosinophils % 1.8 % (0.0-7.0) Basophils % 0.0 % (0.0-2.0) Nucleated Red 0.0 Blood Cells % /100WBC (0.0-0 .0) Immature 0.040 Granulocytes # 10^3/ul (0.0-0 .031) Neutrophils # 3.7 10^3/ul (1.6-7 .5) Lymphocytes # 0.7 10^3/ul (0.8-2 .9) Monocytes # 0.6 10^3/ul (0.3-0 .9) Eosinophils # 0.1 10^3/ul (0.0-0 .5) Basophils # 0.0 10^3/ul (0.0-0 .1) Nucleated Red 0.0 Blood Cells # 10^3/ul (0.0-0 .0) Sodium Level 138 mmol/L (135-14 4) Potassium 3.4 Level mmol/L (3.5-5. 1) Chloride Level 103 mmol/L (97-110 ) Carbon Dioxide 32 Level mmol/L (21-31) Anion Gap 3 (5-13) Blood Urea 26 Nitrogen mg/dl (7-20) Creatinine 0.58 mg/dl (0.44-1. 00) Est Glomerular > 60 Filtrat mL/min (>60) Rate mL/min Glucose Level 81 mg/dl (70-220) Calcium Level 7.8 mg/dl (8.4-10. 2) Magnesium 2.2 Level mg/dl (1.7-2.5 ) LIS BAIRD MD Mar 09, 2018 18:15
== END 2018-03-09 17:00 | disposition home or self-care (01) | DRG 207 ==
LOC: E/R 10:33 → ICU 12:57 → 6WM 03-02 21:17
PROVIDERS: ADMIT Internal Medicine; ATTEND Internal Medicine
PROC: 5A1955Z Respiratory Ventilation, Greater than 96 Consecutive Hours (ICD-10-PCS; principal; 2018-02-17)
PROC: 0BH18EZ Insertion of Endotracheal Airway into Trachea, Via Natural or Artificial Opening Endoscopic (ICD-10-PCS; 2018-02-17)
PROC: 06HY33Z Insertion of Infusion Device into Lower Vein, Percutaneous Approach (ICD-10-PCS; 2018-02-17)
PROC: 02H633Z Insertion of Infusion Device into Right Atrium, Percutaneous Approach (ICD-10-PCS; 2018-02-18)
DX: J80 Acute respiratory distress syndrome (principal); J18.9 Pneumonia, unspecified organism; C79.9 Secondary malignant neoplasm of unspecified site; N17.9 Acute kidney failure, unspecified; R57.9 Shock, unspecified; R53.81 Other malaise; I89.0 Lymphedema, not elsewhere classified; D64.81 Anemia due to antineoplastic chemotherapy; D69.59 Other secondary thrombocytopenia; C43.9 Malignant melanoma of skin, unspecified; T45.1X5A Adverse effect of antineoplastic and immunosuppressive drugs, initial encounter; E87.6 Hypokalemia; G72.9 Myopathy, unspecified; G62.9 Polyneuropathy, unspecified
CPT/HCPCS: 31500; 36415; 36569; 36600; 71045; 71260; 76937; 80048; 80053; 80202; 81001; 82803; 82962; 83036; 83605; 83735; 84100; 84145; 84484; 85025; 85610; 85730; 86403; 86606; 86635; 87015; 87040; 87081; 87086; 87275; 87276; 87279; 87280; 87281; 87385; 87400; 87449; 87502; 89220; 92526; 92610; 93005; 93306; 93970; 94002; 94003; 94640; 94644; 94664; 94668; 94770; 96365; 96367; 96375; 97110; 97116; 97163; 97530; C9113; J1170; J1650; J1745; J1815; J1940; J1956; J2060; J2185; J2250; J2274; J2930; J3010; J3370; J3465; J7030; J7040; J7050; J7060; J7512; P9047; Q9967